=== PATIENT | male | born 1970 | race Caucasian/White ===

== ENCOUNTER → 2016-09-02 | Outpatient (REF) | payer MEDICARE, MEDICAID ==
[~2016-09-02] MED LIST: /CLON1TA; /DIALVITA; ACET65TA; AMLO10TA; AUGMENTIN PO; CATA0.1T; CEFT500T; EPOGEN; LISI20TA5; LOPR100T; LOPR50TA; LOPR50TA OR; METOPROLOL TARTRATE; NORV5TAB; No Historical Meds; PHOSLO; PROCRIT3000 MG/ML; RENA800T; RENVELA; RENVELA PO; SENSIPAR; SEVELAMER CARBONATE; Sensipar; VICO5TAB OR; XANA0.25 OR; lisinopril; metoprolol tartrate; norvasc; zemplar
[2016-09-02 19:48] LABS: BASO % 0.6 % (0.0-1.0); EOS # 0.2 K/mm3 (0.0-0.50); EOS % 2.6 % (0.0-3.0); LARGE UNSTAINED CELL # 0.2 K/mm3 (0.0-0.4); LARGE UNSTAINED CELL % 1.8 % (0.0-4.0); LYMPH # 0.8 K/mm3 (1.5-4.5); LYMPH % 9.1 % (24.0-44.0); MEAN CORPUSCULAR HEMOGLOBIN 30.1 pg (27.0-33.0); MEAN CORPUSCULAR HGB CONC 33.5 g/dl (32.0-36.5); MONO # 0.6 K/mm3 (0.0-0.8); MONO % 7.1 % (0.0-5.0); NEUTROPHILS # 6.8 K/mm3 (1.8-7.7); NEUTROPHILS % 78.8 % (36.0-66.0); PLATELET COUNT, AUTOMATED 178 k/mm3 (150-450); RED CELL DISTRIBUTION WIDTH 14.9 % (11.5-14.5); WHITE BLOOD COUNT 8.6 K/mm3 (4.0-10.0)
== END | disposition home or self-care (01) ==
LOC: M SFHCADAM 11:39
PROVIDERS: ATTEND Family Medicine
DX: R05 Cough (principal)

== ENCOUNTER → 2016-09-07 | Outpatient (CLI) | payer MEDICARE, MEDICAID ==
--- NOTE | 2016-09-07 09:49 | REP ---
CT study of the chest without IV contrast: History: Cough and wheezing. Comparison chest x-ray is from August 18, 2016. No comparison chest CT. The patient gives a history of renal failure on dialysis. CT findings: Digital preliminary video clerk radiograph is unremarkable. The lung portillo show no evidence of infiltrate, mass lesion or significant pulmonary nodule. The tracheobronchial tree is unremarkable. There is a calcified granuloma in the left lower lobe lateral pleural angle. There is vascular calcification in the aortic arch and great vessel origins as well as in the left and right coronary artery distribution. Marked atrophy of both [place] kidneys is seen in the upper abdomen. The gallbladder is surgically absent with clips in the gallbladder fossa. No adrenal lesion is seen. The visualized upper abdominal structures are unremarkable otherwise. No pleural or pericardial effusion is seen. There are scattered normal sized mediastinal lymph nodes, n o adenopathy seen. Bone window settings show no bony destructive lesion. Mild bilateral gynecomastia is noted incidentally. Impression: Coronary artery vascular calcification. Granulomatous calcification left lower lobe. No active cardiopulmonary disease seen. Signed by Blayne Guillermo MD 09/07/2016 10:24 A
== END | disposition home or self-care (01) ==
LOC: M RAD 09:04
PROVIDERS: ATTEND Family Medicine
DX: I25.10 Atherosclerotic heart disease of native coronary artery without angina pectoris (principal)

== ENCOUNTER → 2016-09-15 | Outpatient (REF) | payer MEDICARE, MEDICAID | END | disposition home or self-care (01) | LOC: M LAB REF 09:17 | PROVIDERS: ATTEND Family Medicine | DX: R05 Cough (principal) ==

== ENCOUNTER → 2016-10-17 | Outpatient (REF) | payer MEDICARE, MEDICAID | LOC: M LAB REF 11:34 | PROVIDERS: ATTEND Internal Medicine Medical Oncology | DX: D75.1 Secondary polycythemia (principal) ==

== ENCOUNTER 2016-12-10 16:47 | Emergency (ER) | payer MEDICARE, MEDICAID ==
[~2016-12-10] VITALS: Ht 180.3 cm; Wt 111.1 kg
[2016-12-10] MEDS ORDERED: SODIUM CHLORIDE 0.9% 1000 ML IV ONE (18:00)
[2016-12-10 18:07] LABS: BASO % 0.1 % (0.0-1.0); EOS % 0.2 % (0.0-3.0); LARGE UNSTAINED CELL # 0.2 K/mm3 (0.0-0.4); LARGE UNSTAINED CELL % 2.1 % (0.0-4.0); LYMPH # 0.6 K/mm3 (1.5-4.5); LYMPH % 6.9 % (24.0-44.0); MEAN CORPUSCULAR HEMOGLOBIN 30.2 pg (27.0-33.0); MEAN CORPUSCULAR HGB CONC 33.5 g/dl (32.0-36.5); MEAN CORPUSCULAR VOLUME 89.9 fl (80.0-96.0); MONO # 0.6 K/mm3 (0.0-0.8); MONO % 7.4 % (0.0-5.0); NEUTROPHILS # 7.2 K/mm3 (1.8-7.7); NEUTROPHILS % 83.4 % (36.0-66.0); PLATELET COUNT, AUTOMATED 171 k/mm3 (150-450); RED CELL DISTRIBUTION WIDTH 14.6 % (11.5-14.5); WHITE BLOOD COUNT 8.6 K/mm3 (4.0-10.0)
[2016-12-10 18:10] LABS: INR 1.09
[2016-12-10 18:25] LABS: ALBUMIN 3.1 GM/DL (3.2-5.2); ALBUMIN/GLOBULIN RATIO 0.91 (1.00-1.93); BILIRUBIN,DIRECT 0.4 MG/DL (0.0-0.2); BILIRUBIN,TOTAL 1.5 MG/DL (0.2-1.0); CALCIUM LEVEL 9.4 MG/DL (8.5-10.1); CREATININE FOR GFR 2.54 MG/DL (0.70-1.30); GLOMERULAR FILTRATION RATE 29.5 (>60); POTASSIUM SERUM 3.9 MEQ/L (3.5-5.1); TOTAL PROTEIN 6.5 GM/DL (6.4-8.2)
[2016-12-10 18:34] LABS: ERYTHROCYTE SEDIMENTATION RATE 3 mm/hr (0-15)
[2016-12-10 18:37] LABS: YEAST LIKE CELL URINE AUTO LARGE
[2016-12-10] MEDS ORDERED: amLODIPine 5 MG TAB PO ONE (20:45)
[2016-12-10] MEDS ORDERED: MYCOPHENOLATE MOFETIL 250 MG CAP (J7517) PO SCH (21:00)
[2016-12-10] MEDS ORDERED: TACROLIMUS 1 MG CAP (J7507) PO SCH (21:00)
--- NOTE | 2016-12-10 21:00 | REPUSA ---
Clinical history: Pain, swelling. Findings: The common femoral, superficial femoral, popliteal, and other deep venous structures compre ss normally and demonstrate normal color Doppler flow. Normal venous waveforms with augmentation are seen. Impression: No evidence of deep vein thrombosis in either femoral popliteal venous system.
[2016-12-10] MEDS ORDERED: TACRPOW XX (21:50)
[2016-12-10] MEDS ORDERED: MYCO1TAB PO (21:50)
[2016-12-10] MEDS ORDERED: cloNIDine 0.2 MG TAB PO ONE (23:45)
[2016-12-11 01:15] VITALS: BP 154/80
--- NOTE | 2016-12-11 08:13 | REP ---
Portable chest, single AP view, patient sitting: Comparison 02/22/2010. The lung portillo are clear. The cardiac size is normal. The shalini, mediastinum, and bony thorax are unremarkable. Impression: Negative portable chest. Signed by Garrett Murguia MD 12/11/2016 08:05 A
--- NOTE | 2016-12-11 20:32 | ECGEPIP ---
Stationary ECG Study [facility] - ED Test Date: 2016-12-10 Pat Name: OPAL LACEY Department: Room: - Gender: M Clinical Research Spec: rn : 1970 Requested By: oLre Suarez Order Number: [id number] Reading MD: Lore Suarez Measurements Intervals [place] Rate: 99 P: 19 [place]: 165 QRS: -6 QRSD: 83 T: 72 QT: 331 QTc: 426 Interpretive Statements SINUS RHYTHM POSSIBLE LEFT ATRIAL ENLARGEMENT LEFT VENTRICULAR HYPERTROPHY AND ST-T CHANGE VS ISCHEMIA ANTERIOR/SEPTAL ST CHANGES REQUIRE CLINICAL CORRELATION NO PRIOR FOR COMAPRISON Electronically Signed On 12-11-2016 20:31:53 EDT by Lore Suarez
--- NOTE | 2016-12-11 20:32 | ECGEPIP ---
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
--- NOTE | 2016-12-11 20:35 | ECGEPIP ---
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
== END 2016-12-11 01:20 | disposition short-term general hospital (02) ==
LOC: M ED 17:31
DX: R07.89 Other chest pain (principal); R31.9 Hematuria, unspecified; T86.19 Other complication of kidney transplant; R94.31 Abnormal electrocardiogram [ECG] [EKG]; I12.0 Hypertensive chronic kidney disease with stage 5 chronic kidney disease or end stage renal disease; I50.9 Heart failure, unspecified; N18.6 End stage renal disease; Z94.0 Kidney transplant status; Z88.1 Allergy status to other antibiotic agents; Z79.899 Other long term (current) drug therapy
CPT/HCPCS: 71010; 80048; 80076; 81001; 82550; 82553; 83880; 84443; 84484; 85025; 85379; 85610; 85652; 87040; 87086; 93005; 93041; 93970; 94760; 99285; J7507; J7517

== ENCOUNTER → 2017-02-08 | Outpatient (REF) | payer MEDICARE, MEDICAID ==
[~2017-02-08] MED LIST changes: +MYCO1TAB PO; +TACRPOW XX
== END ==
LOC: M LAB REF 09:48
PROVIDERS: ATTEND Physician Assistant
DX: J02.9 Acute pharyngitis, unspecified (principal)

== ENCOUNTER → 2017-03-14 | Outpatient (REF) ==
[~2017-03-14] MED LIST changes: +DOXY100C37 PO; +LISI-538 PO; +MOVA1TAB PO
--- NOTE | 2017-03-14 14:53 | REP ---
Lumbar spine three views: Comparison is 05/30/2011. Vertebral body heights, interspacing alignment are normal except for mild degenerative disc disease at L2-3 as an interval change. There is no spondylolysis or spondylolisthesis. The pedicles, facets and sacroiliac articulations are unremarkable. Impression: Mild degenerative disc disease at L2-3. Otherwise, negative lumbar spine. Signed by Garrett Murguia MD 03/14/2017 02:45 P
--- NOTE | 2017-03-14 14:59 | REP ---
Left shoulder three views: There are no comparisons. Mineralization joint spaces are normal. No calcifications or foreign bodies. There is no fracture or dislocation. Impression: Negative plain film study of the left shoulder. Signed by Garrett Murguia MD 03/14/2017 02:51 P
== END ==
LOC: M SMT 14:22
PROVIDERS: ATTEND Internal Medicine
DX: Z02.71 Encounter for disability determination (principal)

== ENCOUNTER 2017-05-04 09:18 | Emergency (ER) | payer MEDICARE, MEDICAID ==
[~2017-05-04] VITALS: Ht 180.3 cm; Wt 115.9 kg
[2017-05-04 09:18] VITALS: BP 145/87
[~2017-05-04 09:18] MED LIST changes: -DOXY100C37 PO; -LISI-538 PO; -MOVA1TAB PO
[2017-05-04] MEDS ORDERED: MOVA1TAB PO (09:29)
[2017-05-04] MEDS ORDERED: LISI-538 PO (09:30)
[2017-05-04] MEDS ORDERED: DOXY100C37 PO (09:46)
== END 2017-05-04 09:58 | disposition home or self-care (01) ==
LOC: M ED 09:18
DX: S51.801A Unspecified open wound of right forearm, initial encounter (principal); X58.XXXA Exposure to other specified factors, initial encounter; Y92.89 Other specified places as the place of occurrence of the external cause; Y93.89 Activity, other specified; Y99.8 Other external cause status; I50.9 Heart failure, unspecified; I11.0 Hypertensive heart disease with heart failure; Z79.899 Other long term (current) drug therapy; Z88.5 Allergy status to narcotic agent; Z88.1 Allergy status to other antibiotic agents; Z94.0 Kidney transplant status; Z98.890 Other specified postprocedural states; Z87.09 Personal history of other diseases of the respiratory system

== ENCOUNTER → 2017-08-03 | Outpatient (CLI) | payer MEDICARE, MEDICAID ==
[~2017-08-03] MED LIST changes: +DOXY100C37 PO; +LISI-538 PO; +MOVA1TAB PO
--- NOTE | 2017-08-03 13:05 | REP ---
Cervical spine seven views: Comparison is 05/30/2011. On the lateral views, C1-C6 are demonstrated. C7 and T1 are obscured by the shoulders. Vertebral body heights, interspacing alignment of the visible vertebral bodies is normal. The facets are normally aligned. Prevertebral soft tissues are normal. There is no listhesis on flexion or extension. There is no bony foraminal encroachment. The odontoid view is unremarkable. Impression: Negative plain film study of the cervical spine C1-C6. C7 and T1 are obscured by the shoulders. The patient should return for additional views demonstrating C7-T1. If his is cannot be accomplished , CT should be performed to evaluate this level or consider MRI. Signed by Garrett Murguia MD 08/03/2017 12:56 P
== END ==
LOC: M ADAMS 11:02
PROVIDERS: ATTEND Family Medicine
DX: M54.2 Cervicalgia (principal)

== ENCOUNTER 2017-08-11 06:38 | Emergency (ER) | payer MEDICARE, MEDICAID ==
[~2017-08-11] VITALS: Ht 180.3 cm; Wt 118.2 kg
[2017-08-11] MEDS ORDERED: ALBUTEROL SULFATE 2.5 MG/0.5 ML INH NEB SOLN NEB ONE (08:00)
--- NOTE | 2017-08-11 08:14 | REP ---
Clinical: Cough . Comparison: 12/10/2016 . Technique: PA and lateral. Findings: The mediastinum and cardiac silhouette are normal. Subtle increased perihilar markings cannot be excluded and may reflect a bronchitis or viral pneumonia. The lung portillo are otherwise clear and without acute consolidation, effusion, or pneumothorax. The skeletal structures are intact and normal. Impression: 1. Subtle increased perihilar and right infrahilar markings may reflect bronchitis or a viral pneumonia. Follow-up examination is recommended and if the patient remains symptomatic chest CT may be warranted. Signed by Refugio Small MD 08/11/2017 08:06 A
[2017-08-11] MEDS ORDERED: CETI10TA PO (08:55)
[2017-08-11] MEDS ORDERED: TESS100C PO (08:56)
[2017-08-11 09:21] VITALS: BP 194/101
--- NOTE | 2017-08-11 15:00 | ECGEPIP ---
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
--- NOTE | 2017-08-12 17:44 | ED PDOC ---
Post-Departure Follow-Up dr august faxed formal report of cxr for fu Collette Junior MD Aug 12, 2017 17:44
== END 2017-08-11 09:35 | disposition home or self-care (01) ==
LOC: M ED 06:38
DX: R05 Cough (principal); I10 Essential (primary) hypertension; N19 Unspecified kidney failure; R60.0 Localized edema; R91.8 Other nonspecific abnormal finding of lung field; Z79.899 Other long term (current) drug therapy; Z94.0 Kidney transplant status; Z98.890 Other specified postprocedural states; Z88.5 Allergy status to narcotic agent; Z88.1 Allergy status to other antibiotic agents

== ENCOUNTER → 2017-11-29 | Outpatient (REF) | payer MEDICARE, MEDICAID | LOC: M SFHCADAM 12:42 | DX: J18.1 Lobar pneumonia, unspecified organism (principal) | CPT/HCPCS: 87205 ==

== ENCOUNTER → 2018-01-04 | Outpatient (REF) | payer MEDICARE, MEDICAID ==
[2018-01-07 08:06] LABS: FK 506 (TACROLIMUS) LABCORP 6.9 ng/mL (2.0-20.0)
== END ==
LOC: M LAB REF 13:22
DX: Z48.22 Encounter for aftercare following kidney transplant (principal)
CPT/HCPCS: 80197

== ENCOUNTER → 2018-01-08 | Outpatient (CLI) | payer MEDICARE, MEDICAID ==
[~2018-01-08] MED LIST changes: -/CLON1TA; -/DIALVITA; -ACET65TA; -AMLO10TA; -AUGMENTIN PO; -CATA0.1T; -CEFT500T; -DOXY100C37 PO; -EPOGEN; -LISI-538 PO; -LISI20TA5; -LOPR100T; -LOPR50TA; -LOPR50TA OR; +METHACHOLINE KIT (J7674) INH; -METOPROLOL TARTRATE; -MOVA1TAB PO; -MYCO1TAB PO; -NORV5TAB; -No Historical Meds; -PHOSLO; -PROCRIT3000 MG/ML; -RENA800T; -RENVELA; -RENVELA PO; -SENSIPAR; -SEVELAMER CARBONATE; -Sensipar; -TACRPOW XX; -VICO5TAB OR; -XANA0.25 OR; -lisinopril; -metoprolol tartrate; -norvasc; -zemplar
== END ==
LOC: M CARPUL 10:30
DX: R06.00 Dyspnea, unspecified (principal)
CPT/HCPCS: J7674

== ENCOUNTER → 2018-01-17 | Outpatient (CLI) | payer MEDICARE, MEDICAID | LOC: M RAD 12:03 | DX: Z48.22 Encounter for aftercare following kidney transplant (principal); N18.4 Chronic kidney disease, stage 4 (severe); N28.1 Cyst of kidney, acquired | CPT/HCPCS: 76776 ==

== ENCOUNTER → 2018-03-14 | Outpatient (REF) | payer MEDICARE, MEDICAID ==
[2018-03-14 17:17] LABS: PSA SCREENING 0.72 NG/ML (< 4.0)
== END ==
LOC: M SFHCADAM 15:03
DX: N40.0 Benign prostatic hyperplasia without lower urinary tract symptoms (principal)
CPT/HCPCS: 84153

== ENCOUNTER → 2018-03-27 | Outpatient (REF) | payer MEDICARE, MEDICAID ==
[2018-03-30 08:24] LABS: FK 506 (TACROLIMUS) LABCORP 8.1 ng/mL (2.0-20.0)
== END ==
LOC: M LAB REF 13:00
DX: Z48.22 Encounter for aftercare following kidney transplant (principal)
CPT/HCPCS: 80197

== ENCOUNTER 2018-04-10 19:52 | Emergency (ER) | payer MEDICARE, MEDICAID ==
[2018-04-10] MEDS: AMOXICILLIN 500 MG CAP PO (20:42)
== END 2018-04-10 20:47 | disposition home or self-care (01) ==
LOC: M ED 19:52
DX: J06.9 Acute upper respiratory infection, unspecified (principal); B34.9 Viral infection, unspecified; I11.0 Hypertensive heart disease with heart failure; I50.9 Heart failure, unspecified; I25.10 Atherosclerotic heart disease of native coronary artery without angina pectoris; N18.6 End stage renal disease; Z94.0 Kidney transplant status; Z79.899 Other long term (current) drug therapy; Z88.5 Allergy status to narcotic agent; Z88.8 Allergy status to other drugs, medicaments and biological substances
CPT/HCPCS: 87880

== ENCOUNTER → 2018-05-06 | Outpatient (REF) | payer MEDICARE, MEDICAID ==
[2018-05-09 08:06] LABS: FK 506 (TACROLIMUS) LABCORP 4.2 ng/mL (2.0-20.0)
== END ==
LOC: M LAB REF 13:33
DX: Z48.22 Encounter for aftercare following kidney transplant (principal)
CPT/HCPCS: 80197

== ENCOUNTER → 2018-05-07 | Outpatient (CLI) | payer MEDICARE, MEDICAID | LOC: M PAIN 11:15 | DX: M25.50 Pain in unspecified joint (principal); M54.5 Low back pain; G89.29 Other chronic pain; I10 Essential (primary) hypertension; Z79.899 Other long term (current) drug therapy; Z88.8 Allergy status to other drugs, medicaments and biological substances; Z87.448 Personal history of other diseases of urinary system; Z94.0 Kidney transplant status | CPT/HCPCS: G0463 ==

== ENCOUNTER → 2018-05-09 | Outpatient (CLI) | payer MEDICARE, MEDICAID | LOC: M ADAMS 09:56 | DX: J06.9 Acute upper respiratory infection, unspecified (principal); R91.8 Other nonspecific abnormal finding of lung field | CPT/HCPCS: 71046 ==

== ENCOUNTER → 2018-06-05 | Outpatient (CLI) | payer MEDICARE, MEDICAID | LOC: M PAIN 10:45 | DX: M25.50 Pain in unspecified joint (principal); Z79.891 Long term (current) use of opiate analgesic; I10 Essential (primary) hypertension; Z94.0 Kidney transplant status; Z79.899 Other long term (current) drug therapy; Z88.8 Allergy status to other drugs, medicaments and biological substances; Z88.1 Allergy status to other antibiotic agents | CPT/HCPCS: G0463 ==

== ENCOUNTER → 2018-06-10 | Outpatient (CLI) | payer MEDICARE, MEDICAID | LOC: M ADAMS 11:31 | DX: R07.9 Chest pain, unspecified (principal) | CPT/HCPCS: 71046 ==

== ENCOUNTER → 2018-06-24 | Outpatient (REF) | payer MEDICARE, MEDICAID ==
[2018-06-24 15:00] LABS: HEPATITIS B CORE ANTIBODY IGM NEGATIVE (NEGATIVE); HEPATITIS B SURFACE ANTIBODY POSITIVE (POSITIVE); HEPATITIS B SURFACE ANTIGEN NEGATIVE (NEGATIVE)
[2018-06-28 00:07] LABS: FK 506 (TACROLIMUS) LABCORP 2.8 ng/mL (2.0-20.0)
== END ==
LOC: M LABDRAW1 13:41
DX: Z48.22 Encounter for aftercare following kidney transplant (principal)
CPT/HCPCS: 86706

== ENCOUNTER → 2018-07-02 | Outpatient (REF) | payer MEDICARE, MEDICAID ==
[2018-07-02 13:54] LABS: INR 0.96; PROTHROMBIN TIME 12.9 SECONDS (12.1-14.4)
[2018-07-03 10:51] LABS: HEPATITIS B CORE ANTIBODY IGM NEGATIVE (NEGATIVE); HEPATITIS B SURFACE ANTIBODY POSITIVE (POSITIVE); HEPATITIS B SURFACE ANTIGEN NEGATIVE (NEGATIVE); HEPATITIS C VIRUS ABY INDEX 0.1 INDEX (<0.8)
== END ==
LOC: M LAB REF 13:18
DX: N18.6 End stage renal disease (principal); Z48.22 Encounter for aftercare following kidney transplant; R31.9 Hematuria, unspecified
CPT/HCPCS: 86706

== ENCOUNTER → 2018-07-05 | Outpatient (CLI) | payer MEDICARE, MEDICAID ==
[~2018-07-05] MED LIST changes: +HEPARIN 1,000 UNITS/ML 10ML VIAL (FOR RADIOLOGY& DIALYSIS ONLY) As Ordered; +LIDOCAINE 2% MDV 20 ML VIAL As Ordered; -METHACHOLINE KIT (J7674) INH; +MIDAZOLAM INJ 2 MG/2 ML VIAL (J2250) As Ordered; +fentaNYL 100 MCG/2 ML INJECTION (J3010) As Ordered
== END | disposition home or self-care (01) ==
LOC: M IRPRO 07:00
DX: N18.6 End stage renal disease (principal); N17.9 Acute kidney failure, unspecified
CPT/HCPCS: 36558

== ENCOUNTER → 2018-07-08 | Outpatient (CLI) | payer MEDICARE, MEDICAID | LOC: M RAD 12:55 | DX: R06.00 Dyspnea, unspecified (principal); I70.0 Atherosclerosis of aorta; I25.10 Atherosclerotic heart disease of native coronary artery without angina pectoris | CPT/HCPCS: 71250 ==

== ENCOUNTER → 2018-07-10 | Outpatient (CLI) | payer MEDICARE, MEDICAID | LOC: M RAD 09:56 | DX: N18.6 End stage renal disease (principal) ==

== ENCOUNTER 2018-07-16 11:55 | Day surgery (SDC) | payer MEDICARE, MEDICAID ==
[2018-07-16] MEDS ORDERED: PROPOFOL 200 MG/20 ML VIAL As Ordered (13:01)
[2018-07-16] MEDS ORDERED: LIDOCAINE 2% INJ 100 MG/5 ML SDV (FOR ANES.) As Ordered (13:01)
[2018-07-16] MEDS ORDERED: fentaNYL 100 MCG/2 ML INJECTION (J3010) As Ordered ×2 (13:02→16:15)
[2018-07-16] MEDS ORDERED: MIDAZOLAM INJ 2 MG/2 ML VIAL (J2250) As Ordered ×2 (13:02→14:24)
[2018-07-16] MEDS ORDERED: ONDANSETRON 4MG/2ML VIAL (J2405) As Ordered (13:02)
[2018-07-16 13:09] LABS: POTASSIUM SERUM 3.9 MEQ/L (3.5-5.1)
[2018-07-16] MEDS ORDERED: ROCURONIUM BROMIDE 50 MG/5 ML VIAL As Ordered (14:56)
[2018-07-16] MEDS: LIDOCAINE 1% SDV INJ 30 ML VIAL As Ordered (15:13)
[2018-07-16] MEDS: BUPIVACAINE HCL 0.5% 30 ML VIAL As Ordered (15:13)
[2018-07-16] MEDS ORDERED: NEOSTIGMINE 10 MG/10 ML VIAL (J2710) As Ordered (15:21)
[2018-07-16] MEDS ORDERED: GLYCOPYRROLATE INJ 0.2 MG/ML 2 ML VIAL As Ordered ×3 (15:21)
[2018-07-16] MEDS ORDERED: dexameTHASONE 4 MG/ML 1ML VIAL (J1100) As Ordered ×2 (15:25)
[2018-07-16] MEDS ORDERED: PERCOCET 5MG/325MG TAB As Ordered (16:01)
[2018-07-16] MEDS: PERCOCET 5MG/325MG TAB PO ×2 (16:05→16:39)
[2018-07-16] MEDS: fentaNYL 100 MCG/2 ML INJECTION (J3010) IV (16:15)
[2018-07-16] MEDS ORDERED: LR 1,000 ML IV (16:45)
[2018-07-16] MEDS ORDERED: ONDANSETRON 4MG/2ML VIAL (J2405) IV (16:45)
== END 2018-07-16 19:20 | disposition home or self-care (01) ==
LOC: M SDC 11:55
DX: N18.6 End stage renal disease (principal); Z99.2 Dependence on renal dialysis
CPT/HCPCS: 49324

== ENCOUNTER 2018-08-07 23:07 | Inpatient (IN) | payer MEDICARE, MEDICAID ==
[~2018-08-07] VITALS: Ht 180.3 cm; Wt 108.1 kg
[~2018-08-07 23:07] MED LIST changes: +/CLON1TA; +/DIALVITA; +ACET65TA; +ALPR1TAB3 PO; +AMLO10TA; +AMLO10TA5 PO; +AMOX500C PO; +AUGMENTIN PO; +AVEL1TAB3 PO; +CALC1CAP31 PO; +CATA0.1T; +CEFT500T; +CELL250C PO; +CETI10TA PO; +DOXY100C37 PO; +EPOGEN; +FLON1SPR; -HEPARIN 1,000 UNITS/ML 10ML VIAL (FOR RADIOLOGY& DIALYSIS ONLY) As Ordered; +HYDR-3910 PO; -LIDOCAINE 2% MDV 20 ML VIAL As Ordered; +LISI-538 PO; +LISI10TA4 PO; +LISI20TA5; +LOPR100T; +LOPR50TA; +LOPR50TA OR; +MAGN400T2 PO; +METO1TAB32; +METO1TAB32 PO; +METOPROLOL TARTRATE; -MIDAZOLAM INJ 2 MG/2 ML VIAL (J2250) As Ordered; +MOVA1TAB PO; +MYCO1TAB PO; +NORC10TA21 PO; +NORV5TAB; +No Historical Meds; +PHOSLO; +PROCRIT3000 MG/ML; +RENA800T; +RENVELA; +RENVELA PO; +SENS60TA PO; +SENSIPAR; +SEVELAMER CARBONATE; +Sensipar; +TACR1CAP3 PO; +TACRPOW XX; +TESS100C PO; +VICO5TAB OR; +VITACHTA PO; +XANA0.25 OR; +ZOLP10TA2; +ZOLP10TA2 PO; -fentaNYL 100 MCG/2 ML INJECTION (J3010) As Ordered; +lisinopril; +metoprolol tartrate; +norvasc; +zemplar
[2018-08-08] LABS: BASO % 0.3 % (0.0-1.0); EOS # 0.2 10^3/uL (0.0-0.50); HEMATOCRIT 40.8 % (42.0-52.0); HEMOGLOBIN 12.8 g/dl (13.5-17.5); LYMPH # 0.8 10^3/uL (1.5-4.5); LYMPH % 10.2 % (24.0-44.0); MEAN CORPUSCULAR HEMOGLOBIN 28.6 pg (27.0-33.0); MEAN CORPUSCULAR HGB CONC 31.4 g/dl (32.0-36.5); MEAN CORPUSCULAR VOLUME 91.3 fl (80.0-96.0); MONO # 0.7 10^3/uL (0.0-0.8); MONO % 9.5 % (0.0-5.0); NEUTROPHILS % 77.6 % (36.0-66.0); PLATELET COUNT, AUTOMATED 180 10^3/uL (150-450); RED BLOOD COUNT 4.47 10^6/uL (4.30-6.10); WHITE BLOOD COUNT 7.7 10^3/uL (4.0-10.0)
[2018-08-08 00:42] LABS: ALBUMIN 2.6 GM/DL (3.2-5.2); BILIRUBIN,DIRECT 0.1 MG/DL (0.0-0.2); BILIRUBIN,TOTAL 0.3 MG/DL (0.2-1.0); CALCIUM LEVEL 8.4 MG/DL (8.5-10.1); CREATININE FOR GFR 10.1 MG/DL (0.70-1.30); GLOMERULAR FILTRATION RATE 5.9 (>60); POTASSIUM SERUM 4.5 MEQ/L (3.5-5.1); TOTAL PROTEIN 6.6 GM/DL (6.4-8.2)
[2018-08-08] MEDS ORDERED: MORPHINE 2 MG/ML 1ML SYRINGE (J2270) IV ONE (00:45)
[2018-08-08] MEDS ORDERED: GASTROGRAFIN SOLUTION 30ML PO SCH (00:55)
[2018-08-08] MEDS ORDERED: hydrALAZINE INJ 20 MG/ML VIAL IV ONE (01:15)
[2018-08-08] MEDS: GASTROGRAFIN SOLUTION 30ML (Q9963) PO SCH ×3 (01:24→02:52)
[2018-08-08] MEDS ORDERED: METOCLOPRAMIDE INJ 10MG/2ML VIAL (J2765) IV ONE (01:45)
[2018-08-08] MEDS ORDERED: hydrALAZINE INJ 20 MG/ML VIAL IV STA (03:20)
[2018-08-08] MEDS ORDERED: HALOPERIDOL 5 MG/ML VIAL (J1630) IV STA (03:39)
[2018-08-08] MEDS ORDERED: diphenhydrAMINE INJ 50MG/ML VIAL (J1200) IV STA (03:39)
--- NOTE | 2018-08-08 04:27 | REPVR ---
EXAM: CT Abdomen and Pelvis Without Contrast EXAM DATE/TIME: 08/08/2018 12:42 AM CLINICAL HISTORY: 48 years old, male; Pain; Abdominal pain; Generalized; Prior surgery; Surgery date: 6+ months; Surgery type: Renal transplant; Additional info: Pain/eval for obstruct TECHNIQUE: Axial computed tomography images of the abdomen and pelvis without contrast. All CT scans at this facility use at least one of these dose optimization techniques: automated exposure control; mA and/or kV adjustment per patient size (includes targeted exams where dose is matched to clinical indication); or iterative reconstruction. Coronal and sagittal reformatted images were created and reviewed. COMPARISON: CT ABD PELVIS W/O CONTRAST 04/24/2018 10:26 PM FINDINGS: Limitations: Ring artifact is present. Tubes, catheters and devices: There is a Tenckhoff catheter in the pelvis. Lower thorax: There is minimal, nonspecific dependent density in the lung bases. There is a trace of pericardial fluid. ABDOMEN: Liver: There are no focal liver lesions present. Gallbladder and bile ducts: There has been a cholecystectomy. There is no biliary ductal dilation. Pancreas: The pancreas is normal with no ductal dilation. Spleen: The spleen is normal. Adrenals: The adrenal glands are normal. Kidneys and ureters: There is severe diffuse thinning of the bilateral [place] renal parenchyma, indicating atrophy. The transplanted kidney is again seen in the right pelvis. There is a 3.2 cm cyst in the upper pole of the transplanted kidney, unchanged. There is a 1.4 cm cyst in the midpole. There is no hydronephrosis or significant perinephric stranding around the transplanted kidney. Stomach and bowel: The small bowel appears unremarkable. There is diverticulosis of the sigmoid colon. No significant bowel wall thickening is appreciated. The stranding in the midline of the pelvis is in the region of the sigmoid colon. See Intraperitoneal Space below. Appendix: A normal appendix is identified. PELVIS: Bladder: The bladder is unremarkable. Reproductive: The prostate gland and seminal vesicles are normal. ABDOMEN and PELVIS: Intraperitoneal space: There is stranding in the pelvis in the midline and right anterior pelvis, which seems to be associated with the Tenckhoff catheter. There is only a trace of free fluid in the pelvis. There is no free intraperitoneal air. Bones/joints: No suspicious osseous lesions. No acute fractures or dislocations. Soft tissues: Unremarkable. Vasculature: The vasculature demonstrates diffuse moderate atherosclerotic calcification. Lymph nodes: Normal. No enlarged lymph nodes. IMPRESSION: 1. No significant change in the appearance of the transplanted kidney. No hydronephrosis. 2. Stranding in the pelvis, but it does not appear to be centered at the transplanted kidney. Rather, it seems to be more closely associated with the Tenckhoff catheter and is also in the region of the sigmoid colon, where there are multiple diverticula. The stranding may be due to inflammation related to the catheter or to diverticulitis. Electronically signed by: Jackie Matta On 08/08/2018 04:27:01 AM
[2018-08-08] MEDS ORDERED: MORPHINE 4 MG/ML 1ML VIAL/SYRINGE (J2270) IV ONE (05:00)
[2018-08-08] MEDS ORDERED: NS 1,000 ML IV SCH (05:21)
[2018-08-08] MEDS ORDERED: METOCLOPRAMIDE INJ 10MG/2ML VIAL (J2765) IV PRN (05:30)
[2018-08-08] MEDS ORDERED: ACETAMINOPHEN TAB 650MG DOSE (2X325MG) PO PRN (05:30)
[2018-08-08] MEDS ORDERED: ALBU83IN INH (05:39)
[2018-08-08] MEDS ORDERED: VITA50005 PO (05:39)
[2018-08-08] MEDS ORDERED: VENTAER INH (05:39)
[2018-08-08] MEDS ORDERED: ALBUTEROL 90 MCG/ACT 8GM HFA INHALER INH PRN (05:45)
--- NOTE | 2018-08-08 05:53 | HPEPDOC ---
[facility] Medical History & Physical Date of Admission Aug 08, 2018 Attending Physician: Fabian Pedraza MD History and Physical CHIEF COMPLAINT: [N/V, rectal pain] HISTORY OF PRESENT ILLNESS: [48 yr old male with past medical history of end- stage renal disease related to hypertension, was dialysis dependent for 7 years utilizing right arm fistula, Status post living unrelated kidney transplant, dyslipidemia, anxiety, asthma, chronic back pain who had recently had Tenckhoff catheter insertion and currently utilizing hemodialysis port on his chest coming in complaining of nausea and vomiting that started overnight. Patient also complained of rectal discomfort. Patient was evaluated in the emergency room and had a CT of the abdomen which showed inflammation related to the Tenckhoff catheter or to diverticulitis. Patient received multiple medication due to severe nausea in the emergency room. Patient received multiple hydralazine, morphine, Zofran, Reglan, and ultimately require Benadryl and Haldol to help with nausea in the emergency room. Patient also had a rectal examination by ER physician, guaiac negative per endorsement. Patient is resting comfortably with the medication without any complaints of nausea but more drowsy due to the medications. He does wake with multiple stimuli and answers questions but easily falls asleep. Patient is being admitted for further evaluation and treatment for diverticulitis versus inflammation due to Tenckhoff catheter. Review system: Unable to fully obtain patient denied of any diarrhea, fever, cough but felt that he had some constipation and rectal pain PAST SURGICAL HISTORY: 1. Right upper extremity fistula creation and status post ligation. 2. Cholecystectomy. 3. Kidney biopsy. 4. Transplant kidney [address] [facility]. 5. Tenckhoff catheter insertion FAMILY HISTORY: Per chart review Diabetes, heart disease, chronic obstructive pulmonary artery disease (COPD). SOCIAL HISTORY: Per chart review patient does not smoke, drink alcohol, or use drugs. Patient , disabled and temporarily at time was living in [place] ALLERGIES: Please see below. HOME MEDICATIONS: Please see below. PHYSICAL EXAMINATION: VITAL SIGNS: Please see below GENERAL APPEARANCE: Resting comfortably after receiving multiple medication for his nausea in the emergency room HEENT: Normocephalic, PERRLA, Mucous moist, CARDIOVASCULAR: S1,S2, pulse present, regularly, regular LUNGS: Equal air entry b/l, no wheezes or crackle ABDOMEN: Soft, BS present, right sided tenderness with palpation but no pain on the left GENITOURINARY: No Tim EXTREMITIES: B/L no edema, capillary refill present SKIN: Warm, No fever NEUROLOGICAL: Cranial nerves grossly intact PSYCHIATRIC: Patient resting without any nausea in the emergency room, wakes with tactile stimuli but easily falls asleep LABORATORY DATA: See below. IMAGING: [CT abdomen and pelvis: 1. No significant change in the appearance of the transplanted kidney. No hydronephrosis. 2. Stranding in the pelvis, but it does not appear to be centered at the transplanted kidney. Rather, it seems to be more closely associated with the Tenckhoff catheter and is also in the region of the sigmoid colon, where there are multiple diverticula. The stranding may be due to inflammation related to the catheter or to diverticulitis. ] MICROBIOLOGY: Please see below. Assessment and plan: 48 yr old male with past medical history of end-stage renal disease related to hypertension, was dialysis dependent for 7 years utilizing right arm fistula, Status post living unrelated kidney transplant, dyslipidemia, anxiety, asthma, chronic back pain who had recently had Tenckhoff catheter insertion and currently utilizing hemodialysis port on his chest coming in complaining of nausea and vomiting found to have inflammation in the sigmoid colon region possibly due to catheter or to diverticulitis. Inflammation near Tenckhoff catheter versus diverticulitis -Antiemetics -Empiric antibiotic of Azactam(patient allergic to cephalosporin) and Flagyl -Judicious IV fluid -Blood culture -Consult with surgery in a.m., defer to a.m. team -NPO for now End-stage renal disease -Consult nephrology Kidney transplant, dyslipidemia, anxiety, asthma, chronic back pain -Resume home Xanax, amlodipine, Sensipar, multivitamin, CellCept & tacrolimus (still on meds, if renal transplanted kidney still viable, defer cessation to am team and specialist), Brooten when no longer NPO -Home metoprolol stopped while using IV metoprolol, restart PO when no longer NPO DVT prophylaxis with heparin subcutaneous Vital Signs Vital Signs Date Time Temp Pulse Resp B/P (MAP) Pulse Ox O2 Delivery O2 Flow Rate FiO2 08/08/18 05:06 18 98 Room Air 08/08/18 05:06 134/71 (92) 08/08/18 05:04 90 08/07/18 23:07 98.4 Laboratory Data Labs 24H Laboratory Tests 2 12/19/18 23:32: Immature Granulocyte % (Auto) 0.4, White Blood Count 7.7, Red Blood Count 4.47, Hemoglobin 12.8L, Hematocrit 40.8L, Mean Corpuscular Volume 91.3, Mean Corpuscular Hemoglobin 28.6, Mean Corpuscular Hemoglobin Concent 31.4L, Red Cell Distribution Width 14.2, Platelet Count 180, Neutrophils (%) (Auto) 77.6H, Lymphocytes (%) (Auto) 10.2L, Monocytes (%) (Auto) 9.5H, Eosinophils (%) (Auto) 2.0, Basophils (%) (Auto) 0.3, Neutrophils # (Auto) 6.0, Lymphocytes # (Auto) 0.8L, Monocytes # (Auto) 0.7, Eosinophils # (Auto) 0.2, Basophils # (Auto) 0.0, Nucleated Red Blood Cells % (auto) 0.0, Anion Gap 12, Glomerular Filtration Rate 5.9L, Lactic Acid Level 0.2L, Calcium Level 8.4L, Aspartate Amino Transf (A ST/SGOT) 9, Alanine Aminotransferase (ALT/SGPT) 18, Alkaline Phosphatase 85, Total Bilirubin 0.3, Direct Bilirubin 0.1, Total Protein 6.6, Albumin 2.6L, Albumin/Globulin Ratio 0.65L, Lipase 273 08/08/18 01:06: Urine Color YELLOW, Urine Appearance CLEAR, Urine pH 7.0, Urine Specific [place] 1.010, Urine Protein 3+H, Urine Glucose (UA) 1+H, Urine Ketones NEGATIVE, Urine Blood 2+H, Urine Nitrite NEGATIVE, Urine Bilirubin NEGATIVE, Urine Urobilinogen 0.2, Urine Leukocyte Esterase NEGATIVE, Urine WBC (Auto) 2, Urine RBC (Auto) 29H, Urine Hyaline Casts (Auto) 0, Urine Bacteria (Auto) NEGATIVE, Urine Squamous Epithelial Cells 0, Urine Sperm (Auto) CBC/BMP Laboratory Tests 08/07/18 23:32 Red Blood Count 4.47, Mean Corpuscular Volume 91.3, Mean Corpuscular Hemoglobin 28.6, Mean Corpuscular Hemoglobin Concent 31.4 L, Red Cell Distribution Width 14.2, Neutrophils (%) (Auto) 77.6 H, Lymphocytes (%) (Auto) 10.2 L, Monocytes (%) (Auto) 9.5 H, Eosinophils (%) (Auto) 2.0, Basophils (%) (Auto) 0.3, Neutrophils # (Auto) 6.0, Lymphocytes # (Auto) 0.8 L, Monocytes # (Auto) 0.7, Eosinophils # (Auto) 0.2, Basophils # (Auto) 0.0 Home Medications Scheduled Amlodipine Besylate (Amlodipine Besylate) 10 Mg Tab, 10 MG PO DAILY Calcitriol (Calcitriol) 0.25 Mcg Cap, 0.25 MCG PO 3XW TAKES SUNDAY, SUNDAY AND SUNDAY AT DIALYSIS Cinacalcet Hydrochloride (Sensipar) 60 Mg Tab, 60 MG PO 3XW TAKES SUNDAY, SUNDAY AND SUNDAY AT DIALYSIS Ergocalciferol (Vitamin D) 50,000 Unit Cap, 50,000 UNIT PO 1XWK Metoprolol Succinate (Metoprolol Succinate ER) 25 Mg Tab, 25 MG PO DAILY Multivitamins Chewable *[facility] STOCKED* (Animal Shapes with C & FA *[facility] STOCKED*) 1 Tab Chew, 1 TAB PO DAILY Mycophenolate Mofetil (Cellcept) 250 Mg Cap, 750 MG PO BID Tacrolimus (Tacrolimus) 1 Mg Cap, 2 MG PO BID Scheduled PRN Acetaminophen/Hydrocodone ([place] 10-325 mg) 1 Tab Tab, 1 TAB PO Q6HP PRN for PAIN Albuterol Sulfate (Albuterol Sulfate) 2.5 Mg/3 Ml Nebu, 2.5 MG INH Q4H PRN for SHORTNESS OF BREATH Albuterol Sulfate (Ventolin Hfa) 108 Mcg/Act Aer, 2 PUFFS INH Q4H PRN for SHORTNESS OF BREATH Alprazolam (Alprazolam) 1 Mg Tab, 1 MG PO BID PRN for ANXIETY Allergies Coded Allergies: Cephalosporins (Verified Allergy, Unknown, CEFTIN, 04/24/18) Hydroxyzine (Verified Allergy, Unknown, increased lethargy, loss of balance, 07/15/18) Ketorolac Tromethamine (Verified Adverse Reaction, Mild, dizzy, nausea, 04/24/18) Tramadol (Verified Adverse Reaction, Mild, dizzy, 04/24/18) MERLINE HIGGINS MD Aug 08, 2018 05:53
[2018-08-08] MEDS: HEPARIN SOD (PORCINE) 5000 UNITS/ML VIAL SC SCH ×5 (06:00→22:29)
[2018-08-08] MEDS: metroNIDAZOLE 500 MG in APPROPRIATE DILUENT 1 EA IV SCH ×3 (06:55→22:27)
[2018-08-08] MEDS ORDERED: AZTREONAM 1 GM in D5W MINI-BAG PLUS 50 ML IV ONE (08:00)
[2018-08-08] MEDS: METOPROLOL 5 MG/5 ML VIAL IV SCH ×3 (08:25→22:41)
[2018-08-08] MEDS: MORPHINE 4 MG/ML 1ML VIAL/SYRINGE (J2270) IV PRN ×3 (09:27→22:27)
[2018-08-08] MEDS: ONDANSETRON 4MG/2ML VIAL (J2405) IV PRN ×2 (09:28→19:31)
--- NOTE | 2018-08-08 11:03 | IPNPDOC ---
Subjective Date Seen The patient was seen on 08/08/18. Subjective Chief Complaint/HPI Patient sleeping comfortably in bed as I entered the room. Patient reports to be feeling less nauseated. He reports continued lower abdominal/pelvic pain and rectal pain. Constitutional: Denies: Chills, Fever Pulmonary: Denies: Dyspnea, Cough Cardiovascular: Denies: Chest Pain, Palpitations, Orthopnea, Edema Gastrointestinal: Reports: Abdominal Pain; Denies: Nausea, Vomiting, Diarrhea, Constipation Genitourinary: Reports: Other Symptoms (He reports some urine output ); Denies: Dysuria Psych: Reports: Mood Normal Objective Physical Examination General Exam: Positive: Alert, Cooperative; Negative: No Acute Distress ENT Exam: Positive: Mucous membr. moist/pink Neck Exam: Positive: Supple; Negative: JVD Chest Exam: Positive: Clear to auscultation; Negative: Rales, Rhonchi, Wheezing Heart Exam: Positive: Rate Normal Abdomen Exam: Positive: Normal bowel sounds, Soft, Tenderness (bilateral lower quadrants, no guarding, no rebound tenderness. No tenderness noted around cath insertion site), Other (Peritoneal dialysis LUQ, no drainage noted, some mild erythema noted around insertion site, no warmth) Extremity Exam: Negative: Edema Skin Exam: Positive: Nl turgor and temperature; Negative: Rash Psych Exam: Positive: Mental status NL, Mood NL Assessment /Plan Problems (1) Abdominal pain Status: Acute Problem Text: 08/08/18: Abdominal pain persists. Patient's nausea has improved. Dr. Urrutia was consulted to evaluate for possible peritoneal catheter infection. He will contact dialysis unit to flush catheter and send fluid collection out for eval/culture and sensitivity CT scan: 1. No significant change in the appearance of the transplanted kidney. No hydronephrosis. 2. Stranding in the pelvis, but it does not appear to be centered at the transplanted kidney. Rather, it seems to be more closely associated with the Tenckhoff catheter and is also in the region of the sigmoid colon, where there are multiple diverticula. The stranding may be due to inflammation related to the catheter or to diverticulitis. (2) Diverticulitis of sigmoid colon Status: Acute Problem Text: 08/08/18: Patient was empirically started on IV Azactam (patient allergic to cephalosporin) and Flagyl (3) CKD (chronic kidney disease) requiring chronic dialysis Status: Chronic Problem Text: 08/08/18: Nephrology has been consulted. Patient just recently returned to dialysis about 2-3 weeks ago. He has been using JV tunneled catheter for dialysis. His peritoneal catheter has not been used yet. BUN/Cre 44/10.10, GFR 5.9. Patient is being rehydrated with NS at 50 mls. (4) Transplanted kidney Status: Chronic Problem Text: 08/08/18: S/P transplant right kidney with recent dialysis start. Patient remains on CellCept and Tacrolimus. Given his current infection, peritoneal cath infection vs diverticulitis, we may want to hold these medications. I will consult with attending and Nephrology Plan/VTE VTE Prophylaxis Ordered?: Yes (heparin ) Plan Family Medicine Attending Note: I saw and examined Mr. Rosen, discussed with Clarisse Adair DNP. Agree with her note as documented. We appreciate nephrology's assistance with this case. 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) VS, I&O, 24H, Fishbone Vital Signs/I&O Vital Signs Date Time Temp Pulse Resp B/P (MAP) Pulse Ox O2 Delivery O2 Flow Rate FiO2 08/08/18 09:45 74 99 08/08/18 09:27 18 08/08/18 08:45 151/82 (105) 08/08/18 06:39 97.5 Room Air Laboratory Data 24H LABS Laboratory Tests 2 08/07/18 23:32: Immature Granulocyte % (Auto) 0.4, White Blood Count 7.7, Red Blood Count 4.47, Hemoglobin 12.8L, Hematocrit 40.8L, Mean Corpuscular Volume 91.3, Mean Corpuscular Hemoglobin 28.6, Mean Corpuscular Hemoglobin Concent 31.4L, Red Cell Distribution Width 14.2, Platelet Count 180, Neutrophils (%) (Auto) 77.6H, Lymphocytes (%) (Auto) 10.2L, Monocytes (%) (Auto) 9.5H, Eosinophils (%) (Auto) 2.0, Basophils (%) (Auto) 0.3, Neutrophils # (Auto) 6.0, Lymphocytes # (Auto) 0.8L, Monocytes # (Auto) 0.7, Eosinophils # (Auto) 0.2, Basophils # (Auto) 0.0, Nucleated Red Blood Cells % (auto) 0.0, Anion Gap 12, Glomerular Filtration Rate 5.9L, Lactic Acid Level 0.2L, Calcium Level 8.4L, Aspartate Amino Transf (AST/SGOT) 9, Alanine Aminotransferase (ALT/SGPT) 18, Alkaline Phosphatase 85, Total Bilirubin 0.3, Direct Bilirubin 0.1, Total Protein 6.6, Albumin 2.6L, Albumin/Globulin Ratio 0.65L, Lipase 273 08/08/18 01:06: Urine Color YELLOW, Urine Appearance CLEAR, Urine pH 7.0, Urine Specific [place] 1.010, Urine Protein 3+H, Urine Glucose (UA) 1+H, Urine Ketones NEGATIVE, Urine Blood 2+H, Urine Nitrite NEGATIVE, Urine Bilirubin NEGATIVE, Urine Urobilinogen 0.2, Urine Leukocyte Esterase NEGATIVE, Urine WBC (Auto) 2, Urine RBC (Auto) 29H, Urine Hyaline Casts (Auto) 0, Urine Bacteria (Auto) NEGATIVE, Urine Squamous Epithelial Cells 0, Urine Sperm (Auto) CBC/BMP Laboratory Tests 08/07/18 23:32 Red Blood Count 4.47, Mean Corpuscular Volume 91.3, Mean Corpuscular Hemoglobin 28.6, Mean Corpuscular Hemoglobin Concent 31.4 L, Red Cell Distribution Width 14.2, Neutrophils (%) (Auto) 77.6 H, Lymphocytes (%) (Auto) 10.2 L, Monocytes (%) (Auto) 9.5 H, Eosinophils (%) (Auto) 2.0, Basophils (%) (Auto) 0.3, Geo trophils # (Auto) 6.0, Lymphocytes # (Auto) 0.8 L, Monocytes # (Auto) 0.7, Eosinophils # (Auto) 0.2, Basophils # (Auto) 0.0 Microbiology Microbiology 08/08/18 Blood Culture, Received Pending 08/08/18 Blood Culture, Received Pending CLARISSE ADAIR Aug 08, 2018 11:03 Fabian Pedraza MD Aug 11, 2018 00:45
[2018-08-08] MEDS ORDERED: HEPARIN 1,000 UNITS/ML 10ML VIAL (FOR RADIOLOGY& DIALYSIS ONLY) XX ONE (12:00)
[2018-08-08] MEDS ORDERED: HEPARIN 1,000 UNITS/ML 10ML VIAL (FOR RADIOLOGY& DIALYSIS ONLY) IV ONE (12:00)
[2018-08-08 12:20] VITALS: BP 178/80
[2018-08-08] MEDS ORDERED: METOPROLOL SUCC *XL* 25MG TAB (TopROL *XL*) PO SCH (14:00)
[2018-08-08] MEDS ORDERED: MYCOPHENOLATE MOFETIL 250 MG CAP (J7517) PO SCH (14:00)
[2018-08-08 17:04] VITALS: BP 172/60
[2018-08-08] MEDS: D5W IV SCH (17:32)
[2018-08-08] MEDS: AZTREONAM IV SCH (17:32)
[2018-08-08] MEDS: MULTIVITAMINS CHILDREN'S CHEWABLE TABLET PO SCH (17:33)
[2018-08-08] MEDS: TACROLIMUS 1 MG CAP (J7507) PO SCH ×2 (17:34→22:28)
[2018-08-08] MEDS: amLODIPine 10 MG TAB PO SCH (17:38)
[2018-08-08 20:00] VITALS: BP 159/89
[2018-08-08] MEDS ORDERED: HEPARIN SOD (PORCINE) 5000 UNITS/ML VIAL IV ONE (22:00)
[2018-08-08 23:00] VITALS: BP 184/95
[2018-08-09] VITALS (12 sets, daily range): BP systolic 142–218; BP diastolic 72–112
[2018-08-09] MEDS: METOPROLOL 5 MG/5 ML VIAL IV SCH ×4 (02:29→20:44)
[2018-08-09] MEDS: MORPHINE 4 MG/ML 1ML VIAL/SYRINGE (J2270) IV PRN (02:54)
[2018-08-09] MEDS: metroNIDAZOLE 500 MG in APPROPRIATE DILUENT 1 EA IV SCH ×3 (05:00→21:37)
[2018-08-09] MEDS ORDERED: HEPARIN SOD (PORCINE) 5000 UNITS/ML VIAL IV ONE (05:00)
[2018-08-09] MEDS ORDERED: amLODIPine 5 MG TAB PO STA (05:14)
[2018-08-09 06:12] LABS: HEMATOCRIT 40.3 % (42.0-52.0); HEMOGLOBIN 12.5 g/dl (13.5-17.5); MEAN CORPUSCULAR HEMOGLOBIN 28.3 pg (27.0-33.0); MEAN CORPUSCULAR VOLUME 91.4 fl (80.0-96.0); PLATELET COUNT, AUTOMATED 173 10^3/uL (150-450); RED BLOOD COUNT 4.41 10^6/uL (4.30-6.10); WHITE BLOOD COUNT 6.7 10^3/uL (4.0-10.0)
[2018-08-09 06:30] LABS: CALCIUM LEVEL 8.4 MG/DL (8.5-10.1); CREATININE FOR GFR 7.96 MG/DL (0.70-1.30); GLOMERULAR FILTRATION RATE 7.8 (>60); POTASSIUM SERUM 4.2 MEQ/L (3.5-5.1)
[2018-08-09] MEDS: AZTREONAM IV SCH ×5 (07:23→23:24)
[2018-08-09] MEDS: D5W IV SCH ×5 (07:23→23:24)
[2018-08-09] MEDS: CINACALCET 30 MG TAB (SENSIPAR) PO SCH (07:24)
[2018-08-09] MEDS: ALPRAZolam 0.5 MG TAB PO PRN ×2 (07:36→21:37)
--- NOTE | 2018-08-09 08:23 | CR ---
DATE OF CONSULTATION: 08/08/2018 REQUESTING PHYSICIAN: Dr. Fabian Pedraza REASON FOR CONSULTATION: End stage renal disease on hemodialysis in this patient with abdominal pain. HISTORY OF PRESENT ILLNESS: The patient is a 48-year-old male known to me with a past medical history of end stage renal disease, previously hemodialysis dependent via a right upper extremity fistula for about seven years and then he had a living unrelated kidney transplant in May 2015 in [facility] and was maintained on a dual immunosuppressant regimen of Tacrolimus and Myfortic. 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 He resumed hemodialysis in the fall, presently dialyzing via a right internal jugular (IJ) tunneled dialysis catheter. He recently had a peritoneal dialysis catheter placed on 07/16/2018 and was planning to switch over to peritoneal dialysis. He also has a history of anxiety, hypertension, secondary hyperparathyroidism, and post transplant erythrocytosis. The patient complains of a two day history of abdominal pain which started Sunday night and was associated with nausea and vomiting times two. He denies diarrhea. He feels the pain radiates to the genitals and to the rectum. He missed his dialysis treatment yesterday because of the abdominal pain. He came into the emergency room and CT scan of the abdomen and pelvis shows stranding in the pelvis around the area of the dialysis catheter and also in the region of the sigmoid colon where he has multiple diverticula. The patient received multiple antiemetics and anxiolytics in the emergency room. He was initially hypertensive on arrival, but blood pressure subsequently improved. At the time of my visit of the patient in the ER this afternoon, he complains of ongoing abdominal discomfort, but states the nausea is improved and the abdominal pain is only present with palpation. PAST MEDICAL HISTORY: 1. End stage renal disease. Previously dialysis dependent and had a living unrelated kidney transplant with subsequent allograft failure and is now back on hemodialysis. 2. Hypertension. 3. Dyslipidemia. 4. Anxiety. 5. Asthma. 6. Chronic back pain. 7. Secondary hyperparathyroidism. 8. Post transplant erythrocytosis. 9. Personal history of immunosuppression. PAST SURGICAL HISTORY: 1. Right upper extremity fistula status post ligation. 2. History of tunneled dialysis catheter. 3. Cholecystectomy. 4. Kidney biopsy. 5. Renal transplant May 2015. 6. Peritoneal dialysis (PD) catheter placement 07/16/2018. FAMILY HISTORY: Diabetes. Heart disease. Chronic obstructive pulmonary disease (COPD). HOME MEDICATIONS: Reviewed and include - Tacrolimus - CellCept SOCIAL HISTORY: He is . He is disabled. He has a 7-year-old son. He is a nonsmoker. Rarely consumes alcohol. Denies drug use. ALLERGIES: - CEPHALOSPORINS - HYDROXYZINE - TORADOL - TRAMADOL REVIEW OF SYSTEMS: Constitutional: Denies fevers or weight loss or weight gain. He complains of some chills. Eyes: Denies visual change or blurring. ENT: Denies rhinorrhea or sore throat. Cardiac: Denies chest pain or palpitations. Has a history of hypertension. GI: Complaints of nausea and abdominal discomfort. As mentioned in history of present illness, denies diarrhea, reports vomiting times two. : Denies dysuria or gross hematuria. Endocrine: Reports secondary hyperparathyroidism. Skin: He denies rash or pruritus. Hematology: Reports post transplant erythrocytosis and occasional phlebotomy. He is on immunosuppressant medications. Psychiatric: He reports severe anxiety disorder. Neurologic: Denies syncope or seizure. Musculoskeletal: Denies new arthralgias or myalgias. Pulmonary: Denies dyspnea or cough. Remainder of review of systems is negative. PHYSICAL EXAMINATION: Vital Signs: Temperature 97.1, pulse 77, respiratory rate 18, blood pressure 151/82, saturating 100% on room air. Intake and Output: Not fully recorded. Weight on the bed scale is 100.1 kg. Saturating 100% on room air. General: Patient is seen lying flat in bed in the emergency room, awake, alert, oriented, in no acute distress. Extraocular muscles are intact. Tongue is moist. Neck is supple. Jugular veins are not elevated. Cardiac: S1, S2. Regular rate and rhythm. Lungs: Clear to auscultation bilaterally symmetric. Abdomen: Soft. Nontender to moderate palpation. There is a healed incision in the right lower quadrant. His allograft is nontender to palpation. The PD catheter exit site is clean, dry and intact. There are bowel sounds. Extremities: Negative for edema. There is a ligated old fistula site in the right arm. Skin: Normal turgor and temperature. Neurologic: Oriented times three, at baseline mentation. Psychiatric: Appropriate mood and affect. He is baseline anxious. LABS: White count 7.7, hemoglobin 12.8, sodium 138, potassium 4.5, bicarbonate 24. CT of abdomen and pelvis on 08/08/2018: Renal allograft has some cysts. There is no hydronephrosis or perinephric stranding around the allograft kidney. There is stranding in the pelvis that is closely associated with where the PD catheter is and also in the region of the sigmoid colon where there are multiple diverticula. INPATIENT MEDICATIONS: He is receiving - Azactam - IV Flagyl 500 mg every 8 - amlodipine 10 mg by mouth daily - Sensipar 60 mg by mouth Sunday, Sunday, Sunday - Haldol 2.5 mg IV times one - Benadryl 25 mg IV times one - hydralazine, total of 15 mg IV - Reglan 10 mg IV times one - metoprolol 5 mg IV every 6 hours - morphine 2 mg IV every 2 hours as needed - CellCept 750 mg by mouth twice a day - Tacrolimus 2 mg by mouth twice a day - Zofran as needed PROBLEMS: 1. Abdominal pain. This is either diverticulitis or related to PD catheter infection. When the patient is in the progressive care unit (PCU), I will direct the floor nurses to instill Dianeal fluid into the peritoneum via the PD catheter. We will let that fluid sit for 4 hours and then the fluid will be drained and sent to the lab for analysis for PD cell count, culture and gram stain to see if there is any peritonitis. The primary team is already treating him empirically for diverticulitis. There is no leukocytosis or fever spike. Depending on the results of the peritoneal fluid analysis, we will know if there is peritonitis associated with the PD catheter or not. 2. End stage renal disease on hemodialysis via a tunneled PermaCath. Patient missed his hemodialysis session yesterday. He will be dialyzed today. He is nothing by mouth at present, so we will do a minimal fluid removal. He received 500 mL of normal saline, hold off on further IV fluid. 3. Status post renal allograft with failure of the kidney. The patient is maintained on CellCept and Tacrolimus and his Tacrolimus should be continued. Okay to hold CellCept for the coming 24 hours and then reevaluate for resumption.
[2018-08-09 11:40] LABS: PERITONEAL FL COLOR PALE YELLOW (COLORLESS); SOURCE, BODY FLUID PERITONEAL
[2018-08-09 11:41] LABS: APPEARANCE, BODY FLUID CLOUDY (CLEAR)
[2018-08-09] MEDS: NORCO, ANEXSIA 5/325MG TABLET (HYDROcodone/ACETAMINOPHEN) PO PRN ×2 (11:45→21:38)
[2018-08-09] MEDS: CHLORTHALIDONE 25 MG TAB PO SCH (12:34)
[2018-08-09] MEDS ORDERED: HEPARIN 1,000 UNITS/ML 10ML VIAL (FOR RADIOLOGY& DIALYSIS ONLY) IV ONE (13:15)
[2018-08-09] MEDS ORDERED: LIDOCAINE 1% SDV 5 ML VIAL SQ ONE (13:15)
[2018-08-09] MEDS: HEPARIN SOD (PORCINE) 5000 UNITS/ML VIAL SC SCH ×3 (14:00→21:40)
[2018-08-09] MEDS ORDERED: VANCOMYCIN HCL 1,000 MG, VIAL MATE ADAPTER 1 EACH in D5W 250 ML IV ONE (14:00)
[2018-08-09] MEDS: MULTIVITAMINS CHILDREN'S CHEWABLE TABLET PO SCH (16:42)
[2018-08-09] MEDS: amLODIPine 10 MG TAB PO SCH (16:42)
[2018-08-09] MEDS: TACROLIMUS 1 MG CAP (J7507) PO SCH ×2 (16:42→20:43)
--- NOTE | 2018-08-09 19:28 | IPNPDOC ---
Subjective Date Seen The patient was seen on 08/09/18. Subjective Chief Complaint/HPI Mr. Rosen reports that "whatever we are doing it is making him feel better." He reports that he generally feels like he has much more energy. His abdominal pain is mostly gone, and the rectal and genital pain is resolved. He also reports that he is starting to pass some gas, which is good, since has hasn't moved his bowels for a couple of days. He is very interested in being discharged as soon as it is safe b/c he has a young son at home and wants to be there for his [place]. Constitutional: Denies: Chills, Fever Pulmonary: Denies: Dyspnea, Cough Gastrointestinal: Reports: Abdominal Pain (much improved); Denies: Nausea, Vomiting Genitourinary: Denies: Dysuria Musculoskeletal: Reports: Back Pain (chronic) Psych: Reports: Mood Normal Objective Physical Examination General Exam: Positive: Alert, Cooperative; Negative: No Acute Distress (sitting in bed with the head elevated when I entered the room) Eye Exam: Positive: Conjunctiva & lids normal; Negative: Sclera icteric ENT Exam: Positive: Mucous membr. moist/pink Neck Exam: Positive: Supple; Negative: Lymphadenopathy Chest Exam: Positive: Clear to auscultation; Negative: Rales, Rhonchi, Wheezing Heart Exam: Positive: Rate Normal, Regular Rhythm, Normal S1, Normal S2; Negative: Gallops Abdomen Exam: Positive: BS Hypoactive, Soft, Tenderness (he has one spot of palpable tenderness on his R lateral abdomen. No guarding, no rebound tenderness. No tenderness noted around cath insertion site), Other (Peritoneal dialysis LUQ, no drainage noted) Extremity Exam: Negative: Edema Skin Exam: Positive: Nl turgor and temperature; Negative: Rash Psych Exam: Positive: Mental status NL, Mood NL Assessment /Plan Problems (1) Peritonitis associated with peritoneal dialysis Problem Text: 08/09/18: While the procedure to obtain the peritoneal specimen was sub-optimal b/c of poor return, it seems pretty clear from the labs that he has a peritonitis. Fortunately, he is starting to feel better and we have had him on abx for this (as well as to empirically cover a possible diverticulitis). Nephro added some vancomycin earlier today. Will continue current regimen, monitor. 08/08/18: Abdominal pain persists. Patient's nausea has improved. Dr. Urrutia was consulted to evaluate for possible peritoneal catheter infection. He will contact dialysis unit to flush catheter and send fluid collection out for eval/culture and sensitivity CT scan: 1. No significant change in the appearance of the transplanted kidney. No hydronephrosis. 2. Stranding in the pelvis, but it does not appear to be centered at the transplanted kidney. Rather, it seems to be more closely associated with the Tenckhoff catheter and is also in the region of the sigmoid colon, where there are multiple diverticula. The stranding may be due to inflammation related to the catheter or to diverticulitis. (2) Diverticulitis of sigmoid colon Status: Acute Problem Text: 08/09/18: I'm not sure if he has this or if the CT findings relate to his PD catheter and peritonitis. It is also possible that a diverticular perforation is the source of the peritonitis. Regardless, we will leave him on this regimen. Vancomycin was added by nephro as noted above. He is feeling better. Continue to monitor. 08/08/18: Patient was empirically started on IV Azactam (patient allergic to cep halosporin) and Flagyl (3) CKD (chronic kidney disease) requiring chronic dialysis Status: Chronic Problem Text: 08/09/18: He is getting hemodialysis for now. Was hoping to transition to PD dialysis, but it isn't looking great for this at this time. Appreciate Nephro's input and continue HD for now. 08/08/18: Nephrology has been consulted. Patient just recently returned to dialysis about 2-3 weeks ago. He has been using JV tunneled catheter for dialysis. His peritoneal catheter has not been used yet. BUN/Cre 44/10.10, GFR 5.9. Patient is being rehydrated with NS at 50 mls. (4) Transplanted kidney Status: Chronic Problem Text: 08/09/18: Per Nephro will continue with the tacrolimus, but the CellCept is on hold right now. Perhaps there is some residual fx of this otherwise failed unrelated donor kidney transplant. Will defer to Nephro for ongoing management of this situation. 08/08/18: S/P transplant right kidney with recent dialysis start. Patient r emains on CellCept and Tacrolimus. Given his current infection, peritoneal cath infection vs diverticulitis, we may want to hold these medications. I will consult with attending and Nephrology Plan/VTE VTE Prophylaxis Ordered?: Yes (heparin ) Disposition He wants to leave [facility]. Intraperitoneal abx area a theoretic possibility, but with his catheter not functioning well, I'm not sure this is a good idea. I will wait for input from Nephro and vascular on this issue. My bent is towards safety right now, which would be keeping him here until we are sure we can provide adequate abx treatment - this is in spite of the fact that clearly he wants to be with his son for [place]. VS, I&O, 24H, Fishbone Vital Signs/I&O Vital Signs Date Time Temp Pulse Resp B/P (MAP) Pulse Ox O2 Delivery O2 Flow Rate FiO2 08/09/18 16:35 98.4 96 18 145/90 (108) 96 Room Air I&O- Last 24 Hours up to 6 AM 08/09/18 06:00 Intake Total 1500 ml Output Total 1650 ml Balance -150 ml Laboratory Data 24H LABS Laboratory Tests 2 08/09/18 05:44: Nucleated Red Blood Cells % (auto) 0.0, Anion Gap 10, Glomerular Filtration Rate 7.8L, Blood Urea Nitrogen 33H, Creatinine 7.96H, Sodium Level 137, Potassium Level 4.2, Chloride Level 99, Carbon Dioxide Level 28, Calcium Level 8.4L 08/09/18 11:18: Body Fluid WBC (Auto) 8236H, Body Fluid RBC (Auto) < 2, Body Fluid Mononuclear Cells % Auto 4.2H, Fluid Polymorphonuclear Cell % Auto 95.8H, Peritoneal Fluid Source PERITONEAL, Peritoneal Fluid Color PALE YELLOW, Peritoneal Fluid Appearance CLOUDY CBC/BMP Laboratory Tests 08/09/18 05:44 Red Blood Count 4.41, Mean Corpuscular Volume 91.4, Mean Corpuscular Hemoglobin 28.3, Mean Corpuscular Hemoglobin Concent 31.0 L, Red Cell Distribution Width 14.4, Calcium Level 8.4 L Microbiology Microbiology 08/08/18 Blood Culture - Preliminary, Resulted No growth after 24 hours . All specim... 08/08/18 Blood Culture - Preliminary, Resulted No growth after 24 hours . All specim... 08/09/18 Gram Stain - Final, Resulted 08/09/18 Body Fluid Culture, Resulted Pending Fabian Pedraza MD Aug 09, 2018 19:28
[2018-08-10] VITALS (9 sets, daily range): BP systolic 138–182; BP diastolic 72–110
[2018-08-10] MEDS: METOPROLOL 5 MG/5 ML VIAL IV SCH ×4 (02:17→20:48)
[2018-08-10 05:03] LABS: BASO % 0.5 % (0.0-1.0); EOS # 0.1 10^3/uL (0.0-0.50); EOS % 3.4 % (0.0-3.0); HEMATOCRIT 38.3 % (42.0-52.0); HEMOGLOBIN 11.9 g/dl (13.5-17.5); LYMPH # 0.7 10^3/uL (1.5-4.5); MEAN CORPUSCULAR HEMOGLOBIN 28.7 pg (27.0-33.0); MEAN CORPUSCULAR HGB CONC 31.1 g/dl (32.0-36.5); MEAN CORPUSCULAR VOLUME 92.3 fl (80.0-96.0); MONO # 0.7 10^3/uL (0.0-0.8); MONO % 17.7 % (0.0-5.0); NEUTROPHILS # 2.6 10^3/uL (1.8-7.7); NEUTROPHILS % 61.2 % (36.0-66.0); PLATELET COUNT, AUTOMATED 138 10^3/uL (150-450); RED BLOOD COUNT 4.15 10^6/uL (4.30-6.10); WHITE BLOOD COUNT 4.2 10^3/uL (4.0-10.0)
[2018-08-10 05:23] LABS: ALBUMIN 2.3 GM/DL (3.2-5.2); CALCIUM LEVEL 8.1 MG/DL (8.5-10.1); CREATININE FOR GFR 6.52 MG/DL (0.70-1.30); GLOMERULAR FILTRATION RATE 9.8 (>60); PHOSPHORUS LEVEL 4.1 MG/DL (2.5-4.9)
[2018-08-10] MEDS: metroNIDAZOLE 500 MG in APPROPRIATE DILUENT 1 EA IV SCH (05:37)
[2018-08-10] MEDS: HEPARIN SOD (PORCINE) 5000 UNITS/ML VIAL SC SCH ×3 (05:37→20:48)
[2018-08-10] MEDS: D5W IV SCH (08:20)
[2018-08-10] MEDS: CHLORTHALIDONE 25 MG TAB PO SCH (08:20)
[2018-08-10] MEDS: AZTREONAM IV SCH (08:20)
[2018-08-10] MEDS: NORCO, ANEXSIA 5/325MG TABLET (HYDROcodone/ACETAMINOPHEN) PO PRN ×2 (08:21→14:23)
[2018-08-10] MEDS: ALPRAZolam 0.5 MG TAB PO PRN ×2 (08:21→20:47)
--- NOTE | 2018-08-10 10:56 | IPN ---
DATE: 08/09/2018 SUBJECTIVE: I was in touch with the patient's nurse overnight. We attempted to do a PD exchange to get fluid for peritonitis analysis. The overnight nurse had significant issues with poor catheter flow. The patient received heparin lock to the PD catheter without improvement. Nursing staff also changed the transfer and extension/connector set without any improvement. Patient also ambulated, but despite all interventions, catheter flow was sluggish to minimal. They were able to instill about 700 mL of fluid around 1:00 a.m. but subsequently they were unable to drain him. The outpatient peritoneal dialysis nurse saw the patient this morning for further assistance with the PD catheter and when she attempted to flush the catheter she was unable to do so and patient had testicular pain with attempt at drawback with syringe. His blood pressures are elevated this morning, but he reports that he is symptomatically feeling better with decreased abdominal pain and no more nausea. He reports he is eating and drinking well and he reports the rectal pain is also minimal. VITAL SIGNS: Temperature 98.3, pulse 94, respiratory rate 20, blood pressure 198/112, saturating 94% on room air. Intake yesterday was 750. Urine output yesterday 750. Dialysis removed 1 liter. Weight on the bed scale today is 108.1 kg. GENERAL: Patient is seen lying in bed, awake, alert, comfortable. No acute distress. Extraocular muscles are intact. Tongue is moist. Jugular veins are not elevated. CARDIAC: S1, S2. Regular rate and rhythm. LUNGS: Clear to auscultation bilaterally. No crackles or rales. ABDOMEN: Soft and nontender to moderate palpation. PD catheter exit site is clean, dry and intact with a dressing. There is no edema noted at the groin or scrotum. EXTREMITIES: Negative for edema as well. No scrotal edema. SKIN: Normal turgor and temperature. NEUROLOGICAL: Oriented. Interactive and cooperative. LABS: White count 6.7, hemoglobin 12.5, platelet 173. Sodium 137. Potassium 4.2. PD cell count shows 8200 WBC and the PD fluid culture is pending. Blood cultures are negative times two sets for 24 hours. INPATIENT MEDICATIONS: Patient is ordered for vancomycin 1 gram IV times one post dialysis today. He is started on chlorthalidone 25 mg by mouth daily. His remainder of medications are unchanged from prior. PROBLEMS: 1. Peritonitis with PD catheter malfunction. PD cell count shows elevated WBC at greater than 8,000 consistent with peritonitis. The PD culture is pending. We are unable to give intraperitoneal antibiotics as his catheter is poorly functioning and he has significant drain pain which was reportedly in the scrotal area. There is no groin edema noted, however, to suggest leak. I discussed with Dr. Urrutia regarding repositioning of the PD catheter and this will be scheduled once the culture results are available. He is already on IV Flagyl and IV Azactam by the primary team for concern of diverticulitis. Given that he has peritonitis and the species is not yet known, I would like to cover him for gram positives and I am adding one dose of vancomycin to be given post dialysis today and we will repeat his peritoneal cell count once the catheter repositioning/replacement is done and peritoneal samples can be obtained. 2. End-stage renal disease, on hemodialysis. Patient missed his regulars treatment on Sunday. He was subsequently dialyzed yesterday on with 1 liter fluid removed. I will dialyze him again today to bring him back to his chronic schedule. His PermaCath is in good use. 3. Hypertension. Blood pressures are uncontrolled. He continues on amlodipine and metoprolol and I am adding chlorthalidone and we will see if blood pressure improves with dialysis and fluid removal as well. 4. Status post renal allograft with failure of the transplant kidney. The patient is on a chronic regimen of Cellcept and tacrolimus. His tacrolimus is continued. His Cellcept is presently on hold, but can be resumed tomorrow. 5. Possible diverticulitis. Patient is empirically on Azactam and Flagyl per the primary team. He reports symptomatic improvement in his abdominal discomfort and in his rectal pain. He is tolerating a diet well. In view of the peritonitis with positive peritoneal cell count I have added vancomycin for further coverage pending the results of the PD culture. [facility]
[2018-08-10] MEDS ORDERED: VANCOMYCIN HCL 500 MG in D5W MINI-BAG PLUS 100 ML IV ONE (13:00)
[2018-08-10] MEDS: amLODIPine 10 MG TAB PO SCH (14:21)
[2018-08-10] MEDS: MULTIVITAMINS CHILDREN'S CHEWABLE TABLET PO SCH (14:21)
[2018-08-10] MEDS: TACROLIMUS 1 MG CAP (J7507) PO SCH ×2 (14:21→20:47)
--- NOTE | 2018-08-10 14:43 | PHACANCOPD ---
PHARMACY VANCOMYCIN DOSING Pt Demographics Demographics Patient Age:48 , Weight:108.100 , Gender: male Adjusted Body Weight Date: 08/10/18, Adjusted Body Weight: Kg Events Past 24 Hours Events Past 24 Hours: YES: Dialysis, Pending Procedures; NO: Diuretic Therapy, Change in CrCl, Fever, Elevation in WBC, Pending Diagnostics, Other Vancomycin Vancomycin indication: PERITONITIS Vancomycin Target Ranges: 15-20 mcg/ml Vancomycin Load Y/N: Yes Load Dose Date Time Vancomycin Load Dose: 1000MG YESTERDAY PER [employer] (08/09/18) AFTER HD THEN ADD'L 500MG TODAY Date: Time: Vancomycin Dose Date: 08/10/18. Current Vancomycin Dose: [1gm after HD] Intermittent Dosing?: No Labs Labs Item Value Date Time White Blood Count 6.7 10^3/uL 08/09/18 0544 White Blood Count 4.2 10^3/uL 08/10/18 0439 Creatinine 7.96 MG/DL H 08/09/18 0544 Creatinine 6.52 MG/DL H 08/10/18 0439 Random Vancomycin Level 11.0 UG/ML 08/10/18 0439 Vital Signs Label Value Date Time Patient Temperature 98.2 degrees F 08/10/18 1200 Temperature Source Temporal 08/10/18 1200 Micro Microbiology 08/08/18 Blood Culture - Preliminary, Resulted No Growth after 48 hours. All Specime... 08/08/18 Blood Culture - Preliminary, Resulted No Growth after 48 hours. All Specime... 08/09/18 Gram Stain - Final, Resulted 08/09/18 Body Fluid Culture, Resulted Pending Creatinine Clearance Date:08/10/18. Creatinine Clearance: . Assessment and Plan Maintaining Current Dose?: Yes Reason for dose change: No Dose Change Pharmacist Note Pharmacist Note Date: 08/10/18. Pharmacist note: Patient has a WBC >8,000 indicative of an infection. He was already on Aztreonam and Metronidazole for suspected diverticulitis. The Metronidazole was stopped today and Vancomycin was added. The patient received 1gram of Vancomycin yesterday post dialysis and his random this morning came back at 11. He was given an additional 500mg today to load him a little more then he will be continued on Vancomycin 1gm after HD. His usual HD sessions are Sunday, Sunday, and Fridays. His WBC is within normal range and he is afebrile. We will continue to monitor the patient and make adjustments as necessary. [facility] Aug 10, 2018 14:43
--- NOTE | 2018-08-10 17:52 | IPNPDOC ---
Subjective Date Seen The patient was seen on 08/10/18. Subjective Chief Complaint/HPI The patient reports she feels quite well. He states that he anticipates removal of the peritoneal dialysis catheter this evening with Dr. Urrutia. After that he is anticipating he can go home. This sounds like a good idea to me, but I'm not sure which antibiotics to send him on because his peritoneal fluid culture is still not back. Perhaps nephrology or vascular surgery have a clear idea of how we should guide his therapy. General: Reports: Normal Appetite Constitutional: Denies: Chills, Fever Pulmonary: Denies: Dyspnea, Cough Cardiovascular: Denies: Chest Pain, Palpitations Genitourinary: Denies: Dysuria, Other Symptoms (genital and rectal pain is resolved) Psych: Reports: Mood Normal Objective Physical Examination General Exam: Positive: Alert, Cooperative; Negative: No Acute Distress (walking in his room talking to his significant other when I entered the room) Eye Exam: Positive: Conjunctiva & lids normal; Negative: Sclera icteric ENT Exam: Positive: Mucous membr. moist/pink Neck Exam: Positive: Supple; Negative: Lymphadenopathy Chest Exam: Positive: Clear to auscultation, Normal air movement Heart Exam: Positive: Rate Normal, Regular Rhythm, Normal S1, Normal S2; Negative: Gallops Abdomen Exam: Positive: BS Hypoactive, Soft, Other (Peritoneal dialysis LUQ, no drainage noted); Negative: Tenderness Extremity Exam: Negative: Edema Skin Exam: Positive: Nl turgor and temperature; Negative: Rash Psych Exam: Positive: Mental status NL, Mood NL Assessment /Plan Problems (1) Peritonitis associated with peritoneal dialysis Problem Text: 08/10/18: He is clinically making good improvement. He reports he has a procedure scheduled to remove his peritoneal dialysis catheter this evening. I believe we have on the right antibiotics at this time. We'll continue current regimen, monitor. 08/09/18: While the procedure to obtain the peritoneal specimen was sub-optimal b/c of poor return, it seems pretty clear from the labs that he has a peritonitis. Fortunately, he is starting to feel better and we have had him on abx for this (as well as to empirically cover a possible diverticulitis). Nephro added some vancomycin earlier today. Will continue current regimen, monitor. 08/08/18: Abdominal pain persists. Patient's nausea has improved. Dr. Urrutia was consulted to evaluate for possible peritoneal catheter infection. He will contact dialysis unit to flush catheter and send fluid collection out for eval/culture and sensitivity CT scan: 1. No significant change in the appearance of the transplanted kidney. No hydronephrosis. 2. Stranding in the pelvis, but it does not appear to be centered at the transplanted kidney. Rather, it seems to be more closely associated with the Tenckhoff catheter and is also in the region of the sigmoid colon, where there are multiple diverticula. The stranding may be due to inflammation related to the catheter or to diverticulitis. (2) Diverticulitis of sigmoid colon Status: Acute Problem Text: 08/10/18: More and more I'm thinking he does not have diverticulitis, but more irritation from the PD catheter as well as the peritonitis. Regardless we'll keep him on the same medications. 08/09/18: I'm not sure if he has this or if the CT findings relate to his PD catheter and peritonitis. It is also possible that a diverticular perforation is the source of the peritonitis. Regardless, we will leave him on this regimen. Vancomycin was added by nephro as noted above. He is feeling better. Continue to monitor. 08/08/18: Patient was empirically started on IV Azactam (patient allergic to cephalosporin) and Flagyl (3) CKD (chronic kidney disease) requiring chronic dialysis Status: Chronic Problem Text: 08/10/18: It looks like he will be on hemodialysis for the foreseeable future. 08/09/18: He is getting hemodialysis for now. Was hoping to transition to PD dialysis, but it isn't looking great for this at this time. Appreciate Nephro's input and continue HD for now. 08/08/18: Nephrology has been consulted. Patient just recently returned to dialysis about 2-3 weeks ago. He has been using JV tunneled catheter for dialysis. His peritoneal catheter has not been used yet. BUN/Cre 44/10.10, GFR 5.9. Patient is being rehydrated with NS at 50 mls. (4) Transplanted kidney Status: Chronic Problem Text: 08/10/18: He is back on both the tacrolimus and CellCept per nephrology. 08/09/18: Per Nephro will continue with the tacrolimus, but the CellCept is on hold right now. Perhaps there is some residual fx of this otherwise failed unrelated donor kidney transplant. Will defer to Nephro for ongoing management of this situation. 08/08/18: S/P transplant right kidney with recent dialysis start. Patient re nik on CellCept and Tacrolimus. Given his current infection, peritoneal cath infection vs diverticulitis, we may want to hold these medications. I will consult with attending and Nephrology Plan/VTE VTE Prophylaxis Ordered?: Yes (heparin ) Plan Anticipated Discharge: Home (when we have a clear plan for his antibiotic therapy) VS, I&O, 24H, Fishbone Vital Signs/I&O Vital Signs Date Time Temp Pulse Resp B/P (MAP) Pulse Ox O2 Delivery O2 Flow Rate FiO2 08/10/18 16:00 98.0 75 18 154/104 (121) 97 Room Air I&O- Last 24 Hours up to 6 AM0 08/10/18 05:59 Intake Total 570 ml Output Total 1625 ml Balance -1055 ml Laboratory Data 24H LABS Laboratory Tests 2 08/10/18 04:39: Immature Granulocyte % (Auto) 0.2, White Blood Count 4.2, Red Blood Count 4.15L, Hemoglobin 11.9L, Hematocrit 38.3L, Mean Corpuscular Volume 92.3, Mean Corpuscular Hemoglobin 28.7, Mean Corpuscular Hemoglobin Concent 31.1L, Red Cell Distribution Width 14.1, Platelet Count 138L, Neutrophils (%) (Auto) 61.2, Lymphocytes (%) (Auto) 17.0L, Monocytes (%) (Auto) 17.7H, Eosinophils (%) (Auto) 3.4H, Basophils (%) (Auto) 0.5, Neutrophils # (Auto) 2.6, Lymphocytes # (Auto) 0.7L, Monocytes # (Auto) 0.7, Eosinophils # (Auto) 0.1, Basophils # (Auto) 0.0, Nucleated Red Blood Cells % (auto) 0.0, Blood Urea Nitrogen 27H, Creatinine 6.52H, Sodium Level 137, Potassium Level 4.0, Chloride Level 103, Carbon Dioxide Level 29, Anion Gap 5L, Glomerular Filtration Rate 9.8L, Calcium Level 8.1L, Phosphorus Level 4.1, Albumin 2.3L, Random Vancomycin Level 11.0 CBC/BMP Laboratory Tests 08/10/18 04:39 Red Blood Count 4.15 L, Mean Corpuscular Volume 92.3, Mean Corpuscular Hemog lobin 28.7, Mean Corpuscular Hemoglobin Concent 31.1 L, Red Cell Distribution Width 14.1, Neutrophils (%) (Auto) 61.2, Lymphocytes (%) (Auto) 17.0 L, Monocytes (%) (Auto) 17.7 H, Eosinophils (%) (Auto) 3.4 H, Basophils (%) (Auto) 0.5, Neutrophils # (Auto) 2.6, Lymphocytes # (Auto) 0.7 L, Monocytes # (Auto) 0.7, Eosinophils # (Auto) 0.1, Basophils # (Auto) 0.0, Anion Gap 5 L Microbiology Microbiology 08/08/18 Blood Culture - Preliminary, Resulted No Growth after 48 hours. All Specime... 08/08/18 Blood Culture - Preliminary, Resulted No Growth after 48 hours. All Specime... 08/09/18 Gram Stain - Final, Resulted 08/09/18 Body Fluid Culture, Resulted Pending Fabian Pedraza MD Aug 10, 2018 17:52
[2018-08-10] MEDS: AZTREONAM 0.5 GM in D5W 50 ML IV SCH (20:53)
[2018-08-10] MEDS ORDERED: fentaNYL 100 MCG/2 ML INJECTION (J3010) As Ordered ONE (22:56)
[2018-08-10] MEDS ORDERED: LIDOCAINE 2% INJ 100 MG/5 ML SDV (FOR ANES.) As Ordered ONE (22:56)
[2018-08-10] MEDS ORDERED: ONDANSETRON 4MG/2ML VIAL (J2405) As Ordered ONE (22:56)
[2018-08-10] MEDS ORDERED: PROPOFOL 200 MG/20 ML VIAL As Ordered ONE (22:56)
[2018-08-10] MEDS ORDERED: MIDAZOLAM INJ 2 MG/2 ML VIAL (J2250) As Ordered ONE (22:56)
[2018-08-11] VITALS (12 sets, daily range): BP systolic 164–198; BP diastolic 76–102
[2018-08-11] MEDS: METOPROLOL 5 MG/5 ML VIAL IV SCH ×3 (01:10→17:06)
[2018-08-11] MEDS ORDERED: hydrALAZINE INJ 20 MG/ML VIAL IV ONE (03:00)
[2018-08-11] MEDS: HEPARIN SOD (PORCINE) 5000 UNITS/ML VIAL SC SCH ×3 (05:57→22:00)
[2018-08-11] MEDS: CHLORTHALIDONE 25 MG TAB PO SCH (08:52)
[2018-08-11] MEDS: AZTREONAM 0.5 GM in D5W 50 ML IV SCH (08:58)
--- NOTE | 2018-08-11 10:34 | IPN ---
DATE OF SERVICE: 08/10/2018 SUBJECTIVE: The patient was seen and examined at the bedside today morning. He is afebrile, hemodynamically stable. He reports that he is feeling much better. His abdominal pain is better. He was dialyzed yesterday. He tolerated the hemodialysis procedure well. Peritoneal fluid gram stain came back positive for gram positive cocci in pairs, chains and clusters. OBJECTIVE: VITAL SIGNS: Temperature is 98.2 degrees Fahrenheit, blood pressure 158/80, pulse is 87, respiratory rate of 18, saturating 98% on room air. INTAKE AND OUTPUT: Urine output recorded as 600 mL. Ultrafiltration with hemodialysis was 1.5 liters. Weight on the bed scale is 108.1 kg. PHYSICAL EXAMINATION: GENERAL: Patient is awake, alert, oriented times three, laying in bed in no apparent distress. HEAD AND NECK EXAM: Extraocular muscles intact. Pupils equally round and reactive to light. Mucous membranes are moist. Neck is supple. There is no jugular venous distension (JVD). CARDIOVASCULAR: S1, S2 regular rate. No murmur, rub or gallop. He has a right IJ tunneled hemodialysis catheter. RESPIRATORY: Chest is clear to auscultation bilaterally. Bilateral equal air entry. No rales or rhonchi. ABDOMEN: Soft, nontender. Left lower quadrant PD catheter was noted with a clean exit site. GENITOURINARY (): Bladder is not palpable. No hernia noted. MUSCULOSKELETAL: No clubbing or cyanosis. Pulses are 2+. CENTRAL NERVOUS SYSTEM: No focal deficit. Power is 5/5 in all extremities. LAB REVIEW: CBC showed a WBC of 4.2, hemoglobin 11.9, platelets are 138. Peritoneal fluid cell count done yesterday morning was 8236. BMP today showed sodium 137, potassium 4, chloride 103, bicarb 29, BUN 27, creatinine 6.5, calcium 8.1, phosphorous is 4.1, albumin is 2.3. Vancomycin level today is 11. Microbiology: Peritoneal fluid gram stain showed moderate amount of gram positive cocci in pairs, chains and clusters. CURRENT INPATIENT MEDICATIONS: The patient's medications were all reviewed by me. I changed his IV aztreonam to 0.5 gram IV every 12 hours. I have also started Flagyl. I have started the patient on vancomycin 1 gram IV with hemodialysis. An extra dose of 500 mg was given today because of low vancomycin levels. No other changes in the medications today as compared with yesterday. His CellCept remains on hold. ASSESSMENT/PLAN: 1. End stage renal disease (ESRD). Patient is hemodialysis dependent. His regular dialysis days are Sunday, Sunday, and Sunday. He will be dialyzed tomorrow according to his regular schedule. 2. Peritonitis associated with PD catheter. Patient only got a cell count done yesterday. He is currently not on PD. PD catheter is not working well. We could hardly get a sample for cell count and culture yesterday which showed gram positive cocci. I have added IV vancomycin with hemodialysis. IV Flagyl has been stopped. Surgical service is planning to have the catheter removed today. 3. Hypertension with end stage renal disease. Blood pressure levels are within acceptable range. Continue current antihypertensive regimen. The rest of the blood pressure will be controlled with volume management. 4. Kidney transplant status. The patient has a failed kidney transplant. He was on a regimen of tacrolimus and CellCept. He continues on tacrolimus, CellCept is on hold because of acute infection. 5. Secondary hyperparathyroidism of renal origin. Continue current dose of Sensipar 60 mg by mouth Sunday, Sunday, and Sunday.
[2018-08-11] MEDS ORDERED: VANCOMYCIN HCL 1,000 MG, VIAL MATE ADAPTER 1 EACH in D5W 250 ML IV SCH (11:30)
[2018-08-11] MEDS: CIPROFLOXACIN 0.3% OPHTH SOLN 2.5ML OU SCH ×3 (11:50→23:57)
[2018-08-11] MEDS ORDERED: HEPARIN 1,000 UNITS/ML 10ML VIAL (FOR RADIOLOGY& DIALYSIS ONLY) IV ONE (14:00)
[2018-08-11] MEDS ORDERED: **VANCO AFTER HD** MISC XX SCH (16:00)
[2018-08-11] MEDS: MULTIVITAMINS CHILDREN'S CHEWABLE TABLET PO SCH (17:04)
[2018-08-11] MEDS: TACROLIMUS 1 MG CAP (J7507) PO SCH ×2 (17:04→20:53)
[2018-08-11] MEDS: amLODIPine 10 MG TAB PO SCH (17:05)
[2018-08-11] MEDS ORDERED: LevoFLOXacin 250 MG TABLET PO SCH (18:00)
[2018-08-11] MEDS ORDERED: LABETALOL HCL 100 MG/20 ML VIAL IV STA (19:13)
[2018-08-11] MEDS: ALPRAZolam 0.5 MG TAB PO PRN (20:53)
[2018-08-11] MEDS: NORCO, ANEXSIA 5/325MG TABLET (HYDROcodone/ACETAMINOPHEN) PO PRN (20:53)
[2018-08-11] MEDS ORDERED: LABETALOL 100 MG TAB PO SCH (21:00)
[2018-08-12 04:00] VITALS: BP 182/86
[2018-08-12] MEDS: HEPARIN SOD (PORCINE) 5000 UNITS/ML VIAL SC SCH ×2 (05:30→13:29)
[2018-08-12 05:31] LABS: HEMOGLOBIN 11.6 g/dl (13.5-17.5); MEAN CORPUSCULAR HEMOGLOBIN 28.3 pg (27.0-33.0); MEAN CORPUSCULAR HGB CONC 30.5 g/dl (32.0-36.5); MEAN CORPUSCULAR VOLUME 92.7 fl (80.0-96.0); PLATELET COUNT, AUTOMATED 159 10^3/uL (150-450); WHITE BLOOD COUNT 4.6 10^3/uL (4.0-10.0)
[2018-08-12 06:11] LABS: ALBUMIN 2.2 GM/DL (3.2-5.2); CALCIUM LEVEL 8.6 MG/DL (8.5-10.1); CREATININE FOR GFR 6.89 MG/DL (0.70-1.30); GLOMERULAR FILTRATION RATE 9.2 (>60); PHOSPHORUS LEVEL 3.6 MG/DL (2.5-4.9); POTASSIUM SERUM 3.8 MEQ/L (3.5-5.1)
[2018-08-12] MEDS: CIPROFLOXACIN 0.3% OPHTH SOLN 2.5ML OU SCH ×2 (06:23→11:56)
--- NOTE | 2018-08-12 07:12 | IPNPDOC ---
Subjective Date Seen The patient was seen on 08/11/18. Subjective Chief Complaint/HPI Helio is feeling well today and he wants to be discharged last night. Apparently Dr. Urrutia suggested he could be discharged last night after he had his PD catheter removed (from his perspective). His peritoneal culture is still not back yet. He had a BM yesterday and today. No abdominal pain. He is due for HD today. General: Reports: Normal Appetite Constitutional: Denies: Chills, Fever Pulmonary: Denies: Dyspnea, Cough Gastrointestinal: Denies: Nausea, Vomiting, Abdominal Pain, Constipation Genitourinary: Denies: Dysuria Psych: Reports: Mood Normal Objective Physical Examination General Exam: Positive: Alert, Cooperative, No Acute Distress (laying on his be d watching football when I entered the room) Eye Exam: Positive: Conjunctiva & lids normal; Negative: Sclera icteric ENT Exam: Positive: Mucous membr. moist/pink Neck Exam: Positive: Supple; Negative: Lymphadenopathy Chest Exam: Positive: Clear to auscultation, Normal air movement Heart Exam: Positive: Rate Normal, Regular Rhythm, Normal S1, Normal S2; Negative: Gallops Abdomen Exam: Positive: Normal bowel sounds, Soft, Other (He now has a bandage over where the PD catheter was. The bandage is c/d/i.); Negative: Tenderness Extremity Exam: Negative: Edema Skin Exam: Positive: Nl turgor and temperature Neuro Exam: Positive: Normal Speech Psych Exam: Positive: Mental status NL, Mood NL, Oriented x 3 Assessment /Plan Problems (1) Peritonitis associated with peritoneal dialysis Problem Text: 08/11/18: I spoke with Dr. Gastelum. Even though his C & S is not back, based on the Gram stain it seems likely that the pathogen is a Staph. It has been responding to azobactam (cephalosporin allergy) and vancomycin. We will change him to oral levofloxacin 250mg daily (irrespective of dialysis) and vanc omycin after dialysis sessions. This should cover him until the C&S is back. 08/10/18: He is clinically making good improvement. He reports he has a procedure scheduled to remove his peritoneal dialysis catheter this evening. I believe we have on the right antibiotics at this time. We'll continue current regimen, monitor. 08/09/18: While the procedure to obtain the peritoneal specimen was sub-optimal b/c of poor return, it seems pretty clear from the labs that he has a peritonitis. Fortunately, he is starting to feel better and we have had him on abx for this (as well as to empirically cover a possible diverticulitis). Nephro added some vancomycin earlier today. Will continue current regimen, monitor. 08/08/18: Abdominal pain persists. Patient's nausea has improved. Dr. Urrutia was consulted to evaluate for possible peritoneal catheter infection. He will contact dialysis unit to flush catheter and send fluid collection out for eval/culture and sensitivity CT scan: 1. No significant change in the appearance of the transplanted kidney. No hydronephrosis. 2. Stranding in the pelvis, but it does not appear to be centered at the transplanted kidney. Rather, it seems to be more closely associated with the Tenckhoff catheter and is also in the region of the sigmoid colon, where there are multiple diverticula. The stranding may be due to inflammation related to the catheter or to diverticulitis. (2) CKD (chronic kidney disease) requiring chronic dialysis Status: Chronic Problem Text: 08/11/18: He needs to have HD this afternoon, therefore, he can't be discharged until tomorrow. I do anticipate he will be dischargeable tomorrow morning. 08/10/18: It looks like he will be on hemodialysis for the foreseeable future. 08/09/18: He is getting hemodialysis for now. Was hoping to transition to PD dialysis, but it isn't looking great for this at this time. Appreciate Nephro's input and continue HD for now. 08/08/18: Nephrology has been consulted. Patient just recently returned to dialysis about 2-3 weeks ago. He has been using JV tunneled catheter for dialysis. His peritoneal catheter has not been used yet. BUN/Cre 44/10.10, GFR 5.9. Patient is being rehydrated with NS at 50 mls. (3) Hypertension Status: Chronic Response to Treatment: Uncontrolled Discussed With: [employer], Patient Problem Text: His BP has been running high. His regimen while here has been amlodipine, chlorthalidone, and IV metoprolol q6h. I spoke with Dr. Gastelum about adjusting his regimen and he wanted to wait until after his dialysis session to see if he was still hypertensive. He was, so I explained to the patient that I will be stopping the IV metoprolol (started by the hospitalist) and starting oral metoprolol succinate. He told me that he already been prescribed this and showed me his bottle of metoprolol succinate 25mg. I am not sure why this was prescribed IV (which is not effective for long enough), but I will change it to PO starting tomorrow morning. (4) Diverticulitis of sigmoid colon Problem Text: 08/11/18: We are making the assumption now that he did not have a diverticulitis. 08/10/18: More and more I'm thinking he does not have diverticulitis, but more irritation from the PD catheter as well as the peritonitis. Regardless we'll keep him on the same medications. 08/09/18: I'm not sure if he has this or if the CT findings relate to his PD catheter and peritonitis. It is also possible that a diverticular perforation is the source of the peritonitis. Regardless, we will leave him on this regimen. Vancomycin was added by nephro as noted above. He is feeling better. Continue to monitor. 08/08/18: Patient was empirically started on IV Azactam (patient allergic to cephalosporin) and Flagyl (5) Transplanted kidney Status: Chronic Problem Text: 08/11/18: Per nephrology, we will continue him on both tacrolimus and CellCept to sustain any residual function that his transplanted kidney has. 08/10/18: He is back on both the tacrolimus and CellCept per nephrology. 08/09/18: Per Nephro will continue with the tacrolimus, but the CellCept is on hold right now. Perhaps there is some residual fx of this otherwise failed unrelated donor kidney transplant. Will defer to Nephro for ongoing management of this situation. 08/08/18: S/P transplant right kidney with recent dialysis start. Patient remains on CellCept and Tacrolimus. Given his current infection, peritoneal cath infection vs diverticulitis, we may want to hold these medications. I will consult with attending and Nephrology Plan/VTE VTE Prophylaxis Ordered?: Yes (heparin ) Plan Anticipated Discharge: Home Disposition anticipate discharge home early tomorrow morning VS, I&O, 24H, Fishbone Vital Signs/I&O Vital Signs Date Time Temp Pulse Resp B/P (MAP) Pulse Ox O2 Delivery O2 Flow Rate FiO2 08/11/18 23:59 98.5 85 16 168/90 (116 97 Room Air I&O- Last 24 Hours up to 6 AM 08/12/18 06:00 Intake Total 1625 ml Output Total 4000 ml Balance -2375 ml Laboratory Data 24H LABS Laboratory Tests 2 08/12/18 04:27: Nucleated Red Blood Cells % (auto) 0.0, Blood Urea Nitrogen 28H, Creatinine 6.89H, Sodium Level 137, Potassium Level 3.8, Chloride Level 103, Carbon Dioxide Level 27, Anion Gap 7L, Glomerular Filtration Rate 9.2L, Calcium Level 8.6, Phosphorus Level 3.6, Albumin 2.2L CBC/BMP Laboratory Tests 08/12/18 04:27 Red Blood Count 4.10 L, Mean Corpuscular Volume 92.7, Mean Corpuscular Hemoglobin 28.3, Mean Corpuscular Hemoglobin Concent 30.5 L, Red Cell Distribution Width 14.3, Anion Gap 7 L Microbiology Microbiology 08/08/18 Blood Culture - Preliminary, Resulted No Growth after 72 hours. All specime... 08/08/18 Blood Culture - Preliminary, Resulted No Growth after 72 hours. All specime... 08/09/18 Gram Stain - Final, Complete 08/09/18 Body Fluid Culture - Final, Complete Staphylococcus Epidermidis Fabian Pedraza MD Aug 12, 2018 07:12
[2018-08-12 07:38] LABS: VANCOMYCIN RANDOM 22.2 UG/ML
[2018-08-12 08:00] VITALS: BP 218/102
--- NOTE | 2018-08-12 08:08 | PHACANCOPD ---
PHARMACY VANCOMYCIN DOSING Pt Demographics Demographics Patient Age:48 , Weight:108.100 , Gender: male Adjusted Body Weight Date: 08/10/18, Adjusted Body Weight: Kg Vancomycin Vancomycin indication: PERITONITIS Vancomycin Target Ranges: 15-20 mcg/ml Vancomycin Load Y/N: Yes Load Dose Date Time Vancomycin Load Dose: 1000MG YESTERDAY PER FUR FINISHER (08/09/18) AFTER HD THEN ADD'L 500MG TODAY Date: Time: Vancomycin Dose Date: 08/10/18. Current Vancomycin Dose: [1gm after HD] Intermittent Dosing?: No Labs Micro Microbiology 08/08/18 Blood Culture - Preliminary, Resulted No Growth after 72 hours. All specime... 08/08/18 Blood Culture - Preliminary, Resulted No Growth after 72 hours. All specime... 08/09/18 Gram Stain - Final, Complete 08/09/18 Body Fluid Culture - Final, Complete Staphylococcus Epidermidis Creatinine Clearance Date:08/10/18. Creatinine Clearance: . Assessment and Plan Maintaining Current Dose?: No Reason for dose change: Trough too high Pharmacist Note Pharmacist Note 08/12/18: Vancomycin random level resulted at 22.2mcg/ml this morning. We will decrease the patient's post-HD dose to 500mg to be given today after HD. Peritoneal fluid culture is growing MRSE. A follow-up random vancomycin level has been scheduled to be drawn prior to Sunday's HD session with AM labs. We will continue to monitor and adjust dosing further if needed. Date: 08/10/18. Pharmacist note: Patient has a WBC >8,000 indicative of an infection. He was already on Aztreonam and Metronidazole for suspected diverticulitis. The Metronidazole was stopped today and Vancomycin was added. The patient received 1gram of Vancomycin yesterday post dialysis and his random this morning came back at 11. He was given an additional 500mg today to load him a little more then he will be continued on Vancomycin 1gm after HD. His usual HD sessions are Sunday, Sunday, and Fridays. His WBC is within normal range and he is afebrile. We will continue to monitor the patient and make adjustments as necessary. [facility] Aug 12, 2018 08:08
[2018-08-12] MEDS: CINACALCET 30 MG TAB (SENSIPAR) PO SCH (08:14)
[2018-08-12] MEDS: ALPRAZolam 0.5 MG TAB PO PRN (08:22)
[2018-08-12] MEDS ORDERED: LOSARTAN 50 MG TAB PO SCH (09:00)
[2018-08-12] MEDS ORDERED: METOPROLOL SUCC *XL* 25MG TAB (TopROL *XL*) PO SCH (09:00)
[2018-08-12 09:30] VITALS: BP 172/80
--- NOTE | 2018-08-12 09:35 | IPNPDOC ---
Subjective Date Seen The patient was seen on 08/12/18. Subjective Chief Complaint/HPI Pt would like to go home. He is planning to leave later today regardless of his d/c status. He states that he is feeling a lot better than he has been. States he doesn't really care that his BP is so high, it always runs that high and no one does anything about it. General: Denies: Fatigue Constitutional: Denies: Chills, Fever Pulmonary: Reports: Cough; Denies: Dyspnea Cardiovascular: Denies: Chest Pain, Palpitations Gastrointestinal: Denies: Nausea, Vomiting Neurological: Denies: Weakness Objective Physical Examination General Exam: Positive: Alert, No Acute Distress (in bed); Negative: Cooperative Eye Exam: Negative: Sclera icteric ENT Exam: Positive: Mucous membr. moist/pink Neck Exam: Positive: Supple; Negative: Lymphadenopathy Chest Exam: Positive: Clear to auscultation, Normal air movement Heart Exam: Positive: Rate Normal, Regular Rhythm, Normal S1, Normal S2; Negative: Gallops Abdomen Exam: Positive: Normal bowel sounds, Soft, Other (He now has a bandage over where the PD catheter was. The bandage is c/d/i.); Negative: Tenderness Extremity Exam: Negative: Edema Skin Exam: Positive: Nl turgor and temperature Neuro Exam: Positive: Normal Speech Psych Exam: Positive: Mental status NL, Mood NL, Oriented x 3 Assessment /Plan Problems (1) Peritonitis associated with peritoneal dialysis Problem Text: 08/12 culture grew staph epi, he is on PO Levo, IV Vanco (admin with dialysis) 08/11/18: I spoke with Dr. Gastelum. Even though his C & S is not back, based on the Gram stain it seems likely that the pathogen is a Staph. It has been respond ing to azobactam (cephalosporin allergy) and vancomycin. We will change him to oral levofloxacin 250mg daily (irrespective of dialysis) and vancomycin after dialysis sessions. This should cover him until the C&S is back. 08/10/18: He is clinically making good improvement. He reports he has a proce dure scheduled to remove his peritoneal dialysis catheter this evening. I believe we have on the right antibiotics at this time. We'll continue current regimen, monitor. 08/09/18: While the procedure to obtain the peritoneal specimen was sub-optimal b/c of poor return, it seems pretty clear from the labs that he has a peritonitis. Fortunately, he is starting to feel better and we have had him on abx for this (as well as to empirically cover a possible diverticulitis). Nephro added some vancomycin earlier today. Will continue current regimen, monitor. 08/08/18: Abdominal pain persists. Patient's nausea has improved. Dr. Urrutia was consulted to evaluate for possible peritoneal catheter infection. He will contact dialysis unit to flush catheter and send fluid collection out for eval/culture and sensitivity CT scan: 1. No significant change in the appearance of the transplanted kidney. No hydronephrosis. 2. Stranding in the pelvis, but it does not appear to be centered at the transplanted kidney. Rather, it seems to be more closely associated with the Tenckhoff catheter and is also in the region of the sigmoid colon, where there are multiple diverticula. The stranding may be due to inflammation related to the catheter or to diverticulitis. (2) CKD (chronic kidney disease) requiring chronic dialysis Status: Chronic Problem Text: 08/12 HD 08/11, schedule per vonda. 08/11/18: He needs to have HD this afternoon, therefore, he can't be discharged until tomorrow. I do anticipate he will be dischargeable tomorrow morning. 08/10/18: It looks like he will be on hemodialysis for the foreseeable future. 08/09/18: He is getting hemodialysis for now. Was hoping to transition to PD dialysis, but it isn't looking great for this at this time. Appreciate Nephro's input and continue HD for now. 08/08/18: Nephrology has been consulted. Patient just recently returned to dialysis about 2-3 weeks ago. He has been using JV tunneled catheter for dialysis. His peritoneal catheter has not been used yet. BUN/Cre 44/10.10, GFR 5.9. Patient is being rehydrated with NS at 50 mls. (3) Hypertension Status: Chronic Response to Treatment: Uncontrolled Discussed With: Fire Prevention Forester, Patient Problem Text: 08/12 pressures in the 200s this morning, he has been on amlodipine 10 mg daily. His chlorthalidone and IV metoprolol were stopped yesterday, he was started on Labetolol 100 mg BID yest afternoon by Bang, Dr Pedraza changed this to Metoprolol succinate 25 mg, I am not sure why this is, will address with Dr Mclaughlin. She is pt's PCP will be assuming mgmt of his BP, at this point I am not comfortable sending him home with pressures as elevated as they are. 08/11 His BP has been running high. His regimen while here has been amlodipine, chlorthalidone, and IV metoprolol q6h. I spoke with Dr. Gastelum about adjusting his regimen and he wanted to wait until after his dialysis session to see if he was still hypertensive. He was, so I explained to the patient that I will be stopping the IV metoprolol (started by the hospitalist) and starting oral metoprolol succinate. He told me that he already been prescribed this and showed me his bottle of metoprolol succinate 25mg. I am not sure why this was prescribed IV (which is not effective for long enough), but I will change it to PO starting tomorrow morning. (4) Diverticulitis of sigmoid colon Status: Acute Problem Text: 08/11/18: We are making the assumption now that he did not have a diverticulitis. 08/10/18: More and more I'm thinking he does not have diverticulitis, but more irritation from the PD catheter as well as the peritonitis. Regardless we'll keep him on the same medications. 08/09/18: I'm not sure if he has this or if the CT findings relate to his PD catheter and peritonitis. It is also possible that a diverticular perforation is the source of the peritonitis. Regardless, we will leave him on this regimen. Vancomycin was added by nephro as noted above. He is feeling better. Continue to monitor. 08/08/18: Patient was empirically started on IV Azactam (patient allergic to cephalosporin) and Flagyl (5) Transplanted kidney Status: Chronic Problem Text: 08/11/18: Per nephrology, we will continue him on both tacrolimus and CellCept to sustain any residual function that his transplanted kidney has. 08/10/18: He is back on both the tacrolimus and CellCept per nephrology. 08/09/18: Per Nephro will continue with the tacrolimus, but the CellCept is on hold right now. Perhaps there is some residual fx of this otherwise failed unrelated donor kidney transplant. Will defer to Nephro for ongoing management of this situation. 08/08/18: S/P transplant right kidney with recent dialysis start. Patient remains on CellCept and Tacrolimus. Given his current infection, peritoneal cath infection vs diverticulitis, we may want to hold these medications. I will consult with attending and Nephrology Plan/VTE VTE Prophylaxis Ordered?: Yes (heparin ) Plan Anticipated Discharge: Home VS, I&O, 24H, Fishbone Vital Signs/I&O Vital Signs Date Time Temp Pulse Resp B/P (MAP) Pulse Ox O2 Delivery O2 Flow Rate FiO2 08/12/18 08:15 74 212/103 08/12/18 08:00 98.0 18 98 Room Air I&O- Last 24 Hours up to 6 AM 08/12/18 06:00 Intake Total 1625 ml Output Total 4000 ml Balance -2375 ml Laboratory Data 24H LABS Laboratory Tests 2 08/12/18 04:27: Nucleated Red Blood Cells % (auto) 0.0, Blood Urea Nitrogen 28H, Creatinine 6.89H, Sodium Level 137, Potassium Level 3.8, Chloride Level 103, Carbon Dioxide Level 27, Anion Gap 7L, Glomerular Filtration Rate 9.2L, Calcium Level 8.6, Phosphorus Level 3.6, Albumin 2.2L, Random Vancomycin Level 22.2 CBC/BMP Laboratory Tests 08/12/18 04:27 Red Blood Count 4.10 L, Mean Corpuscular Volume 92.7, Mean Corpuscular Hemoglobin 28.3, Mean Corpuscular Hemoglobin Concent 30.5 L, Red Cell Distribution Width 14.3, Anion Gap 7 L Microbiology Microbiology 08/08/18 Blood Culture - Preliminary, Resulted No Growth after 72 hours. All specime... 08/08/18 Blood Culture - Preliminary, Resulted No Growth after 72 hours. All specime... 08/09/18 Gram Stain - Final, Complete 08/09/18 Body Fluid Culture - Final, Complete Staphylococcus Epidermidis PANDA ROMANO PA-C Aug 12, 2018 09:35
--- NOTE | 2018-08-12 11:16 | IPN ---
DATE: 08/11/2018 SUBJECTIVE: The patient was seen and examined at the bedside today morning. Today is patient's regular day of dialysis. Patient reports that he is having irritation and watering from both eyes. Otherwise he denies any active complaints. His peritoneal dialysis catheter was removed yesterday and he denies any abdominal pain at this point. OBJECTIVE: VITAL SIGNS: Temperature is 97.6 degrees Fahrenheit, blood pressure 185/80, pulse 91, respiratory rate 18, saturating 97% on room air. INTAKE AND OUTPUT: Urine output recorded as 400 mL. Weight on the bed scale is not available. PHYSICAL EXAMINATION: GENERAL: Patient is awake, alert, oriented times three, sitting up in the bed in no apparent distress. HEAD AND NECK EXAM: Extraocular muscles intact. Pupils equally round and reactive to light. Patient has red watery eyes bilaterally. Mucous membranes are moist. Neck is supple. There is no jugular venous distension (JVD). He has a right IJ tunnel hemodialysis catheter. No edema of the bilateral lower extremities. RESPIRATORY: Chest is clear to auscultation bilaterally. Bilateral equal air entry. No rales or rhonchi. ABDOMEN: Soft, positive bowel sounds. Left lower quadrant PD catheter at bedside was covered with a dressing. Catheter has been removed now. GENITOURINARY (): Bladder is not palpable. MUSCULOSKELETAL: No clubbing or cyanosis. Pulses are 2+. CENTRAL NERVOUS SYSTEM: No focal deficit. Power is 5/5 in all extremities. LAB REVIEW: CBC and BMP are not available from today. CURRENT INPATIENT MEDICATIONS: The patient's medications were all reviewed by me. He continues to be on IV vancomycin with hemodialysis. Patient has been started on Levaquin 250 mg by mouth daily. ASSESSMENT/PLAN: 1. End stage renal disease (ESRD) on hemodialysis. His regular dialysis days are Sunday, Sunday, and Sunday. He will be dialyzed today because of the holiday schedule. I will try to remove at least 3.5-4 liters of fluid as tolerated by the patient. 2. Peritonitis associated with PD catheter. Culture and sensitivity is pending. Gram stain showed the gram positive cocci. He is currently on IV vancomycin with hemodialysis. He was also getting Patient only got a cell count done yesterday. He is currently not on PD. PD catheter is not working well. We could hardly get a sample for cell count and culture yesterday which showed gram positive cocci. I have added IV vancomycin with hemodialysis. He was also getting aztreonam which has been switched to oral Levaquin now. Final change in antibiotic will be done once the culture and sensitivity results come back. 3. Hypertension with end stage renal disease. Patient's blood pressure is not controlled at this point. He continues to be on amlodipine 10 mg daily. I have given him a dose of labetalol 20 mg IV times one dose and I have started him on Labetalol 100 mg by mouth twice a day. Hemodialysis and fluid removal will also help him improve his blood pressure. 4. Kidney transplant status. The patient has a failed kidney transplant. He was on a regimen of tacrolimus and CellCept. He continues on tacrolimus, CellCept is on hold because of acute infection. 5. Anemia and end stage renal disease. Hemoglobin is 11.9 which is optimal. No need of Aranesp administration at this point. 6. Acute conjunctivitis. I have started the patient empirically on Ciprofloxacin eye drops.
[2018-08-12 12:00] VITALS: BP 182/102
[2018-08-12] MEDS: amLODIPine 10 MG TAB PO SCH (13:28)
[2018-08-12] MEDS: TACROLIMUS 1 MG CAP (J7507) PO SCH (13:29)
[2018-08-12] MEDS: MULTIVITAMINS CHILDREN'S CHEWABLE TABLET PO SCH (13:29)
[2018-08-12 14:27] VITALS: BP 182/102
[2018-08-12] MEDS ORDERED: Acetaminophen Tab PO (14:40)
[2018-08-12] MEDS ORDERED: COZA50TA PO (14:40)
[2018-08-12] MEDS ORDERED: CILO0.3S OU (14:40)
[2018-08-12] MEDS ORDERED: LEVA250T13 PO (14:40)
[2018-08-12] MEDS ORDERED: LABE10TAB PO (14:41)
[2018-08-12] MEDS ORDERED: METOPROLOL SUCC *XL* 25MG TAB (TopROL *XL*) PO ONE (15:00)
[2018-08-12] MEDS ORDERED: VANCOMYCIN HCL 500 MG in D5W MINI-BAG PLUS 100 ML IV SCH (16:00)
[2018-08-13] MEDS ORDERED: METOPROLOL SUCC *XL* 25MG TAB (TopROL *XL*) PO SCH (09:00)
--- NOTE | 2018-08-13 15:05 | IPN ---
DATE OF SERVICE: 08/12/2018 SUBJECTIVE: The patient was seen and examined at the bedside today morning. He is afebrile. Hemodynamically stable. He was dialyzed yesterday. He tolerated the hemodialysis procedure well. His blood pressures are high. He denies any abdominal pain or fever. Patient is requesting to go home today because he wants to spent [place] with his family. OBJECTIVE: VITAL SIGNS: Temperature is 98.1 degrees Fahrenheit, blood pressure 182/102, pulse 96, respiratory rate 16, saturating 96% on room air. INTAKE AND OUTPUT: Urine output recorded as 600 mL since overnight. Ultrafiltration with hemodialysis is 4 liters. Weight on the bed scale is not available. PHYSICAL EXAMINATION: GENERAL: Patient is awake, alert, oriented times three, laying in the bed, morbidly obese, in no apparent distress. HEAD AND NECK EXAM: Extraocular muscles intact. Pupils equally round and reactive to light. Mucous membranes are moist. Neck is supple. He has a right IJ tunnel hemodialysis catheter. CARDIOVASCULAR: S1, S2 regular rate. No edema of the bilateral lower extremities. RESPIRATORY: Chest is clear to auscultation bilaterally. Bilateral equal air entry. No rales or rhonchi. ABDOMEN: Soft, positive bowel sounds. Left sided peritoneal dialysis site is covered with dressing, catheter has been removed. MUSCULOSKELETAL: No clubbing or cyanosis. Pulses are 2+. CENTRAL NERVOUS SYSTEM: No focal deficit. Power is 5/5 in all extremities. LAB REVIEW: CBC showed a WBC of 4.6, hemoglobin is 11.6, platelets of 159. BMP showed sodium 137, potassium 3.8, chloride 103, bicarbonate 27, BUN 28, creatinine is 6.8, albumin is 2.2. MICROBIOLOGY: Peritoneal fluid final culture and sensitive shows Staphylococcus epidermidis which is sensitive to vancomycin. CURRENT INPATIENT MEDICATIONS: The patient's medications were all reviewed by me. He continues to be on IV vancomycin with hemodialysis and he has been started oral Levaquin. Cellcept is still on hold. No other changes in the medications today as compared with yesterday. ASSESSMENT AND PLAN: 1. End-stage renal disease on hemodialysis. Patient's regular dialysis days are Sunday, Sunday, and Sunday. He was dialyzed yesterday. Because of the holiday schedule next hemodialysis will be on Sunday although patient volume status is optimized. 2. Peritonitis associated with peritoneal dialysis catheter. Peritoneal dialysis (PD) catheter has been removed. Final culture and sensitivity shows a Staphylococcus epidermitis. He is on IV vancomycin. He will be receiving vancomycin with each hemodialysis session for the next four hemodialysis sessions. I have already called the dialysis center. 3. Hypertension with end-stage renal disease. Patient's blood pressure is not accetable. Continue current dose of amlodipine. I started him on labetalol, however, primary team has switched him again to metoprolol. I am going to increase the metoprolol dose to 50 mg daily instead of 25 mg and I am also starting him on losartan 25 mg daily. Primary team recommended him to stay in the hospital because of elevated blood pressures, however, patient is asymptomatic he does not want to stay in the hospital and he wants to spent [place] with his family. Patient was recommended to followup with nephrology as outpatient. 4. Kidney transplant status. The patient still makes about 500-600 mL of urine. His tacrolimus is continued. Cellcept is on hold at this point. 5. Anemia and end-stage renal disease. Hemoglobin is 11.6 which is optimal. 6. Acute conjunctivitis. Patient's symptoms are significantly better with Ciprofloxacin eye drops. He can continue the eye drops for five more days. DISPOSITION: Patient is optimized on nephrology standpoint. He was recommended to stay for his elevated blood pressures, however, he is not ready to stay. His blood pressure will be followed up as outpatient in dialysis center. He can be discharged on the current antihypertensive regimen.
[2018-08-22] MEDS ORDERED: LEVA250T13 PO (11:57)
--- NOTE | 2018-09-11 08:37 | RO ---
DATE OF PROCEDURE: 08/10/2018 ATTENDING SURGEON: Dr. Diana Urrutia ELECTRIC GOLF CART REPAIRER: None. PREOPERATIVE DIAGNOSES: End-stage renal disease, right internal jugular vein tunneled central venous catheter placement, infected peritoneal dialysis catheter. POSTOPERATIVE DIAGNOSES: End-stage renal disease, right internal jugular vein tunneled central venous catheter placement, infected peritoneal dialysis catheter. PROCEDURE: Peritoneal dialysis catheter removal. INDICATION: The patient is a 48-year-old male with end-stage renal disease, who dialyzes through a peritoneal dialysis catheter, which is now infected and requires removal. The patient underwent placement of a right internal jugular vein tunneled central venous catheter for hemodialysis access. The patient will undergo removal of the peritoneal dialysis catheter. The procedure was described explained to the patient in detail including drawing of pictures demonstrating the procedure and the anatomy. Risks, benefits and alternative treatment options were discussed with the patient. Alternative options included but were not limited to no intervention, benefits included but were not limited to removal of the peroneal dialysis catheter for resolution of the infection and prevention of that. Risks included but were not limited to infection, bleeding, possibly for open surgical intervention, valve injury requiring selective exploratory laparotomy with repair, cerebrovascular accident, myocardial infarction, pulmonary embolus, deep venous thrombosis (DVT), loss of limb, loss to life, poor outcome and poor results. The patient voices understanding and acceptance of these risks, benefits and alternative treatment options and consents to proceed with peritoneal dialysis catheter removal. ANESTHESIA: Monitored anesthesia care (MAC). ESTIMATED BLOOD LOSS: 5 mL. IV FLUIDS: 50 mL. HEPARIN: None. COMPLICATIONS: None. DRAINS: None. SPECIMENS: None. IMPLANTS: None. DESCRIPTION OF PROCEDURE: The patient was taken to the operating room, placed on the operating room table and then prepped and draped in a standard surgical fashion. The subcutaneous cuff was dissected through the entry site in the abdominal wall. The peritoneal cuff was also dissected through the entry site in the abdominal wall and the catheter was then removed without difficulty. Dressings were then applied to the exit site in the abdominal wall. All instrument, sponge and needle counts were correct at the end the case. There were no complications. Dr. Urrutia was present for and directed the entire case. The patient was transferred to the recovery room awake, alert, extubated and in stable condition. The procedure and results were discussed with the patient in the recovery room with all his questions being answered. The patient was subsequently transferred to the floor in stable condition.
== END 2018-08-12 14:30 | disposition left against medical advice (07) | DRG 867 ==
LOC: M ED 23:07 → M ED INP 08-08 05:21 → M PCU 08-08 12:16
PROVIDERS: ADMIT Internal Medicine; ATTEND Family Medicine
PROC: 3E1M39Z Irrigation of Peritoneal Cavity using Dialysate, Percutaneous Approach (ICD-10-PCS; 2018-08-08)
PROC: 0JPT00Z Removal of Drainage Device from Trunk Subcutaneous Tissue and Fascia, Open Approach (ICD-10-PCS; principal; 2018-08-10 14:30)
PROC: 5A1D70Z Performance of Urinary Filtration, Intermittent, Less than 6 Hours Per Day (ICD-10-PCS; 2018-08-11)
DX: T80.29XA Infection following other infusion, transfusion and therapeutic injection, initial encounter (principal); N18.6 End stage renal disease; I12.0 Hypertensive chronic kidney disease with stage 5 chronic kidney disease or end stage renal disease; K57.20 Diverticulitis of large intestine with perforation and abscess without bleeding; N25.81 Secondary hyperparathyroidism of renal origin; T86.12 Kidney transplant failure; Y84.1 Kidney dialysis as the cause of abnormal reaction of the patient, or of later complication, without mention of misadventure at the time of the procedure; E78.5 Hyperlipidemia, unspecified; D63.1 Anemia in chronic kidney disease; D75.1 Secondary polycythemia; B95.8 Unspecified staphylococcus as the cause of diseases classified elsewhere; H10.33 Unspecified acute conjunctivitis, bilateral; F41.9 Anxiety disorder, unspecified; Z90.49 Acquired absence of other specified parts of digestive tract; Z79.899 Other long term (current) drug therapy; Z88.1 Allergy status to other antibiotic agents; Z88.5 Allergy status to narcotic agent; Z88.8 Allergy status to other drugs, medicaments and biological substances; Z99.2 Dependence on renal dialysis

== ENCOUNTER → 2018-09-05 | Outpatient (CLI) | payer MEDICARE, MEDICAID ==
[~2018-09-05] MED LIST changes: +ALBU83IN INH; +Acetaminophen Tab PO; +CILO0.3S OU; +COZA50TA PO; +LABE10TAB PO; +LEVA250T13 PO; +VENTAER INH; +VITA50005 PO
--- NOTE | 2018-09-07 23:59 | ECWPNPC ---
PATIENT NAME: OPAL LACEY : 1970 GENDER: MALE VISIT DATE: 09/05/2018 DISCHARGE DATE: 09/05/18 1029 VISIT LOCKED DATE TIME: PHYSICIAN: SHELIA TAN RESOURCE: SHELIA TAN REASON FOR APPOINTMENT 1. LOW BACK HISTORY OF PRESENT ILLNESS HISTORY OF PRESENT ILLNESS: HERE FOR F/U OF CHRONIC LOW BACK PAIN.HISTORY OF RENAL TRANSPLANT AND UNDERGOING HEMODIALYSIS 3X WK.RATING LOW BACK PAIN 4/10 VAS.FINDING CURRENT PAIN MEDICATION EFFECTIVE AT REDUCING PAIN AND KEEPING HIM COMFORTABLE AND FUNCTIONAL.CURRENTLY USING HYDROCODONE 10/325 Q6H PRN.REPORTING NORMAL BOWEL FUNCTION. PAIN THE PATIENT DESCRIBES THE PAIN... FALL RISK SCREENING: SCREENING :NO FALLS IN THE PAST YEAR CURRENT MEDICATIONS TAKING CELLCEPT 250 MG CAPSULE ORALLY 3 IN AM 3 IN PM TAKING TACROLIMUS 1 MG TABLET EXTENDED RELEASE 24 HOUR 2 CAPS ORALLY TWICE A DAY TAKING BLOOD PRESSURE KIT - KIT 1 BP MONITOR DX:I10 DAILY TAKING SENSIPAR 60 MG TABLET 1 TAB ORAL EVERY OTHER DAY TAKING AMLODIPINE BESYLATE 10 MG TABLET 1 TABLET ORALLY ONCE A DAY TAKING METOPROLOL SUCCINATE ER 25 MG TABLET EXTENDED RELEASE 24 HOUR 1 TABLET ORALLY ONCE A DAY TAKING VENTOLIN HFA 108 (90 BASE) MCG/ACT AEROSOL SOLUTION 2 PUFFS NEEDED INHALATION EVERY 6 HRS TAKING MULTIVITAMIN ADULTS - TABLET ORALLY TAKING HYDROCODONE-ACETAMINOPHEN 10-325 MG TABLET 1 TABLET NEEDED ORALLY Q6H PRN MDD4, NOTES: [facility] NOT-TAKING MAGNESIUM OXIDE 400 MG TABLET 1 TABLET NEEDED ORALLY TWICE WEEKLY NOT-TAKING XANAX 1 MG TABLET 1 TABLET ORALLY TWICE A DAY NEEDED NOT-TAKING CALCITRIOL 0.25 MCG CAPSULE 1 CAP ORAL EVERY OTHER DAY MEDICATION LIST REVIEWED AND RECONCILED WITH THE PATIENT PAST MEDICAL HISTORY RENAL FAILURE, LIKELY SECONDARY TO HYPERTENSION, S/P TRANSPLANT, TRANSPLANT FAILED, NOW DIALYSIS DEPENDENT AGAIN POST-TRANSPLANT ERYTHROCYTOSIS, ON AN ACEI AND RECEIVING PHLEBOTOMY HYPERTENSION (S/P RENAL TRANSPLANT, PER NEPHRO, TARGET BP < 140/90) BRONCHIECTASIS ALLERGIES ULTRAM: DIZZINESS: ALLERGY CEFTIN: HIVES: ALLERGY TORADOL: LIGHT HEADED: ALLERGY HYDROXYZINE HCL: DIZZINESS/FAINTING: SIDE EFFECTS SURGICAL HISTORY KIDNEY TRANSPLANT [facility] 05/21/15 CHOLECYSTECTOMY 2011 R FOREARM FISTULA, THEN REMOVED FOR ANEURYSMS KIDNEY BX 07-06 PERITONEAL CATH PLACED AND D/C'D FOR INFECTION 07/2018 FAMILY HISTORY FATHER: UNKNOWN MOTHER: ALIVE 64 YRS, DIAGNOSED WITH DIABETES SIBLINGS: ALIVE, ANXIETY, DEPRESSION SON(S): ALIVE 1 BROTHER(S) , 1 SISTER(S) - HEALTHY. 2 SON(S) - HEALTHY. SOCIAL HISTORY GENERAL: TOBACCO USE ARE YOU A:NONSMOKER BMI CARE GOAL FOLLOW-UP ABOVE NORMAL BMI FOLLOW-UPGIVING ENCOURAGEMENT TO EXERCISE ALCOHOL SCREENING DID YOU HAVE A DRINK CONTAINING ALCOHOL IN THE PAST YEAR?NO POINTS0 INTERPRETATIONNEGATIVE RECREATIONAL DRUG USE DRUG USE?NO CAFFEINE CAFFEINE USE?YES HOW OFTEN AND HOW MUCH? 2-3 CAFFEINATED DRINKS/DAY -- OFTEN SODA SEXUAL HX HAD SEX IN THE LAST 12 MONTHS (VAGINAL, ORAL, OR ANAL)?YES WITHWOMEN ONLY HAVE YOU EVER HAD AN STD?NO HIV / HEP-C SCREENING HIV TEST OFFERED TO PATIENT:YES DATE OFFERED:09/15/2016 TEST ACCEPTED:NO HEP-C TEST OFFERED TO PATIENT:NO REASON:PATIENT DECLINED MANDAEISM MANDAEISM NO MUSLIM BELIEFS THAT WOULD IMPACT HEALTH CARE. LANGUAGE GRENADIAN. EDUCATION LEVEL OF EDUCATION:HIGH SCHOOL LEARNING BARRIERS / SPECIAL NEEDS CHANGE FROM LAST VISIT?NO BARRIERS TO LEARNING?NO HEARING IMPAIRED?NO VISION IMPAIRED?YES COGNITIVELY IMPAIRED?NO :CORRECTIVE LENSES READINESS TO LEARN?YES LEARNING PREFERENCES?NO LEARNING CAPABILITIES PRESENT?YES EMOTIONAL BARRIERS?NO SPECIAL DEVICES?NO NO DOMESTIC VIOLENCE . OCCUPATION: UNEMPLOYED, ON DISABILITY. DIET: REGULAR. EXERCISE: NO REGULAR EXERCISE. MARITAL STATUS: SINGLE. OTHERS AT HOME: SON. PAIN CLINIC PFS, CLERGY, PUBLIC HEALTH REFERRALS HAS THE PATIENT BEEN EDUCATED REGARDING HIS/HER PLAN OF CARE?YES HAS THE PATIENT BEEN EDUCATED REGARDING PAIN, THE RISK FOR PAIN, THE IMPORTANCE OF EFFECTIVE PAIN MANAGEMENT, AND THE PAIN ASSESSMENT PROCESS?YES ADVANCE DIRECTIVE ADVANCE DIRECTIVE DISCUSSED WITH PATIENT:YES PT DOES NOT WANT INFO AT THIS TIME 2 CHILDREN -- ONE BORN (2010) AND THE OTHER BORN 1991REVIEWED WITH PT 06/05/18 1051 BV. HOSPITALIZATION/MAJOR DIAGNOSTIC PROCEDURE [facility] HYPERTENSION/CHEST PAIN 05/26/16 ESRD 05/2008 ESRD, VOLUME OVERLOAD 03/2009 ESRD, PNEUMONIA 09/2009 PNEUMONIA 02/2010 GALLSTONES 01/2011 RENAL TRANSPLANT 05/2015 "FOOD POISONING" AFTER RENAL TRANSPLANT 05/2015 STOMACH PAINS 04/06 REVIEW OF SYSTEMS REVIEWED BY: PROVIDER: SHELIA LEA . CONSTITUTIONAL: ANY CHANGE IN YOUR MEDICAL CONDITION? YES, NEW DIALISIS PT, PERITONEAL CATH PLACED AND REMOVED FOR INFECTION . CHILLS NO . FEVER NO . INFECTION: DO YOU HAVE NEW INFECTIONS? YES, PERITONEAL CATH INFECTED . DO YOU HAVE HISTORY OF MRSA? NO . MUSCULOSKELETAL: ANY NEW PATTERNS OF PAIN OR NUMBNESS? NO . GASTROENTEROLOGY: ANY NEW CHANGE IN BOWEL CONTROL? YES, INFECTED PERITONEAL CATH CAUSED CONSTIPATION, RESOLVED . GENITOURINARY: ANY NEW CHANGE IN BLADDER CONTROL? YES, INFECTED PERITONEAL CATH LIMITED URINATION, RESOLVED . IS THERE A CHANCE YOU COULD BE ? NO . HEMATOLOGY/LYMPH: DO YOU TAKE ANY BLOOD THINNERS? (FOR EXAMPLE- COUMADIN, PLAVIX, AGGRENOX, PLATEL, PRADAXA, OR XARELTO) NO, HEPRIN WITH DIALYSIS . WHEN WAS YOUR LAST DOSE? DATE: TIME: . NEUROLOGY: HAVE YOU FALLEN IN THE PAST 6 MONTHS? NO . ANY NEW EXTREMITY NUMBNESS OR WEAKNESS? NO . CARDIOLOGY: DO YOU HAVE A PACEMAKER OR DEFIBRILLATOR? NO . RESPIRATORY: HAVE YOU BEEN SICK IN THE PAST WEEK? NO . FEVER NO . FLU LIKE SYMPTOMS? NO . COUGH NO . INTEGUMENTARY: DO YOU HAVE ANY RASHES OR OPEN SORES? NO . ALLERGIC/IMMUNO: ARE YOU ALLERGIC TO SHELLFISH OR IV DYE? NO . ANY NEW ALLERGIES? NO . PSYCHIATRIC: DO YOU HAVE THOUGHTS OF HURTING YOURSELF OR SOMEONE ELSE? NO . ARE YOU ABUSED, NEGLECTED, OR IN AN UNSAFE ENVIRONMENT? NO . ENDOCRINOLOGY: ARE YOU DIABETIC? NO . OTHER: DO YOU NEED ANY PRESCRIPTIONS? YES, NORCO . IF YES, PLEASE LIST: ____ . ANY NEW PROBLEMS WITH YOUR MEDICATIONS? NO . WHEN DID YOU LAST EAT? ____ . WHEN DID YOU LAST DRINK? ____ . WHAT DID YOU LAST DRINK? ____ . NAME OF PERSON DRIVING YOU HOME? ____ . DO YOU HAVE ANY OTHER QUESTIONS OR CONCERNS NO . VITAL SIGNS WT 242.4 LBS, HT 5'11", BMI 33.80 INDEX, BP 138/75 MM HG, HR 69 /MIN, RR 18 /MIN, TEMP 97.0 F, OXYGEN SAT % 97%, NA INITIALS SC 09:35, REVIEWED BY: EM. EXAMINATION GENERAL EXAMINATION: GENERAL APPEARANCE:AWAKE,ALERT ,PLEAASANT . PSYCHAFFECT NORMAL . LUNGS:LUNG BOYER ARE CLEAR TO AUSCULTATION BILATERALLY. GOOD MOVEMENT OF AIR . HEART:S1, S2 IN A REGULAR RATE AND RHYTHM. NO SIGNIFICANT MURMURS, RUBS OR GALLOPS NOTED . ASSESSMENTS LUMBAGO DUE TO DISPLACEMENT OF INTERVERTEBRAL DISC - M51.26 (PRIMARY) TREATMENT LUMBAGO DUE TO DISPLACEMENT OF INTERVERTEBRAL DISC NOTES: ISTOP REGISTRY REVIEWED AND DEMONSTRATES COMPLLIANCE. (REF # [id number] ) BRINGS IN MEDICATIONS WHICH IS APPROPRIATE FOR WHAT WAS DISPENSED. RECENT URINE TOXICOLOGY REVIEWED. NO UNAUTHORIZED MEDICATIONS. NO ILLICIT SUBSTANCES AND PRESCRIBED MEDICATIONS WERE PRESENT. , RISKS AND BENEFITS OF NARCOTIC/OPIOD MEDICATIONS WERE REVIEWED WITH PATIENT - THIS INCLUDES BUT IS NOT LIMITED TO RISK OF DEPENDANCE/DEVELOPMENT OF ADDICTION, MOOD DISTURBANCE AND DEPRESSION, OSTEOPOROSIS, HORMONAL AND LABIDAL CHANGES, RESPIRATORY DEPRESSION AND . PATIENT IS ADVISED NOT TO DRIVE OR DRINK ALCOHOL WHILE ON THESE MEDICATIONS, [facility] NARCOTIC AGREEMENT WAS REVIEWED . SEE ATTACHED DOCUMENT FOR FULL DETAILS; SPECIFIC ISSUES WERE REVIEWED: 1) KEEP PAIN MEDS IN THEIR ORIGINAL BOTTLES AND ANY WEEKLY PLANNERS ARE TO BE BROUGHT TO THE PAIN CENTER AT EVERY VISIT. 2) THE PATIENT IS NOT TO INCREASE DOSING OR TIMING OF THEIR PAIN MEDICATION WITHOUT SPECIFIC DIRECTION OF THEIR PAIN CENTERPROVIDER (NOT ER OR OTHER PROVIDERS). 3) ALL PAIN MEDS ARE TO BE KEPT SECURED, IN A LOCKED BOX. 4) NO PAIN MEDS ARE TO BE SHARED WITH ANY OTHER PERSON FOR ANY REASON. 5) NO PAIN MEDS MAY BE TAKEN FROM ANY FRIENDS OR RELATIVES FOR ANY REASON 6) NO MEDS OR SUBSTANCES WHICH ARE NOT LEGAL ARE TO BE USED- NO MARIJUANA, NO COCAINE, AMPHETAMINES, HEROIN, OR OTHERS ARE EVER TO BE USED. 7)URINE TESTING IS DONE TO ACCOUNT FOR MEDS AND SUBSTANCES BEING TAKEN AND WILL BE DONE RANDOMLY. PROCEDURE CODES FA211 ESTABILISHED PATIENT [facility] FACILITY CHARGE DISPOSITION & COMMUNICATION FOLLOW UP 6 WEEKS ELECTRONICALLY SIGNED BY VENU LAURENT ON 09/05/2018 AT 10:55 AM EST DISCLAIMER : THIS IS A VISIT SUMMARY EXTRACTED FROM THE [employer] CHART. IT IS NOT A COPY OF THE [employer] PROGRESS NOTE. DAVION
== END ==
LOC: M PAIN 09:30
PROVIDERS: ATTEND Nurse Practitioner Family
DX: M51.26 Other intervertebral disc displacement, lumbar region (principal); G89.29 Other chronic pain; I10 Essential (primary) hypertension; Z79.899 Other long term (current) drug therapy; Z88.8 Allergy status to other drugs, medicaments and biological substances; Z94.0 Kidney transplant status; Z99.2 Dependence on renal dialysis

== ENCOUNTER 2018-09-23 10:17 | Inpatient (IN) | payer MEDICARE, MEDICAID ==
[~2018-09-23] VITALS: Ht 180.3 cm; Wt 109.5 kg
[2018-09-23 10:48] LABS: EOS % 0.4 % (0.0-3.0); HEMOGLOBIN 12.2 g/dl (13.5-17.5); LYMPH # 0.5 10^3/uL (1.5-4.5); MEAN CORPUSCULAR HEMOGLOBIN 29.6 pg (27.0-33.0); MEAN CORPUSCULAR HGB CONC 34.9 g/dl (32.0-36.5); MONO # 0.3 10^3/uL (0.0-0.8); MONO % 11.3 % (0.0-5.0); NEUTROPHILS % 71.9 % (36.0-66.0); PLATELET COUNT, AUTOMATED 114 10^3/uL (150-450); RED BLOOD COUNT 4.12 10^6/uL (4.30-6.10); WHITE BLOOD COUNT 2.8 10^3/uL (4.0-10.0)
[2018-09-23] MEDS: NITROGLYCERIN 0.4 MG SUBL TABLET SL PRN ×2 (11:03→12:20)
--- NOTE | 2018-09-23 11:21 | REP ---
Chest one-view HISTORY: Chest pain Comparison: 06/10/2018 The lungs are clear. The heart is normal in size. The pulmonary vasculature is normal in appearance. A catheter is present in the superior vena cava. Impression: No acute disease. Electronically Signed by Korey Lopez MD 09/23/2018 11:13 A
[2018-09-23 11:41] LABS: ALBUMIN 3.1 GM/DL (3.2-5.2); BILIRUBIN,DIRECT 0.1 MG/DL (0.0-0.2); BILIRUBIN,TOTAL 0.4 MG/DL (0.2-1.0); CALCIUM LEVEL 8.1 MG/DL (8.5-10.1); CREATININE FOR GFR 9.7 MG/DL (0.70-1.30); FREE T4 1.19 NG/DL (0.76-1.46); GLOMERULAR FILTRATION RATE 6.2 (>60); MB/CK RELATIVE INDEX 3.77 (< OR =4); POTASSIUM SERUM 3.6 MEQ/L (3.5-5.1); THYROID STIMULATING HORMONE 1.15 uIU/ML (0.358-3.740); TOTAL PROTEIN 6.4 GM/DL (6.4-8.2); TROPONIN I 0.12 NG/ML (< 0.10)
[2018-09-23 11:46] LABS: INR 0.93; PROTHROMBIN TIME 12.6 SECONDS (12.1-14.4)
[2018-09-23 11:47] LABS: PARTIAL THROMBOPLASTIN TIME 42.5 SECONDS (25.4-37.6)
[2018-09-23 12:59] LABS: MB/CK RELATIVE INDEX 3.22 (< OR =4); TROPONIN I 0.12 NG/ML (< 0.10)
[2018-09-23] MEDS ORDERED: ISOVUE-370 76% 100ML VIAL (Q9967) As Ordered ONE (13:58)
[2018-09-23] MEDS ORDERED: METOPROLOL SUCC *XL* 25MG TAB (TopROL *XL*) PO ONE (14:15)
[2018-09-23] MEDS ORDERED: ALPRAZolam 0.5 MG TAB PO ONE (14:15)
[2018-09-23] MEDS ORDERED: amLODIPine 10 MG TAB PO ONE (14:15)
--- NOTE | 2018-09-23 14:43 | REP ---
CT abdomen and pelvis with IV but without oral contrast: History: Abdomen pain and vomiting. Patient on dialysis for renal failure. CT contrast dose: 100 ml of intravenous Isovue 370 is administered. Comparison study: August 08, 2018. CT findings: Digital preliminary dental mold maker radiograph is unremarkable. There are patchy areas of pulmonary parenchymal opacity present bilaterally in the lower lung portillo on today's CT images new from the 08/08/2018 exam. These are of uncertain significance but appear to be inflammatory. No pleural or pericardial effusion is seen. There is evidence of a left ventricular hypertrophy. No adrenal abnormalities observed. There are clips in the gallbladder fossa. No focal hepatic lesion is seen. Spleen is unremarkable. The kidneys are markedly atrophic. There is a transplant kidney in the right iliac fossa containing two identifiable cysts. The largest of these cysts is in the upper pole 3.5 cm in diameter. No hydronephrosis is seen in the transplant kidney. There is sigmoid colon diverticulosis. There is some pericolonic streaking adjacent to the sigmoid colon and this may reflect mild diverticulitis. No abscess or free air is seen. Small bowel loops are unremarkable. No retroperitoneal mass or adenopathy is seen. No abdominal wall defect is observed. Bone window settings show no bony destructive lesion. Impression: Sigmoid colon diverticulosis with pericolonic streaking consistent with diverticulitis. No abscess or free air. Status post cholecystectomy. Two small cysts in the transplant kidney right iliac fossa. [place] kidneys are markedly atrophic. Electronically Signed by Blayne Guillermo MD 09/23/2018 05:50 P
[2018-09-23 16:02] LABS: MB/CK RELATIVE INDEX 4.12 (< OR =4); TROPONIN I 0.16 NG/ML (< 0.10)
[2018-09-23] MEDS ORDERED: metroNIDAZOLE 500 MG in APPROPRIATE DILUENT 1 EA IV ONE (16:45)
[2018-09-23] MEDS ORDERED: CIPROFLOXACIN 400 MG in APPROPRIATE DILUENT 1 EA IV ONE (16:45)
[2018-09-23] MEDS ORDERED: ATOR1TAB21 PO (18:03)
[2018-09-23] MEDS ORDERED: METO1TAB32 PO (18:03)
[2018-09-23] MEDS ORDERED: AURY1TAB PO (18:03)
[2018-09-23] MEDS ORDERED: LOSA50TA88 PO (18:10)
[2018-09-23] MEDS ORDERED: ALBUTEROL SULFATE 2.5 MG/0.5 ML INH NEB SOLN INH PRN (18:30)
[2018-09-23] MEDS ORDERED: MORPHINE 4 MG/ML 1ML VIAL/SYRINGE (J2270) IV PRN (18:30)
[2018-09-23] MEDS ORDERED: ALPRAZolam 0.5 MG TAB PO PRN (18:30)
--- NOTE | 2018-09-23 19:25 | HPE ---
DATE OF ADMISSION: 09/23/2018 48-year-old male with a past medical history of end-stage renal disease on hemodialysis Sunday, Sunday, Sunday, last dialysis was Sunday, history of living donor renal transplant 3 years ago, history of hypertension, hyperlipidemia, who presents to the emergency room for chest pain, retrosternal, pressure like, nonradiating, 3 hours into his 4 hours of dialysis, had to stop dialysis and brought the patient to the emergency room (ER) for evaluation. In the ER he was given nitroglycerin times three which brought his chest pain down to a 3/10, however he still had chest pain. Two troponins have come back negative. His 12-lead EKG did not show any acute ST-T abnormalities. Dr. Sheffield has been consulted and he will see the patient on consult. Patient denies any shortness of breath or palpitations or diaphoresis. Patient did complain of some nausea so the patient did get a CT scan of the abdomen and pelvis which showed sigmoid diverticulitis and was started on IV Cipro and Flagyl in the ER. He will be admitted for further management. Again, past medical history of hypertension, hyperlipidemia, anxiety, end-stage renal disease on hemodialysis Sunday, Sunday, Sunday, history of living donor renal transplant 3 years ago. Past surgical history of cholecystectomy, right upper extremity fistula creation, living donor renal transplant in May of 2015. ALLERGIES: He has drug allergies to CEPHALOSPORINS, HYDROXYZINE, KETOROLAC, TRAMADOL, and TROMETHAMINE. FAMILY HISTORY: Negative for early coronary artery disease. SOCIAL HISTORY: Patient denies tobacco, alcohol, or illicit drugs. MEDICATIONS: He takes at home are as follows: - [place] 10/325 one tablet orally every 6 hours as needed - albuterol as needed - alprazolam 1 mg orally twice a day as needed - amlodipine 10 mg orally daily - atorvastatin 20 mg orally daily - Auryxia 420 mg orally three times a day - calcitriol 0.25 mcg orally three times a week - calciferol 50,000 units orally weekly - losartan 50 mg orally daily - metoprolol 25 mg orally daily - multivitamin one tablet orally daily - mycophenolate mofetil 750 mg orally twice a day - tacrolimus 2 mg orally twice a day Review of systems is negative for all ten major systems except what is mentioned in history of present illness (HPI). Vital signs: Blood pressure is 190/92, heart rate is 75, regular, respiratory rate 18, temperature is 97.4, oxygen saturation is 98% on room air. Head is atraumatic, normocephalic. Neck is supple, no jugular venous distention (JVD). Lungs are clear to auscultation. S1, S2 audible, no murmurs appreciated. Abdomen is soft, positive bowel sounds. No pedal edema. Skin intact. Neurologic examination: Patient is awake, alert, oriented times three. LABORATORY DATA: WBC 2.8, hemoglobin 12.2, hematocrit 35, platelets are 114,000, sodium 141, potassium 3.6, chloride 103, CO2 27, BUN 47, creatinine 9.7, glucose 191, AST 21, ALT 15, alkaline phosphatase 66, lipase 316, TSH is 1.150. Troponin three sets has been 0.12, 0.12, and 0.16. CT abdomen and pelvis shows sigmoid diverticulitis. IMPRESSION: 1. Acute diverticulitis. 2. Angina. PLAN: Patient is to be admitted to the progressive care unit (PCU). Will get another troponin to see troponin trends. I am going to continue all his preadmission medications and will continue the IV Cipro and Flagyl for his diverticulitis. Will have Dr. Sheffield see the patient in consult for cardiology and will continue his care in the progressive care unit (PCU).
[2018-09-23] MEDS: NORCO, ANEXSIA 5/325MG TABLET (HYDROcodone/ACETAMINOPHEN) PO PRN (19:26)
--- NOTE | 2018-09-23 20:06 | ECGEPIP ---
Stationary ECG Study [facility] - ED Test Date: 2018-09-23 Pat Name: OPAL LACEY Department: Room: - Gender: M Project Leader: fede : 1970 Requested By: Collette Vazquez Order Number: [id number] Reading MD: Collette Vazquez Measurements Intervals [place] Rate: 82 P: 31 ND: 161 QRS: -4 QRSD: 87 T: 56 QT: 410 QTc: 479 Interpretive Statements SINUS RHYTHM VOLTAGE CRITERIA FOR LVH NONSPECIFIC T-WAVE ABNORMALITY EARLY REPOLARIZATION LIKELY CW RATE DECREASED SIMILAR MORPHOLOGY Electronically Signed On 09-23-2018 20:05:51 EST by Collette Vazquez
[2018-09-23 20:18] VITALS: BP 182/94
[2018-09-23] MEDS: MYCOPHENOLATE MOFETIL 250 MG CAP (J7517) PO SCH (20:52)
[2018-09-23] MEDS: TACROLIMUS 1 MG CAP (J7507) PO SCH (20:52)
--- NOTE | 2018-09-23 22:42 | ECGEPIP ---
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
[2018-09-23] MEDS ORDERED: **hydrALAZINE** 10 MG TAB PO ONE (23:45)
[2018-09-24] VITALS (8 sets, daily range): BP systolic 150–186; BP diastolic 66–100
[2018-09-24] MEDS: ONDANSETRON 4MG/2ML VIAL (J2405) IV PRN (02:50)
[2018-09-24] MEDS: CIPROFLOXACIN 400 MG in APPROPRIATE DILUENT 1 EA IV SCH ×2 (05:01→18:45)
[2018-09-24 05:51] LABS: BASO % 0.4 % (0.0-1.0); EOS % 0.7 % (0.0-3.0); HEMATOCRIT 36.5 % (42.0-52.0); LYMPH # 0.4 10^3/uL (1.5-4.5); LYMPH % 12.3 % (24.0-44.0); MEAN CORPUSCULAR HGB CONC 32.9 g/dl (32.0-36.5); MEAN CORPUSCULAR VOLUME 88.2 fl (80.0-96.0); MONO # 0.4 10^3/uL (0.0-0.8); MONO % 12.7 % (0.0-5.0); NEUTROPHILS # 2.1 10^3/uL (1.8-7.7); NEUTROPHILS % 73.5 % (36.0-66.0); RED BLOOD COUNT 4.14 10^6/uL (4.30-6.10); WHITE BLOOD COUNT 2.8 10^3/uL (4.0-10.0)
[2018-09-24 06:19] LABS: CALCIUM LEVEL 8.1 MG/DL (8.5-10.1); GLOMERULAR FILTRATION RATE 4.1 (>60); POTASSIUM SERUM 4.1 MEQ/L (3.5-5.1)
[2018-09-24 06:25] LABS: PLATELET COUNT, AUTOMATED 92 10^3/uL (150-450)
[2018-09-24] MEDS ORDERED: ONDANSETRON 4MG/2ML VIAL (J2405) IV ONE (08:45)
[2018-09-24] MEDS: TACROLIMUS 1 MG CAP (J7507) PO SCH ×3 (09:50→21:43)
[2018-09-24] MEDS: ATORVASTATIN 20 MG TAB PO SCH ×2 (09:50→12:00)
[2018-09-24] MEDS: MULTIVITAMINS CHILDREN'S CHEWABLE TABLET PO SCH ×2 (09:50→12:00)
[2018-09-24] MEDS: metroNIDAZOLE 500 MG in APPROPRIATE DILUENT 1 EA IV SCH ×4 (09:50→17:35)
[2018-09-24] MEDS: LOSARTAN 50 MG TAB PO SCH (09:50)
[2018-09-24] MEDS: MYCOPHENOLATE MOFETIL 250 MG CAP (J7517) PO SCH ×3 (09:50→21:44)
[2018-09-24] MEDS: METOPROLOL SUCC *XL* 25MG TAB (TopROL *XL*) PO SCH (09:51)
[2018-09-24] MEDS: amLODIPine 10 MG TAB PO SCH (09:52)
--- NOTE | 2018-09-24 12:13 | IPNPDOC ---
Subjective Date Seen The patient was seen on 09/24/18. Subjective Chief Complaint/HPI per HPI Constitutional: Reports: Chills (may have had some chills 2-3 days ago. ) Eyes: Denies: Pain ENT: Denies: Head Aches Skin: Denies: Rash Pulmonary: Denies: Dyspnea, Cough Cardiovascular: Denies: Chest Pain, Palpitations Gastrointestinal: Reports: Other Symptoms (diminished appetite last few days); Denies: Abdominal Pain Genitourinary: Denies: Dysuria Hematologic: Denies: Bruising Endocrine: Denies: Polydipsia Neurological: Denies: Weakness, Numbness Psych: Reports: Mood Normal Objective Physical Examination General Exam: Positive: Alert Eye Exam: Positive: PERRLA, EOMI ENT Exam: Positive: Atraumatic Neck Exam: Positive: Supple; Negative: thyromegaly Chest Exam: Positive: Clear to auscultation, Normal air movement; Negative: Rales, Rhonchi Heart Exam: Positive: Rate Normal; Negative: Murmurs Abdomen Exam: Positive: BS Hypoactive, Soft; Negative: Tenderness Extremity Exam: Negative: Clubbing, Cyanosis, Edema Skin Exam: Positive: Nl turgor and temperature; Negative: Rash Psych Exam: Positive: Mental status NL Assessment /Plan Problems (1) Diverticulitis of sigmoid colon Status: Acute Response to Treatment: Improving Problem Specific Plan: Monitor Clinically Problem Text: On flagyl and cipro IV. Says he was tender in abdomen yesterday but not today (2) Chest pain Status: Resolved Problem Specific Plan: Consult Specialist Problem Text: No symptoms at present. Slightly elevated troponin but did not "evolve" in a pattern to suggest acute injury. ECG does not show ST-T wave ch anges suggestive of ischemia. No previous hx of CAD or pericarditis. Dr. Sheffield has been consulted. (3) CKD (chronic kidney disease) requiring chronic dialysis Status: Chronic Response to Treatment: Stable Discussed With: Factory Superintendent Problem Specific Plan: Consult Specialist Problem Text: Patient back on hemodialysis after having failure of transplanted kidney. Remains on immunosuppression to prevent acute rejection. Was dialyzed yesterday. Plan per Dr. Cuenca is to dialyze again tomorrow. (4) Hypertension Status: Chronic Response to Treatment: Stable Problem Text: Chronically on losartan, low dose metoprolol succinate, and amlodipine but pressure remains elevated this am. Will add hydralazine 10 tid, hold for SBP<130 Plan/VTE VTE Prophylaxis Ordered?: Yes Plan Anticipated Discharge: Home VS, I&O, 24H, [facility] Vital Signs/I&O Vital Signs Date Time Temp Pulse Resp B/P (MAP) Pulse Ox O2 Delivery O2 Flow Rate FiO2 09/24/18 09:52 86 164/96 09/24/18 08:00 96.7 18 96 09/23/18 19:16 Room Air I&O- Last 24 Hours up to 6 AM 09/24/18 06:00 Intake Total 580 ml Balance 580 ml Laboratory Data 24H LABS Laboratory Tests 2 09/23/18 15:21: Total Creatine Kinase 131, Creatine Kinase MB 5.0H, Creatine Kinase MB Relative Index 4.12H, Troponin I 0.16#H 09/23/18 22:03: Troponin I 0.20#H 09/24/18 05:26: Immature Granulocyte % (Auto) 0.4, White Blood Count 2.8L, Red Blood Count 4.14L, Hemoglobin 12.0L, Hematocrit 36.5L, Mean Corpuscular Volume 88.2, Mean Corpuscular Hemoglobin 29.0, Mean Corpuscular Hemoglobin Concent 32.9, Red Cell Distribution Width 14.5, Platelet Count 92L, Neutrophils (%) (Auto) 73.5H, Lymphocytes (%) (Auto) 12.3L, Monocytes (%) (Auto) 12.7H, Eosinophils (%) (Auto) 0.7, Basophils (%) (Auto) 0.4, Neutrophils # (Auto) 2.1, Lymphocytes # (Auto) 0.4L, Monocytes # (Auto) 0.4, Eosinophils # (Auto) 0.0, Basophils # (Auto) 0.0, Nucleated Red Blood Cells % (auto) 0.0, Immature Platelet Fraction 3.7, Anion Gap 10, Glomerular Filtration Rate 4.1L, Blood Urea Nitrogen 66H, Creatinine 14.00*H, Sodium Level 136, Potassium Level 4.1, Chloride Level 98, Carbon Dioxide Level 28, Calcium Level 8.1L CBC/BMP Laboratory Tests 09/24/18 05:26 Red Blood Count 4.14 L, Mean Corpuscular Volume 88.2, Mean Corpuscular Hemoglobin 29.0, Mean Corpuscular Hemoglobin Concent 32.9, Red Cell Distribution Width 14.5, Neutrophils (%) (Auto) 73.5 H, Lymphocytes (%) (Auto) 12.3 L, Monocytes (%) (Auto) 12.7 H, Eosinophils (%) (Auto) 0.7, Basophils (%) (Auto) 0.4, Neutrophils # (Auto) 2.1, Lymphocytes # (Auto) 0.4 L, Monocytes # (Auto) 0.4, Eosinophils # (Auto) 0.0, Basophils # (Auto) 0.0, Calcium Level 8.1 L Erick Wilkerson MD Sep 24, 2018 12:13
[2018-09-24] MEDS: ENOXAPARIN 30 MG/0.3 ML SYR (J1650) SC SCH (14:00)
[2018-09-24] MEDS: **hydrALAZINE** 10 MG TAB PO SCH ×2 (14:34→21:44)
--- NOTE | 2018-09-24 23:32 | CR ---
DATE OF CONSULTATION: 09/24/2018 REQUESTING PHYSICIAN: Dr. Erick Wilkerson CONSULTING PHYSICIAN: Dr. Cuenca REASON FOR CONSULTATION: Management of end-stage renal disease, on hemodialysis. CHIEF COMPLAINT: The patient was sent to the emergency room yesterday because of chest pain and pressure during hemodialysis. HISTORY OF THE PRESENT ILLNESS: Helio Rosen is a 48-year-old male with a past medical history of end-stage renal disease after a failed kidney transplant, currently hemodialysis dependent every Sunday, Sunday, Sunday. He missed a whole one week of hemodialysis last week. He presented for hemodialysis yesterday. He was being dialyzed and almost 3 hours after his hemodialysis, he started having severe chest pain and pressure, and elevated blood pressures. He still had one hour of hemodialysis left; however, hemodialysis had to be stopped. The patient was sent to the emergency room for further evaluation. The patient was admitted under the hospitalist service yesterday with chest pain, rule out acute coronary syndrome (ACS) and elevated blood pressures. Nephrology service was called for further help in the management of this patient for hemodialysis. I saw and evaluated the patient today morning. The patient reported that he is feeling much better today as compared with yesterday. He was also started on intravenous (IV) antibiotics last night, and he reports that his appetite is getting better and before that, his appetite was poor, and he was not eating well. CAT scan done in the emergency room showed sigmoid diverticulitis. PAST MEDICAL HISTORY: End-stage renal disease, on hemodialysis. History of failed renal transplant. Hypertension. Hyperlipidemia. Anxiety. Secondary hyperparathyroidism. PAST SURGICAL HISTORY: Status post cholecystectomy. Status post live donor kidney transplant about 3 years ago. Status post right upper arm arteriovenous (AV) fistula. ALLERGIES: The patient is allergic to CEPHALOSPORIN, HYDROXYZINE, KETOROLAC and TRAMADOL. FAMILY HISTORY: No significant family history of end-stage renal disease requiring hemodialysis. No history of significant coronary artery disease in the family. SOCIAL HISTORY: The patient denies any illicit drug abuse, smoking or alcohol abuse. REVIEW OF SYSTEMS: CONSTITUTIONAL: He denies any fevers or chills. EYES: He denies any blurry vision, double vision. ENT: He denies any dysphagia, odynophagia. CARDIOVASCULAR: He presented with chest pressure. RESPIRATORY: He denies any shortness of breath or cough. GASTROINTESTINAL (GI): He reports nausea and decreased appetite. GENITOURINARY: He denies any dysuria or hematuria. MUSCULOSKELETAL: He denies any muscle aches and pains. ENDOCRINE: He reports a history of secondary hyperparathyroidism. HEMATOLOGICAL/ONCOLOGICAL: He denies any easy bleeding or bruising. All other review of systems is negative. PHYSICAL EXAMINATION: GENERAL: The patient is awake, alert, oriented times three, morbidly obese, laying in bed, in no apparent distress. VITAL SIGNS: Temperature is 96.7 degrees Fahrenheit, blood pressure 166/92, pulse is 80, respiratory rate of 18, saturating 97% on room air. HEAD AND NECK EXAM: Extraocular muscles intact. Pupils equally round and reactive to light. Mucous membranes are moist. Neck is supple. There is no jugular venous distention (JVD). He has a right internal jugular (IJ) tunneled hemodialysis catheter. CARDIOVASCULAR: S1, S2, regular rate. No murmur, rub or gallop. RESPIRATORY: Chest is clear to auscultation bilaterally. Bilateral equal air entry. No rales or rhonchi. ABDOMEN: Soft. Positive bowel sounds. Mildly tender in the left lower quadrant. No organomegaly was noted. Renal allograft is palpable. There is no tenderness at the renal allograft site. GENITOURINARY: Bladder is not palpable. MUSCULOSKELETAL: No clubbing or cyanosis. Pulses are 2+. CENTRAL NERVOUS SYSTEM (SUPERVISOR PAINTING): No focal deficit. Power is 5/5 in all extremities. SKIN: No rashes or ulcers. LAB REVIEW: CBC showed a WBC of 2.8, hemoglobin is 12, platelets are 92, INR is 0.93. BMP showed sodium 136, potassium 4.1, chloride 98, bicarbonate 28, BUN 66, creatinine is 14, calcium is 8.1. IMAGING: CAT scan of the abdomen and pelvis was done yesterday, which showed sigmoid colon diverticulosis with pericolonic streaking consistent with diverticulitis. CURRENT INPATIENT MEDICATIONS: Patient's inpatient medications were all reviewed by me. He is currently on IV Cipro and IV Flagyl, albuterol as needed, alprazolam as needed for anxiety, amlodipine 10 mg daily, Lipitor 20 mg daily, calcitriol 0.25 mcg Sunday, Sunday, Sunday, Lovenox 30 mg subcu daily, hydralazine 10 mg by mouth every 6 hours, losartan 50 mg by mouth daily, Toprol XL 25 mg daily, mycophenolate 750 mg by mouth twice a day, nitroglycerin sublingual as needed, Zofran as needed, tacrolimus 2 mg by mouth twice a day. ASSESSMENT: A 48-year-old male with end-stage renal disease, on hemodialysis, with hypertension and anxiety, admitted at this time with chest pain and acute diverticulitis. PLAN: 1. End-stage renal disease, on hemodialysis. The patient's regular dialysis days are Sunday, Sunday, Sunday. He was dialyzed yesterday. Next hemodialysis session will be tomorrow. 2. Acute diverticulitis. The patient is on IV Flagyl and Cipro. He is symptomatically getting better. Continue current antibiotics at this time. He is able to tolerate oral diet. 3. Chest Pain/Rule out ACS. Patient came in with elevated blood pressures. He was seen by cardiology service. Blood pressures are better optimized. His troponins are still slightly elevated. The rest of the management is as per cardiology recommendations. 4. Secondary hyperparathyroidism secondary to chronic kidney disease. Continue current dose of calcitriol 0.25 mcg by mouth Sunday, Sunday, Sunday. 5. Hypertension with chronic kidney disease. Continue current dose of amlodipine 10 mg daily, hydralazine 10 mg every 8 hours, losartan 50 mg daily and metoprolol XL 25 mg by mouth daily. 6. Kidney transplant status. Patient is dialysis dependent now. He has minimal residual kidney function left. I am going to slowly taper down his immunosuppression now. Thank you for involving me in the care of this patient. I shall be happy to follow the patient along with you tomorrow morning. DAVION
[2018-09-25] MEDS: metroNIDAZOLE 500 MG in APPROPRIATE DILUENT 1 EA IV SCH ×3 (00:52→16:48)
[2018-09-25 02:00] VITALS: BP 164/90
[2018-09-25 04:00] VITALS: BP 168/98
[2018-09-25] MEDS: CIPROFLOXACIN 400 MG in APPROPRIATE DILUENT 1 EA IV SCH ×2 (05:12→18:06)
[2018-09-25] MEDS: **hydrALAZINE** 10 MG TAB PO SCH ×3 (05:12→20:47)
[2018-09-25] MEDS: ONDANSETRON 4MG/2ML VIAL (J2405) IV PRN (05:45)
[2018-09-25 06:00] VITALS: BP 162/88
[2018-09-25 06:08] LABS: HEMATOCRIT 33.8 % (42.0-52.0); HEMOGLOBIN 11.1 g/dl (13.5-17.5); MEAN CORPUSCULAR HEMOGLOBIN 28.8 pg (27.0-33.0); MEAN CORPUSCULAR HGB CONC 32.8 g/dl (32.0-36.5); MEAN CORPUSCULAR VOLUME 87.8 fl (80.0-96.0); PLATELET COUNT, AUTOMATED 113 10^3/uL (150-450); RED BLOOD COUNT 3.85 10^6/uL (4.30-6.10); WHITE BLOOD COUNT 3.1 10^3/uL (4.0-10.0)
[2018-09-25 06:31] LABS: CALCIUM LEVEL 7.7 MG/DL (8.5-10.1); CREATININE FOR GFR 15.6 MG/DL (0.70-1.30); GLOMERULAR FILTRATION RATE 3.6 (>60); POTASSIUM SERUM 3.7 MEQ/L (3.5-5.1)
[2018-09-25 08:00] VITALS: BP 180/100
--- NOTE | 2018-09-25 08:39 | ECGEPIP ---
Stationary ECG Study [facility] - ED Test Date: 2018-09-23 Pat Name: OPAL LACEY Department: Room: - Gender: M Can Pusher: fede : 1970 Requested By: Collette Vazquez Order Number: [id number] Reading MD: Lore Suarez Measurements Intervals [place] Rate: 98 P: 52 [place]: 163 QRS: 1 QRSD: 94 T: 59 QT: 396 QTc: 507 Interpretive Statements SINUS RHYTHM VOLTAGE CRITERIA FOR LVH NSTTW ABNORMALITY Electronically Signed On 09-25-2018 8:39:23 EST by Lore Suarez
[2018-09-25] MEDS ORDERED: CALCITRIOL 0.25 MCG CAP (S0169) PO SCH (09:00)
[2018-09-25] MEDS: ATORVASTATIN 20 MG TAB PO SCH (09:00)
[2018-09-25] MEDS: ENOXAPARIN 30 MG/0.3 ML SYR (J1650) SC SCH (09:00)
[2018-09-25] MEDS ORDERED: ONDANSETRON 4MG/2ML VIAL (J2405) IV PRN (09:15)
[2018-09-25] MEDS: ALBUTEROL SULFATE 2.5 MG/0.5 ML INH NEB SOLN INH SCH ×3 (09:24→20:00)
--- NOTE | 2018-09-25 09:31 | IPNPDOC ---
Subjective Date Seen The patient was seen on 09/25/18. Subjective Chief Complaint/HPI Still having diarrhea and n/v daily. Refusing his meds often due to n/v Constitutional: Denies: Chills, Fever Pulmonary: Denies: Dyspnea, Cough Cardiovascular: Denies: Chest Pain Gastrointestinal: Reports: Nausea, Vomiting, Diarrhea; Denies: Abdominal Pain, Constipation Genitourinary: Denies: Dysuria Objective Physical Examination General Exam: Positive: Alert, No Acute Distress Chest Exam: Positive: Normal air movement, Wheezing; Negative: Rales, Rhonchi Heart Exam: Positive: Rate Normal, Regular Rhythm; Negative: Murmurs Abdomen Exam: Positive: BS Hypoactive, Soft; Negative: Tenderness Extremity Exam: Negative: Clubbing, Cyanosis, Edema Psych Exam: Positive: Mental status NL Assessment /Plan Problems (1) Diverticulitis of sigmoid colon Status: Acute Response to Treatment: Improving Problem Specific Plan: Monitor Clinically Problem Text: 09/25 - states he is still having diarrhea (not documented), but abd pain has resolved C/O n/v not controlled by Zofran 4mg - I will increase to 8 mg QHP Add Pepcid On flagyl and cipro IV. (2) Hypertension Status: Chronic Response to Treatment: Stable Problem Text: 09/25 - BP still high but has been refusing meds at times. Has not had his BP meds yet this am. Nurse will attempt to give again laer if n/v improves. Chronically on losartan, low dose metoprolol succinate, and amlodipine but pressure remains elevated this am. Will add hydralazine 10 tid, hold for SBP<130 (3) Chest pain Status: Resolved Problem Specific Plan: Consult Specialist Problem Text: No symptoms at present. Slightly elevated troponin but did not "evolve" in a pattern to suggest acute injury. ECG does not show ST-T wave robi nges suggestive of ischemia. No previous hx of CAD or pericarditis. Dr. Sheffield has been consulted. (4) CKD (chronic kidney disease) requiring chronic dialysis Status: Chronic Response to Treatment: Stable Discussed With: [employer] Fre[employer] Specialist Problem Specific Plan: Consult Specialist Problem Text: Patient back on hemodialysis after having failure of transplanted kidney. Remains on immunosuppression to prevent acute rejection. Was dialyzed yesterday. Plan per Dr. Cuenca is to dialyze again tomorrow. Plan/VTE VTE Prophylaxis Ordered?: Yes Plan Anticipated Discharge: Home VS, I&O, 24H, Fishbone Vital Signs/I&O Vital Signs Date Time Temp Pulse Resp B/P (MAP) Pulse Ox O2 Delivery O2 Flow Rate FiO2 09/25/18 08:00 97.8 98 18 180/100 (126) 72 09/23/18 19:16 Room Air I&O- Last 24 Hours up to 6 AM 09/25/18 06:00 Intake Total 3150 ml Output Total 0 ml Balance 3150 ml Laboratory Data 24H LABS Laboratory Tests 2 09/25/18 05:26: Nucleated Red Blood Cells % (auto) 0.0, Anion Gap 15, Glomerular Filtration Rate 3.6L, Blood Urea Nitrogen 75H, Creatinine 15.60*H, Sodium Level 136, Potassium Level 3.7, Chloride Level 99, Carbon Dioxide Level 22, Calcium Level 7.7L CBC/BMP Laboratory Tests 09/25/18 05:26 Red Blood Count 3.85 L, Mean Corpuscular Volume 87.8, Mean Corpuscular Hemoglobin 28.8, Mean Corpuscular Hemoglobin Concent 32.8, Red Cell Distribution Width 14.2, Calcium Level 7.7 L ROMA IRIZARRY PA-C Sep 25, 2018 09:31 Erick Wilkerson MD Sep 25, 2018 13:43
[2018-09-25] MEDS ORDERED: PILL CRUSHER/CUTTER 1 EACH XX PRN (09:45)
[2018-09-25] MEDS: TACROLIMUS 1 MG CAP (J7507) PO SCH ×2 (10:08→20:47)
[2018-09-25] MEDS: METOPROLOL SUCC *XL* 25MG TAB (TopROL *XL*) PO SCH (10:08)
[2018-09-25] MEDS: LOSARTAN 50 MG TAB PO SCH (10:08)
[2018-09-25] MEDS: amLODIPine 10 MG TAB PO SCH (10:08)
[2018-09-25] MEDS ORDERED: HEPARIN 1,000 UNITS/ML 10ML VIAL (FOR RADIOLOGY& DIALYSIS ONLY) XX ONE (12:15)
[2018-09-25] MEDS ORDERED: HEPARIN 1,000 UNITS/ML 10ML VIAL (FOR RADIOLOGY& DIALYSIS ONLY) IV ONE (12:15)
[2018-09-25] MEDS: NORCO, ANEXSIA 5/325MG TABLET (HYDROcodone/ACETAMINOPHEN) PO PRN (12:57)
[2018-09-25] MEDS: FAMOTIDINE 20 MG TAB PO SCH (14:46)
[2018-09-25 16:00] VITALS: BP 160/82
[2018-09-25] MEDS: MULTIVITAMINS CHILDREN'S CHEWABLE TABLET PO SCH (16:47)
[2018-09-25 20:00] VITALS: BP 160/90
[2018-09-26] MEDS: metroNIDAZOLE 500 MG in APPROPRIATE DILUENT 1 EA IV SCH (00:44)
[2018-09-26] MEDS: METOPROLOL SUCC *XL* 25MG TAB (TopROL *XL*) PO SCH ×2 (00:59→09:53)
[2018-09-26 01:01] VITALS: BP 210/110
[2018-09-26] MEDS: ALBUTEROL SULFATE 2.5 MG/0.5 ML INH NEB SOLN INH SCH (02:00)
[2018-09-26 02:10] VITALS: BP 182/80
[2018-09-26 04:00] VITALS: BP 178/55
[2018-09-26 05:35] LABS: HEMATOCRIT 35.3 % (42.0-52.0); HEMOGLOBIN 11.2 g/dl (13.5-17.5); MEAN CORPUSCULAR HEMOGLOBIN 29.2 pg (27.0-33.0); MEAN CORPUSCULAR HGB CONC 31.7 g/dl (32.0-36.5); MEAN CORPUSCULAR VOLUME 91.9 fl (80.0-96.0); PLATELET COUNT, AUTOMATED 112 10^3/uL (150-450); RED BLOOD COUNT 3.84 10^6/uL (4.30-6.10); WHITE BLOOD COUNT 2.5 10^3/uL (4.0-10.0)
[2018-09-26 06:00] LABS: CALCIUM LEVEL 8.1 MG/DL (8.5-10.1); CREATININE FOR GFR 10.5 MG/DL (0.70-1.30); GLOMERULAR FILTRATION RATE 5.7 (>60); POTASSIUM SERUM 3.9 MEQ/L (3.5-5.1)
[2018-09-26] MEDS ORDERED: metroNIDAZOLE (FLAGYL) 500 MG TAB PO SCH (06:00)
[2018-09-26] MEDS: CIPROFLOXACIN 400 MG in APPROPRIATE DILUENT 1 EA IV SCH (06:09)
[2018-09-26] MEDS: **hydrALAZINE** 10 MG TAB PO SCH (06:13)
[2018-09-26 08:00] VITALS: BP 184/94
[2018-09-26] MEDS: ENOXAPARIN 30 MG/0.3 ML SYR (J1650) SC SCH (09:00)
[2018-09-26] MEDS: amLODIPine 10 MG TAB PO SCH ×2 (09:46→09:53)
[2018-09-26] MEDS: TACROLIMUS 1 MG CAP (J7507) PO SCH (09:46)
[2018-09-26] MEDS: FAMOTIDINE 20 MG TAB PO SCH (09:47)
[2018-09-26] MEDS: MULTIVITAMINS CHILDREN'S CHEWABLE TABLET PO SCH (09:52)
[2018-09-26] MEDS: ATORVASTATIN 20 MG TAB PO SCH ×2 (09:52→10:00)
[2018-09-26 09:53] VITALS: BP 184/94
[2018-09-26] MEDS: LOSARTAN 50 MG TAB PO SCH (09:53)
--- NOTE | 2018-09-26 10:24 | IPN ---
DATE: 09/25/2018 SUBJECTIVE: Patient was seen and examined at the bedside today, afternoon during hemodialysis. He is afebrile, hemodynamically stable. Blood pressures are still high. He reports that he was nauseated today, morning on two of his medications. However, he is feeling better today as compared with yesterday. OBJECTIVE: VITAL SIGNS: Temperature is 98.3 degrees Fahrenheit. Blood pressure 160/82. Pulse is 73. Respiratory rate of 18. Saturating 96% on room air. INTAKE AND OUTPUT: Urine output is not recorded. Weight on the bed scale is 109.5 kg. PHYSICAL EXAMINATION: GENERAL: Patient is awake, alert, oriented times three, obese, laying in bed, getting hemodialysis done. HEAD AND NECK EXAM: Extraocular muscles intact. Pupils equally round and reactive to light. Mucous membranes are moist. Neck is supple. There is no jugular venous distention (JVD). He has a right internal jugular (IJ) tunnel hemodialysis catheter. CARDIOVASCULAR: S1, S2 regular rate. No murmur, rub or gallop. RESPIRATORY: Chest is clear to auscultation bilaterally. Bilateral equal air entry. No rales or rhonchi. ABDOMEN: Soft. Positive bowel sounds. Mild left lower quadrant tenderness. MUSCULOSKELETAL: No clubbing or cyanosis. Pulses are 2+. CENTRAL NERVOUS SYSTEM (NNPS): No focal deficit. Power is 5/5 in all extremities. LABORATORY REVIEW: CBC showed a WBC of 3.1, hemoglobin 11.1, platelets of 113. BMP showed sodium 137, potassium 3.7, chloride 99, bicarbonate 22, BUN 75, creatinine is 15.6. CURRENT INPATIENT MEDICATIONS: Patient's medications were all reviewed by me. There is no change in the medications today apart from yesterday. I have stopped his mycophenolate at this point. ASSESSMENT AND PLAN: 1. End-stage renal disease on hemodialysis. Patient's regular dialysis days are Sunday, Sunday, Sunday. He is being dialyzed today according to his regular schedule. I will try to remove at least 2 liters of fluid as tolerated by his blood pressure. 2. Acute diverticulitis. Patient is currently on ciprofloxacin and Flagyl. Symptomatically, he is getting better. 3. Hypertension with end-stage renal disease. Continue current dose of amlodipine, hydralazine, losartan, and metoprolol. Further volume management would also help improve his blood pressure. 4. Kidney transplant status. Patient's renal allograft has failed. He continues to be on mycophenolate and tacrolimus. I am stopping mycophenolate today. Tacrolimus will be slowly tapered down to low dose.
[2018-09-26] MEDS ORDERED: FLAG500T PO (11:14)
[2018-09-26] MEDS ORDERED: METO1TAB32 PO (11:14)
[2018-09-26] MEDS ORDERED: CIPR-249 PO (11:14)
[2018-09-26] MEDS ORDERED: **hydrALAZINE** 10 MG TAB PO SCH (14:00)
[2018-09-26] MEDS ORDERED: CIPROFLOXACIN 500 MG TAB PO SCH (18:00)
--- NOTE | 2018-09-26 18:30 | DS.PDOC ---
Discharge Summary General Date of Admission Sep 23, 2018 at 18:23 Date of Discharge 09/26/2018 Primary Care Physician: JAE VELASQUEZ DO Attending Physician: Erick Wilkerson MD Discharge Summary PROCEDURES PERFORMED DURING STAY: None ADMITTING DIAGNOSES: 1. Acute diverticulitis 2. Angina DISCHARGE DIAGNOSES: 1. Diverticulitis 2. Chest pain 3. CKD dialysis COMPLICATIONS/CHIEF COMPLAINT: Angina At Rest; Diverticulitis. HISTORY OF PRESENT ILLNESS: Patient is a 48 year old male who presented to the ER with chest pain that was retrosternal 3 hours into dialysis. In the ER he was given nitoglycerin without improvement. Never had pain like this before. Tropon in was elevated in the ER and therefore it was trended. CT of abdomen was performed due to complaints of nausea. It showed diverticulitis and patient was started on IV cipro and flagyl. HOSPITAL COURSE: While in the hospital, troponins were treneded and remained 0.16 to .20. Other cardiac makers remained low and no EKG changes noted. Dr. Sheffield was consulted. Patient was treated for diverticulitis with IV antibiotics and abdominal pain improved. He received dialysis on regular days, , , . DISCHARGE MEDICATIONS: Please see below. ALLERGIES: Please see below. PHYSICAL EXAMINATION ON DISCHARGE: VITAL SIGNS: Please see below. GENERAL: Alert, cooperative. HEENT: Atraumatic. NECK: Supple. CARDIOVASCULAR EXAMINATION: Normal s1, s2. RESPIRATORY EXAMINATION: Clear to auscultation. ABDOMINAL EXAMINATION: Soft, nondistended. EXTREMITIES: No lower extremity edema. SKIN: No rashes, lesions. NEUROLOGICAL EXAMINATION: Answers questions appropriately. PSYCHIATRIC EXAMINATION: Normal affect. LABORATORY DATA: Please see below. IMAGING: CXR 09/23/18 No acute disease. Abdomen/ Pelvis CT 09/23 Sigmoid colon diverticulosis with pericolonic streaking consistent with diverticulitis. No abscess or free air. Status post cholecystectomy. Two small cysts in the transplant kidney right iliac fossa. [place] kidneys are markedly atrophic. PROGNOSIS: Stable. ACTIVITY: As tolerated DIET: low fat diet DISCHARGE PLAN: Home DISPOSITION: 01 Home, Self-Care. DISCHARGE INSTRUCTIONS: 1. Continue oral antibiotics for another 8 days for 10 days total. Cipro 500 mg daily due to kidney function and flagyl 500 mg q8h. 2. Follow up with PCP in the next 4-8 days. 3. Continue dialysis as scheduled. DISCHARGE CONDITION: Stable TIME SPENT ON DISCHARGE: Greater than 30 minutes. Vital Signs/I&Os Vital Signs Date Time Temp Pulse Resp B/P (MAP) Pulse Ox O2 Delivery O2 Flow Rate FiO2 09/26/18 09:53 74 184/94 09/26/18 08:00 97.6 18 97 09/23/18 19:16 Room Air I&O- Last 24 Hours up to 6 AM 09/26/18 06:00 Intake Total 790 ml Output Total 2000 ml Balance -1210 ml Laboratory Data Labs 24H Laboratory Tests 2 09/26/18 05:11: Nucleated Red Blood Cells % (auto) 0.0, Anion Gap 11, Glomerular Filtration Rate 5.7L, Blood Urea Nitrogen 36#H, Creatinine 10.50*H, Sodium Level 140, Potassium Level 3.9, Chloride Level 104, Carbon Dioxide Level 25, Calcium Level 8.1L CBC/BMP Laboratory Tests 09/26/18 05:11 Red Blood Count 3.84 L, Mean Corpuscular Volume 91.9, Mean Corpuscular Hemoglobin 29.2, Mean Corpuscular Hemoglobin Concent 31.7 L, Red Cell Distribution Width 14.4, Calcium Level 8.1 L Discharge Medications Scheduled (Auryxia) 210 Mg Tab, 420 MG PO TID, (Reported) Amlodipine Besylate (Amlodipine Besylate) 10 Mg Tab, 10 MG PO DAILY, (Reported) Atorvastatin Calcium (Atorvastatin Calcium) 20 Mg Tab, 20 MG PO DAILY, (Reported) Calcitriol (Calcitriol) 0.25 Mcg Cap, 0.25 MCG PO 3XW, (Reported) TAKES SUNDAY, SUNDAY AND SUNDAY AT DIALYSIS Ciprofloxacin HCl (Cipro) 500 Mg Tab, 500 MG PO DAILY@1800 Ergocalciferol (Vitamin D) 50,000 Unit Cap, 50,000 UNIT PO QWEEK, (Reported) RECEIVES AT DIALYSIS Losartan Potassium (Losartan Potassium) 50 Mg Tab, 50 MG PO DAILY, (Reported) Metoprolol Succinate (Metoprolol Succinate ER) 25 Mg Tab, 25 MG PO BID Metronidazole (Flagyl) 500 Mg Tab, 500 MG PO Q8H Multivitamins Chewable *[facility] STOCKED* (Animal Shapes with C & FA *[facility] STOCKED*) 1 Tab Chew, 1 TAB PO DAILY, (Reported) Mycophenolate Mofetil (Cellcept) 250 Mg Cap, 750 MG PO BID, (Reported) Tacrolimus (Tacrolimus) 1 Mg Cap, 2 MG PO BID, (Reported) Scheduled PRN Acetaminophen/Hydrocodone ([place] 10-325 mg) 1 Tab Tab, 1 TAB PO Q6HP PRN for PAIN, (Reported) Albuterol Sulfate (Albuterol Sulfate) 2.5 Mg/3 Ml Nebu, 2.5 MG INH Q4H PRN for SHORTNESS OF BREATH, (Reported) Alprazolam (Alprazolam) 1 Mg Tab, 1 MG PO BID PRN for ANXIETY, (Reported) Allergies Coded Allergies: Cephalosporins (Verified Allergy, Unknown, CEFTIN, 09/23/18) HIVES Hydroxyzine (Verified Adverse Reaction, Mild, increased lethargy, loss of balance, 09/23/18) Ketorolac Tromethamine (Verified Adverse Reaction, Mild, dizzy, nausea, 04/24/18) Tramadol (Verified Adverse Reaction, Mild, dizzy, 04/24/18) GME ATTESTATION GME ATTESTATION My faculty preceptor for this patient encounter was physically present during the encounter and was fully available. All aspects of the patient interview, examination, medical decision making process, and medical care plan development were reviewed and approved by the faculty preceptor. The faculty preceptor is aware and concurs with the plan as stated in the body of this note and will attest to such by his/her cosignature. FRACISCO BOSWELL DO Sep 26, 2018 15:12
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
== END 2018-09-26 13:03 | disposition home or self-care (01) | DRG 391 ==
LOC: M ED 10:17 → EDBD 10:17 → M ED INP 18:23 → M PCU 19:50
PROVIDERS: ADMIT Internal Medicine; ATTEND Family Medicine
PROC: 5A1D70Z Performance of Urinary Filtration, Intermittent, Less than 6 Hours Per Day (ICD-10-PCS; principal; 2018-09-25)
DX: K57.32 Diverticulitis of large intestine without perforation or abscess without bleeding (principal); N18.6 End stage renal disease; N25.81 Secondary hyperparathyroidism of renal origin; T86.12 Kidney transplant failure; R07.2 Precordial pain; E78.5 Hyperlipidemia, unspecified; F41.9 Anxiety disorder, unspecified; Z90.49 Acquired absence of other specified parts of digestive tract; Z99.2 Dependence on renal dialysis; Z79.899 Other long term (current) drug therapy; Z88.1 Allergy status to other antibiotic agents; Z88.5 Allergy status to narcotic agent; Z88.8 Allergy status to other drugs, medicaments and biological substances; Y83.0 Surgical operation with transplant of whole organ as the cause of abnormal reaction of the patient, or of later complication, without mention of misadventure at the time of the procedure

== ENCOUNTER → 2018-10-28 | Outpatient (CLI) | payer MEDICARE, MEDICAID ==
[~2018-10-28] MED LIST changes: +ATOR1TAB21 PO; +AURY1TAB PO; +CIPR-249 PO; +FLAG500T PO; +LOSA50TA88 PO
--- NOTE | 2018-11-12 01:40 | ECWPNPC ---
PATIENT NAME: OPAL LACEY : 1970 GENDER: MALE VISIT DATE: 10/28/2018 DISCHARGE DATE: 10/28/18 1134 VISIT LOCKED DATE TIME: PHYSICIAN: SHELIA TAN RESOURCE: SHELIA TAN REASON FOR APPOINTMENT 1. LOW BACK HISTORY OF PRESENT ILLNESS HISTORY OF PRESENT ILLNESS: HERE FOR F/U OF CHRONIC LOW BACK PAIN.HISTORY OF RENAL TRANSPLANT AND UNDERGOING HEMODIALYSIS 3X WK.RATING LOW BACK PAIN 4/10 VAS.FINDING CURRENT PAIN MEDICATION EFFECTIVE AT REDUCING PAIN AND KEEPING HIM COMFORTABLE AND FUNCTIONAL.CURRENTLY USING HYDROCODONE 10/325 Q6H PRN.REPORTING NORMAL BOWEL FUNCTION. PAIN THE PATIENT DESCRIBES THE PAIN... THE PATIENT DESCRIBES THE PAIN... PAIN THE PATIENT DESCRIBES THE PAIN... THE PATIENT DESCRIBES THE PAIN... FALL RISK SCREENING: SCREENING : NO FALLS IN THE PAST YEAR. CURRENT MEDICATIONS TAKING CALCITRIOL 0.25 MCG CAPSULE 1 CAP ORAL MWF @ DIALYSIS TAKING CELLCEPT 250 MG CAPSULE ORALLY 3 IN AM 3 IN PM TAKING TACROLIMUS 1 MG TABLET EXTENDED RELEASE 24 HOUR 2 CAPS ORALLY TWICE A DAY TAKING BLOOD PRESSURE KIT - KIT 1 BP MONITOR DX:I10 DAILY TAKING AMLODIPINE BESYLATE 10 MG TABLET 1 TABLET ORALLY ONCE A DAY TAKING MULTIVITAMIN ADULTS - TABLET ORALLY TAKING ALBUTEROL SULFATE (2.5 MG/3ML) 0.083% NEBULIZATION SOLUTION 3 ML NEEDED INHALATION EVERY 4 HOURS NEEDED FOR SOB TAKING AURYXIA 1 GM 210 MG(FE) TABLET 2 TABLETS WITH MEALS ORALLY THREE TIMES A DAY TAKING ERGOCALCIFEROL 96147 UNIT CAPSULE 1 CAPSULE ORALLY RECEIVED WEEKLY AT DIALYSIS TAKING HYDROCODONE-ACETAMINOPHEN 10-325 MG TABLET 1 TABLET NEEDED ORALLY Q6H PRN MDD4, NOTES: [facility] TAKING HYDRALAZINE HCL 1 CAP ORALLY BID TAKING TRAZODONE HCL 50 MG TABLET 1 TABLET AT BEDTIME ORALLY NIGHTLY PRN NOT-TAKING XANAX 1 MG TABLET 1 TABLET ORALLY TWICE A DAY NEEDED NOT-TAKING CIPROFLOXACIN HCL 500 MG TABLET 1 TABLET ORALLY DAILY @ 6PM FOR 8 DAYS NOT-TAKING METRONIDAZOLE 500 MG TABLET 1 TABLET ORALLY EVERY 8 HRS FOR 8 DAYS NOT-TAKING ATORVASTATIN CALCIUM 20 MG TABLET 1 TABLET ORALLY ONCE A DAY NOT-TAKING LOSARTAN POTASSIUM 50 MG TABLET 1 TABLET ORALLY ONCE A DAY MEDICATION LIST REVIEWED AND RECONCILED WITH THE PATIENT PAST MEDICAL HISTORY RENAL FAILURE, LIKELY SECONDARY TO HYPERTENSION, S/P TRANSPLANT, TRANSPLANT FAILED, NOW DIALYSIS DEPENDENT AGAIN POST-TRANSPLANT ERYTHROCYTOSIS, ON AN ACEI AND RECEIVING PHLEBOTOMY HYPERTENSION (S/P RENAL TRANSPLANT, PER NEPHRO, TARGET BP < 140/90) BRONCHIECTASIS ALLERGIES ULTRAM: DIZZINESS - ALLERGY CEFTIN: HIVES - ALLERGY TORADOL: LIGHT HEADED - ALLERGY HYDROXYZINE HCL: DIZZINESS/FAINTING - SIDE EFFECTS SURGICAL HISTORY KIDNEY TRANSPLANT [facility] 05/21/15 CHOLECYSTECTOMY 2011 R FOREARM FISTULA, THEN REMOVED FOR ANEURYSMS KIDNEY BX 07-06 PERITONEAL CATH PLACED AND D/C'D FOR INFECTION 07/2018 RIGHT SUBCLAVIAN HD PORT [place]ALL 2017 FAMILY HISTORY FATHER: UNKNOWN MOTHER: ALIVE 64 YRS, DIAGNOSED WITH DIABETES SIBLINGS: ALIVE, ANXIETY, DEPRESSION SON(S): ALIVE 1 BROTHER(S) , 1 SISTER(S) - HEALTHY. 2 SON(S) - HEALTHY. SOCIAL HISTORY GENERAL: TOBACCO USE ARE YOU A:NONSMOKER BMI CARE GOAL FOLLOW-UP ABOVE NORMAL BMI FOLLOW-UPGIVING ENCOURAGEMENT TO EXERCISE ALCOHOL SCREENING DID YOU HAVE A DRINK CONTAINING ALCOHOL IN THE PAST YEAR?NO POINTS0 INTERPRETATIONNEGATIVE RECREATIONAL DRUG USE DRUG USE?NO CAFFEINE CAFFEINE USE?YES HOW OFTEN AND HOW MUCH? 2-3 CAFFEINATED DRINKS/DAY -- OFTEN SODA SEXUAL HX HAD SEX IN THE LAST 12 MONTHS (VAGINAL, ORAL, OR ANAL)?YES WITHWOMEN ONLY HAVE YOU EVER HAD AN STD?NO HIV / HEP-C SCREENING HIV TEST OFFERED TO PATIENT:YES DATE OFFERED:09/15/2016 TEST ACCEPTED:NO HEP-C TEST OFFERED TO PATIENT:NO REASON:PATIENT DECLINED YAZIDI YAZIDI NO CONFUCIANISM BELIEFS THAT WOULD IMPACT HEALTH CARE. LANGUAGE SURINAMESE. EDUCATION LEVEL OF EDUCATION:HIGH SCHOOL LEARNING BARRIERS / SPECIAL NEEDS CHANGE FROM LAST VISIT?NO BARRIERS TO LEARNING?NO HEARING IMPAIRED?NO VISION IMPAIRED?YES COGNITIVELY IMPAIRED?NO :CORRECTIVE LENSES READINESS TO LEARN?YES LEARNING PREFERENCES?NO LEARNING CAPABILITIES PRESENT?YES EMOTIONAL BARRIERS?NO SPECIAL DEVICES?NO NO DOMESTIC VIOLENCE . OCCUPATION: UNEMPLOYED, ON DISABILITY. DIET: REGULAR. EXERCISE: NO REGULAR EXERCISE. MARITAL STATUS: SINGLE. OTHERS AT HOME: SON. PAIN CLINIC PFS, CLERGY, PUBLIC HEALTH REFERRALS HAS THE PATIENT BEEN EDUCATED REGARDING HIS/HER PLAN OF CARE?YES HAS THE PATIENT BEEN EDUCATED REGARDING PAIN, THE RISK FOR PAIN, THE IMPORTANCE OF EFFECTIVE PAIN MANAGEMENT, AND THE PAIN ASSESSMENT PROCESS?YES ADVANCE DIRECTIVE ADVANCE DIRECTIVE DISCUSSED WITH PATIENT:YES PT DOES NOT WANT INFO AT THIS TIME 2 CHILDREN -- ONE BORN (2010) AND THE OTHER BORN 1991REVIEWED WITH PT 06/05/18 1051 BV. HOSPITALIZATION/MAJOR DIAGNOSTIC PROCEDURE [facility] HYPERTENSION/CHEST PAIN 05/26/16 ESRD 05/2008 ESRD, VOLUME OVERLOAD 03/2009 ESRD, PNEUMONIA 09/2009 PNEUMONIA 02/2010 GALLSTONES 01/2011 RENAL TRANSPLANT 05/2015 "FOOD POISONING" AFTER RENAL TRANSPLANT 05/2015 STOMACH PAINS 04/06 REVIEW OF SYSTEMS REVIEWED BY: PROVIDER: SHELIA LEA . CONSTITUTIONAL: ANY CHANGE IN YOUR MEDICAL CONDITION? NO . CHILLS NO . FEVER NO . INFECTION: DO YOU HAVE NEW INFECTIONS? NO . DO YOU HAVE HISTORY OF MRSA? NO . MUSCULOSKELETAL: ANY NEW PATTERNS OF PAIN OR NUMBNESS? NO . GASTROENTEROLOGY: ANY NEW CHANGE IN BOWEL CONTROL? NO . GENITOURINARY: ANY NEW CHANGE IN BLADDER CONTROL? NO . IS THERE A CHANCE YOU COULD BE ? NO . HEMATOLOGY/LYMPH: DO YOU TAKE ANY BLOOD THINNERS? (FOR EXAMPLE- COUMADIN, PLAVIX, AGGRENOX, PLATEL, PRADAXA, OR XARELTO) YES, HEPARIN @ DIALYSIS . WHEN WAS YOUR LAST DOSE? DATE: TIME: . NEUROLOGY: HAVE YOU FALLEN IN THE PAST 12 MONTHS? YES, PRIOR TO LAST VISIT . ANY NEW EXTREMITY NUMBNESS OR WEAKNESS? NO . CARDIOLOGY: DO YOU HAVE A PACEMAKER OR DEFIBRILLATOR? NO . RESPIRATORY: HAVE YOU BEEN SICK IN THE PAST WEEK? YES, A FEW WEEKS AGO PT STATES HE WAS HOSPITALIZED @ [facility] DURING DIALYSIS, HTN AND INFECTION IN BOWEL . FEVER NO . FLU LIKE SYMPTOMS? NO . COUGH NO . INTEGUMENTARY: DO YOU HAVE ANY RASHES OR OPEN SORES? NO . ALLERGIC/IMMUNO: ARE YOU ALLERGIC TO IV DYE? NO . ANY NEW ALLERGIES? NO . PSYCHIATRIC: DO YOU HAVE THOUGHTS OF HURTING YOURSELF OR SOMEONE ELSE? NO . ARE YOU ABUSED, NEGLECTED, OR IN AN UNSAFE ENVIRONMENT? NO . ENDOCRINOLOGY: ARE YOU DIABETIC? NO . OTHER: DO YOU NEED ANY PRESCRIPTIONS? YES, HYDROCODONE . IF YES, PLEASE LIST: ____ . ANY NEW PROBLEMS WITH YOUR MEDICATIONS? NO . WHEN DID YOU LAST EAT? ____ . WHEN DID YOU LAST DRINK? ____ . WHAT DID YOU LAST DRINK? ____ . NAME OF PERSON DRIVING YOU HOME? ____ . DO YOU HAVE ANY OTHER QUESTIONS OR CONCERNS NO . VITAL SIGNS WT 237.2 LBS, HT 5'11", BMI 33.08 INDEX, BP 159/98 MM HG, HR 70 /MIN, RR 18 /MIN, TEMP 97.4 F, OXYGEN SAT % 99%, NA INITIALS AW 1041, REVIEWED BY: EM. EXAMINATION GENERAL EXAMINATION: GENERAL APPEARANCE:AWAKE,ALERT ,PLEAASANT . PSYCHAFFECT NORMAL . LUNGS:LUNG BOYER ARE CLEAR TO AUSCULTATION BILATERALLY. GOOD MOVEMENT OF AIR . HEART:S1, S2 IN A REGULAR RATE AND RHYTHM. NO SIGNIFICANT MURMURS, RUBS OR GALLOPS NOTED . ASSESSMENTS GENERALIZED JOINT PAIN - M25.50 (PRIMARY) TREATMENT GENERALIZED JOINT PAIN REFILL HYDROCODONE-ACETAMINOPHEN TABLET, 10-325 MG, 1 TABLET NEEDED, ORALLY, Q6H PRN MDD4, 30 DAY(S), 120, REFILLS 0, NOTES: [facility] NOTES: ISTOP REGISTRY REVIEWED AND DEMONSTRATES COMPLLIANCE. BRINGS IN MEDICATIONS WHICH IS APPROPRIATE FOR WHAT WAS DISPENSED. RECENT URINE TOXICOLOGY REVIEWED. NO UNAUTHORIZED MEDICATIONS. NO ILLICIT SUBSTANCES AND PRESCRIBED MEDICATIONS WERE PRESENT. , [facility] NARCOTIC AGREEMENT WAS REVIEWED AND SIGNED TODAY BY THE PATIENT. SEE ATTACHED DOCUMENT FOR FULL DETAILS; SPECIFIC ISSUES WERE REVIEWED: 1) KEEP PAIN MEDS IN THEIR ORIGINAL BOTTLES AND ANY WEEKLY PLANNERS ARE TO BE BROUGHT TO THE PAIN CENTER AT EVERY VISIT. 2) THE PATIENT IS NOT TO INCREASE DOSING OR TIMING OF THEIR PAIN MEDICATION WITHOUT SPECIFIC DIRECTION OF THEIR PAIN CENTERPROVIDER (NOT ER OR OTHER PROVIDERS). 3) ALL PAIN MEDS ARE TO BE KEPT SECURED, IN A LOCKED BOX. 4) NO PAIN MEDS ARE TO BE SHARED WITH ANY OTHER PERSON FOR ANY REASON. 5) NO PAIN MEDS MAY BE TAKEN FROM ANY FRIENDS OR RELATIVES FOR ANY REASON 6) NO MEDS OR SUBSTANCES WHICH ARE NOT LEGAL ARE TO BE USED- NO MARIJUANA, NO COCAINE, AMPHETAMINES, HEROIN, OR OTHERS ARE EVER TO BE USED. 7)URINE TESTING IS DONE TO ACCOUNT FOR MEDS AND SUBSTANCES BEING TAKEN AND WILL BE DONE RANDOMLY., RISKS AND BENEFITS OF NARCOTIC/OPIOD MEDICATIONS WERE REVIEWED WITH PATIENT - THIS INCLUDES BUT IS NOT LIMITED TO RISK OF DEPENDANCE/DEVELOPMENT OF ADDICTION, MOOD DISTURBANCE AND DEPRESSION, OSTEOPOROSIS, HORMONAL AND LABIDAL CHANGES, RESPIRATORY DEPRESSION AND . PATIENT IS ADVISED NOT TO DRIVE OR DRINK ALCOHOL WHILE ON THESE MEDICATIONS. PROCEDURE CODES FA211 ESTABILISHED PATIENT [facility] CHARGE DISPOSITION & COMMUNICATION FOLLOW UP 3 MONTHS ELECTRONICALLY SIGNED BY VENU LAURENT ON 11/11/2018 AT 04:20 PM EDT DISCLAIMER : THIS IS A VISIT SUMMARY EXTRACTED FROM THE [employer] CHART. IT IS NOT A COPY OF THE [employer] PROGRESS NOTE. DAVION
== END ==
LOC: M PAIN 10:15
PROVIDERS: ATTEND Nurse Practitioner Family
DX: M25.50 Pain in unspecified joint (principal); I12.9 Hypertensive chronic kidney disease with stage 1 through stage 4 chronic kidney disease, or unspecified chronic kidney disease; Z94.0 Kidney transplant status; Z99.2 Dependence on renal dialysis; Z88.8 Allergy status to other drugs, medicaments and biological substances; Z79.899 Other long term (current) drug therapy

== ENCOUNTER 2018-12-10 10:20 | Inpatient (IN) | payer MEDICARE, MEDICAID ==
[~2018-12-10] VITALS: Ht 175.3 cm; Wt 107.1 kg
[~2018-12-10 10:20] MED LIST changes: -/CLON1TA; -/DIALVITA; +CLON-412; +DIAL1TAB2; -NORC10TA21 PO; +NORC1TAB5 PO
[2018-12-10 12:06] LABS: BASO % 0.4 % (0.0-1.0); EOS % 0.4 % (0.0-3.0); HEMATOCRIT 25.7 % (42.0-52.0); HEMOGLOBIN 8.1 g/dl (13.5-17.5); LYMPH # 0.6 10^3/uL (1.5-4.5); LYMPH % 8.1 % (24.0-44.0); MEAN CORPUSCULAR HEMOGLOBIN 29.3 pg (27.0-33.0); MEAN CORPUSCULAR HGB CONC 31.5 g/dl (32.0-36.5); MEAN CORPUSCULAR VOLUME 93.1 fl (80.0-96.0); MONO # 0.6 10^3/uL (0.0-0.8); MONO % 8.3 % (0.0-5.0); NEUTROPHILS # 5.9 10^3/uL (1.8-7.7); NEUTROPHILS % 82.4 % (36.0-66.0); PLATELET COUNT, AUTOMATED 123 10^3/uL (150-450); RED BLOOD COUNT 2.76 10^6/uL (4.30-6.10); WHITE BLOOD COUNT 7.1 10^3/uL (4.0-10.0)
--- NOTE | 2018-12-10 12:06 | REP ---
CHEST X-RAY: TWO VIEWS. HISTORY: Chest pain. COMPARISON CHEST X-RAY: September 23, 2018 FINDINGS: A right-sided central venous catheter is seen in place with its tip in the expected location of the superior vena cava. There is a fairly large infiltrate in the right infrahilar region consistent with pneumonia. Pulmonary vasculature is somewhat congested. Heart is borderline. Pleural angles are sharp. IMPRESSION: New infiltrate in the right base consistent with pneumonia, pulmonary vascular congestion and mildly prominent heart are also noted. Electronically Signed by Blayne Guillermo MD 12/10/2018 08:36 P
[2018-12-10 12:15] LABS: INR 1.01; PROTHROMBIN TIME 13.4 SECONDS (12.1-14.4)
[2018-12-10] MEDS ORDERED: IPRATROPIUM 0.5MG/ALBUTEROL 2.5MG INH SOL UD 3ML (DUONEB)(J7620) NEB ONE (12:45)
[2018-12-10] MEDS ORDERED: METOPROLOL TART 25 MG TABLET As Ordered ONE (12:49)
[2018-12-10] MEDS ORDERED: METOPROLOL TART 25 MG TABLET PO ONE (13:00)
[2018-12-10 13:30] LABS: ALT/SGPT 17 U/L (12-78); BILIRUBIN,DIRECT 0.2 MG/DL (0.0-0.2); BILIRUBIN,TOTAL 0.8 MG/DL (0.2-1.0); BLOOD UREA NITROGEN 38 MG/DL (7-18); CALCIUM LEVEL 8.4 MG/DL (8.5-10.1); CARBON DIOXIDE LEVEL 31 MEQ/L (21-32); CHLORIDE LEVEL 100 MEQ/L (98-107); CK-MB VALUE MASS < 1.0 NG/ML (<3.6); CPK CREATINE PHOSPHOKINASE 80 U/L (39-308); GLOMERULAR FILTRATION RATE 5.8 (>60); GLUCOSE, FASTING 95 MG/DL (70-100); MB/CK RELATIVE INDEX 1.25 (< OR =4); NT-PRO BNP 91886 PG/ML (<125); PHOSPHORUS LEVEL 2.7 MG/DL (2.5-4.9); POTASSIUM SERUM 4.8 MEQ/L (3.5-5.1); SODIUM LEVEL 137 MEQ/L (136-145); TOTAL PROTEIN 6.8 GM/DL (6.4-8.2); TROPONIN I 0.06 NG/ML (< 0.10)
[2018-12-10 13:31] LABS: INFLUENZA A AMPLIFICATION NEGATIVE (NEGATIVE); INFLUENZA B AMPLIFICATION NEGATIVE (NEGATIVE)
[2018-12-10] MEDS ORDERED: LOSARTAN 50 MG TAB PO ONE (13:45)
[2018-12-10] MEDS ORDERED: LevoFLOXacin IV 750 MG in APPROPRIATE DILUENT 1 EA IV ONE (14:00)
[2018-12-10] MEDS ORDERED: VELP5CHW PO (14:22)
[2018-12-10] MEDS ORDERED: LISI10TA4 PO (14:22)
[2018-12-10] MEDS ORDERED: HYDR25TA PO (14:22)
[2018-12-10] MEDS ORDERED: METO1TAB32 PO (14:23)
[2018-12-10 16:00] VITALS: BP 198/110
[2018-12-10] MEDS ORDERED: CALCIUM CARBONATE 500 MG CHEW U/D PO PRN (16:45)
[2018-12-10] MEDS ORDERED: **hydrALAZINE HCL** 25 MG TAB PO ONE (17:00)
[2018-12-10] MEDS: cloNIDine 0.1 MG TAB PO SCH (18:05)
[2018-12-10] MEDS: ONDANSETRON 4MG/2ML VIAL (J2405) IV PRN (18:05)
--- NOTE | 2018-12-10 18:42 | HPE ---
DATE OF ADMISSION: 12/10/2018 My attending on this case is Dr. Alma Gomez PRIMARY CARE PROVIDER: Dr. Mclaughlin CHIEF COMPLAINT: Nausea, vomiting, and blood-tinged sputum. HISTORY OF THE PRESENT ILLNESS: This is a 48-year-old male with a pertinent past medical history of end-stage renal disease - on hemodialysis on Sunday, Sunday, Sunday, last dialysis was on Sunday, history of live donor renal transplant but failed transplant, now dialysis dependent, history of hypertension, hyperlipidemia, who presented to the emergency room (ER) for nausea, vomiting, and blood-tinged sputum. The patient states in the last 1 month he has been having nausea, vomiting episodes. He has noticed that in a day he has 3-4 episodes of vomiting. They are nonbilious at first, but after last Sunday, they had become blood-tinged. He states they occur at random times. He cannot say it is after particular meals or after particular actions. He states that he had nausea episodes after he had some of his medications, but is unable to pinpoint which medication is causing it. He also complains of having blood-tinged sputum since last Sunday, and he is admitting to having subjective fevers and chills. He denies having any night sweats or weight loss. He does admit to having some shortness of breath, but it has gotten better. He also admits to having some sharp midsternal chest pain that is sharp i nature. He admits to having upper respiratory like symptoms such as itchy eyes, postnasal drip, sinus fullness for the last 1 month. He has not taken any medication for this. He denies having any constipation or diarrhea, but is admitting to having some mild abdominal discomfort. He is unsure if this is secondary to the vomiting episode. In the emergency room (ER), his initial blood pressure on presentation was 198/96. He states that he was unable to take his morning medications because he had vomiting episodes. He was given one dose of metoprolol 25 mg as well as Cozaar 50 mg. His blood pressure at the time of exam improved to 130/90. He was resting comfortably in the bed. A chest x-ray was done, which showed that he has new infiltrates in the right base consistent with pneumonia, pulmonary vascular congestion and mild prominent heart was also noted. He did not have a leukocytosis, but he had a BUN and creatinine bump of 10.30. Lactic acid was not elevated at 0.9, but his pro-BNP was elevated at 91,886. He was also started on Levaquin 750 mg in the ER. Hospitalist team was then called for admission. PAST MEDICAL HISTORY: 1. Renal failure secondary to hypertension, status post transplant. Transplant failed, now is dialysis dependent on Sunday, Sunday, Sunday. 2. Hypertension. 3. Bronchiectasis. 4. History of diverticulitis. SURGICAL HISTORY: 1. Kidney transplant in [place], [place] in 2014. 2. Cholecystectomy in 2011. 3. Right forearm fistula, then removed for aneurysm. 4. Kidney biopsy in 2016. 5. Peritoneal catheter placed and discontinued due to infection in 2018. FAMILY HISTORY: Father - unknown. Mother alive - history of diabetes. Siblings - history of anxiety and depression. Two sons - healthy. SOCIAL HISTORY: Denies having any tobacco use, any recreational intravenous (IV) drug use or any alcohol use. HOME MEDICATIONS: - alprazolam 1 mg twice a day as needed for anxiety - vitamin B12 5000 units by mouth once a week - Cellcept 500 mg by mouth twice a day - tacrolimus 2 mg by mouth twice a day - amlodipine 10 mg by mouth daily - hydralazine 25 mg by mouth twice a day - [place] 10 one tablet every 6 hours as needed for pain - lisinopril 10 mg by mouth daily - metoprolol succinate 25 mg by mouth daily - multivitamins one tablet daily ALLERGIES: ULTRAM - dizziness, CEFTIN - hives, TORADOL - lightheadedness, HYDROXYZINE - dizziness and fainting, PAST HOSPITALIZATIONS: [facility] - hypertension, chest pain in 2016. End-stage renal disease 2007, 2009 and 2009. Pneumonia 2009. Gallstones 2010. He had a renal transplant in 2014, and he food poisoning after renal transplant in 2014. Stomach pains 2017. REVIEW OF SYSTEMS: Unless stated in the history of the present illness, the remaining 11-point review of systems is negative. PHYSICAL EXAMINATION: Temperature 98.8, pulse 88, blood pressure 130/80, pulse oximetry is 97% on room air. This is a very pleasant 48-year-old male who does not appear in acute distress, was laying comfortably in the bed, appropriately answering questions. HEENT: Atraumatic, normocephalic. Pupils are equal, round and reactive. Neck is supple. Possible small jugular venous distention (JVD) noted. Foul-smelling breath. Heart: Normal S1, S2 sounds. No audible murmurs, rubs or gallops. Regular rate and rhythm. Lungs: Clear to auscultation in the upper lung portillo, bibasilar crackles are appreciated. Diminished breath sounds in the right lower lobe with a little bit of rhonchi. Abdomen: Soft, nondistended, slightly overweight abdomen. Positive bowel sounds in all four quadrants. No tenderness with deep palpation with stethoscope. No hepatomegaly or splenomegaly noted. Old surgical scars appreciated in the lateral right quadrant secondary to renal transplant, old laparoscopic scar in the left mid quadrant. Neurologic: The patient is awake, alert, and oriented times three. No focal deficits noted. Extremities: No lower extremity edema/calf tenderness noted. Hematology: WBC 7.1, hemoglobin 8.1, hematocrit 25.7, platelets 123. Sodium 137, potassium 4.8, chloride 100, carbon dioxide 31, anion gap 6, BUN 38, creatinine 10.30, GFR 5.8, fasting glucose 95, lactic acid 0.9, calcium 8.4, phosphorus 2.7, magnesium 2.0, total bilirubin 0.8, direct bilirubin 0.2. AST 15, ALT 17, alkaline phosphatase 61, total creatine-kinase 80, CK-MB less than 1.0, troponin 0.06, pro-BNP 91,886, total protein 6.8, albumin 3.0, TSH 1.130. Coagulation: PT 13.4, INR 1.01. Urinalysis: Urine protein 3+, glucose 2+ blood 2+, WBCs 17, RBCs too many to count. Influenza A and B is negative. Microbiology: Blood cultures times two and urine cultures times one are pending. IMAGING: Chest x-ray: New infiltrates in the right base consistent with pneumonia, pulmonary congestion, and mildly prominent heart are also noted. ASSESSMENT AND PLAN: This is a 48-year-old male with a pertinent past medical history of renal failure secondary to hypertension, status post transplant, transplant failed, now dialysis dependent on Sunday, Sunday, Sunday, who presented to the ER for nausea, vomiting, and blood-tinged for the last 3 days. The patient will be admitted for the following problems: 1. Nausea, vomiting for the last 1 month. The patient states that he noticed this with his medication, might be secondary to his current medications. Will continue with Zofran to help with nausea and to see if it helps with his vomiting episode. He does not have any diarrhea or constipation-like symptoms, so I do not think a GI panel is warranted at this time. We cannot give him IV fluids because he has dialysis, and his blood pressure has been significantly elevated, so will continue to monitor. 2. Right base pneumonia. The patient did have a recent history of vomiting in the last 1 month. Could be possible aspiration pneumonia versus community-acquired pneumonia. He got one dose of Levaquin 750 in the ER. Because he is a hemodialysis patient, will get a 500 every 48 hours on the days of dialysis. Will also obtain a sputum culture and deescalate antibiotics appropriately. He is currently not hypoxic. He is saturating appropriately on room air. Will continue to monitor. He has no white count as well. 3. End-stage renal disease. Currently on hemodialysis on Sunday, Sunday, Sunday. Nephrology has been consulted. Will follow their recommendations. 4. Uncontrolled hypertension. Unsure if this is due to the fact that he has not been taking his blood pressure medications due to the nausea, vomiting. We have increased his home lisinopril to 20 mg by mouth daily and his home hydralazine 25 mg by mouth twice a day to hydralazine 50 mg by mouth twice a day. We will also increase his metoprolol succinate to 50 mg by mouth daily. As well, Catapres 0.1 mg by mouth every 6 hours is added for his blood pressure to help with blood pressure control as well. Will monitor his blood pressures on the floor. I believe that with these increases and dialysis that it should be better controlled. Will continue to monitor. 5. History of renal transplant but failed. Because the patient still has this kidney, he will continue with the Cellcept and the tacrolimus to prevent auto rejection. 6. History of low back pain. Will continue with his [place] 10 mg every 6 hours as needed for pain. 7. Deep vein thrombosis (DVT) prophylaxis. Lovenox 30 mg daily. 8. Diet: 2-gram sodium diet. The patient will be admitted to [facility] under Dr. Pedraza, but the admitting physician is Dr. Alma Gomez. My faculty preceptor for this patient encounter was physically present during the encounter and was fully available. All aspects of the patient interview, examination, medical decision making process, and medical care plan development were reviewed and approved by the faculty preceptor. The faculty preceptor is aware and concurs with the plan as stated in the body of this note and will attest to such by his/her cosignature.
[2018-12-10 20:00] VITALS: BP 210/100
[2018-12-10] MEDS: MYCOPHENOLATE MOFETIL 250 MG CAP (J7517) PO SCH (20:08)
[2018-12-10] MEDS: TACROLIMUS 1 MG CAP (J7507) PO SCH (20:08)
[2018-12-10] MEDS: **hydrALAZINE** 50 MG TAB PO SCH (20:09)
[2018-12-10] MEDS: raNITIdine SYRUP 150 MG/10 ML UDC PO SCH (20:10)
[2018-12-10] MEDS: NORCO, ANEXSIA 5/325MG TABLET (HYDROcodone/ACETAMINOPHEN) PO PRN (20:10)
[2018-12-10] MEDS ORDERED: **hydrALAZINE HCL** 25 MG TAB PO SCH (21:00)
--- NOTE | 2018-12-10 23:20 | ECGEPIP ---
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
[2018-12-11] VITALS: BP 205/98
[2018-12-11] MEDS: cloNIDine 0.1 MG TAB PO SCH ×3 (00:09→12:00)
[2018-12-11 04:00] VITALS: BP 178/98
[2018-12-11] MEDS: TACROLIMUS 1 MG CAP (J7507) PO SCH ×2 (06:09→20:54)
[2018-12-11] MEDS: **hydrALAZINE** 50 MG TAB PO SCH ×2 (06:09→10:44)
[2018-12-11] MEDS: raNITIdine SYRUP 150 MG/10 ML UDC PO SCH ×4 (06:09→21:00)
[2018-12-11] MEDS: MYCOPHENOLATE MOFETIL 250 MG CAP (J7517) PO SCH ×2 (06:11→20:54)
[2018-12-11] MEDS: ONDANSETRON 4MG/2ML VIAL (J2405) IV PRN (06:15)
[2018-12-11 06:20] LABS: BASO % 0.4 % (0.0-1.0); EOS # 0.1 10^3/uL (0.0-0.50); EOS % 1.1 % (0.0-3.0); HEMATOCRIT 24.2 % (42.0-52.0); HEMOGLOBIN 7.5 g/dl (13.5-17.5); LYMPH # 0.7 10^3/uL (1.5-4.5); LYMPH % 13.7 % (24.0-44.0); MEAN CORPUSCULAR HEMOGLOBIN 28.6 pg (27.0-33.0); MEAN CORPUSCULAR VOLUME 92.4 fl (80.0-96.0); MONO # 0.5 10^3/uL (0.0-0.8); MONO % 9.6 % (0.0-5.0); NEUTROPHILS % 74.8 % (36.0-66.0); RED BLOOD COUNT 2.62 10^6/uL (4.30-6.10); WHITE BLOOD COUNT 5.4 10^3/uL (4.0-10.0)
[2018-12-11] MEDS ORDERED: ALPRAZolam 0.5 MG TAB PO ONE (06:30)
[2018-12-11] MEDS: NORCO, ANEXSIA 5/325MG TABLET (HYDROcodone/ACETAMINOPHEN) PO PRN (06:38)
[2018-12-11 06:48] LABS: PLATELET COUNT, AUTOMATED 97 10^3/uL (150-450)
[2018-12-11 06:57] LABS: CALCIUM LEVEL 8.7 MG/DL (8.5-10.1); CREATININE FOR GFR 12.3 MG/DL (0.70-1.30); GLOMERULAR FILTRATION RATE 4.7 (>60); POTASSIUM SERUM 5.1 MEQ/L (3.5-5.1)
[2018-12-11 08:00] VITALS: BP 143/81
--- NOTE | 2018-12-11 08:58 | IPNPDOC ---
Subjective Date Seen The patient was seen on 12/11/18. Subjective Chief Complaint/HPI n/v, ESRD, cough Events since last encounter Admitted overnight for ESRD, n/v, pneumonia. Has been significantly hypertensive overnight: 180s/110s. Received clonidine this am with improvement of BP to 140s/90s. Constitutional: Denies: Chills, Fever, Night Sweats Pulmonary: Reports: Dyspnea, Cough (thick sputum. blood tinged) Cardiovascular: Denies: Chest Pain, Palpitations, Orthopnea, Paroxysmal Noc. Dyspnea, Lt Headedness Gastrointestinal: Reports: Nausea; Denies: Vomiting, Diarrhea Genitourinary: Denies: Dysuria, Frequency, Incontinence, Retention Psych: Reports: Mood Normal; Denies: Depression, Memory Issues Objective Physical Examination General Exam: Positive: Alert, No Acute Distress Neck Exam: Positive: Supple; Negative: JVD, thyromegaly Chest Exam: Positive: Clear to auscultation, Normal air movement Heart Exam: Positive: Rate Normal, Regular Rhythm, Normal S1, Normal S2; Negative: Murmurs, Rubs Abdomen Exam: Positive: Normal bowel sounds, Soft; Negative: Tenderness, Hepatospenomegaly Psych Exam: Positive: Mental status NL, Mood NL, Oriented x 3 Assessment /Plan Problems (1) Chronic kidney disease (CKD) Status: Acute Problem Text: failed transplant, dialysis dependent. Nephrology consulted. (2) Hypertension Status: Chronic Problem Text: continue current medications. (3) Right lower lobe pneumonia Status: Acute Problem Text: Levaquin renally dosed. Received 750 mg IV in ED 12/10/18. Sputum cx ordered. Plan/VTE VTE Prophylaxis Ordered?: Yes (Lovenox) Plan Family Medicine Attending Note: I saw and examined Mr. Sheffield, discussed with VENU Mast. Agree with her note as documented. I'm not pleased with the level of control or getting for his blood pressure. Some of this might be because of the rebound hypertensive effects of the oral clonidine. I changed his oral clonidine 0.1 mg by mouth every 6 hours to [id number] patch. We'll see if this helps control his blood pressure better. (trouble tracer) VS, I&O, 24H, Fishbone Vital Signs/I&O Vital Signs Date Time Temp Pulse Resp B/P (MAP) Pulse Ox O2 Delivery O2 Flow Rate FiO2 12/11/18 08:00 98.5 83 20 143/81 (101) 93 2.0 12/10/18 13:51 Room Air I&O- Last 24 Hours up to 6 AM 12/11/18 06:00 Intake Total 1470 ml Output Total 75 ml Balance 1395 ml Laboratory Data 24H LABS Laboratory Tests 2 12/10/18 11:39: Immature Granulocyte % (Auto) 0.4, White Blood Count 7.1, Red Blood Count 2.76L, Hemoglobin 8.1L, Hematocrit 25.7L, Mean Corpuscular Volume 93.1, Mean Corpuscular Hemoglobin 29.3, Mean Corpuscular Hemoglobin Concent 31.5L, Red Cell Distribution Width 14.9H, Platelet Count 123L, Neutrophils (%) (Auto) 82.4H, Lymphocytes (%) (Auto) 8.1L, Monocytes (%) (Auto) 8.3H, Eosinophils (%) (Auto) 0.4, Basophils (%) (Auto) 0.4, Neutrophils # (Auto) 5.9, Lymphocytes # (Auto) 0.6L, Monocytes # (Auto) 0.6, Eosinophils # (Auto) 0.0, Basophils # (Auto) 0.0, Nucleated Red Blood Cells % (auto) 0.0, Prothrombin Time 13.4, Prothromb Time International Ratio 1.01, Anion Gap 6L, Glomerular Filtration Rate 5.8L, Lactic Acid Level 0.9, Calcium Level 8.4L, Phosphorus Level 2.7, Magnesium Level 2.0, Aspartate Amino Transf (AST/SGOT) 15, Alanine Aminotransferase (ALT/SGPT) 17, Alkaline Phosphatase 61, Total Bilirubin 0.8, Direct Bilirubin 0.2, Total Creatine Kinase 80, Creatine Kinase MB < 1.0, Creatine Kinase MB Relative Index 1.25, Troponin I 0.06, AR-Dfv-X-Type Natriuretic Peptide 16399M, Total Protein 6.8, Albumin 3.0L, Albumin/Globulin Ratio 0.79L, Thyroid Stimulating Hormone (TS H) 1.130 12/10/18 12:38: Urine Color YELLOW, Urine Appearance HAZY, Urine pH 8.0, Urine Specific [place] 1.011, Urine Protein 3+H, Urine Glucose (UA) 2+H, Urine Ketones NEGATIVE, Urine Blood 2+H, Urine Nitrite NEGATIVE, Urine Bilirubin NEGATIVE, Urine Urobilinogen 0.2, Urine Leukocyte Esterase NEGATIVE, Urine WBC (Auto) 17H, Urine RBC (Auto) TNTCH, Urine Hyaline Casts (Auto) 0, Urine Bacteria (Auto) NEGATIVE, Urine Squamous Epithelial Cells 0, Urine Sperm (Auto) , Influenza Type A (RT-PCR) NEGATIVE, Influenza Type B (RT-PCR) NEGATIVE 12/11/18 05:52: Immature Granulocyte % (Auto) 0.4, White Blood Count 5.4, Red Blood Count 2.62L, Hemoglobin 7.5L, Hematocrit 24.2L, Mean Corpuscular Volume 92.4, Mean Corpuscular Hemoglobin 28.6, Mean Corpuscular Hemoglobin Concent 31.0L, Red Cell Distribution Width 14.6H, Platelet Count 97L, Neutrophils (%) (Auto) 74.8H, Lymphocytes (%) (Auto) 13.7L, Monocytes (%) (Auto) 9.6H, Eosinophils (%) (Auto) 1.1, Basophils (%) (Auto) 0.4, Neutrophils # (Auto) 4.0, Lymphocytes # (Auto) 0.7L, Monocytes # (Auto) 0.5, Eosinophils # (Auto) 0.1, Basophils # (Auto) 0.0, Nucleated Red Blood Cells % (auto) 0.0, Anion Gap 6L, Glomerular Filtration Rate 4.7L, Calcium Level 8.7, Magnesium Level 2.0, Immature Platelet Fraction 2.7, Blood Urea Nitrogen 52H, Creatinine 12.30*H, Sodium Level 135L, Potassium Level 5.1, Chloride Level 100, Carbon Dioxide Level 29 CBC/BMP Laboratory Tests 12/10/18 11:39 Red Blood Count 2.76 L, Mean Corpuscular Volume 93.1, Mean Corpuscular Hemoglobin 29.3, Mean Corpuscular Hemoglobin Concent 31.5 L, Red Cell Distribution Width 14.9 H, Neutrophils (%) (Auto) 82.4 H, Lymphocytes (%) (Auto) 8.1 L, Monocytes (%) (Auto) 8.3 H, Eosinophils (%) (Auto) 0.4, Basophils (%) (Auto) 0.4, Neutrophils # (Auto) 5.9, Lymphocytes # (Auto) 0.6 L, Monocytes # (Auto) 0.6, Eosinophils # (Auto) 0.0, Basophils # (Auto) 0.0 12/11/18 05:52 Red Blood Count 2.62 L, Mean Corpuscular Volume 92.4, Mean Corpuscular Hemoglobin 28.6, Mean Corpuscular Hemoglobin Concent 31.0 L, Red Cell Distribution Width 14.6 H, Neutrophils (%) (Auto) 74.8 H, Lymphocytes (%) (Auto) 13.7 L, Monocytes (%) (Auto) 9.6 H, Eosinophils (%) (Auto) 1.1, Basophils (%) (Auto) 0.4, Neutrophils # (Auto) 4.0, Lymphocytes # (Auto) 0.7 L, Monocytes # (Auto) 0.5, Eosinophils # (Auto) 0.1, Basophils # (Auto) 0.0, Calcium Level 8.7 Microbiology Microbiology 12/10/18 Blood Culture, Received Pending 12/10/18 Blood Culture, Received Pending 12/10/18 Urine Culture - Final, Complete Tatiana Melgoza Dec 11, 2018 08:58 Fabian Pedraza MD Dec 11, 2018 19:23
[2018-12-11] MEDS ORDERED: METOPROLOL SUCC (TopROL XL) 50MG **XL** TAB PO SCH (09:00)
[2018-12-11] MEDS ORDERED: LISINOPRIL 10 MG TAB PO SCH (09:00)
[2018-12-11] MEDS ORDERED: LISINOPRIL 20 MG TAB PO SCH (09:00)
[2018-12-11] MEDS ORDERED: ENOXAPARIN 30 MG/0.3 ML SYR (J1650) SC SCH (09:00)
[2018-12-11] MEDS ORDERED: METOPROLOL SUCC *XL* 25MG TAB (TopROL *XL*) PO SCH (09:00)
[2018-12-11] MEDS ORDERED: DARBEPOETIN 100 MCG/0.5 ML *DIALYSIS* SYRINGE (J0882) IV SCH (10:15)
[2018-12-11] MEDS: amLODIPine 10 MG TAB PO SCH (10:44)
[2018-12-11] MEDS: MULTIVITAMINS CHILDREN'S CHEWABLE TABLET PO SCH (10:45)
[2018-12-11] MEDS ORDERED: HEPARIN 1,000 UNITS/ML 10ML VIAL (FOR RADIOLOGY& DIALYSIS ONLY) XX ONE (12:30)
[2018-12-11] MEDS ORDERED: ALPRAZolam 0.5 MG TAB PO PRN (13:15)
[2018-12-11 16:00] VITALS: BP 162/98
[2018-12-11 20:00] VITALS: BP 169/80
[2018-12-11] MEDS ORDERED: cloNIDine HCL 0.1 MG/24 HR PATCH TOP SCH (21:00)
[2018-12-11 23:59] VITALS: BP 212/102
[2018-12-12] VITALS (8 sets, daily range): BP systolic 175–232; BP diastolic 92–120
[2018-12-12] MEDS: **hydrALAZINE** 50 MG TAB PO SCH ×2 (00:10→08:45)
[2018-12-12] MEDS ORDERED: ALPRAZolam 0.5 MG TAB PO ONE (01:30)
[2018-12-12] MEDS ORDERED: cloNIDine 0.1 MG TAB PO ONE (02:45)
[2018-12-12] MEDS ORDERED: CARVedilol 12.5 MG TAB PO SCH (04:15)
--- NOTE | 2018-12-12 06:16 | CR ---
DATE OF CONSULTATION: 12/11/2018 REQUESTING PHYSICIAN: Jackie Melgoza. REASON FOR CONSULTATION: Management of endstage renal disease on hemodialysis. CHIEF COMPLAINT: Chills and productive cough and vomiting. 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 Patient states he was in his usual state of health until the weekend when he first developed subjective fevers and chills and then noted nausea, decreased appetite and vomiting with cough with blood tinged sputum. He reports dyspnea with exertion. He presented to the emergency room for further evaluation and was found to have significantly uncontrolled blood pressure and chest x-ray showed a right sided pneumonia and pulmonary vascular congestion. The patient was subsequently admitted. He reports a recent missed dialysis treatment on Sunday of last week. Patient reports since admission and treatment with antibiotics, he is symptomatically improved. PAST MEDICAL HISTORY: Endstage renal disease on hemodialysis. History of failed renal transplant. Hypertension. Hyperlipidemia. Anxiety. Secondary hyperparathyroidism of renal origin. Anemia of chronic renal failure. History of erythrocytosis. PAST SURGICAL HISTORY: Status post cholecystectomy. Status post live donor kidney transplant around 2015. Status post right upper arm AV fistula which was subsequently ligated status post PD catheter insertion and removal status post PermaCath. ALLERGIES: CEPHALOSPORIN, HYDROXYZINE, KETOROLAC and TRAMADOL. FAMILY HISTORY: No significant family history of endstage renal disease requiring hemodialysis. SOCIAL HISTORY: He denies elicit drug abuse, smoking or alcohol abuse. HOME MEDICATIONS: Reviewed and include: - alprazolam - amlodipine - calcitriol - losartan - Toprol XL - mycophenolate - tacrolimus REVIEW OF SYSTEMS: Constitutional: He reports subjective fever and chills. Eyes: He denies blurry vision or tearing. ENT: He denies odynophagia or sinus pain. Cardiac: He denies chest pain or palpitations. Respiratory: He reports dyspnea on exertion and productive cough with rust colored sputum. GI: He reports nausea and decreased appetite. : He denies dysuria or hematuria. He reports decreased urine output. Musculoskeletal: He denies any new myalgias or arthralgias. Endocrine: He reports a history of secondary hyperparathyroidism. He denies diabetes. Hematologic: He has a history of erythrocytosis and now anemia of chronic renal failure. PHYSICAL EXAMINATION: Vital signs: Temperature 97.7, pulse 75, respiratory rate 18, blood pressure 162/98, saturating 97% on 2 liters nasal cannula. Intake yesterday was 1020. Dialysis today removed 2500. Weight on the bed scale today was 108 kg. General: Patient was seen sitting upright in bed, middle aged male, well developed, no acute distress. Awake, alert, oriented, conversational and appropriate. Extraocular muscles are intact. His tongue and oral mucous membranes are moist. His neck is supple. Jugular veins are not elevated. There is a tunneled hemodialysis catheter present in the right chest wall. Lungs are clear to auscultation superiorly with diminished breath sounds at the bases. Heart sounds are regular, S1, S2. Abdomen is soft and nondistended and obese. The right lower quadrant allograft is not tender. Neurologic: The patient is awake, alert, oriented. No focal deficits. Extremities: No edema in the periphery. He has a ligated fistula present in the right forearm. LABS: White count 5.4, hemoglobin 7.5, platelet 97. Sodium 135, potassium 5.1, bicarbonate 29, glucose 101, magnesium 2.0. Chest x-ray 12/10/2018 new infiltrate right base consistent with pneumonia. Pulmonary vascular congestion also noted. INPATIENT MEDICATIONS: - Levaquin 500 mg IV every 48 hours - Xanax 1 mg daily as needed - amlodipine 10 mg by mouth daily - Clonidine patch 0.1 mg - Aranesp 100 mcg IV with dialysis - Lovenox 30 mg subcutaneous daily - hydralazine 50 mg by mouth twice daily - lisinopril 20 mg by mouth daily - metoprolol succinate 50 mg by mouth daily - Cellcept 500 mg by mouth twice daily - ranitidine 150 mg by mouth twice daily - tacrolimus 2 mg by mouth twice daily PROBLEMS: 1. Endstage renal disease on hemodialysis on Sunday, Sunday, Sunday maintenance schedule. Patient is dialyzed today with 2.5 liters of fluid removed. In view of his anemia and thrombocytopenia, he received heparin free dialysis. He is hypervolemic on exam. He did miss one dialysis treatment within the past week. 2. Anemia. This is new. The patient actually has a prior history of erythrocytosis. His present hemoglobin is significantly below his usual baseline. I am starting Aranesp and also ordering iron studies. There may be an element of hemodilution given that he is mildly hypervolemic and did have a recent missed dialysis treatment. We have removed 2.5 liters of fluid with dialysis today. We will repeat CBC in the morning. I am also getting stool for occult blood and I would plan to transfuse with his next dialysis treatment if his hemoglobin remains less than 8. 3. Hypertension. Blood pressures have been moderately uncontrolled but are improving now with medication administration and also with dialysis and fluid removal. I made no changes to his antihypertensives today. His lisinopril can be further increased as needed. 4. Right lower lobe pneumonia symptomatically improving. He is on renally dosed Levaquin. He is requiring some supplemental oxygen. There is also pulmonary vascular congestion on his chest x-ray. We will see if his oxygen requirements improve with dialysis and fluid removal. 5. 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 The patient continues on his chronic immunosuppression of Cellcept and tacrolimus and these are being slowly weaned in the outpatient setting. Unfortunately at present, the transplant team has deemed him an unacceptable transplant candidate due to issues with compliance and followup. Thank you for involving me in the care of Mr. Rosen. I will be happy to follow him along with you. My faculty preceptor for this patient encounter was physically present during the encounter and was fully available. All aspects of the patient interview, examination, medical decision making process, and medical care plan development were reviewed and approved by the faculty preceptor. The faculty preceptor is aware and concurs with the plan as stated in the body of this note and will attest to such by his/her cosignature.
[2018-12-12 06:23] LABS: BASO % 0.6 % (0.0-1.0); EOS # 0.2 10^3/uL (0.0-0.50); EOS % 6.1 % (0.0-3.0); HEMATOCRIT 21.2 % (42.0-52.0); LYMPH # 0.7 10^3/uL (1.5-4.5); LYMPH % 20.4 % (24.0-44.0); MEAN CORPUSCULAR HEMOGLOBIN 28.9 pg (27.0-33.0); MEAN CORPUSCULAR HGB CONC 31.1 g/dl (32.0-36.5); MONO # 0.4 10^3/uL (0.0-0.8); PLATELET COUNT, AUTOMATED 101 10^3/uL (150-450); RED BLOOD COUNT 2.28 10^6/uL (4.30-6.10); WHITE BLOOD COUNT 3.3 10^3/uL (4.0-10.0)
[2018-12-12 06:36] LABS: HEMOGLOBIN 6.6 g/dl (13.5-17.5)
[2018-12-12 07:12] LABS: CALCIUM LEVEL 7.8 MG/DL (8.5-10.1); CREATININE FOR GFR 8.11 MG/DL (0.70-1.30); GLOMERULAR FILTRATION RATE 7.7 (>60); MAGNESIUM LEVEL 1.9 MG/DL (1.8-2.4); PERCENT SATURATION 21.3 % (19.7-50.0); POTASSIUM SERUM 4.7 MEQ/L (3.5-5.1)
--- NOTE | 2018-12-12 08:14 | IPNPDOC ---
Subjective Date Seen The patient was seen on 12/12/18. Subjective Chief Complaint/HPI Patient with HTN 200s/100s overnight. Patient anxious for DC. states he will go home today due to work commitments. Planned HD on Sunday, states he will attend that. Hgb continues to drop. N/v have subsided. eating carrot cake for breakfast. Has remained afebrile. Constitutional: Denies: Chills, Fever, Night Sweats ENT: Denies: Head Aches, Ear Pain, Dysphagia Skin: Denies: Rash, Lesions, Breakdown Pulmonary: Denies: Dyspnea, Cough Cardiovascular: Denies: Chest Pain, Palpitations, Orthopnea, Paroxysmal Noc. Dyspnea, Lt Headedness Gastrointestinal: Denies: Nausea, Vomiting, Abdominal Pain, Diarrhea, Constipation Psych: Reports: Mood Normal; Denies: Depression, Memory Issues Objective Physical Examination General Exam: Positive: Alert, No Acute Distress Neck Exam: Positive: Supple; Negative: JVD, thyromegaly Chest Exam: Positive: Clear to auscultation, Normal air movement Heart Exam: Positive: Rate Normal, Regular Rhythm, Normal S1, Normal S2; Negative: Murmurs, Rubs Abdomen Exam: Positive: Normal bowel sounds, Soft; Negative: Tenderness, Hepatospenomegaly Psych Exam: Positive: Mental status NL, Mood NL, Oriented x 3 A-FIB/CHADSVASC A-FIB History Current/History of A-Fib/PAF?: No Current Oral Anticoagulant The: No Assessment /Plan Problems (1) Chronic kidney disease (CKD) Status: Acute Problem Text: 12/12/18: Reviewed case with Dr. Shadia Tucker. Will transfuse 1 unit PRBC for anemia. + leukopenia. Macrocytic anemia. Consider hematology consult. Patient states will leave AMA this afternoon after transfusion, will consult hematology as outpatient. failed transplant, dialysis dependent. Nephrology consulted. (2) Hypertension Status: Chronic Problem Text: Poorly controlled. Started on Carvedilol 25 mg po bid, Lisinopril increased to 20 mg po bid. Catapres patch applied. Patient is asymptomatic. (3) Right lower lobe pneumonia Status: Acute Problem Text: sputum cx pending. WBC 3,000 Levaquin renally dosed. Received 750 mg IV in ED 12/10/18. Sputum cx ordered. Plan/VTE VTE Prophylaxis Ordered?: No VTE Exclusion Pharmacological: Thrombocytopenia Disposition Reviewed clinical case with patient and risk of leaving hospital w/o full treatment and monitoring. Patient verbalized understanding and agreement. Reviewed with Dr. Shadia Tucker and Dr. Pedraza VS, I&O, 24H, [place] Vital Signs/I&O Vital Signs Date Time Temp Pulse Resp B/P (MAP) Pulse Ox O2 Delivery O2 Flow Rate FiO2 12/12/18 08:00 97.7 74 18 175/92 (119) 97 2.0 12/10/18 13:51 Room Air I&O- Last 24 Hours up to 6 AM 12/12/18 06:00 Intake Total 680 ml Output Total 2500 ml Balance -1820 ml Laboratory Data 24H LABS Laboratory Tests 2 12/12/18 05:51: Immature Granulocyte % (Auto) 0.9, White Blood Count 3.3L, Red Blood Count 2.28L, Hemoglobin 6.6*L, Hematocrit 21.2L, Mean Corpuscular Volume 93.0, Mean Corpuscular Hemoglobin 28.9, Mean Corpuscular Hemoglobin Concent 31.1L, Red Cell Distribution Width 14.5, Platelet Count 101L, Neutrophils (%) (Auto) 61.0, Lymphocytes (%) (Auto) 20.4L, Monocytes (%) (Auto) 11.0H, Eosinophils (%) (Auto) 6.1H, Basophils (%) (Auto) 0.6, Neutrophils # (Auto) 2.0, Lymphocytes # (Auto) 0.7L, Monocytes # (Auto) 0.4, Eosinophils # (Auto) 0.2, Basophils # (Auto) 0.0, Nucleated Red Blood Cells % (auto) 0.0, Anion Gap 7L, Glomerular Filtration Rate 7.7L, Blood Urea Nitrogen 36H, Creatinine 8.11*H, Sodium Level 138, Potassium Level 4.7, Chloride Level 101, Carbon Dioxide Level 30, Calcium Level 7.8L, Magnesium Level 1.9, Iron Level 27L, Total Iron Binding Capacity 127L, Transferrin % Saturation 21.3, Ferritin 1130H CBC/BMP Laboratory Tests 12/12/18 05:51 Red Blood Count 2.28 L, Mean Corpuscular Volume 93.0, Mean Corpuscular Hemog lobin 28.9, Mean Corpuscular Hemoglobin Concent 31.1 L, Red Cell Distribution Width 14.5, Neutrophils (%) (Auto) 61.0, Lymphocytes (%) (Auto) 20.4 L, Monocytes (%) (Auto) 11.0 H, Eosinophils (%) (Auto) 6.1 H, Basophils (%) (Auto) 0.6, Neutrophils # (Auto) 2.0, Lymphocytes # (Auto) 0.7 L, Monocytes # (Auto) 0.4, Eosinophils # (Auto) 0.2, Basophils # (Auto) 0.0, Calcium Level 7.8 L Microbiology Microbiology 12/10/18 Blood Culture - Preliminary, Resulted No growth after 24 hours . All specim... 12/10/18 Blood Culture - Preliminary, Resulted No growth after 24 hours . All specim... 12/11/18 Gram Stain - Final, Resulted 12/11/18 Sputum Culture, Resulted Pending 12/10/18 Urine Culture - Final, Complete GME ATTESTATION ATTENDING NOTE Family Medicine Attending Note: I did not have a chance to see the patient in person the day he left AMA. I did discuss his care with Dr. Josefina Tucker and VENU aMst. I also did speak to the patient on the phone includes expressed my opinion that he was not safe for discharge at this time. Despite our best efforts he chose to leave AGAINST MEDICAL ADVICE this afternoon. It was clear that this was his plan for some time as he planned to get his young son off the bus at 3 PM and there was no backup plan for his being the hospital. 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
[2018-12-12] MEDS: raNITIdine SYRUP 150 MG/10 ML UDC PO SCH (08:43)
[2018-12-12] MEDS: MULTIVITAMINS CHILDREN'S CHEWABLE TABLET PO SCH (08:44)
[2018-12-12] MEDS: MYCOPHENOLATE MOFETIL 250 MG CAP (J7517) PO SCH (08:44)
[2018-12-12] MEDS: TACROLIMUS 1 MG CAP (J7507) PO SCH (08:44)
[2018-12-12] MEDS: amLODIPine 10 MG TAB PO SCH (08:45)
[2018-12-12] MEDS ORDERED: cloNIDine HCL 0.2 MG/24 HR PATCH TOP SCH (09:00)
[2018-12-12] MEDS ORDERED: LISINOPRIL 20 MG TAB PO SCH (09:00)
[2018-12-12 13:54] LABS: BASO % 0.6 % (0.0-1.0); EOS # 0.2 10^3/uL (0.0-0.50); EOS % 4.5 % (0.0-3.0); HEMOGLOBIN 8.7 g/dl (13.5-17.5); LYMPH # 0.6 10^3/uL (1.5-4.5); LYMPH % 11.7 % (24.0-44.0); MEAN CORPUSCULAR HEMOGLOBIN 29.7 pg (27.0-33.0); MEAN CORPUSCULAR HGB CONC 32.2 g/dl (32.0-36.5); MEAN CORPUSCULAR VOLUME 92.2 fl (80.0-96.0); MONO # 0.5 10^3/uL (0.0-0.8); MONO % 11.1 % (0.0-5.0); NEUTROPHILS # 3.5 10^3/uL (1.8-7.7); NEUTROPHILS % 71.5 % (36.0-66.0); PLATELET COUNT, AUTOMATED 121 10^3/uL (150-450); RED BLOOD COUNT 2.93 10^6/uL (4.30-6.10); WHITE BLOOD COUNT 4.9 10^3/uL (4.0-10.0)
[2018-12-12] MEDS ORDERED: LevoFLOXacin IV 500 MG in APPROPRIATE DILUENT 1 EA IV SCH (18:00)
== END 2018-12-12 14:12 | disposition left against medical advice (07) | DRG 193 ==
LOC: M ED 10:20 → M ED INP 14:33 → M PCU 16:10
PROVIDERS: ADMIT Internal Medicine Nephrology; ATTEND Family Medicine
PROC: 5A1D70Z Performance of Urinary Filtration, Intermittent, Less than 6 Hours Per Day (ICD-10-PCS; 2018-12-11)
PROC: 30233N1 Transfusion of Nonautologous Red Blood Cells into Peripheral Vein, Percutaneous Approach (ICD-10-PCS; principal; 2018-12-12)
DX: J18.9 Pneumonia, unspecified organism (principal); N18.6 End stage renal disease; I12.0 Hypertensive chronic kidney disease with stage 5 chronic kidney disease or end stage renal disease; T86.12 Kidney transplant failure; N25.81 Secondary hyperparathyroidism of renal origin; D63.1 Anemia in chronic kidney disease; R11.2 Nausea with vomiting, unspecified; E78.5 Hyperlipidemia, unspecified; M54.5 Low back pain; Z99.2 Dependence on renal dialysis; Z90.49 Acquired absence of other specified parts of digestive tract; Z79.899 Other long term (current) drug therapy; Z88.8 Allergy status to other drugs, medicaments and biological substances; Z88.1 Allergy status to other antibiotic agents

== ENCOUNTER → 2018-12-16 | Outpatient (CLI) | payer MEDICARE, MEDICAID ==
[~2018-12-16] MED LIST changes: +HYDR25TA PO; +VELP5CHW PO
== END ==
LOC: M LAB 11:40
PROVIDERS: ATTEND Internal Medicine Nephrology
DX: D64.9 Anemia, unspecified (principal)

== ENCOUNTER 2018-12-17 07:56 | Outpatient (CLI) | payer MEDICARE, MEDICAID ==
[2018-12-17] VITALS (9 sets, daily range): BP systolic 182–224; BP diastolic 94–112
[~2018-12-17] VITALS: Ht 171.4 cm; Wt 107.0 kg
[2018-12-17] MEDS: ACETAMINOPHEN 325 MG TAB PO ONE (08:23)
== END 2018-12-17 13:15 | disposition home or self-care (01) ==
LOC: M INFU 07:56
PROVIDERS: ATTEND Internal Medicine Nephrology
DX: N18.6 End stage renal disease (principal); D63.1 Anemia in chronic kidney disease
CPT/HCPCS: 36430; P9016

== ENCOUNTER 2018-12-21 20:31 | Inpatient (IN) | payer MEDICARE, MEDICAID ==
[~2018-12-21] VITALS: Ht 180.3 cm; Wt 101.2 kg
[2018-12-21] MEDS ORDERED: hydrALAZINE INJ 20 MG/ML VIAL IV STA (21:00)
[2018-12-21] MEDS ORDERED: LABETALOL HCL 100 MG/20 ML VIAL IV STA (21:08)
[2018-12-21 21:38] LABS: BASO % 0.5 % (0.0-1.0); EOS # 0.3 10^3/uL (0.0-0.50); EOS % 3.6 % (0.0-3.0); HEMATOCRIT 35.3 % (42.0-52.0); HEMOGLOBIN 11.4 g/dl (13.5-17.5); LYMPH # 0.6 10^3/uL (1.5-4.5); LYMPH % 7.3 % (24.0-44.0); MEAN CORPUSCULAR HEMOGLOBIN 27.4 pg (27.0-33.0); MEAN CORPUSCULAR HGB CONC 32.3 g/dl (32.0-36.5); MEAN CORPUSCULAR VOLUME 84.9 fl (80.0-96.0); MONO # 0.7 10^3/uL (0.0-0.8); MONO % 8.3 % (0.0-5.0); NEUTROPHILS # 6.6 10^3/uL (1.8-7.7); NEUTROPHILS % 79.7 % (36.0-66.0); PLATELET COUNT, AUTOMATED 122 10^3/uL (150-450); RED BLOOD COUNT 4.16 10^6/uL (4.30-6.10); WHITE BLOOD COUNT 8.3 10^3/uL (4.0-10.0)
[2018-12-21] MEDS ORDERED: NS 1,000 ML IV SCH (22:15)
[2018-12-21] MEDS ORDERED: ONDANSETRON 4MG/2ML VIAL (J2405) IV ONE (22:15)
[2018-12-21] MEDS ORDERED: hydrALAZINE INJ 20 MG/ML VIAL IV ONE (22:15)
[2018-12-21 22:22] LABS: ALBUMIN 2.7 GM/DL (3.2-5.2); BILIRUBIN,DIRECT 0.2 MG/DL (0.0-0.2); BILIRUBIN,TOTAL 0.6 MG/DL (0.2-1.0); CREATININE FOR GFR 9.39 MG/DL (0.70-1.30); GLOMERULAR FILTRATION RATE 6.5 (>60); MB/CK RELATIVE INDEX 3.73 (< OR =4); TOTAL PROTEIN 5.8 GM/DL (6.4-8.2); TROPONIN I 0.07 NG/ML (< 0.10)
[2018-12-21] MEDS ORDERED: ACETAMINOPHEN TAB 650MG DOSE (2X325MG) PO PRN (23:00)
[2018-12-21] MEDS ORDERED: ATOR1TAB21 PO (23:00)
[2018-12-21] MEDS ORDERED: MAALOX 30 ML SUSP *UDC PO PRN (23:00)
[2018-12-21] MEDS ORDERED: LISI10TA4 PO (23:00)
[2018-12-21] MEDS ORDERED: MOM 30ML SUSPENSION UDC PO PRN (23:00)
--- NOTE | 2018-12-21 23:22 | HPEPDOC ---
General Date of Admission Chief Complaint The patient is a 48-year-old male admitted with a reason for visit of Weakness/ Dizziness. Source: Patient, Old records History of Present Illness Mr. Rosen is a 48 years old man with ESRD on HD. He was recently admitted for pneumonia a week ago, but he jonathan out AMA a day after admission. Pt states he has not been feeling well for about a week. Today he felt really worse; symptoms are vague and multiple, but mainly weakness, nausea, vomiting, epigastric pain, back pain and dizziness. Denies chest pain, SOB, headache or LOC. Pt's last HD was yesterday. IN the ER, pt was noted to have very high BP 219/118, which improved with IV doses of Labetalol and Hydralazine. Now 171/89/. Labs are fine except for serum Cr of 9.0. Home Medications Scheduled Amlodipine Besylate (Amlodipine Besylate) 10 Mg Tab, 10 MG PO DAILY, (Reported) Atorvastatin Calcium (Atorvastatin Calcium) 20 Mg Tablet, 20 MG PO DAILY, (Reported) Calcitriol (Calcitriol) 0.25 Mcg Cap, 0.25 MCG PO 3XW, (Reported) TAKES SUNDAY, SUNDAY AND SUNDAY AT DIALYSIS Ergocalciferol (Vitamin D2) (Vitamin D2) 50,000 Unit Cap, 50,000 UNIT PO QWEEK, (Reported) RECEIVES AT DIALYSIS Hydralazine HCl (Hydralazine HCl) 25 Mg Tablet, 25 MG PO BID, (Reported) Lisinopril (Lisinopril) 10 Mg Tablet, 10 MG PO DAILY, (Reported) Metoprolol Succinate (Metoprolol Succinate) 25 Mg Tab.er.24h, 25 MG PO DAILY, (Reported) Multivitamins (Child Chew Vitamin) 1 Tab Chew, 1 TAB PO DAILY, (Reported) Mycophenolate Mofetil (Cellcept) 250 Mg Cap, 750 MG PO BID, (Reported) Tacrolimus (Tacrolimus) 1 Mg Cap, 2 MG PO BID, (Reported) Scheduled PRN Alprazolam (Alprazolam) 1 Mg Tab, 1 MG PO BID PRN for ANXIETY, (Reported) Hydrocodone/Acetaminophen (Adrian 10-325 Tablet) 1 Tab Tab, 1 TAB PO Q6HP PRN for PAIN, (Reported) Allergies Coded Allergies: Cephalosporins (Verified Allergy, Intermediate, HIVES, CEFTIN, 11/27/18) tramadol (Verified Allergy, Mild, DIZZY, 11/27/18) hydroxyzine (Verified Adverse Reaction, Intermediate, INCREASED LETHARGY, LOSS OF BALANCE, 11/27/18) ketorolac (Verified Adverse Reaction, Mild, DIZZY, NAUSEA, 11/27/18) Past Medical History Medical History PAST MEDICAL HISTORY: 1. Renal failure secondary to hypertension, status post transplant. Transplant failed, now is dialysis dependent on Sunday, Sunday, Sunday. 2. Hypertension. 3. Bronchiectasis. 4. History of diverticulitis. SURGICAL HISTORY: 1. Kidney transplant in [place], [place] in 2014. 2. Cholecystectomy in 2011. 3. Right forearm fistula, then removed for aneurysm. 4. Kidney biopsy in 2016. 5. Peritoneal catheter placed and discontinued due to infection in 2018. FAMILY HISTORY: Father - unknown. Mother alive - history of diabetes. Siblings - history of anxiety and depression. Two sons - healthy. SOCIAL HISTORY: Denies having any tobacco use, any recreational intravenous (IV) drug use or any alcohol use. Social History * Smoker: Denies Alcohol: Denies Drugs: denies A-FIB/CHADSVASC A-FIB History Current/History of A-Fib/PAF?: No Review of Systems Constitutional: Reports: Malaise, Weakness, Fatigue; Denies: Chills, Fever ENT: Denies: Head Aches Skin: Denies: Rash Pulmonary: Denies: Dyspnea, Cough Cardiovascular: Denies: Chest Pain, Edema Gastrointestinal: Reports: Nausea, Vomiting, Abdominal Pain Genitourinary: Denies: Dysuria Musculoskeletal: Reports: Back Pain Neurological: Reports: Weakness Psych: Reports: Mood Normal Physical Examination General Exam: Positive: Alert, Cooperative, No Acute Distress Eye Exam: Positive: PERRLA ENT Exam: Positive: Atraumatic Neck Exam: Positive: Supple; Negative: JVD Chest Exam: Positive: Clear to auscultation, Normal air movement Heart Exam: Positive: Rate Normal, Regular Rhythm Abdomen Exam: Positive: Normal bowel sounds, BS Hyperactive, Soft, Tenderness Extremity Exam: Negative: Edema Skin Exam: Negative: Rash Neuro Exam: Positive: Normal Speech, Strength at 5/5 X4 ext, Sensation Intact Psych Exam: Positive: Mental status NL Vital Signs Vital Signs Date Time Temp Pulse Resp B/P (MAP) Pulse Ox O2 Delivery O2 Flow Rate FiO2 12/21/18 22:30 87 18 171/89 (116) 96 Room Air 12/21/18 20:31 98.4 Laboratory Data Labs 24H Laboratory Tests 2 12/21/18 21:29: Immature Granulocyte % (Auto) 0.6, White Blood Count 8.3, Red Blood Count 4.16L, Hemoglobin 11.4L, Hematocrit 35.3L, Mean Corpuscular Volume 84.9, Mean Kiarra uscular Hemoglobin 27.4, Mean Corpuscular Hemoglobin Concent 32.3, Red Cell Distribution Width 15.3H, Platelet Count 122L, Neutrophils (%) (Auto) 79.7H, Lymphocytes (%) (Auto) 7.3L, Monocytes (%) (Auto) 8.3H, Eosinophils (%) (Auto) 3.6H, Basophils (%) (Auto) 0.5, Neutrophils # (Auto) 6.6, Lymphocytes # (Auto) 0.6L, Monocytes # (Auto) 0.7, Eosinophils # (Auto) 0.3, Basophils # (Auto) 0.0, Nucleated Red Blood Cells % (auto) 0.0, Anion Gap 9, Glomerular Filtration Rate 6.5L, Lactic Acid Level 0.7, Calcium Level 8.0L, Aspartate Amino Transf (AST/SGOT) 16, Alanine Aminotransferase (ALT/SGPT) 18, Alkaline Phosphatase 60, Total Bilirubin 0.6, Direct Bilirubin 0.2, Total Creatine Kinase 59, Creatine Kinase MB 2.0, Creatine Kinase MB Relative Index 3.73, Troponin I 0.07, Total Protein 5.8L, Albumin 2.7L, Albumin/Globulin Ratio 0.87L, Lipase 264 CBC/BMP Laboratory Tests 12/21/18 21:29 Red Blood Count 4.16 L, Mean Corpuscular Volume 84.9, Mean Corpuscular Hemoglobin 27.4, Mean Corpuscular Hemoglobin Concent 32.3, Red Cell Distribution Width 15.3 H, Neutrophils (%) (Auto) 79.7 H, Lymphocytes (%) (Auto) 7.3 L, Monocytes (%) (Auto) 8.3 H, Eosinophils (%) (Auto) 3.6 H, Basophils (%) (Auto) 0.5, Neutrophils # (Auto) 6.6, Lymphocytes # (Auto) 0.6 L, Monocytes # (Auto) 0.7, Eosinophils # (Auto) 0.3, Basophils # (Auto) 0.0 Microbiology Microbiology 12/21/18 Blood Culture, Received Pending Assessment/Plan 46 years od dialysis patient presenting with generalized symptoms, nausea, vomiting and asymptomatic HTN Urgency. Asymptomatic HTN Urgency - Due to non-compliance - Keep overnight in Observation - re-instate home meds - Monitor vitals Nausea, Vomiting - Zofran prn Plan / VTE VTE Prophylaxis Ordered?: No VTE Exclusion Mechanical Proph: Low Risk for VTE VTE Exclusion Pharmacological: At Low Risk for VTE Plan Anticipated Discharge: Home MARIELOS FERGUSON MD December 21, 2018 23:22
[2018-12-22] VITALS (10 sets, daily range): BP systolic 172–220; BP diastolic 78–110
[2018-12-22] MEDS: MORPHINE 4 MG/ML 1ML VIAL/SYRINGE (J2270) IV PRN ×5 (00:21→22:40)
[2018-12-22] MEDS ORDERED: amLODIPine 10 MG TAB PO ONE (02:30)
[2018-12-22] MEDS: PANTOPRAZOLE 40MG INJ (PROTONIX) (C9113) IV SCH ×2 (02:32→22:27)
[2018-12-22] MEDS: MULTIVITAMINS CHILDREN'S CHEWABLE TABLET PO SCH (08:24)
[2018-12-22] MEDS: TACROLIMUS 1 MG CAP (J7507) PO SCH ×2 (08:27→22:28)
[2018-12-22] MEDS: amLODIPine 10 MG TAB PO SCH (08:28)
[2018-12-22] MEDS: ATORVASTATIN 20 MG TAB PO SCH (08:28)
[2018-12-22] MEDS: ONDANSETRON 4MG/2ML VIAL (J2405) IV PRN ×3 (08:40→20:29)
[2018-12-22] MEDS ORDERED: MYCOPHENOLATE MOFETIL 250 MG CAP (J7517) PO SCH (09:00)
[2018-12-22] MEDS ORDERED: LISINOPRIL 10 MG TAB PO SCH (09:00)
[2018-12-22] MEDS ORDERED: **hydrALAZINE HCL** 25 MG TAB PO SCH (09:00)
[2018-12-22] MEDS ORDERED: METOPROLOL SUCC *XL* 25MG TAB (TopROL *XL*) PO SCH (09:00)
[2018-12-22 10:03] LABS: CALCIUM LEVEL 8.5 MG/DL (8.5-10.1); CREATININE FOR GFR 10.4 MG/DL (0.70-1.30); GLOMERULAR FILTRATION RATE 5.7 (>60); POTASSIUM SERUM 3.9 MEQ/L (3.5-5.1)
[2018-12-22] MEDS: ALPRAZolam 0.5 MG TAB PO PRN (10:09)
[2018-12-22] MEDS ORDERED: hydrALAZINE INJ 20 MG/ML VIAL IV STA (10:39)
[2018-12-22] MEDS: LOSARTAN 50 MG TAB PO SCH ×2 (11:43→21:46)
[2018-12-22 11:55] LABS: MB/CK RELATIVE INDEX 2.29 (< OR =4); TROPONIN I 0.08 NG/ML (< 0.10)
[2018-12-22] MEDS ORDERED: SLF 3 ML SYR IV PRN (12:00)
--- NOTE | 2018-12-22 12:00 | REP ---
ABDOMINAL SERIES: Supine and erect views of the abdomen demonstrate no free air and no evidence for small bowel obstruction. Scattered air is seen throughout the GI tract, but there are no significantly dilated small bowel loops. Metallic clips and vascular calcifications are seen in the pelvis and there are a few metallic clips in the right upper quadrant. An accompanying view of the chest demonstrates improvement of the previously noted right middle lobe infiltrate compared to prior chest radiograph 12/10/2018. Cardiac silhouette is prominent. Mediastinal silhouette is unchanged. Right central venous catheter is again noted. Vasculature is mildly prominent as are the interstitial markings in the lung bases as seen on prior study. IMPRESSION: Improved right middle lobe infiltrate. Cardiomegaly with mild vascular congestion and prominent interstitium in the lung bases appearing similar to the prior study of 12/10/2018. No free air or small bowel obstruction. Electronically Signed by Garrett Kaba MD 12/22/2018 12:29 P
[2018-12-22 12:31] LABS: C REACTIVE PROTEIN QUANTITATIV 5.96 MG/DL (0.00-0.30)
--- NOTE | 2018-12-22 13:58 | REP ---
CT ABDOMEN AND PELVIS WITHOUT CONTRAST: CT abdomen and pelvis performed without oral or IV contrast. Sagittal and coronal reconstruction images are performed. Comparison is made with prior CT abdomen and pelvis with IV contrast 09/23/2018. Visualized lung bases demonstrate mild diffuse interstitial infiltrates. There is mild cardiomegaly. There is a moderate pericardial effusion which has increased since the prior study. Liver is grossly unremarkable. The patient is has had a prior cholecystectomy. Spleen is unremarkable. Adrenals and pancreas are grossly unremarkable. There is severe renal atrophy bilaterally with tiny cystic changes and scattered calcifications. There is atherosclerotic calcification of the abdominal aorta without aneurysm. I see no adenopathy. There is no free air. In the left upper quadrant there is possible thickening of the segment of small bowel. There is adjacent streaky inflammatory change in the mesentery with multiple subcentimeter lymph nodes. Findings suggest enteritis. No other area of bowel thickening is seen. There is sigmoid diverticulosis without evidence of acute diverticulitis. Renal transplant is seen in the right pelvis. There is diffuse ill-defined edematous change involving the transplant and perirenal fat. There is mild free fluid in the adjacent pelvis. Tiny amount of perihepatic fluid is seen. Urinary bladder is mildly distended, but otherwise grossly unremarkable. There are mild degenerative changes of the spine. IMPRESSION: There appears to be mild interstitial infiltrate and interstitial edema in the visualized lower lung zones. There is a moderate amount or pericardial fluid which has increased since the prior study. Diffuse edematous change involving the renal transplant in the right pelvis with surrounding edema in the fat. There is mild free fluid in the pelvis. There appears to be a thickened segment of small bowel in the left upper quadrant of the abdomen with adjacent streaky inflammatory change in the mesentery as well as multiple subcentimeter lymph nodes. Findings suggest enteritis in this region. Electronically Signed by Garrett Kaba MD 12/22/2018 03:00 P
[2018-12-22] MEDS: SLF 3 ML SYR IV SCH ×2 (14:00→22:00)
--- NOTE | 2018-12-22 14:05 | REP ---
CHEST, TWO VIEWS: Two views of the chest are performed and compared to a prior study of 12/21/2018. There is mild cardiomegaly again noted. There is mild vascular congestion and diffuse interstitial edema. Previously noted right middle lobe infiltrate has improved. Mediastinal silhouette is unchanged. Right central venous catheter is again noted. IMPRESSION: Improved right middle lobe infiltrate. There is mild cardiomegaly with vascular congestion and mild diffuse interstitial edema. Electronically Signed by Garrett Kaba MD 12/22/2018 03:00 P
[2018-12-22] MEDS: **hydrALAZINE** 10 MG TAB PO SCH ×2 (16:22→21:49)
[2018-12-22] MEDS ORDERED: GI COCKTAIL 50ML BTL(HYOSCYAMINE/MAALOX/LIDOCAINE VISCOUS)(1:3:1) PO ONE (17:00)
--- NOTE | 2018-12-22 17:33 | ECGEPIP ---
Stationary ECG Study [facility] Test Date: 2018-12-22 Pat Name: OPAL LACEY Department: Room: [place] [address] Gender: M Rn Child: DELLA : 1970 Requested By: JAE VELASQUEZ Order Number: [id number] Reading MD: Alex Duong Measurements Intervals [place] Rate: 95 P: 54 FL: 160 QRS: -1 QRSD: 89 T: 72 QT: 388 QTc: 488 Interpretive Statements Normal sinus rhythm Left atrial enlargement Nonspecific T wave abnormality No significant change when compared to prior tracing of 12/21/2018 Electronically Signed On 12-22-2018 17:33:31 EDT by Alex Duong
--- NOTE | 2018-12-22 21:12 | ECGEPIP ---
Stationary ECG Study [facility] - ED Test Date: 2018-12-21 Pat Name: OPAL LACEY Department: Room: [place] [address] Gender: M Statistical Typist: CINDA : 1970 Requested By: SHAHRZAD COVINGTON Order Number: [id number] Reading MD: Lore Suarez Measurements Intervals [place] Rate: 104 P: 15 RI: 124 QRS: -20 QRSD: 85 T: 84 QT: 365 QTc: 482 Interpretive Statements SINUS TACHYCARDIA POSSIBLE LEFT ATRIAL ENLARGEMENT POSSIBLE LEFT VENTRICULAR HYPERTROPHY NONSPECIFIC T-WAVE ABNORMALITY POSSIBLE PRIOR INFERIOR INFARCT Electronically Signed On 12-22-2018 21:12:45 EDT by Lore Suarez
[2018-12-22] MEDS: MYCOPHENOLATE MOFETIL 250 MG CAP (J7517) PO SCH (22:28)
[2018-12-23] VITALS (7 sets, daily range): BP systolic 165–200; BP diastolic 82–112
--- NOTE | 2018-12-23 01:12 | IPNPDOC ---
Subjective Date Seen The patient was seen on 12/22/18. Subjective Chief Complaint/HPI He remained hypertensive overnight, and was transferred to the PCU this morning. He threw up his morning medications shortly after taking them; reports weeks of nausea and vomiting. Constitutional: Reports: Malaise; Denies: Chills, Fever Pulmonary: Denies: Dyspnea, Cough Cardiovascular: Denies: Chest Pain, Palpitations Gastrointestinal: Reports: Nausea, Vomiting; Denies: Abdominal Pain Objective Physical Examination General Exam: Positive: Alert, Cooperative, No Acute Distress Eye Exam: Positive: PERRLA ENT Exam: Positive: Atraumatic Neck Exam: Positive: Supple; Negative: JVD Chest Exam: Positive: Clear to auscultation, Normal air movement Heart Exam: Positive: Rate Normal, Regular Rhythm Abdomen Exam: Positive: Normal bowel sounds, BS Hyperactive, Soft, Tenderness Extremity Exam: Negative: Edema Skin Exam: Negative: Rash Neuro Exam: Positive: Normal Speech, Strength at 5/5 X4 ext, Sensation Intact Psych Exam: Positive: Mental status NL A-FIB/CHADSVASC A-FIB History Current/History of A-Fib/PAF?: No Assessment /Plan Problems (1) Asymptomatic hypertensive urgency Status: Acute Problem Text: Dosing of BP medications changed, and some were switched. Discussed with Dr. Tucker. She notes that his BP has been creeping up for a while now, during dialysis. Nephrology fears that it is related to the failed renal transplant; Dr. Tucker states that they have tried to encourage him to have it removed, but he has declined to do so. (2) CKD (chronic kidney disease) requiring chronic dialysis Status: Chronic Problem Text: Appreciate nephrology's input in managinng his hypertension. Plan MWF dialysis. Plan/VTE VTE Prophylaxis Ordered?: No VTE Exclusion Mechanical Proph: Low Risk for VTE VTE Exclusion Pharmacological: At Low Risk for VTE Plan Anticipated Discharge: Home VS, I&O, 24H, Fishbone Vital Signs/I&O Vital Signs Date Time Temp Pulse Resp B/P (MAP) Pulse Ox O2 Delivery O2 Flow Rate FiO2 12/22/18 22:50 99.9 101 16 165/82 96 12/22/18 00:36 Room Air I&O- Last 24 Hours up to 6 AM 12/23/18 06:00 Intake Total 238 ml Output Total 0 ml Balance 238 ml Laboratory Data 24H LABS Laboratory Tests 2 12/22/18 08:57: Erythrocyte Sedimentation Rate 45H 12/22/18 09:03: Anion Gap 11, Glomerular Filtration Rate 5.7L, Blood Urea Nitrogen 54H, Creatinine 10.40*H, Sodium Level 137, Potassium Level 3.9, Chloride Level 99, Carbon Dioxide Level 27, Calcium Level 8.5 12/22/18 11:18: Total Creatine Kinase 70, Creatine Kinase MB 2.0, Creatine Kinase MB Relative Index 2.29, Troponin I 0.08, C-Reactive Protein, Quantitative 5.96H CBC/BMP Laboratory Tests 12/22/18 09:03 Calcium Level 8.5 Microbiology Microbiology 12/21/18 Blood Culture - Preliminary, Resulted No growth after 24 hours . All specim... 12/21/18 Blood Culture - Preliminary, Resulted No growth after 24 hours . All specim... JAE VELASQUEZ DO December 23, 2018 01:12
[2018-12-23] MEDS: ONDANSETRON 4MG/2ML VIAL (J2405) IV PRN ×5 (02:03→21:58)
[2018-12-23] MEDS: MORPHINE 4 MG/ML 1ML VIAL/SYRINGE (J2270) IV PRN ×4 (03:07→23:46)
[2018-12-23] MEDS ORDERED: NORCO, ANEXSIA 5/325MG TABLET (HYDROcodone/ACETAMINOPHEN) PO PRN (06:15)
[2018-12-23] MEDS: SUCRALFATE 1 GM TAB PO SCH ×4 (06:47→23:45)
--- NOTE | 2018-12-23 06:47 | CR ---
DATE OF CONSULTATION: 12/22/2018 REQUESTING PHYSICIAN: Dr. Elke Hutson REASON FOR CONSULTATION: Management of end-stage renal disease on hemodialysis in this patient admitted with uncontrolled blood pressures and nausea and vomiting. HISTORY OF PRESENT ILLNESS (HPI): Helio Rosen is well known to me, 48-year-old male with a past medical history of end-stage renal disease with a failed retained, right lower quadrant renal allograft on hemodialysis on Sunday , Sunday, Sunday schedule and also on chronic immunosuppression (tacrolimus and Myfortic), history of uncontrolled hypertension, dyslipidemia, anxiety, prior history of erythrocytosis though now with notable worsening anemia, secondary hyperparathyroidism of renal origin, and other comorbid conditions mentioned below. The patient reports a several week history of nausea and vomiting, reports that the vomiting 1-4 times per day, also brings up his medications. He reports shortness of breath. He was recently admitted in late November for the same but he left against medical advice. During that admission he was also found to be severely anemic with a hemoglobin as low as 6.6. He has received a total of 3 units of packed red blood cells in the past 10 days. He denies any recent missed hemodialysis sessions. He was admitted yesterday due to multiple complaints including nausea and vomiting, weakness and blood pressure in the emergency room (ER) was noted to be 219/118. He complains of vague abdominal pain but does not endorse that it is over the failed allograft. I saw the patient after he received morphine at 10 a.m. this morning and his pain was subsided. PAST MEDICAL HISTORY: 1. Endstage renal disease on hemodialysis. 2. History of failed renal transplant ( living donor). 3. Hypertension. 4. Dyslipidemia. 5. Anxiety secondary hyperparathyroidism of renal origin. 6. History of erythrocytosis presently with anemia. PAST SURGICAL HISTORY: 1. Status post cholecystectomy. 2. Status post live donor kidney transplant around 2016 in [place]. 3. Status post right upper arm arteriovenous (AV) fistula which was subsequently ligated. 4. Status post peritoneal dialysis (PD) catheter insertion and removal. 5. Status post PermaCath. ALLERGIES: CEPHALOSPORIN, HYDROXYZINE, KETOROLAC and TRAMADOL. FAMILY HISTORY: No significant family history of endstage renal disease requiring hemodialysis. SOCIAL HISTORY: He denies elicit drug abuse, smoking or alcohol abuse. There is a strong history of noncompliance. 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 HOME MEDICATIONS: Reviewed and include: - alprazolam - amlodipine - calcitriol - either losartan or lisinopril, the patient is unable to tell which - Toprol XL - mycophenolate - tacrolimus - multivitamin REVIEW OF SYSTEMS: CONSTITUTIONAL: He denies fever or chills. He reports weakness. EYES: Denies blurry vision or tearing. ENT: Denies rhinorrhea or odynophagia or sinus pain. CARDIAC: Denies chest pain or palpitations. RESPIRATORY: He reports shortness of breath yesterday but no further shortness of breath today. GASTROINTESTINAL (GI): He reports nausea and vomiting, 1-4 episodes a day for the past several weeks. He denies diarrhea. He reports low abdominal pain. GENITOURINARY (): He reports decreased urine output. He denies dysuria or hematuria. MUSCULOSKELETAL: He denies new myalgias or arthralgias. ENDOCRINE: He reports a history of secondary hyperparathyroidism. He denies diabetes. HEMATOLOGIC: He has a history of erythrocytosis and presently now with worsening anemia. He reports recent blood transfusions. NEUROLOGIC: He denies seizures or syncope. SKIN: He denies new rashes or pruritus. The remainder of review of systems is as per the history of present illness (HPI). PHYSICAL EXAMINATION: VITAL SIGNS: Temperature 98.8, pulse 97, respiratory rate 22, blood pressure 178/100, saturating 96% on room air. GENERAL: The patient is seen lying in bed, middle-aged male, well developed, no distress. HEENT: Extraocular muscles intact. Tongue is moist. NECK: Supple, jugular veins are not elevated. There is a tunneled hemodialysis catheter present in the right chest wall. HEART: Heart sounds S1, S2, regular rate and rhythm. LUNGS: Symmetric entry bilaterally. No wheeze or crackles. Somewhat diminished at the bases. ABDOMEN: Soft, there are bowel sounds. There is no local tenderness over the right lower quadrant or allograft. There is an old healed incision. EXTREMITIES: Negative for edema, clubbing or cyanosis. There is old scars in the right arm where he had a ligated fistula. SKIN: There is no rashes, there is normal turgor and temperature. NEUROLOGIC: He is a little drowsy as he recently received morphine, but otherwise he is oriented times three and answers questions appropriately. LABORATORY DATA; White count 8.3, hemoglobin 11.4, platelets 12, ESR 45, CRP 5.9. Sodium 137, potassium 3.9, creatinine 10.4, calcium 8.5. MICROBIOLOGY: Blood cultures are pending times two sets. IMAGING: Abdominal x-ray was negative for free air or small bowel obstruction. There is mild vascular congestion. There is improved right middle lobe infiltrate. CT of the abdomen and pelvis noncontrast is pending. INPATIENT MEDICATIONS: - Xanax 1 mg by mouth twice a day taken as needed. - Mylanta as needed - Norvasc 10 mg by mouth daily - Lipitor 20 mg by mouth daily - hydralazine 20 mg by mouth three times a day - losartan 50 mg by mouth every 12 hours with holding parameters - Toprol XL 50 mg by mouth daily - morphine 2 mg intravenous (IV) every 4 hours as needed - multivitamin one tablet by mouth daily - mycophenolate 250 mg by mouth twice a day - Zofran as needed - Protonix 40 mg IV daily - Tacrolimus 2 mg by mouth twice a day - vitamin B 50,000 units by mouth on Wednesdays PROBLEMS: 1. End-stage renal disease on hemodialysis on a Sunday, Sunday, Sunday schedule. The patient will be dialyzed tomorrow. His electrolytes and volume status are acceptable. His Perm-A-Cath is in good use. He has not complied with a fistula creation in the outpatient setting despite multiple conversations regarding the same. He denies any recent missed hemodialysis treatments. 2. Failed retained renal allograft. The patient endorses minimal urine output. He does not have much significant residual renal function. There is worsening anemia noted over the past few months along with recurrent admissions for uncontrolled blood pressure (some of which may likely be due to medication nonadherence but the possibility of failed allograft worsening the blood pressure is also in the differential). I am reducing the CellCept dose down to 250 mg by mouth twice a day due to the current nausea and vomiting. We will continue him on Prograf. I have ordered a timed Prograf level for tomorrow morning and I have discussed with him regarding transplant nephrectomy given that he is not having any benefit from the failed retained allograft and also transplant has advised him that he is not a candidate for retransplant at this time due to noncompliance. I will discuss nephrectomy with him again tomorrow. He is very hesitant to get any procedures done. 3. Recurrent nausea and vomiting. The patient is receiving Zofran. He had an abdominal x-ray that was negative for free air or small bowel obstruction. I have ordered a noncontrast CAT scan of the abdomen and pelvis. He is requiring morphine for pain control. His erythrocyte sedimentation rate (ESR) and C-reactive protein (CRP) were also ordered and returned back as elevated. I want to evaluate the failed kidney further with imaging to see if there is any inflammation in the right lower quadrant. 4. Hypertensive urgency. The patient complains of nausea and vomiting. He has not been able to keep his medications down, now receiving Zofran, receiving amlodipine 10 mg by mouth daily, hydralazine 20 mg by mouth three times a day. The primary team has increased the dose of beta-barbi and I have increased his angiotensin receptor barbi to losartan 50 mg by mouth twice a day. There are holding parameters written. I do not think he is very compliant with anti-hypertensives in the outpatient setting. Therex is no need for intravenous fluids at present and normal saline has already been stopped. 5. Anemia. This has been a newer issue. The patient previously had transplant associated erythrocytosis. Now, over the last couple of months his hemoglobins have become more difficult to manage. On his last admission hemoglobin was as low as 6.6 on December 12, since then he headache received 3 units of packed red blood cells. We will continue him on Aranesp, his platelets are also on the low side. He is on Protonix. Suggest getting stool occult blood, on his last admission he left before a specimen could be collected. The failed allograft may also be worsening his anemia. 6. Generalized noncompliance. I advised the patient that there are multiple medical issues at hand and that he should not leave the hospital this admission again AGAINST MEDICAL ADVICE. He also recently missed an outpatient office appointment with Dr. Mauricio Tucker and we generally discussed the need for compliance with followup. 7. Thank you for involving me the care of Mr. Rosen. I will be happy to follow him along with you.
[2018-12-23] MEDS: SLF 3 ML SYR IV SCH ×3 (06:53→20:56)
--- NOTE | 2018-12-23 07:22 | REP ---
CT CHEST WITHOUT IV CONTRAST: CT chest was performed without IV contrast. Sagittal and coronal reconstruction images are performed. Calcified granuloma seen in the left lower lobe. Diffuse interstitial infiltrates are seen bilaterally, right greater than left. There is bilateral gynecomatastia. Right central venous catheter is seen. There is mild cardiomegaly. There is a moderate pericardial effusion. Multiple subcentimeter mediastinal lymph nodes are present. No pleural effusion is seen. There is mild atherosclerotic calcification of the thoracic aorta without aneurysm. IMPRESSION: Scattered interstitial infiltrates diffusely throughout the right lung, more so inferiorly. Mild scattered interstitial infiltrates in the left lung, not as prominent as on the right. This could be on the basis of interstitial edema or pneumonitis. Mild cardiomegaly. Moderate pericardial effusion. Electronically Signed by Garrett Kaba MD 12/23/2018 05:17 P
[2018-12-23] MEDS: METOPROLOL SUCC (TopROL XL) 50MG **XL** TAB PO SCH (07:24)
[2018-12-23 07:57] LABS: HEMATOCRIT 32.3 % (42.0-52.0); HEMOGLOBIN 10.4 g/dl (13.5-17.5); MEAN CORPUSCULAR HGB CONC 32.2 g/dl (32.0-36.5); MEAN CORPUSCULAR VOLUME 87.1 fl (80.0-96.0); PLATELET COUNT, AUTOMATED 119 10^3/uL (150-450); RED BLOOD COUNT 3.71 10^6/uL (4.30-6.10); WHITE BLOOD COUNT 11.4 10^3/uL (4.0-10.0)
[2018-12-23 08:45] LABS: ALBUMIN 2.5 GM/DL (3.2-5.2); BILIRUBIN,TOTAL 0.5 MG/DL (0.2-1.0); CALCIUM LEVEL 8.3 MG/DL (8.5-10.1); CREATININE FOR GFR 12.5 MG/DL (0.70-1.30); GLOMERULAR FILTRATION RATE 4.6 (>60); POTASSIUM SERUM 4.3 MEQ/L (3.5-5.1); TOTAL PROTEIN 5.3 GM/DL (6.4-8.2)
[2018-12-23] MEDS: MYCOPHENOLATE MOFETIL 250 MG CAP (J7517) PO SCH ×3 (09:00→21:00)
[2018-12-23] MEDS: TACROLIMUS 1 MG CAP (J7507) PO SCH ×3 (09:00→21:00)
[2018-12-23] MEDS: MULTIVITAMINS CHILDREN'S CHEWABLE TABLET PO SCH (09:00)
[2018-12-23] MEDS: LOSARTAN 50 MG TAB PO SCH ×2 (09:32→20:55)
[2018-12-23] MEDS: **hydrALAZINE** 10 MG TAB PO SCH (10:19)
[2018-12-23] MEDS ORDERED: HEPARIN 1,000 UNITS/ML 10ML VIAL (FOR RADIOLOGY& DIALYSIS ONLY) XX ONE (10:30)
--- NOTE | 2018-12-23 11:48 | IPNPDOC ---
Subjective Date Seen The patient was seen on 12/23/18. Subjective Chief Complaint/HPI Pt this morning has been taking meds every 30 minutes or more as he states this is how he does it at home. He has some nausea this morning, not much different than usual. Dialysis later today. General: Reports: Fatigue Constitutional: Denies: Chills, Fever Pulmonary: Reports: Dyspnea, Cough Cardiovascular: Reports: Chest Pain Gastrointestinal: Reports: Nausea, Vomiting, Diarrhea Neurological: Reports: Weakness Psych: Reports: Mood Normal Objective Physical Examination General Exam: Positive: Alert, Cooperative, No Acute Distress ENT Exam: Positive: Atraumatic Neck Exam: Positive: Supple; Negative: JVD Chest Exam: Positive: Clear to auscultation, Normal air movement Heart Exam: Positive: Rate Normal, Regular Rhythm Abdomen Exam: Positive: Normal bowel sounds, Soft, Tenderness Extremity Exam: Negative: Edema Skin Exam: Negative: Rash Neuro Exam: Positive: Normal Speech, Strength at 5/5 X4 ext, Sensation Intact Psych Exam: Positive: Mental status NL A-FIB/CHADSVASC A-FIB History Current/History of A-Fib/PAF?: No Assessment /Plan Problems (1) Enteritis Status: Acute Problem Text: favor partial cause of N/V 5/6 AF, but WBC to 11.4 (8.3) 5/ CT CAP mild SB thickening c surrounding increased LN, mild B interstitial fluid / BCX2 NG 5/ UCX P (2) Asymptomatic hypertensive urgency Status: Acute Response to Treatment: Uncontrolled Discussed With: Nurse, Patient Problem Text: Continue los 50 BID, met suc 50 , hydral 50 BID, amlo 10 poor medication compliance; therefore, defer TID dosing (HD [employer] hydral 25 BID, lisin 10, met succ 25, amlo 10) 5/6 Pressure remains elevated, this is likely in part to not getting his meds on time given his demands to take only 1 at a time and at least 30 m after the last, increased hydral to 50 BID 12/22 Dosing of BP medications changed, and some were switched. Discussed with Dr. Tucker. She notes that his BP has been creeping up for a while now, during dialysis. Nephrology fears that it is related to the failed renal transplant; Dr. Tucker states that they have tried to encourage him to have it removed, but he has declined to do so. (3) CKD (chronic kidney disease) requiring chronic dialysis Status: Chronic Problem Text: Appreciate nephrology's input in managinng his hypertension. Plan MWF dialysis. (4) Renal transplant recipient Status: Chronic Problem Text: MMF decreased to 250 BID (? partial N cause), tacro level P (5) Intractable vomiting Status: Acute Plan/VTE VTE Prophylaxis Ordered?: No VTE Exclusion Mechanical Proph: Low Risk for VTE VTE Exclusion Pharmacological: At Low Risk for VTE Plan Anticipated Discharge: Home VS, I&O, 24H, Fishbone Vital Signs/I&O Vital Signs Date Time Temp Pulse Resp B/P (MAP) Pulse Ox O2 Delivery O2 Flow Rate FiO2 12/23/18 10:19 200/110 12/23/18 07:24 94 12/23/18 07:00 98.7 20 94 12/22/18 00:36 Room Air I&O- Last 24 Hours up to 6 AM 12/23/18 06:00 Intake Total 538 ml Output Total 200 ml Balance 338 ml Laboratory Data 24H LABS Laboratory Tests 2 12/23/18 07:43: Nucleated Red Blood Cells % (auto) 0.0, Anion Gap 11, Glomerular Filtration Rate 4.6L, Blood Urea Nitrogen 65H, Creatinine 12.50*H, Sodium Level 135L, Potassium Level 4.3, Chloride Level 97L, Carbon Dioxide Level 27, Calcium Level 8.3L, As partate Amino Transf (AST/SGOT) 14, Alanine Aminotransferase (ALT/SGPT) 14, Alkaline Phosphatase 58, Total Bilirubin 0.5, Total Protein 5.3L, Albumin 2.5L, Albumin/Globulin Ratio 0.89L CBC/BMP Laboratory Tests 12/23/18 07:43 Red Blood Count 3.71 L, Mean Corpuscular Volume 87.1, Mean Corpuscular Hemoglobin 28.0, Mean Corpuscular Hemoglobin Concent 32.2, Red Cell Distribution Width 15.5 H, Calcium Level 8.3 L, Aspartate Amino Transf (AST/SGOT) 14, Alanine Aminotransferase (ALT/SGPT) 14, Alkaline Phosphatase 58, Total Bilirubin 0.5, Total Protein 5.3 L, Albumin 2.5 L Microbiology Microbiology 12/21/18 Blood Culture - Preliminary, Resulted No growth after 24 hours . All specim... 12/21/18 Blood Culture - Preliminary, Resulted No growth after 24 hours . All specim... 12/23/18 Urine Culture, Received Pending PANDA ROMANO PA-C December 23, 2018 11:48 Carlos Metzger M.D. December 23, 2018 15:48
[2018-12-23] MEDS: amLODIPine 10 MG TAB PO SCH (16:55)
[2018-12-23] MEDS: ATORVASTATIN 20 MG TAB PO SCH (16:55)
[2018-12-23] MEDS ORDERED: **hydrALAZINE** 10 MG TAB PO SCH (21:00)
[2018-12-23] MEDS: PANTOPRAZOLE 40MG INJ (PROTONIX) (C9113) IV SCH (21:59)
[2018-12-24] VITALS: BP 183/86
--- NOTE | 2018-12-24 00:14 | IPN ---
DATE: 12/23/2018 SUBJECTIVE: Patient is seen and examined this morning at the bedside and again later on the hemodialysis unit. He reports his abdominal pain is improved today. He is hungry. Reports he vomited twice overnight but has not had any recurrent vomiting episodes thus far today. Blood pressure still remains uncontrolled. He is scheduled for dialysis without heparin. VITAL SIGNS: Temperature 98.6, pulse 60, respiratory rate 20, blood pressure 188/112, saturating 95-98% on room air. Intake yesterday was 1.3 liters, goal dialysis fluid removal today is 3.5 liters. Weight on the bed scale today is 106.1 kg. General: The patient is seen lying in bed, awake, alert, comfortable, in no acute distress. Extraocular muscles are intact. Tongue is moist. Neck is supple. Jugular veins are not elevated. There is a tunneled hemodialysis catheter in the right chest wall. Heart sounds: S1, S2, regular rate and rhythm. Lungs: Symmetric air entry bilaterally. No wheeze or crackles, somewhat diminished at the bases. Abdomen: Soft. There are bowel sounds. There is no local tenderness over the right lower quadrant allograft. There is some tenderness to palpation in the epigastrium. The lower extremities are negative for edema, clubbing or cyanosis. There is an old scar in the right arm where he had a ligated fistula. Skin: Normal turgor and temperature. Neurologic: Oriented times three, interactive and conversational. LABORATORY: White count 11. 4, hemoglobin 10.4, platelets 119. Sodium 135, potassium 4.3. Microbiology: Blood cultures with no growth for 24 hours times [address] sets. [address] chest 12/22/2018, noncontrast, shows a moderate pericardial effusion and scattered interstitial infiltrates. CT abdomen and pelvis 12/22/2018 shows interstitial edema in the lower lung zones, diffuse edematous changes involving the renal transplant, and a thickened segment of small bowel in the left upper quadrant suggestive of enteritis. INPATIENT MEDICATIONS: Patient was started on [place] as needed per the primary team. Heparin was increased to 50 mg by mouth twice a day, and he was started on Carafate 1 gram by mouth every 6 hours. Remainder of medications are unchanged from prior. PROBLEMS: 1. End-stage renal disease, on hemodialysis on Sunday, Sunday, Sunday schedule. He is volume overloaded. CT chest, abdomen and pelvis did show signs of hypervolemia. He is dialyzed today, heparin-free dialysis, with fluid removal of 3.5 liters, which he tolerated well. I will dialyze him again tomorrow for further fluid removal. We will see if his blood pressure improves with ultrafiltration and fluid removal as well. His electrolytes are otherwise acceptable. He has failed to get a fistula creation in the outpatient setting despite multiple conversations. 2. Pericardial effusion noted on CAT scan. Will get echocardiogram as well. Will plan for extra dialysis session, and I plan to dialyze him back to back on Sunday, Sunday, and Sunday for further fluid removal. Followup echocardiogram. 3. Recurrent nausea and vomiting. CAT scan showed some small bowel thickening in the left upper quadrant with adjacent streaky inflammatory changes suggestive of enteritis. Patient is receiving supportive care as per the primary team. Repeat ESR and CRP tomorrow. 4. Failed to obtain renal allograft. Discussed with patient regarding need for transplant nephrectomy. At this point continue Prograf and Cellcept. Will refer him to transplant surgery as an outpatient for a nephrectomy if he is willing. I see no benefit for him to keep the failed organ in situ. 5. Hypertension with uncontrolled blood pressures. We will see if his blood pressure improves with dialysis and fluid removal. Continue with amlodipine. Losartan at present doses. Beta barbi can be increased further if needed and primary team has increased the dose of hydralazine. 6. Anemia and thrombocytopenia. Patient has received three units of packed red blood cells in the past 10 days or so since his last admission. Hemoglobin for now is stable and acceptable. He received heparin-free dialysis. Continue CBC monitoring.
[2018-12-24 04:00] VITALS: BP 182/90
[2018-12-24] MEDS: MORPHINE 4 MG/ML 1ML VIAL/SYRINGE (J2270) IV PRN ×4 (04:20→19:53)
[2018-12-24] MEDS: ONDANSETRON 4MG/2ML VIAL (J2405) IV PRN ×4 (04:20→19:18)
[2018-12-24] MEDS: SUCRALFATE 1 GM TAB PO SCH ×2 (06:00→14:56)
[2018-12-24] MEDS: SLF 3 ML SYR IV SCH ×3 (06:00→20:43)
[2018-12-24 08:00] VITALS: BP 174/80
[2018-12-24] MEDS: TACROLIMUS 1 MG CAP (J7507) PO SCH ×2 (09:00→21:04)
[2018-12-24] MEDS: ATORVASTATIN 20 MG TAB PO SCH (09:00)
[2018-12-24] MEDS: MYCOPHENOLATE MOFETIL 250 MG CAP (J7517) PO SCH ×2 (09:00→21:04)
[2018-12-24] MEDS: MULTIVITAMINS CHILDREN'S CHEWABLE TABLET PO SCH (09:00)
[2018-12-24] MEDS: LOSARTAN 50 MG TAB PO SCH ×2 (09:00→20:17)
[2018-12-24 12:20] VITALS: BP 164/98
[2018-12-24] MEDS: METOPROLOL SUCC (TopROL XL) 50MG **XL** TAB PO SCH (14:56)
[2018-12-24] MEDS: amLODIPine 10 MG TAB PO SCH (14:56)
[2018-12-24 16:00] VITALS: BP 184/98
--- NOTE | 2018-12-24 16:28 | IPNPDOC ---
Subjective Date Seen The patient was seen on 12/24/18. Subjective Chief Complaint/HPI c/o nausea. Nurses report he refuses his meds often due to nausea. Constitutional: Denies: Chills, Fever Pulmonary: Denies: Dyspnea, Cough Cardiovascular: Denies: Chest Pain, Palpitations, Orthopnea Gastrointestinal: Reports: Nausea, Vomiting, Abdominal Pain; Denies: Diarrhea, Constipation Objective Physical Examination General Exam: Positive: Alert, Cooperative, No Acute Distress ENT Exam: Positive: Atraumatic Neck Exam: Positive: Supple; Negative: JVD Chest Exam: Positive: Clear to auscultation, Normal air movement Heart Exam: Positive: Rate Normal, Regular Rhythm Abdomen Exam: Positive: Normal bowel sounds, Soft, Tenderness Extremity Exam: Negative: Edema Skin Exam: Negative: Rash Neuro Exam: Positive: Normal Speech, Strength at 5/5 X4 ext, Sensation Intact Psych Exam: Positive: Mental status NL A-FIB/CHADSVASC A-FIB History Current/History of A-Fib/PAF?: No Current Oral Anticoagulant The: No Assessment /Plan Problems (1) Enteritis Status: Acute Problem Text: recurrent N/anorexia/NBNB vomiting z ~1M He relates this to his meds. CT showed enteritis. (CT CAP mild SB thickening c surrounding increased LN, mild B interstitial fluid). CRP/ESR 52/13, (12/22 ), increased panto 40 QD to BID and + sulcraf ACHS, check H pylori, tc UGI SBFT Getting Morphine for abd pain Cont supportive care. 12/21 BCX2 NG / UCX P5/7 (2) Asymptomatic hypertensive urgency Status: Acute Response to Treatment: Uncontrolled Discussed With: Nurse, Patient Problem Text: Continue los 50 BID, met suc 50 , hydral 50 BID, amlo 10 poor medication compliance; therefore, defer TID dosing (HD [employer] hydral 25 BID, lisin 10, met succ 25, amlo 10) 5/ Pressure remains elevated, this is likely in part to not getting his meds on time given his demands to take only 1 at a time and at least 30 m after the last, increased hydral to 50 BID 12/22 Dosing of BP medications changed, and some were switched. Discussed with Dr. Tucker. She notes that his BP has been creeping up for a while now, during dialysis. Nephrology fears that it is related to the failed renal transplant; Dr. Tucker states that they have tried to encourage him to have it removed, but he has declined to do so. (3) CKD (chronic kidney disease) requiring chronic dialysis Status: Chronic Problem Text: Appreciate nephrology's input in managinng his hypertension. Plan MWF dialysis. (4) Renal transplant recipient Status: Chronic Problem Text: MMF decreased to 250 BID (? partial N cause), tacro level P (5) Intractable vomiting Status: Acute Plan/VTE VTE Prophylaxis Ordered?: No VTE Exclusion Mechanical Proph: Low Risk for VTE VTE Exclusion Pharmacological: At Low Risk for VTE Plan Anticipated Discharge: Home VS, I&O, 24H, Fishbone Vital Signs/I&O Vital Signs Date Time Temp Pulse Resp B/P (MAP) Pulse Ox O2 Delivery O2 Flow Rate FiO2 12/24/18 15:07 18 97 12/24/18 14:56 89 178/95 12/24/18 12:20 99.7 12/24/18 08:44 98.0 12/22/18 00:36 Room Air I&O- Last 24 Hours up to 6 AM 12/24/18 06:00 Intake Total 1260 ml Output Total 3900 ml Balance -2640 ml Laboratory Data 24H LABS Laboratory Tests 2 12/24/18 04:06: Erythrocyte Sedimentation Rate 52H, C-Reactive Protein, Quantitative 12.60H Microbiology Microbiology 12/21/18 Blood Culture - Preliminary, Resulted No Growth after 48 hours. All Specime... 12/21/18 Blood Culture - Preliminary, Resulted No Growth after 48 hours. All Specime... 12/23/18 Urine Culture - Final, Complete ROMA IRIZARRY PA-C December 24, 2018 16:27 Carlos Metzger M.D. December 24, 2018 16:44
[2018-12-24] MEDS: SUCRALFATE SUSP 1GM/10ML UD PO SCH ×2 (17:47→20:43)
--- NOTE | 2018-12-24 19:45 | ECHO ---
DATE OF PROCEDURE: 12/24/2018 AGE: 48 GENDER: Male. HEIGHT: 71 inches. WEIGHT: 231 pounds. BODY SURFACE AREA: 2.24 meters squared. LOCATION: Inpatient PCU Room 3225 REFERRING PHYSICIAN: Dr. Shadia Tucker INDICATION: Pericardial effusion. MEASUREMENTS: 2-D measurements: RV - 3.4 cm LV - 5.4 cm Septum 1.5 cm Posterior wall 1.5 cm Aortic root 3.9 cm LA - 4.2 cm LVEF 75% DOPPLER MEASUREMENTS: AV - 1.6 m/s LVOT - 1.0 m/s LVOT diameter 2.2 cm MV - E 88, A 110, E/A ratio 0.8 Early mitral deceleration time 180 ms E prime 4.7, A prime 6.2, E/E prime ratio 18.7 PULMONARY CAPILLARY WEDGE PRESSURE- 23 mmHg PV 1.1 m/s Pulmonary artery acceleration time: 95 m/s RVSP: 35 mmHg. IVC: 1.7 cm COMMENTS: Normal sinus rhythm without intraventricular conduction disturbance. M-mode and two-dimensional echocardiography was performed with pulsed, continuous wave, color flow and tissue Doppler studies. Moderately severe concentric left ventricle hypertrophy with hyperkinetic wall motion. Mildly dilated left atrium with impairment of LV diastolic function and currently elevated mean left atrial pressure. Normal right heart chamber sizes and motion with Doppler evidence of mild pulmonary hypertension. Normal IVC size and collapse against an elevated central venous pressure. Mild aortic valvular sclerosis with trace insufficiency. Normal-appearing mitral valvular apparatus and function. Moderate sized pericardial effusion measuring 0.5 cm posteriorly 0.9 cm anteriorly and 1.0 cm laterally. There was some systolic inversion of the right atrial free wall but no respiratory variation to Doppler flow signals and as mentioned central venous pressure that was not elevated - these features would be against cardiac tamponade. No intracardiac mass. MTDD
[2018-12-24 20:00] VITALS: BP 170/98
[2018-12-24] MEDS: **hydrALAZINE** 50 MG TAB PO SCH (20:17)
[2018-12-24] MEDS: PANTOPRAZOLE 40MG INJ (PROTONIX) (C9113) IV SCH (20:41)
[2018-12-25] VITALS (7 sets, daily range): BP systolic 145–184; BP diastolic 72–92
[2018-12-25] MEDS: MORPHINE 4 MG/ML 1ML VIAL/SYRINGE (J2270) IV PRN ×2 (02:25→22:10)
[2018-12-25] MEDS: ALPRAZolam 0.5 MG TAB PO PRN ×2 (02:26→12:46)
[2018-12-25] MEDS: amLODIPine 10 MG TAB PO SCH (05:59)
[2018-12-25] MEDS: PANTOPRAZOLE 40MG INJ (PROTONIX) (C9113) IV SCH ×2 (06:03→22:02)
[2018-12-25] MEDS: **hydrALAZINE** 50 MG TAB PO SCH ×2 (06:03→22:01)
[2018-12-25] MEDS: TACROLIMUS 1 MG CAP (J7507) PO SCH ×2 (06:04→22:00)
[2018-12-25] MEDS: MYCOPHENOLATE MOFETIL 250 MG CAP (J7517) PO SCH ×2 (06:04→22:00)
[2018-12-25] MEDS: SLF 3 ML SYR IV SCH ×3 (06:04→22:00)
[2018-12-25] MEDS: ATORVASTATIN 20 MG TAB PO SCH (06:05)
[2018-12-25 06:11] LABS: BASO # 0.1 10^3/uL (0.0-0.2); BASO % 0.6 % (0.0-1.0); EOS # 0.4 10^3/uL (0.0-0.50); EOS % 5.4 % (0.0-3.0); HEMATOCRIT 29.1 % (42.0-52.0); HEMOGLOBIN 9.1 g/dl (13.5-17.5); LYMPH # 0.9 10^3/uL (1.5-4.5); LYMPH % 11.4 % (24.0-44.0); MEAN CORPUSCULAR HEMOGLOBIN 27.9 pg (27.0-33.0); MEAN CORPUSCULAR HGB CONC 31.3 g/dl (32.0-36.5); MEAN CORPUSCULAR VOLUME 89.3 fl (80.0-96.0); MONO # 0.6 10^3/uL (0.0-0.8); MONO % 7.6 % (0.0-5.0); NEUTROPHILS # 6.1 10^3/uL (1.8-7.7); NEUTROPHILS % 74.6 % (36.0-66.0); PLATELET COUNT, AUTOMATED 117 10^3/uL (150-450); RED BLOOD COUNT 3.26 10^6/uL (4.30-6.10); WHITE BLOOD COUNT 8.2 10^3/uL (4.0-10.0)
[2018-12-25] MEDS: LOSARTAN 50 MG TAB PO SCH ×2 (06:34→22:01)
[2018-12-25 06:37] LABS: ERYTHROCYTE SEDIMENTATION RATE 59 mm/hr (0-15)
[2018-12-25 06:43] LABS: ALBUMIN 2.3 GM/DL (3.2-5.2); BILIRUBIN,TOTAL 0.4 MG/DL (0.2-1.0); C REACTIVE PROTEIN QUANTITATIV 12.2 MG/DL (0.00-0.30); CALCIUM LEVEL 8.5 MG/DL (8.5-10.1); CREATININE FOR GFR 11.5 MG/DL (0.70-1.30); GLOMERULAR FILTRATION RATE 5.1 (>60); POTASSIUM SERUM 4.4 MEQ/L (3.5-5.1); TOTAL PROTEIN 5.5 GM/DL (6.4-8.2)
[2018-12-25] MEDS: SUCRALFATE SUSP 1GM/10ML UD PO SCH ×4 (06:55→22:00)
--- NOTE | 2018-12-25 07:19 | IPN ---
DATE OF SERVICE: 12/24/2018 SUBJECTIVE: Patient is seen and examined this morning in the hemodialysis unit receiving that extra dialysis treatment. He reports that his nausea and abdominal pain are both improving. Reports he has not vomited since yesterday evening. His blood pressures remain uncontrolled, but he was not given any of his antihypertensives prior to his hemodialysis treatment this morning. Of note, I see that he has refused his immunosuppressants for the past two days. VITAL SIGNS: Temperature 97.0, pulse 84, respiratory rate 18, blood pressure 170/98, saturating 96% on room air. Intake yesterday was 960 mL, dialysis yesterday removed 3.5 liters. Weight on the bed scale today is 104.1 kg. Goal fluid removal with dialysis today is another 2 liters. PHYSICAL EXAMINATION: General: Patient is seen on hemodialysis receiving his treatment, lying completely flat in bed, head of bed not elevated. Extraocular muscles are intact. Tongue is moist. Neck is supple. Jugular veins are not elevated. Tunneled hemodialysis catheter in the right chest wall is in use. Cardiac: S1, S2, regular rate and rhythm. Lungs: Showing symmetric air entry bilaterally, somewhat diminished at the bases, otherwise clear. No rales or rhonchi. Abdomen: Soft and tender to palpation only in the epigastrium, specifically the allograft in the right lower quadrant is nontender to palpation. The lower extremities are negative for edema, clubbing or cyanosis. There is some scars on the right arm where he had a previous fistula with ligation. Neurologic: He is oriented times three, interactive and conversational. Skin: Normal turgor and temperature. LABS: ESR 52, CRP 12.6. There are no CBC or chemistry for today, and it is ordered for tomorrow. Blood cultures with no growth for 48 hours times two sets. INPATIENT MEDICATIONS: Reviewed by myself. I increased his Toprol XL to 75 mg by mouth daily. I note that he has been refusing both the Myfortic and tacrolimus dosages. The primary team increased the Protonix to 40 mg IV twice a day. The remainder of medications are unchanged from prior. PROBLEMS: 1. End-stage renal disease on hemodialysis on a Sunday, Sunday, Sunday schedule. He is volume overloaded. He received an extra ultrafiltration session today with another 2 liters of fluid removed today. We removed 3.5 liters yesterday and he is going to be dialyzed again tomorrow for further fluid removal. He is receiving heparin free dialysis and I would continue to aggressively dialyze him, especially in view of the CT chest, abdomen and pelvis findings and the pericardial effusion. We will see if his blood pressure improves with correction of the volume status. His electrolytes are otherwise acceptable. 2. Pericardial effusion. Echocardiogram is noted. No tamponade. The effusion is moderate sized. His CVP was elevated on the echo, again indicative of his hypervolemic state. In view of all of the above, continue with aggressive dialysis and fluid removal. 3. Recurrent nausea and vomiting, enteritis. Supportive care as per the primary team. I note the increase his CRP and ESR, although clinically the patient is feeling better and is having less nausea and much less vomiting. 4. Hypertension, uncontrolled. Blood pressures are improving but still quite uncontrolled. I am increasing the Toprol XL to 75 mg daily. We will also dialyze him again tomorrow and take off another couple liters of fluid. He otherwise continues on maximum doses of amlodipine and losartan, and I note that the primary team did increase the hydralazine dose. 5. Failed to obtain renal allograft. Plan to refer the patient to transplant surgery for a transplant nephrectomy as an outpatient if he is willing to go for the procedure (we have previously had difficulty having him go for other procedures such as fistula creation). He has been refusing his tacrolimus and his CellCept dosages for the past two days, which is inadvisable and I have discussed the same with him. He needs to con this immunosuppression at present until the nephrectomy.
[2018-12-25 08:12] LABS: H PYLORI QUALITATIVE IgG NEGATIVE (NEGATIVE)
[2018-12-25] MEDS ORDERED: VITAMIN D 50,000 UNITS CAPSULE (ERGOCALCIFEROL 1.25MG) PO SCH (09:00)
[2018-12-25] MEDS ORDERED: METOPROLOL SUCC *XL* 25MG TAB (TopROL *XL*) PO SCH (09:00)
--- NOTE | 2018-12-25 09:05 | IPNPDOC ---
Subjective Date Seen The patient was seen on 12/25/18. Subjective Chief Complaint/HPI Ate some food yesterday, but vomiting after one bite of a hamburger last evening. Meat seems to make him nauseated. Ate eggs with cheese this am without n/v. Less abd pain today Constitutional: Denies: Chills, Fever Pulmonary: Denies: Dyspnea, Cough Cardiovascular: Denies: Chest Pain, Palpitations Gastrointestinal: Reports: Nausea, Vomiting, Abdominal Pain; Denies: Diarrhea, Constipation Objective Physical Examination General Exam: Positive: Alert, Cooperative, No Acute Distress ENT Exam: Positive: Atraumatic Neck Exam: Positive: Supple; Negative: JVD Chest Exam: Positive: Clear to auscultation, Normal air movement Heart Exam: Positive: Rate Normal, Regular Rhythm Abdomen Exam: Positive: Normal bowel sounds, Soft, Tenderness Extremity Exam: Negative: Edema Skin Exam: Negative: Rash Neuro Exam: Positive: Normal Speech, Strength at 5/5 X4 ext, Sensation Intact Psych Exam: Positive: Mental status NL A-FIB/CHADSVASC A-FIB History Current/History of A-Fib/PAF?: No Current Oral Anticoagulant The: No Assessment /Plan Problems (1) Enteritis Status: Acute Problem Text: (recurrent N/anorexia/NBNB vomiting z ~1M) e relates the nausea to his meds. CT showed enteritis. (CT CAP mild SB thickening c surrounding increased LN, mild B interstitial fluid). increased panto 40 QD to BID and + sulcraf ACHS, check H pylori, tc UGI SBFT 12/25 - Somewhat improved tosay - may need to adjust diet some to find foods that he can tolerate. Has a dietition with dialysis he is able to work with. ESR and CRP have plateaued Cont supportive care. Getting Morphine for abd pain 12/21 BCX2 NG 12/21 UCX P5/7 (2) Asymptomatic hypertensive urgency Status: Acute Response to Treatment: Uncontrolled Discussed With: Nurse, Patient Problem Text: 12/25 - Higher dose of Toprol 75 mg to start this am. 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 Discussed with Dr. Tucker. She notes that his BP has been creeping up for a while now, during dialysis. Nephrology fears that it is related to the failed renal transplant; Dr. Tucker states that they have tried to encourage him to have it removed, but he has declined to do so. (3) CKD (chronic kidney disease) requiring chronic dialysis Status: Chronic Problem Text: Appreciate nephrology's input in managinng his hypertension. Had extra dialysis yesterday with additional fluid removal in hopes of improving BP. Plan MWF dialysis. (4) Renal transplant recipient Status: Chronic Problem Text: Per nephro - needs to continue anti-rejection drugs until nephrectomy of failed transplant, but patient is weighing decision since he continues to put out urine, he does not want to remove kidney MMF decreased to 250 BID (? partial N cause), tacro level P (5) Intractable vomiting Status: Acute Plan/VTE VTE Prophylaxis Ordered?: No VTE Exclusion Mechanical Proph: Low Risk for VTE VTE Exclusion Pharmacological: At Low Risk for VTE Plan Anticipated Discharge: Home Disposition Patient very anxious to go home to his 7 y/o son - he is the only caregiver -son is staying with the school nurse currently VS, I&O, 24H, [place] Vital Signs/I&O Vital Signs Date Time Temp Pulse Resp B/P (MAP) Pulse Ox O2 Delivery O2 Flow Rate FiO2 12/25/18 08:00 98.7 78 18 170/92 (118) 95 12/24/18 08:44 98.0 12/22/18 00:36 Room Air I&O- Last 24 Hours up to 6 AM 12/25/18 06:00 Intake Total 1080 ml Output Total 2000 ml Balance -920 ml Laboratory Data 24H LABS Laboratory Tests 2 12/24/18 17:06: Helicobacter pylori IgG Antibody NEGATIVE 12/25/18 05:44: Immature Granulocyte % (Auto) 0.4, White Blood Count 8.2, Red Blood Count 3.26L, Hemoglobin 9.1L, Hematocrit 29.1L, Mean Corpuscular Volume 89.3, Mean Corpuscular Hemoglobin 27.9, Mean Corpuscular Hemoglobin Concent 31.3L, Red Cell Distribution Width 15.5H, Platelet Count 117L, Neutrophils (%) (Auto) 74.6H, Lymphocytes (%) (Auto) 11.4L, Monocytes (%) (Auto) 7.6H, Eosinophils (%) (Auto) 5.4H, Basophils (%) (Auto) 0.6, Neutrophils # (Auto) 6.1, Lymphocytes # (Auto) 0.9L, Monocytes # (Auto) 0.6, Eosinophils # (Auto) 0.4, Basophils # (Auto) 0.1, Nucleated Red Blood Cells % (auto) 0.0, Erythrocyte Sedimentation Rate 59H, Anion Gap 9, Glomerular Filtration Rate 5.1L, Blood Urea Nitrogen 53H, C reatinine 11.50*H, Sodium Level 134L, Potassium Level 4.4, Chloride Level 98, Carbon Dioxide Level 27, Calcium Level 8.5, Aspartate Amino Transf (AST/SGOT) 16, Alanine Aminotransferase (ALT/SGPT) 11L, Alkaline Phosphatase 51, Total Bilirubin 0.4, Total Protein 5.5L, Albumin 2.3L, C-Reactive Protein, Quantitative 12.20H, Albumin/Globulin Ratio 0.72L CBC/BMP Laboratory Tests 12/25/18 05:44 Red Blood Count 3.26 L, Mean Corpuscular Volume 89.3, Mean Corpuscular Hemoglobin 27.9, Mean Corpuscular Hemoglobin Concent 31.3 L, Red Cell Distribution Width 15.5 H, Neutrophils (%) (Auto) 74.6 H, Lymphocytes (%) (Auto) 11.4 L, Monocytes (%) (Auto) 7.6 H, Eosinophils (%) (Auto) 5.4 H, Basophils (%) (Auto) 0.6, Neutrophils # (Auto) 6.1, Lymphocytes # (Auto) 0.9 L, Monocytes # (Auto) 0.6, Eosinophils # (Auto) 0.4, Basophils # (Auto) 0.1, Calcium Level 8.5, Aspartate Amino Transf (AST/SGOT) 16, Alanine Aminotransferase (ALT/SGPT) 11 L, Alkaline Phosphatase 51, Total Bilirubin 0.4, Total Protein 5.5 L, Albumin 2.3 L Microbiology Microbiology 12/21/18 Blood Culture - Preliminary, Resulted No Growth after 72 hours. All specime... 12/21/18 Blood Culture - Preliminary, Resulted No Growth after 72 hours. All specime... 12/23/18 Urine Culture - Final, Complete ROMA IRIZARRY PA-C December 25, 2018 09:05
[2018-12-25] MEDS ORDERED: HEPARIN 1,000 UNITS/ML 10ML VIAL (FOR RADIOLOGY& DIALYSIS ONLY) XX ONE (11:30)
[2018-12-25] MEDS: MULTIVITAMINS CHILDREN'S CHEWABLE TABLET PO SCH (17:21)
[2018-12-26] MEDS: ALPRAZolam 0.5 MG TAB PO PRN (00:02)
[2018-12-26 04:00] VITALS: BP 178/91
[2018-12-26 05:05] LABS: HEMATOCRIT 28.1 % (42.0-52.0); HEMOGLOBIN 8.7 g/dl (13.5-17.5); MEAN CORPUSCULAR HEMOGLOBIN 27.8 pg (27.0-33.0); MEAN CORPUSCULAR VOLUME 89.8 fl (80.0-96.0); PLATELET COUNT, AUTOMATED 118 10^3/uL (150-450); RED BLOOD COUNT 3.13 10^6/uL (4.30-6.10); WHITE BLOOD COUNT 6.7 10^3/uL (4.0-10.0)
[2018-12-26 05:30] LABS: ALBUMIN 2.1 GM/DL (3.2-5.2); CALCIUM LEVEL 8.2 MG/DL (8.5-10.1); CREATININE FOR GFR 8.77 MG/DL (0.70-1.30); PHOSPHORUS LEVEL 4.1 MG/DL (2.5-4.9); POTASSIUM SERUM 4.1 MEQ/L (3.5-5.1)
[2018-12-26] MEDS: SLF 3 ML SYR IV SCH ×3 (06:00→22:00)
[2018-12-26 08:00] VITALS: BP 165/88
[2018-12-26] MEDS: PANTOPRAZOLE 40MG INJ (PROTONIX) (C9113) IV SCH ×2 (08:36→22:04)
[2018-12-26] MEDS: MULTIVITAMINS CHILDREN'S CHEWABLE TABLET PO SCH (08:36)
[2018-12-26] MEDS: amLODIPine 10 MG TAB PO SCH (08:37)
[2018-12-26] MEDS: LOSARTAN 50 MG TAB PO SCH ×2 (08:37→22:06)
[2018-12-26] MEDS: MYCOPHENOLATE MOFETIL 250 MG CAP (J7517) PO SCH ×2 (08:37→22:07)
[2018-12-26] MEDS: TACROLIMUS 1 MG CAP (J7507) PO SCH ×2 (08:37→22:15)
[2018-12-26] MEDS: SUCRALFATE SUSP 1GM/10ML UD PO SCH ×4 (08:38→22:06)
[2018-12-26] MEDS: **hydrALAZINE** 50 MG TAB PO SCH ×2 (08:38→22:07)
[2018-12-26] MEDS: ATORVASTATIN 20 MG TAB PO SCH (08:38)
[2018-12-26] MEDS: METOPROLOL SUCC *XL* 25MG TAB (TopROL *XL*) PO SCH (08:38)
--- NOTE | 2018-12-26 08:42 | IPN ---
DATE OF SERVICE: 12/25/2018 SUBJECTIVE: The patient is seen and examined this morning at the bedside and again later on at hemodialysis receiving his treatment. He reports his abdominal pain, nausea and vomiting is improving every day. He did report he had one episode of vomiting after trying to eat a cheeseburger for dinner last night. He had a similar sensation after eating meatloaf two days ago. His blood pressures are improving. He actually had some readings of systolic 140s today. He is tolerating his back to back dialysis treatments without any issues. Temperature 97.1, pulse 88, respiratory rate 18, blood pressure 145/79, saturating 97% on room air. Intake yesterday was 1320. Dialysis yesterday removed 2 liters. Dialysis today removed 2.3 liters. Weight on the bed scale today is 100.7 kg, which has nicely down trended over the course of this admission. General: The patient is seen sitting in bed working on his bills, awake, alert, oriented, comfortable, in no apparent distress. Extraocular muscles are intact. Tongue is moist. Neck is supple. Jugular veins are not elevated. Cardiac: S1 and S2. Regular rate and rhythm. No edema in the peripheries. Palpable radial pulses. Lungs are clear to auscultation bilaterally. No crackle or rale. The abdomen is soft. There is some minimal tenderness to palpation in the epigastrium. The right lower quadrant renal allograft is nontender. The lower extremities are negative for edema. There is scar on the right arm at the site of the prior fistula ligation. Neurologic: There is no focal deficit. Interactive and conversational. LABS: Sodium 134, potassium 4.4, CRP 12, hemoglobin 9.1. INPATIENT MEDICATIONS: I increased his Toprol XL to 75 mg by mouth daily. Remainder of medications are unchanged from prior. PROBLEMS: 1. End stage renal disease on hemodialysis on Sunday, Sunday, Sunday schedule. The patient received three back to back dialysis treatments this week. He was dialyzed on Sunday, Sunday, Sunday with a total of almost 8 liters of fluid removed in those three back to back treatments. His volume status is significantly improved. His electrolytes are acceptable. He needs to followup outpatient for fistula creation. Presently continue to use the PermaCath. 2. Hypertension with uncontrolled readings. Blood pressure curve is improving nicely. He had three back to back dialysis treatments, a total of almost 8 liters of fluid removed. His systolic was as low as 140s today, which is a first for him. His Toprol XL can be further increased to 100 mg daily if need be. For today, I am not making any changes on his blood pressure medications. 3. Pericardial effusion on echocardiogram. No tamponade. He was dialyzed back to back three days in a row, heparin free dialysis. His next dialysis will now be on Sunday. We will adjust his estimated dry weight in the outpatient hemodialysis unit. Continue with oral fluid restriction. 4. Failed retained renal allograft. Discussed with patient that he should not receive his Cellcept and tacrolimus . He agrees to take the pills. He needs to continue immunosuppression until he has had a transplant nephrectomy. 5. Recurrent nausea, vomiting, enteritis. Supportive care as per primary team. The patient is symptomatically improving. His CRP has plateaued today as has his ESR.
[2018-12-26] MEDS ORDERED: cloNIDine HCL 0.1 MG/24 HR PATCH TOP SCH (09:00)
[2018-12-26] MEDS: MORPHINE 4 MG/ML 1ML VIAL/SYRINGE (J2270) IV PRN (09:13)
[2018-12-26 12:00] VITALS: BP 180/84
--- NOTE | 2018-12-26 13:50 | IPNPDOC ---
Subjective Date Seen The patient was seen on 12/26/18. Subjective Chief Complaint/HPI NO further abd pain. Eating well without nausea today Constitutional: Denies: Chills, Fever Pulmonary: Denies: Dyspnea Cardiovascular: Denies: Chest Pain, Palpitations Gastrointestinal: Denies: Nausea, Vomiting, Abdominal Pain, Diarrhea, Constipation Objective Physical Examination General Exam: Positive: Alert, Cooperative, No Acute Distress ENT Exam: Positive: Atraumatic Neck Exam: Positive: Supple; Negative: JVD Chest Exam: Positive: Clear to auscultation, Normal air movement Heart Exam: Positive: Rate Normal, Regular Rhythm Abdomen Exam: Positive: Normal bowel sounds, Soft; Negative: Tenderness Extremity Exam: Negative: Edema Skin Exam: Negative: Rash Neuro Exam: Positive: Normal Speech, Strength at 5/5 X4 ext, Sensation Intact Psych Exam: Positive: Mental status NL A-FIB/CHADSVASC A-FIB History Current/History of A-Fib/PAF?: No Current Oral Anticoagulant The: No Assessment /Plan Problems (1) Enteritis Status: Acute Problem Text: (recurrent N/anorexia/NBNB vomiting z ~1M) He relates the nausea to his meds. CT showed enteritis. (CT CAP mild SB thickening c surrounding increased LN, mild B interstitial fluid). increased panto 40 QD to BID and + sulcraf ACHS, check H pylori, tc UGI SBFT I will add Catapress patch to BP regimen with goal of stopping Hydralazine in effort to decrease number of po meds as this seems to contribute to his nausea. 12/25 - Somewhat improved tosay - may need to adjust diet some to find foods that he can tolerate. Has a dietition with dialysis he is able to work with. ESR and CRP have plateaued Cont supportive care. Getting Morphine for abd pain 12/21 BCX2 NG 5 UCX P5/7 (2) Asymptomatic hypertensive urgency Status: Acute Response to Treatment: Uncontrolled Discussed With: Nurse, Patient Problem Text: 12/26 - add Catapress TTS-1 today. Goal to eventually stop Hydralazine. I suspect he will have better compliance witht he patch since his main complaint is that sll the pills make him nauseated. Cont Toprol , Losartan, Amlodipine nd Hydralazine for now 12/25 - Higher dose of Toprol 75 mg to start this am. 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 Discussed with Dr. Tucker. She notes that his BP has been creeping up for a while now, during dialysis. Nephrology fears that it is related to the failed renal transplant; Dr. Tucker states that they have tried to encourage him to have it removed, but he has declined to do so. (3) CKD (chronic kidney disease) requiring chronic dialysis Status: Chronic Problem Text: Appreciate nephrology's input in managinng his hypertension. Had extra dialysis yesterday with additional fluid removal in hopes of improving BP. Plan MWF dialysis. (4) Renal transplant recipient Status: Chronic Problem Text: Per nephro - needs to continue anti-rejection drugs until nephrectomy of failed transplant, but patient is weighing decision since he continues to put out urine, he does not want to remove kidney MMF decreased to 250 BID (? partial N cause), tacro level P (5) Intractable vomiting Status: Acute Plan/VTE VTE Prophylaxis Ordered?: No VTE Exclusion Mechanical Proph: Low Risk for VTE VTE Exclusion Pharmacological: At Low Risk for VTE Plan Anticipated Discharge: Home VS, I&O, 24H, Fishbone Vital Signs/I&O Vital Signs Date Time Temp Pulse Resp B/P (MAP) Pulse Ox O2 Delivery O2 Flow Rate FiO2 12/26/18 12:11 180/84 12/26/18 12:00 97.6 94 18 95 12/24/18 08:44 98.0 12/22/18 00:36 Room Air I&O- Last 24 Hours up to 6 AM 12/26/18 06:00 Intake Total 420 ml Output Total 2325 ml Balance -1905 ml Laboratory Data 24H LABS Laboratory Tests 2 12/26/18 04:48: Nucleated Red Blood Cells % (auto) 0.0, Blood Urea Nitrogen 34H, Creatinine 8.77*H, Sodium Level 137, Potassium Level 4.1, Chloride Level 102, Carbon Dioxide Level 28, Anion Gap 7L, Glomerular Filtration Rate 7.0L, Calcium Level 8.2L, Phosphorus Level 4.1, Albumin 2.1L CBC/BMP Laboratory Tests 12/26/18 04:48 Red Blood Count 3.13 L, Mean Corpuscular Volume 89.8, Mean Corpuscular Hemoglobin 27.8, Mean Corpuscular Hemoglobin Concent 31.0 L, Red Cell Distribution Width 15.8 H, Anion Gap 7 L Microbiology Microbiology 12/21/18 Blood Culture - Preliminary, Resulted No Growth after 72 hours. All specime... 12/21/18 Blood Culture - Preliminary, Resulted No Growth after 72 hours. All specime... 12/23/18 Urine Culture - Final, Complete ROMA IRIZARRY PA-C December 26, 2018 13:49
[2018-12-26 16:00] VITALS: BP 156/82
[2018-12-26 20:00] VITALS: BP 174/97
[2018-12-26 23:59] VITALS: BP 180/90
[2018-12-27] MEDS: ALPRAZolam 0.5 MG TAB PO PRN (02:32)
[2018-12-27 04:00] VITALS: BP 184/82
[2018-12-27 04:24] LABS: HEMATOCRIT 27.3 % (42.0-52.0); HEMOGLOBIN 8.7 g/dl (13.5-17.5); MEAN CORPUSCULAR HEMOGLOBIN 28.3 pg (27.0-33.0); MEAN CORPUSCULAR HGB CONC 31.9 g/dl (32.0-36.5); MEAN CORPUSCULAR VOLUME 88.9 fl (80.0-96.0); PLATELET COUNT, AUTOMATED 124 10^3/uL (150-450); RED BLOOD COUNT 3.07 10^6/uL (4.30-6.10); WHITE BLOOD COUNT 6.8 10^3/uL (4.0-10.0)
[2018-12-27 04:47] LABS: ALBUMIN 2.2 GM/DL (3.2-5.2); CALCIUM LEVEL 8.6 MG/DL (8.5-10.1); CREATININE FOR GFR 11.2 MG/DL (0.70-1.30); GLOMERULAR FILTRATION RATE 5.3 (>60); PHOSPHORUS LEVEL 4.7 MG/DL (2.5-4.9); POTASSIUM SERUM 4.1 MEQ/L (3.5-5.1)
[2018-12-27] MEDS: SLF 3 ML SYR IV SCH (05:08)
[2018-12-27 08:00] VITALS: BP 168/70
[2018-12-27] MEDS: PANTOPRAZOLE 40MG INJ (PROTONIX) (C9113) IV SCH (08:14)
[2018-12-27 08:15] VITALS: BP 168/72
[2018-12-27] MEDS: METOPROLOL SUCC *XL* 25MG TAB (TopROL *XL*) PO SCH (08:15)
[2018-12-27] MEDS: ATORVASTATIN 20 MG TAB PO SCH (08:15)
[2018-12-27] MEDS: MORPHINE 4 MG/ML 1ML VIAL/SYRINGE (J2270) IV PRN (08:15)
[2018-12-27] MEDS: LOSARTAN 50 MG TAB PO SCH (08:15)
[2018-12-27] MEDS: MULTIVITAMINS CHILDREN'S CHEWABLE TABLET PO SCH (08:16)
[2018-12-27] MEDS: TACROLIMUS 1 MG CAP (J7507) PO SCH (08:16)
[2018-12-27] MEDS: amLODIPine 10 MG TAB PO SCH (08:16)
[2018-12-27] MEDS: **hydrALAZINE** 50 MG TAB PO SCH (08:17)
[2018-12-27] MEDS: MYCOPHENOLATE MOFETIL 250 MG CAP (J7517) PO SCH (08:17)
[2018-12-27] MEDS: SUCRALFATE SUSP 1GM/10ML UD PO SCH (08:17)
[2018-12-27] MEDS ORDERED: DARBEPOETIN 100 MCG/0.5 ML *DIALYSIS* SYRINGE (J0882) IV SCH (09:15)
[2018-12-27 09:18] LABS: C REACTIVE PROTEIN QUANTITATIV 7.18 MG/DL (0.00-0.30)
[2018-12-27] MEDS ORDERED: HYDR50TA PO (11:59)
[2018-12-27] MEDS ORDERED: CLON0.1D3 TOP (11:59)
[2018-12-27] MEDS ORDERED: METO1TAB32 PO (12:00)
[2018-12-27] MEDS ORDERED: COZA50TA PO (12:00)
[2018-12-27] MEDS ORDERED: HEPARIN 1,000 UNITS/ML 10ML VIAL (FOR RADIOLOGY& DIALYSIS ONLY) XX ONE (13:30)
--- NOTE | 2018-12-28 02:23 | DSES ---
DATE OF ADMISSION: 12/24/2018 DATE OF DISCHARGE: 12/27/2018 PRIMARY CARE PHYSICIAN: Fabian Pedraza MD ATTENDING TODAY: Carlos Metzger MD HISTORY: This is a 48-year-old male patient who presented to [facility] Emergency Room with weakness, dizziness. He was found to have elevated blood pressure and was admitted to the hospital for hypertensive urgency. Has a history of medical noncompliance, end-stage renal disease with renal transplant failure. During his hospitalization, he was seen by nephrology, as well as the primary team. His medications were adjusted to help control his blood pressure with the help of nephrology. He was also dialyzed during his hospitalization and underwent dialysis today prior to discharge. He was also diagnosed with gastroenteritis with recurrent nausea, anorexia, nonbilious vomiting . His blood pressures have improved. Catapres has been added. The goal is to ultimately discontinue hydralazine, although this will need to be monitored closely in the outpatient setting. His discharge diagnoses include: 1. Hypertensive urgency. 2. End-stage renal disease on hemodialysis Sunday, Sunday, Sunday. 3. Pericardial effusion on echocardiogram. 4. Failed retained renal allograft. 5. Recurrent nauseas, vomiting, enteritis. DISCHARGE MEDICATIONS INCLUDE: - clonidine 0.1 mg topically replace every 7 days - hydralazine 50 mg by mouth twice a day - losartan 50 mg by mouth twice a day - metoprolol succinate ER 100 mg by mouth daily - alprazolam 1 mg by mouth twice a day as needed for anxiety - amlodipine 10 mg daily - atorvastatin 20 mg daily - calcitriol 0.25 mcg by mouth three times weekly - vitamin D 12409 units once weekly - hydrocodone 10/325 mg one tablet every 6 hours as needed for pain - multivitamin one tablet daily - Cellcept 750 mg by mouth twice a day - tacrolimus 2 mg by mouth twice a day DISCHARGE PLAN: Will to followup with primary care physician and will need to follow with nephrology in one week. Activity should be as tolerated. Diet should be renal.
--- NOTE | 2018-12-28 07:55 | IPN ---
DATE OF SERVICE: 12/27/2018 SUBJECTIVE: Helio is seen and examined this morning in the hemodialysis unit receiving his maintenance treatment. He denies any overnight event. No nausea or vomiting. Reports some constipation. No abdominal pain. No troubles with chest pain or dyspnea. Blood pressure remains uncontrolled. Tolerating dialysis without any issues. VITAL SIGNS: Temperature 98.6, pulse 82, respiratory rate 18, blood pressure 168/70, saturating 98% on room air. Intake yesterday was 1130. Dialysis yesterday is removing 2.7 liters. Weight on the bed scale today is 101.2 kg. General: Patient is seen in the hemodialysis unit receiving his treatment. Awake, alert, oriented, comfortable, in no distress. Extraocular muscles are intact. Tongue is moist. Neck is supple. Tunneled PermaCath in the right chest wall is presently in use. Cardiac: S1, S2. Regular rate and rhythm. Lungs are clear to auscultation bilaterally. No crackle, rale, or wheeze. Abdomen is soft and nontender. There are bowel sounds. The lower extremities are negative for clubbing, cyanosis, and edema. Skin: Normal turgor and temperature. Psychiatric: He is very stressed. LABS: Sodium 136, potassium 4.1, bicarbonate 27, CRP 7.1, hemoglobin 8.7. INPATIENT MEDICATIONS: He received Aranesp today. PROBLEMS: 1. End stage renal disease on hemodialysis on Sunday, Sunday, Sunday schedule. He was dialyzed today, 2.7 liters of fluid are removed. His weights have downtrended. His volume status is improving. His dry weight will be adjusted in the outpatient dialysis unit. He needs to followup outpatient for fistula creation and also for removal of his failed donor kidney, and this was again discussed with him. 2. Hypertension with uncontrolled readings. His medications have been significantly adjusted on this admission and uptitrated. His blood pressures remain difficult to control. It may improve following nephrectomy of the failed donor kidney. I have discussed this with him. 3. Anemia related to chronic renal failure and chronic inflammation and iron deficiency. He is going to receive Aranesp today with dialysis. He may have some resistance, however, to erythropoietin given the failed donor kidney. He has recently been requiring packed red blood cell transfusions. Again, I have discussed referral to transplant surgery for donor nephrectomy with him. 4. Recurrent nausea, vomiting, enteritis. Symptomatically improved. C-reactive protein (CRP) is significantly downtrending. He reports resolution of abdominal pain and is tolerating a diet well. 5. Disposition. Patient insists he must leave today due to custody issues regarding his son. He understands he needs to followup next week in the office for close followup of his anemia and hypertension and arrangement of donor kidney nephrectomy.
--- NOTE | 2018-12-28 07:56 | IPN ---
DATE OF SERVICE: 12/26/2018 SUBJECTIVE: The patient is seen and examined this morning at the bedside. He denies any recurrent nausea or vomiting, has been having better oral intake. Blood pressure still remains uncontrolled. Reports abdominal pain is completely resolved. Hemoglobin is noted to be downtrending. Temperature 97.6, pulse 94, respiratory rate 18, blood pressure systolic 156-180, diastolic 80s, saturating 94-95% on room air. Intake yesterday was not fully recorded. Dialysis yesterday removed 2.3 liters. Weight on the bed scale today is 100.8 kg, which is decreased from prior. General: Patient is seen awake, alert, oriented, comfortable, in no apparent distress. Extraocular muscles are intact. Tongue is moist. Neck is supple. Cardiac: S1 and S2. Regular rate and rhythm. Lungs are clear to auscultation bilaterally. No crackles, rales or wheeze. Abdomen is soft and nontender to palpation. There are bowel sounds. The right lower quadrant allograft is nontender. The lower extremities are negative for clubbing, cyanosis, or edema. There are old scars in the right forearm at the site of prior fistula ligation. Skin normal turgor and temperature. LABS: White count 6.7, hemoglobin 8.7, platelets 118, sodium 137, potassium 4.1, phosphorous 4.1. INPATIENT MEDICATIONS: I increased his Toprol XL to 100 mg by mouth daily. He is also resumed on Aranesp 200 mcg with dialysis. Remainder of medications are unchanged from prior. PROBLEMS: 1. End stage renal disease on hemodialysis on Sunday, Sunday, Sunday schedule. He received three back to back dialysis treatments, a total of about 8 liters of fluid removed. He tolerated well. Volume status is improved. Electrolytes are acceptable. He needs to followup outpatient for fistula creation and also for nephrectomy of his failed retained donor kidney. 2. Hypertension with uncontrolled readings. Blood pressure's are still suboptimal despite three back to back dialysis treatments and removal of almost 8 liters of fluid. In increased the Toprol XL to 100 mg per day. The primary team put him on a Catapres patch. Probably the retained failed kidney is also making the blood pressures more difficult to control and he understands he needs to follow-up outpatient for referral to transplant surgery for a nephrectomy. 3. Pericardial effusion on echocardiogram. Received serial hemodialysis, heparin free for three days. Next dialysis is going to be tomorrow. Will continue to aggressively remove fluid as tolerated by hemodynamics. His estimated dry weight will be adjusted in the outpatient hemodialysis unit. 4. Failed retained renal allograft. I think this is contributing to his recurrent anemia and also the difficult to control blood pressures. He continues on immunosuppressants for now. He needs to follow-up outpatient for arrangement of a nephrectomy. 5. Recurrent nausea, vomiting, enteritis. This is symptomatically much imroved. The patient denies any ongoing nausea or vomiting and denies abdominal pain. CRP is improving.
== END 2018-12-27 16:00 | disposition home or self-care (01) | DRG 304 ==
LOC: M ED 20:31 → M ED INP 22:53 → M MSPAV 12-22 01:10 → M PCU 12-22 11:03 → OBSVTOIN 12-24 14:53
PROVIDERS: ADMIT Internal Medicine; ATTEND Family Medicine
PROC: 5A1D70Z Performance of Urinary Filtration, Intermittent, Less than 6 Hours Per Day (ICD-10-PCS; principal; 2018-12-24)
DX: I16.0 Hypertensive urgency (principal); N18.6 End stage renal disease; T86.12 Kidney transplant failure; N25.81 Secondary hyperparathyroidism of renal origin; I31.3 Pericardial effusion (noninflammatory); I12.0 Hypertensive chronic kidney disease with stage 5 chronic kidney disease or end stage renal disease; D75.1 Secondary polycythemia; E78.5 Hyperlipidemia, unspecified; D50.9 Iron deficiency anemia, unspecified; J47.9 Bronchiectasis, uncomplicated; F41.9 Anxiety disorder, unspecified; D63.1 Anemia in chronic kidney disease; K52.9 Noninfective gastroenteritis and colitis, unspecified; Z79.899 Other long term (current) drug therapy; Z88.5 Allergy status to narcotic agent; Z88.1 Allergy status to other antibiotic agents; Z88.8 Allergy status to other drugs, medicaments and biological substances; Z90.49 Acquired absence of other specified parts of digestive tract; Z91.19 Patient's noncompliance with other medical treatment and regimen; Z99.2 Dependence on renal dialysis; Y83.0 Surgical operation with transplant of whole organ as the cause of abnormal reaction of the patient, or of later complication, without mention of misadventure at the time of the procedure

== ENCOUNTER → 2019-01-27 | Outpatient (CLI) | payer MEDICARE, MEDICAID ==
[~2019-01-27] MED LIST changes: +CLON0.1D3 TOP; +HYDR50TA PO
--- NOTE | 2019-02-12 01:58 | ECWPNPC ---
PATIENT NAME: OPAL LACEY : 1970 GENDER: MALE VISIT DATE: 01/27/2019 DISCHARGE DATE: 01/27/19 1156 VISIT LOCKED DATE TIME: PHYSICIAN: SHELIA TAN RESOURCE: SHELIA TAN REASON FOR APPOINTMENT 1. LOW BACK HISTORY OF PRESENT ILLNESS HISTORY OF PRESENT ILLNESS: HERE FOR F/U OF CHRONIC LOW BACK PAIN.HISTORY OF RENAL TRANSPLANT AND UNDERGOING HEMODIALYSIS 3X WK.RATING LOW BACK PAIN 4/10 VAS.FINDING CURRENT PAIN MEDICATION EFFECTIVE AT REDUCING PAIN AND KEEPING HIM COMFORTABLE AND FUNCTIONAL.CURRENTLY USING HYDROCODONE 10/325 Q6H PRN.REPORTING NORMAL BOWEL FUNCTION. PAIN THE PATIENT DESCRIBES THE PAIN... THE PATIENT DESCRIBES THE PAIN... THE PATIENT DESCRIBES THE PAIN... PAIN THE PATIENT DESCRIBES THE PAIN... THE PATIENT DESCRIBES THE PAIN... THE PATIENT DESCRIBES THE PAIN... FALL RISK SCREENING: SCREENING :NO FALLS REPORTED IN THE LAST YEAR CURRENT MEDICATIONS TAKING TACROLIMUS 1 MG TABLET EXTENDED RELEASE 24 HOUR 2 CAPS ORALLY TWICE A DAY TAKING BLOOD PRESSURE KIT - KIT 1 BP MONITOR DX:I10 DAILY TAKING AMLODIPINE BESYLATE 10 MG TABLET 1 TABLET ORALLY BID TAKING MULTIVITAMIN ADULTS - TABLET ORALLY TAKING ERGOCALCIFEROL 70450 UNIT CAPSULE 1 CAPSULE ORALLY RECEIVED WEEKLY AT DIALYSIS TAKING HYDRALAZINE HCL 50 MG TABLET 1 TAB ORALLY TWICE DAILY TAKING METOPROLOL SUCCINATE ER 100 MG TABLET EXTENDED RELEASE 24 HOUR 1 TABLET ORALLY ONCE A DAY TAKING XANAX 1 MG TABLET 1 TABLET ORALLY TWICE A DAY NEEDED FOR ANXIETY, NOTES: TAKES NEEDED TAKING ALBUTEROL SULFATE (2.5 MG/3ML) 0.083% NEBULIZATION SOLUTION 3 ML NEEDED INHALATION EVERY 4 HOURS NEEDED FOR SOB TAKING HYDROCODONE-ACETAMINOPHEN 10-325 MG TABLET 1 TABLET NEEDED ORALLY Q6H PRN MDD4, NOTES: [facility] NOT-TAKING CALCITRIOL 0.25 MCG CAPSULE 1 CAP ORAL MWF @ DIALYSIS NOT-TAKING CELLCEPT 250 MG CAPSULE ORALLY 3 IN AM 3 IN PM NOT-TAKING CLONIDINE 0.1 MG/24HR PATCH WEEKLY 1 PATCH TO SKIN TOPICALLY WEEKLY, NOTES: DID NOT RECEIVE REFILL NOT-TAKING ATORVASTATIN CALCIUM 20 MG TABLET 1 TABLET ORALLY ONCE A DAY NOT-TAKING LOSARTAN POTASSIUM 50 MG TABLET 1 TABLET ORALLY TWICE DAILY MEDICATION LIST REVIEWED AND RECONCILED WITH THE PATIENT PAST MEDICAL HISTORY RENAL FAILURE, LIKELY SECONDARY TO HYPERTENSION, S/P TRANSPLANT, TRANSPLANT FAILED, NOW DIALYSIS DEPENDENT AGAIN POST-TRANSPLANT ERYTHROCYTOSIS, ON AN ACEI AND RECEIVING PHLEBOTOMY HYPERTENSION (S/P RENAL TRANSPLANT, PER NEPHRO, TARGET BP < 140/90) BRONCHIECTASIS ALLERGIES ULTRAM: DIZZINESS - ALLERGY CEFTIN: HIVES - ALLERGY TORADOL: LIGHT HEADED - ALLERGY HYDROXYZINE HCL: DIZZINESS/FAINTING - SIDE EFFECTS SURGICAL HISTORY KIDNEY TRANSPLANT [facility] 05/21/15 CHOLECYSTECTOMY 2011 R FOREARM FISTULA, THEN REMOVED FOR ANEURYSMS KIDNEY BX 07-06 PERITONEAL CATH PLACED AND D/C'D FOR INFECTION 07/2018 RIGHT SUBCLAVIAN HD PORT FALL 2017 FAMILY HISTORY FATHER: UNKNOWN MOTHER: ALIVE 64 YRS, DIAGNOSED WITH DIABETES SIBLINGS: ALIVE, ANXIETY, DEPRESSION SON(S): ALIVE 1 BROTHER(S) , 1 SISTER(S) - HEALTHY. 2 SON(S) - HEALTHY. SOCIAL HISTORY GENERAL: TOBACCO USE ARE YOU A:NONSMOKER HIV / HEP-C SCREENING HIV TEST OFFERED TO PATIENT:YES DATE OFFERED:09/15/2016 TEST ACCEPTED:NO HEP-C TEST OFFERED TO PATIENT:NO REASON:PATIENT DECLINED OTHERS AT HOME: SON. EDUCATION LEVEL OF EDUCATION:HIGH SCHOOL DIET: REGULAR. LANGUAGE [place]ER. NO DOMESTIC VIOLENCE . BMI CARE GOAL FOLLOW-UP ABOVE NORMAL BMI FOLLOW-UPGIVING ENCOURAGEMENT TO EXERCISE RECREATIONAL DRUG USE DRUG USE?NO EXERCISE: NO REGULAR EXERCISE. LEARNING BARRIERS / SPECIAL NEEDS CHANGE FROM LAST VISIT?NO BARRIERS TO LEARNING?NO HEARING IMPAIRED?NO VISION IMPAIRED?YES COGNITIVELY IMPAIRED?NO :CORRECTIVE LENSES READINESS TO LEARN?YES LEARNING PREFERENCES?NO LEARNING CAPABILITIES PRESENT?YES EMOTIONAL BARRIERS?NO SPECIAL DEVICES?NO PAIN CLINIC PFS, CLERGY, PUBLIC HEALTH REFERRALS HAS THE PATIENT BEEN EDUCATED REGARDING HIS/HER PLAN OF CARE?YES HAS THE PATIENT BEEN EDUCATED REGARDING PAIN, THE RISK FOR PAIN, THE IMPORTANCE OF EFFECTIVE PAIN MANAGEMENT, AND THE PAIN ASSESSMENT PROCESS?YES LATEX QUESTIONNAIRE LATEX ALLERGY : HAVE YOU EVER DEVELOPED ANY TYPE OF REACTION AFTER HANDLING LATEX PRODUCTS SUCH RUBBER GLOVES, CONDOMS, DIAPHRAGMS, BALLOONS, SOCKS, OR UNDERWEAR?NO LATEX ALLERGY : HAVE YOU EVER DEVELOPED ANY TYPE OF REACTION DURING OR AFTER DENTAL APPOINTMENT, VAGINAL/RECTAL EXAMINATION, SURGICAL PROCEDURE, OR ANY OTHER EXPOSURE?NO LATEX RISK : HAVE YOU EVER HAD ANY DIFFICULTY BREATHING OR HIVES AFTER EATING OR HANDLING ANY FRUITS, OR VEGETABLES; SUCH KIWI, BANANAS, STONE FRUITS, OR CHESTNUTSNO LATEX RISK : DO YOU HAVE A PREVIOUS PERSONAL HISTORY OF MORE THAN NINE SURGERIES, SPINA BIFIDA, OR REPEATED CATHERTIZATIONS? NO LATEX RISK : ARE YOU FREQUENTLY EXPOSED TO LATEX PRODUCTS IN YOUR OCCUPATION?NO DATE ASKED : 01/27/2019 CAFFEINE CAFFEINE USE?YES HOW OFTEN AND HOW MUCH? 2-3 CAFFEINATED DRINKS/DAY -- OFTEN SODA ADVANCE DIRECTIVE ADVANCE DIRECTIVE DISCUSSED WITH PATIENT:YES PT DOES NOT WANT INFO AT THIS TIME 01/27/19 ANGLICAN ANGLICAN NO ORTHODOX BELIEFS THAT WOULD IMPACT HEALTH CARE. MARITAL STATUS: SINGLE. ALCOHOL SCREENING DID YOU HAVE A DRINK CONTAINING ALCOHOL IN THE PAST YEAR?NO POINTS0 INTERPRETATIONNEGATIVE OCCUPATION: UNEMPLOYED, ON DISABILITY. SEXUAL HX HAD SEX IN THE LAST 12 MONTHS (VAGINAL, ORAL, OR ANAL)?YES WITHWOMEN ONLY HAVE YOU EVER HAD AN STD?NO 2 CHILDREN -- ONE BORN (2010) AND THE OTHER BORN 1991REVIEWED WITH PT 06/05/18 1051 BVREVIEWED WITH PT 01/27/19 1141 BV. HOSPITALIZATION/MAJOR DIAGNOSTIC PROCEDURE [facility] HYPERTENSION/CHEST PAIN 05/26/16 ESRD 05/2008 ESRD, VOLUME OVERLOAD 03/2009 ESRD, PNEUMONIA 09/2009 PNEUMONIA 02/2010 GALLSTONES 01/2011 RENAL TRANSPLANT 05/2015 "FOOD POISONING" AFTER RENAL TRANSPLANT 05/2015 STOMACH PAINS 04/06 ESRD, VOLUME OVERLOAD 01/05 REVIEW OF SYSTEMS REVIEWED BY: PROVIDER: SHELIA LEA . CONSTITUTIONAL: ANY CHANGE IN YOUR MEDICAL CONDITION? NO . CHILLS NO . FEVER NO . INFECTION: DO YOU HAVE NEW INFECTIONS? NO . DO YOU HAVE HISTORY OF MRSA? NO . MUSCULOSKELETAL: ANY NEW PATTERNS OF PAIN OR NUMBNESS? NO . GASTROENTEROLOGY: ANY NEW CHANGE IN BOWEL CONTROL? NO . GENITOURINARY: ANY NEW CHANGE IN BLADDER CONTROL? YES, PT IS ESRD AND ON DIALYSIS . IS THERE A CHANCE YOU COULD BE ? NO . HEMATOLOGY/LYMPH: DO YOU TAKE ANY BLOOD THINNERS? (FOR EXAMPLE- COUMADIN, PLAVIX, AGGRENOX, PLATEL, PRADAXA, OR XARELTO) NO . WHEN WAS YOUR LAST DOSE? DATE: TIME: . NEUROLOGY: HAVE YOU FALLEN IN THE PAST 12 MONTHS? NO . ANY NEW EXTREMITY NUMBNESS OR WEAKNESS? NO . CARDIOLOGY: DO YOU HAVE A PACEMAKER OR DEFIBRILLATOR? NO . RESPIRATORY: HAVE YOU BEEN SICK IN THE PAST WEEK? NO . FEVER NO . FLU LIKE SYMPTOMS? NO . COUGH NO . INTEGUMENTARY: DO YOU HAVE ANY RASHES OR OPEN SORES? NO . ALLERGIC/IMMUNO: ARE YOU ALLERGIC TO IV DYE? NO . ANY NEW ALLERGIES? NO . PSYCHIATRIC: DO YOU HAVE THOUGHTS OF HURTING YOURSELF OR SOMEONE ELSE? NO . ARE YOU ABUSED, NEGLECTED, OR IN AN UNSAFE ENVIRONMENT? NO . ENDOCRINOLOGY: ARE YOU DIABETIC? NO . OTHER: DO YOU NEED ANY PRESCRIPTIONS? YES, HYDROCODONE . IF YES, PLEASE LIST: ____ . ANY NEW PROBLEMS WITH YOUR MEDICATIONS? NO . WHEN DID YOU LAST EAT? ____ . WHEN DID YOU LAST DRINK? ____ . WHAT DID YOU LAST DRINK? ____ . NAME OF PERSON DRIVING YOU HOME? ____ . DO YOU HAVE ANY OTHER QUESTIONS OR CONCERNS NO . VITAL SIGNS WT 227 LBS, HT 5'11", BMI 31.66 INDEX, BP 190/94 MM HG, HR 89 /MIN, RR 18 /MIN, TEMP 98.8 F, OXYGEN SAT % 98%, NA INITIALS AW 1129, REVIEWED BY: [facility] NURSE KNOW ABOUT BP. EXAMINATION GENERAL EXAMINATION: GENERAL APPEARANCE:AWAKE,ALERT ,PLEAASANT . PSYCHAFFECT NORMAL . LUNGS:LUNG BOYER ARE CLEAR TO AUSCULTATION BILATERALLY. GOOD MOVEMENT OF AIR . HEART:S1, S2 IN A REGULAR RATE AND RHYTHM. NO SIGNIFICANT MURMURS, RUBS OR GALLOPS NOTED . ASSESSMENTS GENERALIZED JOINT PAIN - M25.50 (PRIMARY) TREATMENT GENERALIZED JOINT PAIN REFILL HYDROCODONE-ACETAMINOPHEN TABLET, 10-325 MG, 1 TABLET NEEDED, ORALLY, Q6H PRN MDD4, 30 DAY(S), 120, REFILLS 0, NOTES: [facility] NOTES: ISTOP REGISTRY REVIEWED AND DEMONSTRATES COMPLLIANCE. BRINGS IN MEDICATIONS WHICH IS APPROPRIATE FOR WHAT WAS DISPENSED. RECENT URINE TOXICOLOGY REVIEWED. NO UNAUTHORIZED MEDICATIONS. NO ILLICIT SUBSTANCES AND PRESCRIBED MEDICATIONS WERE PRESENT. , RISKS AND BENEFITS OF NARCOTIC/OPIOD MEDICATIONS WERE REVIEWED WITH PATIENT - THIS INCLUDES BUT IS NOT LIMITED TO RISK OF DEPENDANCE/DEVELOPMENT OF ADDICTION, MOOD DISTURBANCE AND DEPRESSION, OSTEOPOROSIS, HORMONAL AND LABIDAL CHANGES, RESPIRATORY DEPRESSION AND . PATIENT IS ADVISED NOT TO DRIVE OR DRINK ALCOHOL WHILE ON THESE MEDICATIONS. PROCEDURE CODES FA211 ESTABILISHED PATIENT [facility] CHARGE DISPOSITION & COMMUNICATION FOLLOW UP 3 MONTHS ELECTRONICALLY SIGNED BY SHELIA LEA, VENU ON 02/11/2019 AT 09:30 AM EDT DISCLAIMER : THIS IS A VISIT SUMMARY EXTRACTED FROM THE [employer] CHART. IT IS NOT A COPY OF THE [employer] PROGRESS NOTE. DAVION
== END ==
LOC: M PAIN 11:30
PROVIDERS: ATTEND Nurse Practitioner Family
DX: M25.50 Pain in unspecified joint (principal); M54.5 Low back pain; G89.29 Other chronic pain; I10 Essential (primary) hypertension; Z88.1 Allergy status to other antibiotic agents; Z88.6 Allergy status to analgesic agent; Z88.8 Allergy status to other drugs, medicaments and biological substances; Z79.899 Other long term (current) drug therapy

== ENCOUNTER → 2019-02-05 | Outpatient (CLI) | payer MEDICARE, MEDICAID | LOC: M LAB 11:55 | PROVIDERS: ATTEND Internal Medicine Nephrology | DX: N18.9 Chronic kidney disease, unspecified (principal); D63.1 Anemia in chronic kidney disease ==

== ENCOUNTER 2019-02-06 07:56 | Outpatient (CLI) | payer MEDICARE, MEDICAID ==
[~2019-02-06] VITALS: Ht 180.3 cm; Wt 101.2 kg
[~2019-02-06 07:56] MED LIST changes: +ACETAMINOPHEN TAB 650MG DOSE (2X325MG) PO SCH
[2019-02-06 08:00] VITALS: BP 144/95
[2019-02-06 13:35] VITALS: BP 184/100
== END 2019-02-06 13:35 | disposition home or self-care (01) ==
LOC: M INFU 07:56
PROVIDERS: ATTEND Internal Medicine Nephrology
DX: N18.9 Chronic kidney disease, unspecified (principal); D63.1 Anemia in chronic kidney disease
CPT/HCPCS: 36430; P9016

== ENCOUNTER → 2019-02-13 | Outpatient (CLI) | payer MEDICARE, MEDICAID ==
[~2019-02-13] MED LIST changes: -ACETAMINOPHEN TAB 650MG DOSE (2X325MG) PO SCH
--- NOTE | 2019-02-13 11:24 | REP ---
Clinical: Shortness of breath. Technique: PA and lateral. Comparison: 12/22/2018. Findings: Cardiomegaly and pulmonary edema suggested along with right middle lobe/right lower lobe infiltrate. No effusion. The lumen dialysis catheter with tip in the SVC. No pneumothorax. Skeletal structures intact. Impression: Cardiomegaly and pulmonary vascular congestion. Suspected right lower lobe/right middle lobe infiltrate. Electronically Signed by Refugio Small MD 02/13/2019 11:15 A
== END ==
LOC: M ADAMS 09:41
PROVIDERS: ATTEND Internal Medicine Nephrology
DX: R91.8 Other nonspecific abnormal finding of lung field (principal); N18.6 End stage renal disease; R06.02 Shortness of breath; I13.11 Hypertensive heart and chronic kidney disease without heart failure, with stage 5 chronic kidney disease, or end stage renal disease

== ENCOUNTER → 2019-02-13 | Outpatient (CLI) | payer MEDICARE, MEDICAID ==
[~2019-02-13] MED LIST changes: +CLON0.1D3 TD
--- NOTE | 2019-02-14 17:34 | ECHO ---
DATE OF PROCEDURE: 02/13/2019 AGE: 49 GENDER: Male HEIGHT: 71 inches WEIGHT: 220 pounds BODY SURFACE AREA: 2.02 sq m. OUTPATIENT: REFERRING PHYSICIAN: Dr. Hutson INDICATION: Pericardial effusion. MEASUREMENTS: 2-D measurements: RV: 4.1 cm LV: 5.7 cm Septum: 1.3 cm Posterior wall: 1.2 cm Aortic root: 3.5 cm LA: 4.8 cm LVEF: 50-55% Doppler measurements: AV: 1.49 m/sec LVOT: 0.94 m/sec LVOT Diameter: 2.0 cm MV-E: 108 A: 51 E:A ratio: 2.1 Early mitral deceleration time: 134 milliseconds E-Prime: 4.5 A-Prime: 5.4 E/E prime ratio: 24 PCWP: 28 mmHg PV: 0.9 m/s Pulmonary artery acceleration time: 95 ms RVSP: 52 mmHg IVC 2.4 cm COMMENTS: Normal sinus rhythm without intraventricular conduction disturbance. M-mode and two-dimensional echocardiography was performed with pulsed, continuous wave, color flow and tissue Doppler studies. At least mildly dilated and eccentrically hypertrophied left ventricle with mild global hypokinesis. Moderately dilated left atrium with restrictive impairment of LV diastolic function and significantly elevated mean left atrial pressure. Right heart chamber sizes upper limits of normal with at least mild hypertrophy of the right ventricular free wall degree of right ventricular hypokinesis and Doppler evidence of at least moderate pulmonary hypertension. Mildly dilated inferior vena cava with slightly reduced respiratory collapse in keeping with his central venous pressure of 10 - 15 mmHg. Mild mitral aortic valvular sclerosis without stenosis or insufficiency. Slightly thickened mitral annulus but normal leaflet thickness with reduced leaflet excursion but no posterior systolic buckling. Mild mitral insufficiency. Normal appearing tricuspid valve with mild - moderate insufficiency. No apparent intracardiac mass. Normal aortic root size. Mild to moderate pericardial effusion measuring 1.2 cm laterally and medially and 0.4 cm posteriorly. No sign of cardiac chamber compression or significant variation respiratory variation in pulsed Doppler signals. Based on the increasing size of the pericardial effusion. It may be prudent to consider referral for at least diagnostic / therapeutic pericardial drainage.
== END ==
LOC: M CARPUL 08:04
PROVIDERS: ATTEND Family Medicine
DX: I31.3 Pericardial effusion (noninflammatory) (principal); R91.8 Other nonspecific abnormal finding of lung field; N18.6 End stage renal disease; R06.02 Shortness of breath; I13.11 Hypertensive heart and chronic kidney disease without heart failure, with stage 5 chronic kidney disease, or end stage renal disease
CPT/HCPCS: 71046; 93306; G0463

== ENCOUNTER → 2019-02-18 | Outpatient (CLI) | payer MEDICARE, MEDICAID ==
--- NOTE | 2019-02-18 11:29 | REP ---
Clinical: Cough. Technique: PA and lateral. Comparison: 02/13/2019 Findings: Cardiomegaly is appreciated with findings to suggest pulmonary vascular congestion. Double-lumen dialysis catheter with tip in the SVC. No focal consolidation. No effusion. No pneumothorax. Skeletal structures intact. Impression: Cardiomegaly and findings to suggest chronic pulmonary vascular congestion. Electronically Signed by Refugio Small MD 02/18/2019 11:20 A
== END ==
LOC: M ADAMS 09:26
PROVIDERS: ATTEND Family Medicine
DX: I51.7 Cardiomegaly (principal); R91.8 Other nonspecific abnormal finding of lung field; R05 Cough

== ENCOUNTER 2019-02-19 00:41 | Inpatient (IN) | payer MEDICARE, MEDICAID ==
[~2019-02-19] VITALS: Ht 180.3 cm; Wt 97.7 kg
[2019-02-19] VITALS (33 sets, daily range): BP systolic 151–195; BP diastolic 77–107
[~2019-02-19 00:41] MED LIST changes: -CLON0.1D3 TD
[2019-02-19 01:12] LABS: BASO # 0.1 10^3/uL (0.0-0.2); BASO % 0.7 % (0.0-1.0); EOS # 0.6 10^3/uL (0.0-0.50); EOS % 7.5 % (0.0-3.0); HEMATOCRIT 24.4 % (42.0-52.0); HEMOGLOBIN 7.8 g/dl (13.5-17.5); LYMPH # 1.1 10^3/uL (1.5-4.5); MEAN CORPUSCULAR HEMOGLOBIN 29.1 pg (27.0-33.0); MONO # 0.3 10^3/uL (0.0-0.8); MONO % 4.3 % (0.0-5.0); NEUTROPHILS # 5.5 10^3/uL (1.8-7.7); NEUTROPHILS % 72.2 % (36.0-66.0); PLATELET COUNT, AUTOMATED 161 10^3/uL (150-450); RED BLOOD COUNT 2.68 10^6/uL (4.30-6.10); WHITE BLOOD COUNT 7.6 10^3/uL (4.0-10.0)
[2019-02-19 01:53] LABS: CALCIUM LEVEL 8.6 MG/DL (8.5-10.1); CK-MB VALUE MASS 2.1 NG/ML (<3.6); CREATININE FOR GFR 10.3 MG/DL (0.70-1.30); FREE T4 1.38 NG/DL (0.76-1.46); GLOMERULAR FILTRATION RATE 5.8 (>60); MB/CK RELATIVE INDEX 1.67 (< OR =4); POTASSIUM SERUM 3.9 MEQ/L (3.5-5.1); THYROID STIMULATING HORMONE 1.5 uIU/ML (0.358-3.740); TROPONIN I 0.09 NG/ML (< 0.10)
[2019-02-19] MEDS ORDERED: ISOVUE-370 76% 100ML VIAL (Q9967) As Ordered ONE (02:55)
[2019-02-19] MEDS ORDERED: ASPIRIN 81 MG CHEW TABLET PO ONE (03:00)
[2019-02-19] MEDS ORDERED: NITROGLYCERIN 0.4 MG SUBL TABLET SL PRN (03:00)
[2019-02-19] MEDS ORDERED: METAL LOCK LOOP XX ONE (03:41)
--- NOTE | 2019-02-19 04:13 | REPVR ---
EXAM: CT Angiography Chest With Contrast EXAM DATE/TIME: 02/19/2019 2:48 AM CLINICAL HISTORY: 49 years old, male; Chest pain; Type not specified; Additional Info: chest pain, SOB TECHNIQUE: Imaging protocol: Axial computed tomographic angiography images of the chest with intravenous contrast using CT angiography protocol. Coronal and sagittal reformatted images were created and reviewed. 3D rendering: MIP reconstructed images were created and reviewed. Radiation optimization: All CT scans at this facility use at least one of these dose optimization techniques: automated exposure control; mA and/or kV adjustment per patient size (includes targeted exams where dose is matched to clinical indication); or iterative reconstruction. Contrast material: ISO; Contrast volume: 75 ml; Contrast route: AC; COMPARISON: CT Chest without contrast 12/22/2018 2:54 PM FINDINGS: Limitations: Examination is limited by motion artifact. Tubes, catheters and devices: There is a right IJ central venous catheter with the tip at the distal SVC in satisfactory position. Pulmonary arteries: No definite pulmonary emboli. Segmental arteries are limited by motion artifact. Aorta: Mild atherosclerotic disease. No aortic aneurysm. No aortic dissection. Lungs: Diffuse ground glass opacities and septal thickening. Pleural space: Small bilateral pleural effusions. No pneumothorax. Heart: Mild cardiomegaly. Pericardial effusion measuring up to 16 mm thick. Coronary arteries: Moderate coronary artery calcification. Gallbladder and bile ducts: Status post cholecystectomy. Lymph nodes: Multiple small mediastinal nodes. Bones/joints: Unremarkable. No acute fracture. Soft tissues: Gynecomastia. IMPRESSION: 1. Limited evaluation. 2. No definite pulmonary embolism. 3. Segmental arteries are limited by motion artifact. 4. Diffuse ground glass opacities and septal thickening. Suspicious for pulmonary edema. Differential diagnosis also includes pneumonia. 5. Small bilateral pleural effusions. 6. Pericardial effusion. Unchanged from prior. 7. Additional findings as described. Electronically signed by: Latrell Matta On 02/19/2019 04:13:20 AM
[2019-02-19] MEDS ORDERED: hydrALAZINE INJ 20 MG/ML VIAL IV ONE (04:15)
[2019-02-19] MEDS ORDERED: NITROGLYCERIN/D5W 100MCG/ML 25 MG in APPROPRIATE DILUENT 1 EA IV SCH ×3 (05:00→06:30)
[2019-02-19] MEDS ORDERED: MORPHINE 4 MG/ML 1ML VIAL/SYRINGE (J2270) IV PRN (05:15)
[2019-02-19] MEDS: LABETALOL HCL 100 MG/20 ML VIAL IV SCH ×48 (05:38→13:20)
[2019-02-19] MEDS ORDERED: CLON0.1D3 TD (05:42)
[2019-02-19] MEDS ORDERED: METO1TAB32 PO (05:42)
[2019-02-19] MEDS ORDERED: VELP5CHW PO (05:42)
[2019-02-19] MEDS ORDERED: HYDR50TA PO (05:42)
--- NOTE | 2019-02-19 06:19 | HPEPDOC ---
General Date of Admission 02/19/19 Date of Service: Feb 19, 2019 Primary Care Physician: JAE VELASQUEZ DO Attending Physician: JAE VELASQUEZ DO Chief Complaint The patient is a 49-year-old male admitted with a reason for visit of Chest Pain/Sob. Source: Patient, Old records Exam Limitations: No limitations Timing/Duration: 24 hours Severity: Moderate Associated Symptoms: Chest Pain, Nausea, Shortness of breath History of Present Illness 49 yo male with past medical history of HTN (poorly controlled), ESRD due to HTN , renal transplant (05/2015) presented with chest pain that started last night. He states felt like achy dull constant pain, "like my left shoulder needed to pop" or "like I lifted something heavy". He states no radiation of pain to shoulder. no diphoresis with CP. He does have SOB. He saw his PCP yesterday and patient is planned for Hemodialysis today. He has poorly controlled BP and in the office BP was 194/96. In the ED, patient blood pressure was 250/100 and 220/110 with clonidine given. He was give ASA, NTP and hydralazine and started on NTG drip for hypertensive emergency. Repeat BP with treatment 198/101. Patient is now chest pain free. He denies any N,V,abdomen pain or ALAS. no vision changes Home Medications Scheduled Amlodipine Besylate (Amlodipine Besylate) 10 Mg Tab, 10 MG PO DAILY, (Reported) Calcitriol (Calcitriol) 0.25 Mcg Cap, 0.25 MCG PO 3XW, (Reported) TAKES SUNDAY, SUNDAY AND SUNDAY AT DIALYSIS Clonidine (Clonidine) 0.1 Mg Patch.tdwk, 0.1 MG TD 1XWK, (Reported) Ergocalciferol (Vitamin D2) (Vitamin D2) 50,000 Unit Cap, 50,000 UNIT PO QWEEK, (Reported) RECEIVES AT DIALYSIS Hydralazine HCl (Hydralazine HCl) 50 Mg Tablet, 50 MG PO TID, (Reported) Metoprolol Succinate (Metoprolol Succinate) 25 Mg Tab.er.24h, 50 MG PO DAILY, (Reported) Multivitamins (Child Chew Vitamin) 1 Tab Chew, 1 TAB PO DAILY, (Reported) Sucroferric Oxyhydroxide (Velphoro) 500 Mg Tab.chew, 1,000 MG PO WM, (Reported) Scheduled PRN Alprazolam (Alprazolam) 1 Mg Tab, 1 MG PO BID PRN for ANXIETY, (Reported) Hydrocodone/Acetaminophen ([place] 10-325 Tablet) 1 Tab Tab, 1 TAB PO Q6HP PRN for PAIN, (Reported) Allergies Coded Allergies: Cephalosporins (Verified Allergy, Intermediate, HIVES, CEFTIN, 11/27/18) tramadol (Verified Allergy, Mild, DIZZY, 11/27/18) hydroxyzine (Verified Adverse Reaction, Intermediate, INCREASED LETHARGY, LOSS OF BALANCE, 11/27/18) ketorolac (Verified Adverse Reaction, Mild, DIZZY, NAUSEA, 11/27/18) Past Medical History Medical History ESRD due to HTN S/P renal transplant S/P Failed transplant Erythocytosis Bronchiectasis Pericardial effusion (seen 12/2018, repeated 02/13/19) Severe LVH, mild pulmonary HTN Past surgical history: Kidney transplant 05/2015 Cholecystectomy 2011 Right forearm fistula placement and removed Right HD port 2018 Kidney biopsy 2016 Family history: father: unknown Mother: diabetes Social History: denies Tobacco or EtOH use A-FIB/CHADSVASC A-FIB History Current/History of A-Fib/PAF?: No Current PO Anticoag Therapy: No Review of Systems Other systems 10 comprehensive systems reviewed and negative except as per HPI Physical Examination General Exam: Positive: Alert, Cooperative, No Acute Distress Eye Exam: Positive: PERRLA, Conjunctiva & lids normal, EOMI ENT Exam: Positive: Atraumatic, Mucous membr. moist/pink, Pharynx Normal Neck Exam: Positive: Supple, +2 carotid pulse wo bruit Chest Exam: Positive: Clear to auscultation, Normal air movement; Negative: Rales, Rhonchi, Wheezing Heart Exam: Positive: Rate Normal, Regular Rhythm, Rubs (no rub), Other (no murmur) Telemetry: Positive: No significant arrhythmia, Sinus Abdomen Exam: Positive: Normal bowel sounds, Soft (NT ND ) Extremity Exam: Negative: Clubbing, Cyanosis, Edema, Normal pulses Skin Exam: Positive: Nl turgor and temperature Neuro Exam: Positive: Normal Speech, Strength at 5/5 X4 ext, Normal Tone, Sensation Intact Psych Exam: Positive: Mental status NL, Mood NL, Oriented x 3 Other physical findings ECHO 02/13/19: COMMENTS: Normal sinus rhythm without intraventricular conduction disturbance. M-mode and two-dimensional echocardiography was performed with pulsed, continuous wave, color flow and tissue Doppler studies. At least mildly dilated and eccentrically hypertrophied left ventricle with mild global hypokinesis. Moderately dilated left atrium with restrictive impairment of LV diastolic function and significantly elevated mean left atrial pressure. Right heart chamber sizes upper limits of normal with at least mild hypertrophy of the right ventricular free wall degree of right ventricular hypokinesis and Doppler evidence of at least moderate pulmonary hypertension. Mildly dilated inferior vena cava with slightly reduced respiratory collapse in keeping with his central venous pressure of 10 - 15 mmHg. Mild mitral aortic valvular sclerosis without stenosis or insufficiency. Slightly thickened mitral annulus but normal leaflet thickness with reduced leaflet excursion but no posterior systolic buckling. Mild mitral insufficiency. Normal appearing tricuspid valve with mild - moderate insufficiency. No apparent intracardiac mass. Normal aortic root size. Mild to moderate pericardial effusion measuring 1.2 cm laterally and medially and 0.4 cm posteriorly. No sign of cardiac chamber compression or significant variation respiratory variation in pulsed Doppler signals. Based on the increasing size of the pericardial effusion. It may be prudent to consider referral for at least diagnostic / therapeutic pericardial drainage. CXR: images reveiwed, report pending, no infiltrate, no effusion, +cardiomegally CTA CHEST: IMPRESSION: 1. Limited evaluation. 2. No definite pulmonary embolism. 3. Segmental arteries are limited by motion artifact. 4. Diffuse ground glass opacities and septal thickening. Suspicious for pulmonary edema. Differential diagnosis also includes pneumonia. 5. Small bilateral pleural effusions. 6. Pericardial effusion. Unchanged from prior. 7. Moderate coronary artery calcification. Vital Signs Vital Signs Date Time Temp Pulse Resp B/P (MAP) Pulse Ox O2 Delivery O2 Flow Rate FiO2 02/19/19 05:12 92 24 198/96 (130) 97 Nasal Cannula 2.0 02/19/19 00:41 98.8 Laboratory Data Labs 24H Laboratory Tests 2 02/19/19 01:02: Immature Granulocyte % (Auto) 0.3, White Blood Count 7.6, Red Blood Count 2.68L, Hemoglobin 7.8L, Hematocrit 24.4L, Mean Corpuscular Volume 91.0, Mean Corpuscular Hemoglobin 29.1, Mean Corpuscular Hemoglobin Concent 32.0, Red Cell Distribution Width 18.4H, Platelet Count 161, Neutrophils (%) (Auto) 72.2H, Lymphocytes (%) (Auto) 15.0L, Monocytes (%) (Auto) 4.3, Eosinophils (%) (Auto) 7.5H, Basophils (%) (Auto) 0.7, Neutrophils # (Auto) 5.5, Lymphocytes # (Auto) 1.1L, Monocytes # (Auto) 0.3, Eosinophils # (Auto) 0.6H, Basophils # (Auto) 0.1, Nucleated Red Blood Cells % (auto) 0.0, Anion Gap 11, Glomerular Filtration Rate 5.8L, Blood Urea Nitrogen 45H, Creatinine 10.30*H, Sodium Level 140, Potassium Level 3.9, Chloride Level 99, Carbon Dioxide Level 30, Calcium Level 8.6, Total Creatine Kinase 126, Creatine Kinase MB 2.1, Creatine Kinase MB Relative Index 1.67, Troponin I 0.09, Thyroid Stimulating Hormone (TSH) 1.500, Free Thyroxine 1.38 CBC/BMP Laboratory Tests 02/19/19 01:02 Red Blood Count 2.68 L, Mean Corpuscular Volume 91.0, Mean Corpuscular Hemoglobin 29.1, Mean Corpuscular Hemoglobin Concent 32.0, Red Cell Distribution Width 18.4 H, Neutrophils (%) (Auto) 72.2 H, Lymphocytes (%) (Auto) 15.0 L, Monocytes (%) (Auto) 4.3, Eosinophils (%) (Auto) 7.5 H, Basophils (%) (Auto) 0.7, Neutrophils # (Auto) 5.5, Lymphocytes # (Auto) 1.1 L, Monocytes # (Auto) 0.3, Eosinophils # (Auto) 0.6 H, Basophils # (Auto) 0.1, Calcium Level 8.6, Total Creatine Kinase 126 Assessment/Plan 1) Hypertensive emergency - resolved in ED and now HTN urgency ICU, started on nitro drip in ED due to CP, possible CHF. Will continue with NTG drip 2) Chest pain - currently CP free after NTG. probable pericarditis but given significant calcification on CTA, will check serial troponin. Consider cardiology consult. Start colchicine BID 3) Pericardial effusion - Consider immunology work up if not already done as outpatient. consider cardiothoracic consult. no signs of tamponade on echo 02/13/19 4) ESRD on HD - consider consult nephrology this AM for dialysis 5) failed renal transplant - patient is unclear if he is on tacrolimus. Will sign over case to PCP this AM and if he is on tacrolimus, consider obtaining level. 6) HTN - continue with clondine patch,hydralazine, losartan , metoprolol, norvasc. CODE STATUS: FULL DVT PROPHYLAXIS: HEP SC Plan / VTE VTE Prophylaxis Ordered?: Yes PANDA DOLL DO Feb 19, 2019 05:20
[2019-02-19] MEDS: HEPARIN SOD (PORCINE) 5000 UNITS/ML VIAL SC SCH ×3 (06:29→20:33)
--- NOTE | 2019-02-19 08:02 | REP ---
Clinical: Acute chest pain. Comparison: 02/18/2019. Technique: Portable upright AP view. Findings: Cardiomegaly and evidence for pulmonary vascular congestion with interstitial edema noted. No focal consolidation, obvious effusion, or pneumothorax. Double lumen dialysis catheter with tip in the SVC. Skeletal structures intact. Impression: Cardiomegaly and evidence for pulmonary vascular congestion/interstitial edema. Electronically Signed by Refugio Small MD 02/19/2019 07:53 A
[2019-02-19 08:07] LABS: TROPONIN I 0.08 NG/ML (< 0.10)
--- NOTE | 2019-02-19 08:28 | IPNPDOC ---
Subjective Date Seen The patient was seen on 02/19/19. Subjective Chief Complaint/HPI Patient sitting comfortably at bedside as I entered the room. He states his CP has resolved. He still has c/o of feeling like he can't take a deep breath. He denies cough or pleuritic chest pain, no fevers, chills, sweats. Today is a dialysis day for him Constitutional: Denies: Chills, Fever Pulmonary: Denies: Dyspnea, Cough, Pleuritic Chest Pain Cardiovascular: Reports: Orthopnea, Edema; Denies: Chest Pain, Palpitations Gastrointestinal: Denies: Nausea, Vomiting, Abdominal Pain Psych: Reports: Mood Normal Objective Physical Examination General Exam: Positive: Alert, Cooperative, No Acute Distress Eye Exam: Positive: PERRLA, Conjunctiva & lids normal, EOMI ENT Exam: Positive: Atraumatic, Mucous membr. moist/pink, Pharynx Normal Neck Exam: Positive: Supple, +2 carotid pulse wo bruit Chest Exam: Positive: Clear to auscultation, Normal air movement; Negative: Rales, Rhonchi, Wheezing Heart Exam: Positive: Rate Normal, Regular Rhythm, Other; Negative: Murmurs, Rubs Telemetry: Positive: No significant arrhythmia, Sinus Abdomen Exam: Positive: Normal bowel sounds, Soft; Negative: Tenderness Male Exam: Positive: Edema (trace) Extremity Exam: Negative: Clubbing, Cyanosis, Normal pulses Skin Exam: Positive: Nl turgor and temperature Neuro Exam: Positive: Normal Speech Psych Exam: Positive: Mental status NL, Mood NL, Oriented x 3 Assessment /Plan Assessment Patient seen in the ICU. He received a call this a.m. scheduling him for a consultation for nephrectomy in [place] on 03/04; nephrology has previously suggested that his difficult to control HTN may be related to this. BP is better controlled. His labetalol is prn. He is back on some home medications, though holding off on metoprolol until we see what result dialysis will have on his BP. (Currently not taking clonidine; home dose had been increased to 0.2 mg patch, but when last seen in the office it had fallen off and he hadn't replaced it.) Chest discomfort had resolved when I saw him, and he was resting comfortably. Nephrology ordered a blood transfusion with dialysis, and I filled out the consent form with him. Yesterday (prior to admission) I discussed his worsening pericardial effusion with Dr. Chapa, CT sx, and he felt that in the setting of volume overload, we could hold off on a procedure for his pericardial effusion for now, re-evaluate in 10-14 days. 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 He already missed his first appt for this as an outpatient, and has historically not followed through on things like this. -- CDT Problems (1) Hypertensive emergency Status: Acute Response to Treatment: Stable Problem Text: 02/19/19: B/P improving on Labetalol 20mg IV drip. Nephrology consulted. We will resume Amlodipine 10mg po q day and add Losartan 50mg i po bid. He will be sent for dialysis today. We will monitor his pressures and reintroduce his home meds slowly. Medication compliance remains an issue with patient (2) Anemia, chronic renal failure Status: Chronic Response to Treatment: Stable Problem Specific Plan: Consult Specialist Problem Text: 02/19/19: Hgb 7.8. This could be dilutional. He will be dialyzed today. We will continue to monitor (3) ESRD (end stage renal disease) on dialysis Status: Chronic Response to Treatment: Stable Problem Specific Plan: Consult Specialist Problem Text: 02/19/19: Nephrology consulted. Dialysis today. We will defer his dialysis schedule to nephrology (4) Pericardial effusion Status: Acute Response to Treatment: Stable Problem Text: 02/19/19: Pericardial effusion appears to be fairly stable. Given there is no sign of cardiac chamber compression patient will be monitored for now ECHO: COMMENTS: Normal sinus rhythm without intraventricular conduction disturbance. M-mode and two-dimensional echocardiography was performed with pulsed, continuous wave, color flow and tissue Doppler studies. At least mildly dilated and eccentrically hypertrophied left ventricle with mild global hypokinesis. Moderately dilated left atrium with restrictive impairment of LV diastolic function and significantly elevated mean left atrial pressure. Right heart chamber sizes upper limits of normal with at least mild hypertrophy of the right ventricular free wall degree of right ventricular hypokinesis and Doppler evidence of at least moderate pulmonary hypertension. Mildly dilated inferior vena cava with slightly reduced respiratory collapse in keeping with his central venous pressure of 10 - 15 mmHg. Mild mitral aortic valvular sclerosis without stenosis or insufficiency. Slightly thickened mitral annulus but normal leaflet thickness with reduced leaflet excursion but no posterior systolic buckling. Mild mitral insufficiency. Normal appearing tricuspid valve with mild - moderate insufficiency. No apparent intracardiac mass. Normal aortic root size. Mild to moderate pericardial effusion measuring 1.2 cm laterally and medially and 0.4 cm posteriorly. No sign of cardiac chamber compression or significant variation respiratory variation in pulsed Doppler signals. (5) Chest pain Status: Resolved Plan/VTE VTE Prophylaxis Ordered?: Yes (Heparin ) VS, I&O, 24H, Fishbone Vital Signs/I&O Vital Signs Date Time Temp Pulse Resp B/P (MAP) Pulse Ox O2 Delivery O2 Flow Rate FiO2 02/19/19 07:30 97.9 80 17 160/98 (118) 99 Nasal Cannula 2.0 I&O- Last 24 Hours up to 6 AM 02/19/19 06:00 Intake Total 1 ml Balance 1 ml Laboratory Data 24H LABS Laboratory Tests 2 02/19/19 01:02: Immature Granulocyte % (Auto) 0.3, White Blood Count 7.6, Red Blood Count 2.68L, Hemoglobin 7.8L, Hematocrit 24.4L, Mean Corpuscular Volume 91.0, Mean Corpuscular Hemoglobin 29.1, Mean Corpuscular Hemoglobin Concent 32.0, Red Cell Distribution Width 18.4H, Platelet Count 161, Neutrophils (%) (Auto) 72.2H, Lymphocytes (%) (Auto) 15.0L, Monocytes (%) (Auto) 4.3, Eosinophils (%) (Auto) 7.5H, Basophils (%) (Auto) 0.7, Neutrophils # (Auto) 5.5, Lymphocytes # (Auto) 1.1L, Monocytes # (Auto) 0.3, Eosinophils # (Auto) 0.6H, Basophils # (Auto) 0.1, Nucleated Red Blood Cells % (auto) 0.0, Anion Gap 11, Glomerular Filtration Rate 5.8L, Blood Urea Nitrogen 45H, Creatinine 10.30*H, Sodium Level 140, Potassium Level 3.9, Chloride Level 99, Carbon Dioxide Level 30, Calcium Level 8.6, Total Creatine Kinase 126, Creatine Kinase MB 2.1, Creatine Kinase MB Relative Index 1.67, Troponin I 0.09, Thyroid Stimulating Hormone (TSH) 1.500, Free Thyroxine 1.38 02/19/19 07:20: CBC/BMP Laboratory Tests 02/19/19 01:02 Red Blood Count 2.68 L, Mean Corpuscular Volume 91.0, Mean Corpuscular Hemoglobin 29.1, Mean Corpuscular Hemoglobin Concent 32.0, Red Cell Distribution Width 18.4 H, Neutrophils (%) (Auto) 72.2 H, Lymphocytes (%) (Auto) 15.0 L, Monocytes (%) (Auto) 4.3, Eosinophils (%) (Auto) 7.5 H, Basophils (%) (Auto) 0.7, Neutrophils # (Auto) 5.5, Lymphocytes # (Auto) 1.1 L, Monocytes # (Auto) 0.3, Eosinophils # (Auto) 0.6 H, Basophils # (Auto) 0.1, Calcium Level 8.6, Total Creatine Kinase 126 CLARISSE ADAIR Feb 19, 2019 08:28 JAE VELASQUEZ DO Feb 19, 2019 23:19
[2019-02-19 08:46] LABS: PERCENT SATURATION 22.2 % (19.7-50.0)
[2019-02-19] MEDS ORDERED: COLCHICINE 0.6 MG TAB PO SCH (09:00)
[2019-02-19] MEDS ORDERED: IRON SUCROSE 100MG 5ML VIAL (J1756 PER 1MG) IV SCH (09:15)
[2019-02-19] MEDS: FAMOTIDINE 20 MG TAB PO SCH (09:34)
[2019-02-19] MEDS: LOSARTAN 50 MG TAB PO SCH ×2 (09:34→20:33)
[2019-02-19] MEDS: amLODIPine 10 MG TAB PO SCH (09:34)
--- NOTE | 2019-02-19 11:31 | REP ---
Clinical: Persistent anemia and hypertension. Technique: Axial contrast enhanced images from the lung bases to the pubic symphysis with coronal and sagittal re-formations using 100 ml Isovue 370 intravenous contrast material with coronal and sagittal re-formations. Comparison: 12/22/2018. Findings: Small new bilateral pleural effusions and stable moderate pericardial effusion appreciated appreciated Bilateral little traverse kidneys demonstrate chronic atrophy and cystic changes which remain stable. The transplant kidney in the right lower quadrant again demonstrates moderate perinephric stranding and hydronephrosis suggesting pyelonephritis and/or renal transplant dysfunction. Transplant kidney cysts remain stable compared to 09/23/2018 and measure up to approximately 2.5 cm. Liver, spleen, pancreas, and bilateral adrenal glands are normal. Evidence of prior cholecystectomy. The enteric system is without obstruction or acute inflammatory process. Colonic and sigmoid diverticulosis noted without acute diverticulitis. This demonstrates normal bladder and stable mildly prominent prostate gland. No ascites. No free air. No adenopathy. Abdominal aorta demonstrates atherosclerotic changes without aneurysm or dissection. Impression: 1. Perinephric stranding and mild hydronephrosis involving the transplant kidney in the right lower quadrant concerning for allograft dysfunction and/or pyelonephritis. Stable transplant cysts. 2. Small new bilateral pleural effusions and stable moderate pericardial effusion. 3. Diverticulosis without acute diverticulitis. 4. No ascites. Electronically Signed by Refugio Small MD 02/19/2019 11:23 A
[2019-02-19] MEDS: LABETALOL HCL 100 MG/20 ML VIAL IV PRN (14:11)
[2019-02-19] MEDS: NORCO, ANEXSIA 5/325MG TABLET (HYDROcodone/ACETAMINOPHEN) PO PRN (16:22)
[2019-02-19] MEDS ORDERED: PILL CUTTER 1 EACH XX PRN (22:00)
--- NOTE | 2019-02-19 22:37 | CR ---
DATE OF CONSULTATION: 02/19/2019 REQUESTING PHYSICIAN: Elke Hutson DO CONSULTING PHYSICIAN: Jb Cuenca MD REASON FOR CONSULTATION Management of end-stage renal disease, hemodialysis and hypertensive urgency. CHIEF COMPLAINT The patient presented to the hospital last night for chest pain and shortness of breath along with nausea. HISTORY OF PRESENT ILLNESS: Mr. Helio Rosen is a 49-year-old male with past medical history of end-stage renal disease on hemodialysis every Sunday, Sunday, Sunday, history of failed renal allograft, transplant was done in May 2015, history of hypertension, chronic anemia, multiple other comorbidities as mentioned below, chronically noncompliant with medications and fluid restriction as outpatient. He presented to the hospital yesterday with persistent chest pain along with shortness of breath. Pain was radiating to his shoulder. In the emergency room the patient was found to be hypertensive with systolic blood pressure 250. He was given clonidine, IV labetalol and IV hydralazine in the emergency room. He was given IV and he was started on nitroglycerin drip. The patient was transferred to ICU for hypertensive emergency. He was admitted under the family practice service overnight. Nephrology service was called for further help in the management of this patient's uncontrolled hypertension and management of end-stage renal disease on hemodialysis. I saw and evaluated the patient today morning in the ICU. When I saw him his chest pain and shortness of breath was improving today. Today is patient's regular day of dialysis. I arranged for patient's hemodialysis to be done at the bedside. More over the patient's renal allograft has failed. He has stopped taking the immunosuppression himself. The patient was already referred to transplant surgery as outpatient before he arrived in the hospital for evaluation for transplant nephrectomy. PAST MEDICAL HISTORY Past medical history of end-stage renal disease on hemodialysis, history of hypertension, history of failed renal allograft, resistant anemia, history of pericardial effusion since December 2018, diastolic congestive heart failure, pulmonary hypertension, history of noncompliance with fluid restriction and antihypertensive medications, secondary hyperparathyroidism. PAST SURGICAL HISTORY Status post right lower quadrant renal transplant in May 2015, status post cholecystectomy in 2011, status post forearm AV fistula placement and ligation. Status post a right IJ tunneled hemodialysis catheter. ALLERGIES: The patient is allergic to CEPHALOSPORINS, HYDROXYZINE, KETOROLAC and TRAMADOL. FAMILY HISTORY: No significant family history of end-stage renal disease requiring hemodialysis. SOCIAL HISTORY: The patient denies any smoking, illicit drug abuse or alcohol abuse. He is living with a teenage son. REVIEW OF SYSTEMS Constitutional: Patient reports feeling weak and tired.Persistent Wt loss Eyes: He denies any blurry vision, double vision. ENT: Denies any dysphagia, odynophagia. Cardiovascular: He reports chest pressure is getting better after IV medication for blood pressure. Respiratory: He reports mild shortness of breath. GI: He reports nausea and decreased appetite. Genitourinary: He reports decreased urine output. Musculoskeletal: He denies any muscle aches and pains. 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 Psychiatric: He denies any depression. He does report anxiety. Endocrine: He does report secondary hyperparathyroidism. Skin: He denies any rashes or ulcers. Hematology/Oncology: He does report anemia, but he denies any easy bleeding or bruising. All other review of systems is negative. PHYSICAL EXAMINATION General: The patient is awake, alert, oriented times three, laying in bed, in no apparent distress. Vital signs: Temperature is 97.3 degrees Fahrenheit. Blood pressure 183/102, pulse is 85, respiratory rate of 18, saturating 98% on 3 liters via nasal cannula. Head and neck examination: Extraocular muscles intact. Pupils equally round and reactive to light. Mucous membranes are moist. Neck is supple. He has a right IJ tunneled hemodialysis catheter. Cardiovascular: S1, S2, regular rate. Trace edema of the bilateral lower extremities. Respiratory: Mildly decreased breath sounds at the bases, otherwise no active rales or rhonchi. Abdomen: Soft. Positive bowel sounds. Nontender. He has a right lower quadrant renal allograft. No tenderness at the allograft site. Genitourinary: Bladder is not palpable. Musculoskeletal: No clubbing on cyanosis. Pulses are 2+. BARK PRESS OPERATOR: No focal deficit. Power is 5/5 in all extremities. Psych: Normal mood and affect. LAB REVIEW: CBC showed WBC 7.6, hemoglobin 7.8, platelets are 161. BMP showed sodium 140, potassium 3.9, chloride 99, bicarb is 30, BUN 45, creatinine is 10.3, iron 30, TIBC 135, transferrin saturation is 22.2. TSH is 1.5. IMAGING STUDIES CT scan of the abdomen and pelvis with contrast showed perinephric stranding and mild hydronephrosis involving the transplanted kidney in the right lower quadrant. Concern for allograft dysfunction or pyelonephritis, stable transplant cyst, small new bilateral pleural effusions and moderate pericardial effusion. No ascites was noted. HOME MEDICATIONS: The patient is supposed to be on amlodipine 10 mg daily, calcitriol 0.25 mcg by mouth three times a week, clonidine 0.1 mg transdermal patch once a week, vitamin D 50,000 units once a week, hydralazine 50 mg by mouth three times a day, [place] 1 tablet every 6 hours as needed pain, metoprolol 50 mg by mouth daily, multivitamin 1 tablet daily, and Velphoro 1 grams by mouth three times a day with meals. CURRENT INPATIENT MEDICATIONS: Patient's current medications include nitroglycerin drip, was given overnight which has been stopped now, amlodipine 10 mg daily has been started. He is on aspirin 325 mg by mouth times one dose was given, colchicine has been stopped. He is on Pepcid 10 mg by mouth daily, heparin subcu every 8 hourly, Pepcid 10 mg by mouth daily, heparin subcutaneous, hydralazine 10 mg IV one dose. I have started him on Venofer 100 mg IV with hemodialysis. He is on labetalol 20 mg IV as needed, losartan 60 mg by mouth twice a day and morphine as needed. ASSESSMENT 49-year-old male with failed renal allograft, end-stage renal disease on hemodialysis every Sunday, Sunday, Sunday, admitted this time with hypertensive emergency, decompensated congestive heart failure and severe anemia. PLAN 1. End-stage renal disease on hemodialysis. The patient's regular dialysis days are Sunday, Sunday, Sunday. The patient will be dialyzed at the bedside. I will try to remove at least 2 kg of fluid as tolerated by his blood pressure; that will help improve the patient's blood pressure as well. 2. Hypertensive emergency. The patient was given IV labetalol and IV nitroglycerin. It has been becoming more and more difficult to control this patient's blood pressure. Partly is because of his noncompliance with medication, but part of it is because of failed renal allograft. His hypertension has become resistant. He has been restarted on amlodipine 10 mg by mouth daily and losartan 50 mg by mouth twice a day. He is also getting labetalol as needed. Further escalation of antihypertensive medications will be done tomorrow morning. 3. Resistant anemia. The patient is going to get 1 unit of PRBC transfusion today. The patient has requiring multiple blood transfusions as outpatient as well. He is iron deficient. He will be given Venofer with dialysis as well. Because of the patient's failed renal transplant he is on max dose of MICHAEL and he is not responding. 4. Failed renal transplant. The patient has stopped taking his immunosuppression. CT scan of the abdomen and pelvis was done which showed perinephric stranding, which is concerning for renal allograft rejection. The patient has persistent weight loss, lost more than 20 pounds, persistent nausea, worsening edema, resistant to high dose of MICHAEL and persistent anemia, not responding to max dose of antihypertensive medications. He is non compliant with medications and followup as outpatient. I suggest this patient should be transferred to [facility] for his renal allograft nephrectomy. I will discuss the case with the primary team tomorrow morning. I have already discussed this with the patient and he agrees to be transferred although he had already been referred for evaluation as outpatient, but I highly suspect this patient would not followup with transplant center when he is discharged from the hospital. 5. Pericardial effusion. The patient was given colchicine, however, the pericardial effusion is mild. He is having no pain at this time. I have stopped colchicine. If needed, the patient will get another session of hemodialysis done tomorrow morning as well. 6. Secondary hyperparathyroidism and renal failure. Continue home dose of calcitriol 0.25 mcg by mouth three times a week 6. Chronic kidney disease, mineral bone disease. Continue home dose of Velphoro. If Velphoro is not available patient can get lanthanum three times a day with meals while he is inpatient. 7. Anxiety disorder. Continue p.r.n. dose of alprazolam. Thank you for involving me in the care of this patient. I shall be happy to follow the patient along with you tomorrow morning. The patient was seen and examined during hemodialysis in the evening as well. He was tolerating the hemodialysis procedure well. Total critical care time spent in the management of this patient today morning in the ICU was 1 hour excluding any procedures. MTDD
[2019-02-20] VITALS (23 sets, daily range): BP systolic 146–189; BP diastolic 72–113
[2019-02-20] MEDS: LABETALOL HCL 100 MG/20 ML VIAL IV PRN ×2 (02:48→06:50)
[2019-02-20 05:02] LABS: BASO # 0.1 10^3/uL (0.0-0.2); BASO % 0.7 % (0.0-1.0); EOS # 0.8 10^3/uL (0.0-0.50); EOS % 11.2 % (0.0-3.0); HEMATOCRIT 24.8 % (42.0-52.0); HEMOGLOBIN 7.8 g/dl (13.5-17.5); LYMPH # 0.9 10^3/uL (1.5-4.5); LYMPH % 13.3 % (24.0-44.0); MEAN CORPUSCULAR HGB CONC 31.5 g/dl (32.0-36.5); MEAN CORPUSCULAR VOLUME 92.2 fl (80.0-96.0); MONO # 0.2 10^3/uL (0.0-0.8); MONO % 3.4 % (0.0-5.0); NEUTROPHILS % 70.8 % (36.0-66.0); PLATELET COUNT, AUTOMATED 149 10^3/uL (150-450); RED BLOOD COUNT 2.69 10^6/uL (4.30-6.10); WHITE BLOOD COUNT 7.1 10^3/uL (4.0-10.0)
[2019-02-20 05:28] LABS: CALCIUM LEVEL 8.9 MG/DL (8.5-10.1); CREATININE FOR GFR 7.87 MG/DL (0.70-1.30); GLOMERULAR FILTRATION RATE 7.9 (>60); POTASSIUM SERUM 4.3 MEQ/L (3.5-5.1)
[2019-02-20] MEDS: HEPARIN SOD (PORCINE) 5000 UNITS/ML VIAL SC SCH ×3 (06:00→21:09)
[2019-02-20] MEDS: FAMOTIDINE 20 MG TAB PO SCH (07:33)
[2019-02-20] MEDS: LANTHANUM CARBONATE 500 MG CHEW TABLET PO SCH ×3 (07:33→17:30)
[2019-02-20] MEDS: LOSARTAN 50 MG TAB PO SCH ×2 (07:35→21:09)
[2019-02-20] MEDS: amLODIPine 10 MG TAB PO SCH (07:35)
[2019-02-20] MEDS ORDERED: cloNIDine HCL 0.1 MG/24 HR PATCH TOP SCH (09:00)
[2019-02-20] MEDS: **hydrALAZINE** 50 MG TAB PO SCH ×3 (09:13→21:09)
[2019-02-20] MEDS: NORCO, ANEXSIA 5/325MG TABLET (HYDROcodone/ACETAMINOPHEN) PO PRN ×2 (09:17→17:30)
--- NOTE | 2019-02-20 10:26 | ECGEPIP ---
[facility] - ED Test Date: 2019-02-19 Pat Name: OPAL LACEY Department: Room: [facility]02 Gender: Male Sand Miller: NANDO : 1970 Requested By: REBEKAH Medina Order Number: [id number] Reading MD: Rush Molina Measurements Intervals [place] Rate: 101 P: 68 OR: 160 QRS: 37 QRSD: 91 T: 96 QT: 371 QTc: 481 Interpretive Statements SINUS TACHYCARDIA POSSIBLE LEFT ATRIAL ENLARGEMENT POSSIBLE LEFT VENTRICULAR HYPERTROPHY NONSPECIFIC T-WAVE ABNORMALITY SIMILAR TO 12/22/18 Electronically Signed on 02-20-2019 10:26:15 EDT by Rush Molina
--- NOTE | 2019-02-20 11:05 | IPNPDOC ---
Subjective Date Seen The patient was seen on 02/20/19. Subjective Chief Complaint/HPI Pt this morning cont to c/o SOB although states that this is better since admission. He wants to know why he isn't being dialyzed 4 times weekly as he was recently coordinated to have happen as an outpt. General: Reports: Fatigue Constitutional: Denies: Chills, Fever ENT: Denies: Head Aches Pulmonary: Reports: Dyspnea; Denies: Cough Cardiovascular: Denies: Chest Pain, Palpitations Gastrointestinal: Denies: Nausea, Vomiting, Diarrhea Neurological: Reports: Weakness Psych: Reports: Anxiety, Depression Objective Physical Examination General Exam: Positive: Alert, No Acute Distress; Negative: Cooperative (agitated, poor eye contact, able to carry on conversation without notable dyspnea) ENT Exam: Positive: Mucous membr. moist/pink Neck Exam: Positive: Supple Chest Exam: Positive: Clear to auscultation, Normal air movement; Negative: Rales, Rhonchi, Wheezing Heart Exam: Positive: Rate Normal, Regular Rhythm, Other; Negative: Murmurs, Rubs Telemetry: Positive: No significant arrhythmia, Sinus Abdomen Exam: Positive: Normal bowel sounds, Soft; Negative: Tenderness Male Exam: Positive: Edema (trace) Extremity Exam: Negative: Clubbing, Cyanosis, Normal pulses Neuro Exam: Positive: Normal Speech Psych Exam: Positive: Mental status NL, Mood NL, Anxiety, Oriented x 3 Assessment /Plan Problems (1) Failed kidney transplant Status: Acute Problem Text: large degree of causation of resistant HTN, resistant anemia, abdominal pain/nausea; therefore, primary and Nephro teams favor tx to [facility] for nephrectomy as does patient and SO (2) Hypertensive emergency Status: Acute Response to Treatment: Stable Problem Text: 02/20 Clonidine and hydralazine has been added by Nephro cont with M/W/F dialysis. Will work tomorrow to coordinate transfer with PCP to [facility] for surgical consideration for allograft failure. 02/19/19: B/P improving on Labetalol 20mg IV drip. Nephrology consulted. We will resume Amlodipine 10mg po q day and add Losartan 50mg i po bid. He will be sent for dialysis today. We will monitor his pressures and reintroduce his home meds slowly. Medication compliance remains an issue with patient (3) Anemia, chronic renal failure Status: Chronic Response to Treatment: Stable Problem Specific Plan: Consult Specialist Problem Text: 02/20 Hgb stable at 7.8, rec 1 u pRBC yesterday after dialysis 02/19/19: Hgb 7.8. This could be dilutional. He will be dialyzed today. We will c cookie to monitor (4) ESRD (end stage renal disease) on dialysis Status: Chronic Response to Treatment: Stable Problem Specific Plan: Consult Specialist Problem Text: 02/20 Nephrology recommends transfer to [facility] for renal allograft nephrectomy 02/19/19: Nephrology consulted. Dialysis today. We will defer his dialysis schedule to nephrology (5) Pericardial effusion Status: Acute Response to Treatment: Stable Problem Text: 02/19/19: Pericardial effusion appears to be fairly stable. Given there is no sign of cardiac chamber compression patient will be monitored for now ECHO: COMMENTS: Normal sinus rhythm without intraventricular conduction disturbance. M-mode and two-dimensional echocardiography was performed with pulsed, continuous wave, color flow and tissue Doppler studies. At least mildly dilated and eccentrically hypertrophied left ventricle with mild global hypokinesis. Moderately dilated left atrium with restrictive impairment of LV diastolic function and significantly elevated mean left atrial pressure. Right heart chamber sizes upper limits of normal with at least mild hypertrophy of the right ventricular free wall degree of right ventricular hypokinesis and Doppler evidence of at least moderate pulmonary hypertension. Mildly dilated inferior vena cava with slightly reduced respiratory collapse in keeping with his central venous pressure of 10 - 15 mmHg. Mild mitral aortic valvular sclerosis without stenosis or insufficiency. Slightly thickened mitral annulus but normal leaflet thickness with reduced leaflet excursion but no posterior systolic buckling. Mild mitral insufficiency. Normal appearing tricuspid valve with mild - moderate insufficiency. No apparent intracardiac mass. Normal aortic root size. Mild to moderate pericardial effusion measuring 1.2 cm laterally and medially and 0.4 cm posteriorly. No sign of cardiac chamber compression or significant variation respiratory variation in pulsed Doppler signals. (6) Chest pain Status: Resolved Plan/VTE VTE Prophylaxis Ordered?: Yes (Heparin ) VS, I&O, 24H, Fishbone Vital Signs/I&O Vital Signs Date Time Temp Pulse Resp B/P (MAP) Pulse Ox O2 Delivery O2 Flow Rate FiO2 02/20/19 10:15 20 02/20/19 09:17 163/92 02/20/19 09:13 75 02/20/19 08:55 98.1 96 02/20/19 04:00 2.0 02/19/19 07:30 Nasal Cannula I&O- Last 24 Hours up to 6 AM 02/20/19 06:00 Intake Total 860 ml Output Total 2205 ml Balance -1345 ml Laboratory Data 24H LABS Laboratory Tests 2 02/20/19 04:22: Immature Granulocyte % (Auto) 0.6, White Blood Count 7.1, Red Blood Count 2.69L, Hemoglobin 7.8L, Hematocrit 24.8L, Mean Corpuscular Volume 92.2, Mean Corpuscular Hemoglobin 29.0, Mean Corpuscular Hemoglobin Concent 31.5L, Red Cell Distribution Width 18.3H, Platelet Count 149L, Neutrophils (%) (Auto) 70.8H, Lymphocytes (%) (Auto) 13.3L, Monocytes (%) (Auto) 3.4, Eosinophils (%) (Auto) 11.2H, Basophils (%) (Auto) 0.7, Neutrophils # (Auto) 5.0, Lymphocytes # (Auto) 0.9L, Monocytes # (Auto) 0.2, Eosinophils # (Auto) 0.8H, Basophils # (Auto) 0.1, Nucleated Red Blood Cells % (auto) 0.3H, Anion Gap 7L, Glomerular Filtration Rate 7.9L, Blood Urea Nitrogen 32H, Creatinine 7.87H, Sodium Level 137, Potassium Level 4.3, Chloride Level 100, Carbon Dioxide Level 30, Calcium Level 8.9 CBC/BMP Laboratory Tests 02/20/19 04:22 Red Blood Count 2.69 L, Mean Corpuscular Volume 92.2, Mean Corpuscular Hemoglobin 29.0, Mean Corpuscular Hemoglobin Concent 31.5 L, Red Cell Distribution Width 18.3 H, Neutrophils (%) (Auto) 70.8 H, Lymphocytes (%) (Auto) 13.3 L, Monocytes (%) (Auto) 3.4, Eosinophils (%) (Auto) 11.2 H, Basophils (%) (Auto) 0.7, Neutrophils # (Auto) 5.0, Lymphocytes # (Auto) 0.9 L, Monocytes # (Auto) 0.2, Eosinophils # (Auto) 0.8 H, Basophils # (Auto) 0.1, Calcium Level 8.9 PANDA ROMANO PA-C Feb 20, 2019 11:05 Carlos Metzger M.D. Feb 20, 2019 14:06
[2019-02-20] MEDS ORDERED: DARBEPOETIN 100 MCG/0.5 ML *DIALYSIS* SYRINGE (J0882) IV SCH (11:45)
[2019-02-20] MEDS ORDERED: ALPRAZolam 0.5 MG TAB PO PRN (14:00)
--- NOTE | 2019-02-20 15:35 | IPN ---
DATE OF SERVICE: 02/20/2019 SUBJECTIVE: The patient was seen and examined at the bedside today morning in the intensive care unit (ICU). His blood pressures are improving. He required a total of two doses of labetalol intravenous (IV) overnight. He was dialyzed yesterday. He hardly tolerated a 2 liter fluid removal. After that, he started having cramps. He does report mild shortness of breath. Otherwise, he denies any active complaints. OBJECTIVE: Vital signs: Temperature is 98.1 degrees Fahrenheit, blood pressure 166/94, pulse is 83, respiratory rate of 20, saturating 96% on room air. Intake and output: There is no urine output recorded. Ultrafiltration with hemodialysis was 2.2 liters. Weight in the bed scale is 89.5 kg. PHYSICAL EXAMINATION: General: The patient is awake, alert, oriented times three, lying in bed, in no apparent distress. Head and neck examination: Extraocular muscles intact. Pupils equally round and reactive to light. Mucous membranes are moist. Neck is supple. There is no jugular venous distention (JVD). Cardiovascular: S1, S2, regular rate. No edema of the bilateral lower extremities. Respiratory: Chest is clear to auscultation bilaterally. Bilateral equal air entry. No rales or rhonchi. Abdomen: Soft, obese, positive bowel sounds. Nontender. No organomegaly. Musculoskeletal: No clubbing or cyanosis. Pulses are 2+. Central nervous system ([employer]IR[employer]END[employer] SUPERVISOR): No focal deficit. Power is 5/5 in all extremities. LABORATORY REVIEW: Complete blood count (CBC) showed WBC 7.1, hemoglobin 7.8, platelets are 149. Basic metabolic profile (BMP) showed sodium 137, potassium 4.3, chloride 100, bicarbonate 30, BUN 32, creatinine is 7.8. CURRENT INPATIENT MEDICATIONS: The patient's medications were all reviewed by me. He is getting labetalol 20 mg IV as needed for blood pressure more than 180. He is on amlodipine 10 mg daily. I have started him on hydralazine 50 mg by mouth three times a day and clonidine patch at 0.1 mg per 24 hours. ASSESSMENT AND PLAN: 1. End-stage renal disease, on hemodialysis. The patient's regular dialysis days are Sunday, Sunday, Sunday. He was dialyzed yesterday. Next hemodialysis session will be tomorrow. 2. Hypertensive emergency. The patient's blood pressures are better. He required two doses of IV labetalol yesterday. I have restarted him on home dose of hydralazine 50 mg by mouth three times a day, as well, and I have ordered a new clonidine patch 0.1 mg to be placed now. 3. Resistant anemia. The patient's hemoglobin is 7.8 despite 1 unit of packed red blood cells (PRBC) transfusion. I did not give him a dose of Aranesp because of high blood pressures. He will get a dose of Aranesp tomorrow morning with dialysis. Continue IV Venofer with dialysis, as well. 4. Failed renal transplant. I have discussed the case with the primary team. The patient needs to be transferred to [facility] for transplant nephrectomy because of complications, including nausea, weight loss, resistant hypertension, resistant anemia. 5. Secondary hyperparathyroidism. Continue current dose of calcitriol 0.25 mcg by mouth three times a week. 6. Chronic kidney disease, mineral bone disease. Continue lanthanum 1 gram by mouth three times a day.
[2019-02-21] VITALS (7 sets, daily range): BP systolic 132–182; BP diastolic 70–100
[2019-02-21] MEDS: HEPARIN SOD (PORCINE) 5000 UNITS/ML VIAL SC SCH ×2 (05:10→14:00)
[2019-02-21 05:20] LABS: BASO % 0.5 % (0.0-1.0); EOS # 0.8 10^3/uL (0.0-0.50); EOS % 9.9 % (0.0-3.0); HEMATOCRIT 23.6 % (42.0-52.0); HEMOGLOBIN 7.5 g/dl (13.5-17.5); LYMPH # 0.9 10^3/uL (1.5-4.5); LYMPH % 10.9 % (24.0-44.0); MEAN CORPUSCULAR HEMOGLOBIN 28.4 pg (27.0-33.0); MEAN CORPUSCULAR HGB CONC 31.8 g/dl (32.0-36.5); MEAN CORPUSCULAR VOLUME 89.4 fl (80.0-96.0); MONO # 0.2 10^3/uL (0.0-0.8); MONO % 2.8 % (0.0-5.0); NEUTROPHILS # 6.3 10^3/uL (1.8-7.7); NEUTROPHILS % 75.4 % (36.0-66.0); PLATELET COUNT, AUTOMATED 151 10^3/uL (150-450); RED BLOOD COUNT 2.64 10^6/uL (4.30-6.10); WHITE BLOOD COUNT 8.4 10^3/uL (4.0-10.0)
[2019-02-21 05:37] LABS: CALCIUM LEVEL 8.6 MG/DL (8.5-10.1); CREATININE FOR GFR 10.2 MG/DL (0.70-1.30); GLOMERULAR FILTRATION RATE 5.8 (>60); POTASSIUM SERUM 4.3 MEQ/L (3.5-5.1)
[2019-02-21] MEDS: LANTHANUM CARBONATE 500 MG CHEW TABLET PO SCH ×3 (08:00→19:00)
--- NOTE | 2019-02-21 08:28 | REP ---
Clinical: Pericarditis Comparison: 02/19/2019. Findings: Double-lumen catheter with tip in the SVC. Stable cardiomegaly. Moderate pulmonary vascular congestion and interstitial edema suggested. Basilar atelectasis and possible layering left effusion cannot be excluded. No pneumothorax. Impression: Cardiomegaly and findings to suggest pulmonary edema. Essentially unchanged. Electronically Signed by Refugio mSall MD 02/21/2019 08:20 A
[2019-02-21] MEDS ORDERED: CALCITRIOL 0.25 MCG CAP (S0169) PO SCH (09:00)
[2019-02-21] MEDS ORDERED: HEPARIN 1,000 UNITS/ML 10ML VIAL (FOR RADIOLOGY& DIALYSIS ONLY) XX ONE (09:45)
[2019-02-21] MEDS: FAMOTIDINE 20 MG TAB PO SCH (12:55)
[2019-02-21] MEDS: amLODIPine 10 MG TAB PO SCH (12:56)
[2019-02-21] MEDS: LOSARTAN 50 MG TAB PO SCH ×2 (12:56→20:34)
[2019-02-21] MEDS: **hydrALAZINE** 50 MG TAB PO SCH ×3 (12:56→20:34)
[2019-02-21] MEDS: LABETALOL 200 MG TAB PO SCH ×2 (13:01→20:34)
--- NOTE | 2019-02-21 16:09 | IPN ---
DATE: 02/21/2019 SUBJECTIVE The patient was seen and examined at the bedside today morning during hemodialysis procedure. He is tolerating the hemodialysis procedure well. His blood pressures are slightly better today as compared with yesterday. He still requiring IV labetalol injections. He denies any active complaints at this time. OBJECTIVE Vital signs: Temperature is 97.9 degrees Fahrenheit. Blood pressure 138/70, pulse is 85, respiratory rate of 17, saturating 95% on room air. Intake and output: There is no urine output recorded. Weight in the bed scale is 97.7 kg. PHYSICAL EXAMINATION General: The patient is awake, alert and oriented times three, laying in bed, getting hemodialysis done. Head and neck exam. Extraocular muscles intact. Pupils equally round and reactive to light. Mucous membranes are moist. Neck is supple. There is no JVD. Cardiovascular: S1, S2. Regular rate. No edema of the bilateral lower extremities. Respiratory: Chest is clear to auscultation bilaterally. Bilateral equal air entry. No rales or rhonchi. Abdomen: Soft. Positive bowel sounds. Nontender. No organomegaly. Extremities: No clubbing or cyanosis. Pulses are 2+. WATER CHEMIST: No focal deficit. Power is 5/5 in all extremities. LAB REVIEW: CBC showed a WBC 8.4, hemoglobin 7.5, platelets are 151. BMP showed sodium 139, potassium 4.3, chloride 102, bicarb 24, BUN 48, creatinine is 10.2. Calcium is 8.6. IMAGING STUDIES Chest x-ray was done today morning, which showed cardiomegaly and pulmonary edema which was unchanged. CURRENT INPATIENT MEDICATIONS The patient's medications were all reviewed by me. I have started the patient on oral labetalol 200 mg by mouth twice a day as well and I have started the patient on Aranesp 200 mcg IV with hemodialysis as well. ASSESSMENT/PLAN 1. End-stage renal disease, on hemodialysis. The patient's regular dialysis days are Sunday, Sunday, Sunday. He is being dialyzed according to his regular schedule. I will try to remove at least 2 kg of fluid. 2. Hypertension with end-stage renal disease and hypertensive heart disease. The patient has a very resistant hypertension. He is currently on multidrug regimen. Oral labetalol has also been started. Volume optimization would also help with the fluid. I strongly believe that the patient's transplant kidney needs to be removed. 3. Anemia in end-stage renal disease and failed transplant. The patient has been started on Aranesp with dialysis. He also got blood transfusion and he is getting Venofer as well. The patient has chronic inflammation and resistant to very high dose of erythropoiesis stimulating agents (MICHAEL). 4. Failed renal transplant. The patient needs to be transferred to [facility] for transplant nephrectomy.
--- NOTE | 2019-02-22 02:17 | DS.PDOC ---
Discharge Summary General Date of Admission Feb 19, 2019 at 05:13 Date of Discharge February 21, 2019 Primary Care Physician: JAE VELASQUEZ DO Attending Physician: JAE VELASQUEZ DO Specialist/Consultants Involve: АННА DYE MD Discharge Summary PROCEDURES PERFORMED DURING STAY: [None]. ADMITTING DIAGNOSES: 1. hypertensive emergency 2. chest pain 3. pericardial effusion 4. end-stage renal disease on hemodialysis 5. failed renal transplant 6. hypertension DISCHARGE DIAGNOSES: 1. hypertensive emergency 2. chest pain 3. pericardial effusion 4. end-stage renal disease on hemodialysis 5. failed renal transplant 6. resistant hypertension 7. resistant anemia 8. weight loss COMPLICATIONS/CHIEF COMPLAINT: Hypertensive Emergency HISTORY OF PRESENT ILLNESS: 49 yo male with past medical history of HTN (poorly controlled), ESRD due to HTN , renal transplant (05/2015) presented with chest pain that started last night. He states felt like achy dull constant pain, "like my left shoulder needed to pop" or "like I lifted something heavy". He states no radiation of pain to shoulder. no diphoresis with CP. He does have SOB. He saw his PCP yesterday and patient is planned for Hemodialysis today. He has poorly controlled BP and in the office BP was 194/96. In the ED, patient blood pressure was 250/100 and 220/110 with clonidine given. He was give ASA, NTP and hydralazine and started on NTG drip for hypertensive emergency. Repeat BP with treatment 198/101. Patient is now chest pain free. He denies any N,V,abdomen pain or ALAS. no vision changes HOSPITAL COURSE: Patient was admitted to the ICU, and nephrology was consulted. His blood pressure was initially treated with hydralazine and a nitroglycerin drip secondary to his chest discomfort, but when that resolved he was switched to IV labetalol prn, and PO medications were restarted. Medication were adjusted during hospitalization, and BP was reduced from his presenting 214/101 to around 180/100. He was dialyzed multiple times during his admission, though he did not tolerate removal of as much fluid as nephrology would have preferred. He has been felt to be volume overloaded as an outpatient, and was receiving extra dialysis sessi ons. He is known to have a worsening pericardial effusion, and during a conversation the day before admission, Dr. Chapa from cardiothoracic surgery preferred to see if this would improve with improvement of his volume status before intervention. He has previously recognized resistant anemia, and received 1 unit PRBCs during hospitalization, during dialysis. He has had an unplanned weight loss of almost 20 lbs in the last 2 months. Some of this is likely because nephrology has been trying to take of fluid with dialysis, but much of this is felt to be secondary to chronic nausea. Nephrology felt that much of the patient's above symptoms (resistance HTN, resistant anemia) were secondary to his failed renal transplant. (He had been off tacrolimus.) Patient was amenable to transfer, and transfer was arranged to [facility] under the care of Dr. Narayanan. DISCHARGE MEDICATIONS: Please see below. ALLERGIES: Please see below. PHYSICAL EXAMINATION ON DISCHARGE: VITAL SIGNS: Please see below. GENERAL: chronically ill-appearing HEENT: mucous membranes moist NECK: supple CARDIOVASCULAR EXAMINATION: regular rate and rhythm RESPIRATORY EXAMINATION: clear to auscultation bilat ABDOMINAL EXAMINATION: soft, nontender and nondistended EXTREMITIES: trace edema SKIN: no rash NEUROLOGICAL EXAMINATION: nonfocal PSYCHIATRIC EXAMINATION: anxious LABORATORY DATA: Please see below. IMAGING: CT angiography upon admission read as 1. Limited evaluation. 2. No definite pulmonary embolism. 3. Segmental arteries are limited by motion artifact. 4. Diffuse ground glass opacities and septal thickening. Suspicious for pulmonary edema. Differential diagnosis also includes pneumonia. 5. Small bilateral pleural effusions. 6. Pericardial effusion. Unchanged from prior. CT abdomen and pelvis upon admission showed 1. Perinephric stranding and mild hydronephrosis involving the transplant kidney in the right lower quadrant concerning for allograft dysfunction and/or pyelonephritis. Stable transplant cysts. 2. Small new bilateral pleural effusions and stable moderate pericardial ef fusion. 3. Diverticulosis without acute diverticulitis. 4. No ascites. PROGNOSIS: fair ACTIVITY: [As tolerated]. DIET: low sodium DISCHARGE PLAN: transfer to [facility] DISPOSITION: 02 Xfer To Acute Hosp. DISCHARGE CONDITION: [Stable]. TIME SPENT ON DISCHARGE: Greater than 15 minutes. Vital Signs/I&Os Vital Signs Date Time Temp Pulse Resp B/P (MAP) Pulse Ox O2 Delivery O2 Flow Rate FiO2 02/21/19 20:34 180/82 02/21/19 20:05 98.6 80 18 98 02/20/19 04:00 2.0 02/19/19 07:30 Nasal Cannula I&O- Last 24 Hours up to 6 AM 02/22/19 06:00 Intake Total 300 ml Output Total 2200 ml Balance -1900 ml Laboratory Data Labs 24H Laboratory Tests 2 02/21/19 04:58: Immature Granulocyte % (Auto) 0.5, White Blood Count 8.4, Red Blood Count 2.64L, Hemoglobin 7.5L, Hematocrit 23.6L, Mean Corpuscular Volume 89.4, Mean Corpus cular Hemoglobin 28.4, Mean Corpuscular Hemoglobin Concent 31.8L, Red Cell Distribution Width 18.7H, Platelet Count 151, Neutrophils (%) (Auto) 75.4H, Lymphocytes (%) (Auto) 10.9L, Monocytes (%) (Auto) 2.8, Eosinophils (%) (Auto) 9.9H, Basophils (%) (Auto) 0.5, Neutrophils # (Auto) 6.3, Lymphocytes # (Auto) 0.9L, Monocytes # (Auto) 0.2, Eosinophils # (Auto) 0.8H, Basophils # (Auto) 0.0, Nucleated Red Blood Cells % (auto) 0.0, Anion Gap 13, Glomerular Filtration Rate 5.8L, Blood Urea Nitrogen 48H, Creatinine 10.20*H, Sodium Level 139, Potassium Level 4.3, Chloride Level 102, Carbon Dioxide Level 24, Calcium Level 8.6 CBC/BMP Laboratory Tests 02/21/19 04:58 Red Blood Count 2.64 L, Mean Corpuscular Volume 89.4, Mean Corpuscular Hemoglobin 28.4, Mean Corpuscular Hemoglobin Concent 31.8 L, Red Cell Distribution Width 18.7 H, Neutrophils (%) (Auto) 75.4 H, Lymphocytes (%) (Auto) 10.9 L, Monocytes (%) (Auto) 2.8, Eosinophils (%) (Auto) 9.9 H, Basophils (%) (Auto) 0.5, Neutrophils # (Auto) 6.3, Lymphocytes # (Auto) 0.9 L, Monocytes # (Auto) 0.2, Eosinophils # (Auto) 0.8 H, Basophils # (Auto) 0.0, Calcium Level 8.6 Discharge Medications Scheduled Amlodipine Besylate (Amlodipine Besylate) 10 Mg Tab, 10 MG PO DAILY, (Reported) Calcitriol (Calcitriol) 0.25 Mcg Cap, 0.25 MCG PO 3XW, (Reported) TAKES SUNDAY, SUNDAY AND SUNDAY AT DIALYSIS Clonidine (Clonidine) 0.1 Mg Patch.tdwk, 0.1 MG TD 1XWK, (Reported) Ergocalciferol (Vitamin D2) (Vitamin D2) 50,000 Unit Cap, 50,000 UNIT PO QWEEK, (Reported) RECEIVES AT DIALYSIS Hydralazine HCl (Hydralazine HCl) 50 Mg Tablet, 50 MG PO TID, (Reported) Metoprolol Succinate (Metoprolol Succinate) 25 Mg Tab.er.24h, 50 MG PO DAILY, (Reported) Multivitamins (Child Chew Vitamin) 1 Tab Chew, 1 TAB PO DAILY, (Reported) Sucroferric Oxyhydroxide (Velphoro) 500 Mg Tab.chew, 1,000 MG PO WM, (Reported) Scheduled PRN Alprazolam (Alprazolam) 1 Mg Tab, 1 MG PO BID PRN for ANXIETY, (Reported) Hydrocodone/Acetaminophen ([place] 10-325 Tablet) 1 Tab Tab, 1 TAB PO Q6HP PRN for PAIN, (Reported) Allergies Coded Allergies: Cephalosporins (Verified Allergy, Intermediate, HIVES, CEFTIN, 11/27/18) tramadol (Verified Allergy, Mild, DIZZY, 11/27/18) hydroxyzine (Verified Adverse Reaction, Intermediate, INCREASED LETHARGY, LOSS OF BALANCE, 11/27/18) ketorolac (Verified Adverse Reaction, Mild, DIZZY, NAUSEA, 11/27/18) JAE VELASQUEZ DO Feb 22, 2019 02:16
== END 2019-02-21 20:47 | disposition short-term general hospital (02) | DRG 304 ==
LOC: M ED 00:41 → M ED INP 05:13 → M ICU 08:10 → M PCU 02-20 13:55
PROVIDERS: ADMIT Family Medicine; ATTEND Family Medicine
PROC: 5A1D70Z Performance of Urinary Filtration, Intermittent, Less than 6 Hours Per Day (ICD-10-PCS; principal; 2019-02-19)
PROC: 30233N1 Transfusion of Nonautologous Red Blood Cells into Peripheral Vein, Percutaneous Approach (ICD-10-PCS; 2019-02-19)
DX: I16.0 Hypertensive urgency (principal); N18.6 End stage renal disease; I31.3 Pericardial effusion (noninflammatory); T86.12 Kidney transplant failure; I50.32 Chronic diastolic (congestive) heart failure; N25.81 Secondary hyperparathyroidism of renal origin; F41.9 Anxiety disorder, unspecified; R91.8 Other nonspecific abnormal finding of lung field; I27.20 Pulmonary hypertension, unspecified; R63.4 Abnormal weight loss; R05 Cough; I13.2 Hypertensive heart and chronic kidney disease with heart failure and with stage 5 chronic kidney disease, or end stage renal disease; Z99.2 Dependence on renal dialysis; Z79.899 Other long term (current) drug therapy; Z88.1 Allergy status to other antibiotic agents; Z88.5 Allergy status to narcotic agent; Z88.8 Allergy status to other drugs, medicaments and biological substances; Z90.49 Acquired absence of other specified parts of digestive tract; D63.1 Anemia in chronic kidney disease; Z91.11 Patient's noncompliance with dietary regimen; Z91.14 Patient's other noncompliance with medication regimen; Y83.0 Surgical operation with transplant of whole organ as the cause of abnormal reaction of the patient, or of later complication, without mention of misadventure at the time of the procedure

== ENCOUNTER → 2019-04-29 | Outpatient (CLI) | payer MEDICARE, MEDICAID ==
[~2019-04-29] MED LIST changes: +CLON0.1D3 TD
--- NOTE | 2019-05-13 02:25 | ECWPNPC ---
PATIENT NAME: OPAL LACEY : 1970 GENDER: MALE VISIT DATE: 04/29/2019 DISCHARGE DATE: 04/29/19 1217 VISIT LOCKED DATE TIME: PHYSICIAN: SHELIA TAN RESOURCE: SHELIA TAN DISCLAIMER : THIS IS A VISIT SUMMARY EXTRACTED FROM THE [facility]. IT IS NOT A COPY OF THE [facility] PROGRESS NOTE. DAVION
== END ==
LOC: M PAIN 11:30
PROVIDERS: ATTEND Nurse Practitioner Family
DX: M54.5 Low back pain (principal); G89.29 Other chronic pain; I10 Essential (primary) hypertension; Z88.1 Allergy status to other antibiotic agents; Z88.6 Allergy status to analgesic agent; Z88.8 Allergy status to other drugs, medicaments and biological substances; Z79.899 Other long term (current) drug therapy

== ENCOUNTER 2019-05-19 08:37 | Inpatient (IN) | payer MEDICARE, MEDICAID ==
[~2019-05-19] VITALS: Ht 180.3 cm; Wt 100.0 kg
[2019-05-19] MEDS ORDERED: cloNIDine HCL 0.1 MG/24 HR PATCH TOP STA (08:52)
[2019-05-19] MEDS ORDERED: ONDANSETRON 4MG/2ML VIAL (J2405) IV ONE (09:00)
[2019-05-19] MEDS ORDERED: hydrALAZINE INJ 20 MG/ML VIAL IV STA (09:11)
[2019-05-19] MEDS ORDERED: LABE20TAB PO (09:32)
[2019-05-19] MEDS ORDERED: LISI-538 PO (09:32)
[2019-05-19] MEDS ORDERED: LOSA50TA88 PO ×2 (09:32→10:15)
[2019-05-19 09:49] LABS: EOS % 1.3 % (0.0-3.0); HEMATOCRIT 31.3 % (42.0-52.0); HEMOGLOBIN 10.2 g/dl (13.5-17.5); LYMPH % 6.5 % (24.0-44.0); MEAN CORPUSCULAR HEMOGLOBIN 30.7 pg (27.0-33.0); MEAN CORPUSCULAR HGB CONC 32.6 g/dl (32.0-36.5); MEAN CORPUSCULAR VOLUME 94.3 fl (80.0-96.0); MONO % 0.6 % (0.0-5.0); NEUTROPHILS # 1.4 10^3/uL (1.5-8.5); RED BLOOD COUNT 3.32 10^6/uL (4.30-6.10)
[2019-05-19 09:58] LABS: INR 1.32; PROTHROMBIN TIME 16.1 SECONDS (11.8-14.0)
[2019-05-19] MEDS ORDERED: ANEXSIA, NORCO 7.5MG/325MG TABLET(HYDROCODONE/APAP) PO ONE (10:00)
[2019-05-19 10:09] LABS: LYMPH # 0.1 10^3/uL (1.5-5.0); PLATELET COUNT, AUTOMATED 88 10^3/uL (150-450); WHITE BLOOD COUNT 1.6 10^3/uL (4.0-10.0)
[2019-05-19] MEDS ORDERED: ATOR1TAB21 PO (10:15)
[2019-05-19 10:17] LABS: ALBUMIN 3.1 GM/DL (3.2-5.2); BILIRUBIN,DIRECT 0.7 MG/DL (0.0-0.2); BILIRUBIN,TOTAL 1.4 MG/DL (0.2-1.0); CK-MB VALUE MASS 3.5 NG/ML (<3.6); MB/CK RELATIVE INDEX 3.57 (< OR =4); TOTAL PROTEIN 6.6 GM/DL (6.4-8.2); TROPONIN I 0.07 NG/ML (< 0.10)
--- NOTE | 2019-05-19 10:25 | REP ---
CHEST, SINGLE VIEW: Single view of the chest was performed. Comparison 02/21/2019. There is cardiomegaly. There is vascular congestion with mild diffuse interstitial edema. No consolidating infiltrate is seen. There is mild calcification of the thoracic aorta. The mediastinal silhouette is unchanged. There is a right renal venous catheter again noted. IMPRESSION: Cardiomegaly with mild vascular congestion and interstitial edema. Electronically Signed by Garrett Kaba MD 05/19/2019 04:34 P
[2019-05-19] MEDS ORDERED: ACETAMINOPHEN TAB 650MG DOSE (2X325MG) PO PRN (12:15)
[2019-05-19] MEDS: SUCROFERRIC OXYHYDROXIDE 500MG CHEW TAB (VELPHORO) PO SCH ×3 (12:30→18:20)
--- NOTE | 2019-05-19 13:26 | HPEPDOC ---
General Date of Admission May 19, 2019 at 12:06 Date of Service: May 19, 2019 Chief Complaint The patient is a 49-year-old male admitted with a reason for visit of Accelerated Hypertension. History of Present Illness 49m hx of esrd on hd, s/p failed renal transplant, htn, presents with htn. Pt wa s at his outpatient dialysis center where he was found to have systolic bps around 250 and was sent here. He denies headache, chest pain, sob, visual changes. He notes he felt cold. Of note he has a long hx of poorly controlled htn, thought possibly to be related to failed transplant and was referred on last admission for tranplant nephrectomy which was not done. A full ROS was performed and negative except as above Home Medications Scheduled Atorvastatin Calcium (Atorvastatin Calcium) 20 Mg Tablet, 20 MG PO QHS, (Reported) Clonidine (Clonidine) 0.1 Mg Patch.tdwk, 0.1 MG TD 1XWK, (Reported) Hydralazine HCl (Hydralazine HCl) 50 Mg Tablet, 50 MG PO TID, (Reported) Labetalol HCl (Labetalol HCl) 200 Mg Tablet, 200 MG PO BID, (Reported) Lisinopril (Lisinopril) 20 Mg Tablet, 20 MG PO BID, (Reported) Losartan Potassium (Losartan Potassium) 50 Mg Tablet, 50 MG PO DAILY, (Reported) Multivitamins (Child Chew Vitamin) 1 Tab Chew, 1 TAB PO DAILY, (Reported) Sucroferric Oxyhydroxide (Velphoro) 500 Mg Tab.chew, 1,000 MG PO WM, (Reported) Scheduled PRN Alprazolam (Alprazolam) 1 Mg Tab, 1 MG PO BID PRN for ANXIETY, (Reported) Hydrocodone/Acetaminophen ([place] 10-325 Tablet) 1 Tab Tab, 1 TAB PO Q6H PRN for PAIN, (Reported) Allergies Coded Allergies: Cephalosporins (Verified Allergy, Intermediate, HIVES, CEFTIN, 11/27/18) hydroxyzine (Verified Adverse Reaction, Intermediate, INCREASED LETHARGY, LOSS OF BALANCE, 11/27/18) ketorolac (Verified Adverse Reaction, Mild, DIZZY, NAUSEA, 11/27/18) tramadol (Verified Adverse Reaction, Mild, DIZZY, 05/19/19) Past Medical History Medical History ESRD, htn Surgical History renal transplant Family History Significant Family History: No pertinent family hx Social History * Smoker: former Smoker Alcohol: Denies Drugs: denies A-FIB/CHADSVASC A-FIB History Current/History of A-Fib/PAF?: No Physical Examination General Exam: Positive: Alert, No Acute Distress Eye Exam: Positive: PERRLA, Conjunctiva & lids normal, EOMI; Negative: Sclera icteric ENT Exam: Positive: Atraumatic, Mucous membr. moist/pink, Pharynx Normal Neck Exam: Positive: Supple; Negative: JVD, thyromegaly Chest Exam: Positive: Clear to auscultation, Normal air movement Heart Exam: Positive: Rate Normal, Regular Rhythm, Normal S1, Normal S2; Negative: Murmurs, Rubs Telemetry: Positive: No significant arrhythmia Abdomen Exam: Positive: Normal bowel sounds, Soft; Negative: Tenderness, Hepatospenomegaly Extremity Exam: Positive: Normal pulses; Negative: Clubbing, Cyanosis, Edema Skin Exam: Positive: Nl turgor and temperature; Negative: Breakdown, Lesion Neuro Exam: Positive: Normal Gait, Normal Speech, Cranial Nerves 3-12 NL, Reflexes 2+ Psych Exam: Positive: Mental status NL, Mood NL, Oriented x 3 Vital Signs Vital Signs Date Time Temp Pulse Resp B/P (MAP) Pulse Ox O2 Delivery O2 Flow Rate FiO2 05/19/19 10:52 91 05/19/19 10:30 18 05/19/19 10:07 118 05/19/19 10:04 174/84 (114) 05/19/19 09:52 Room Air 05/19/19 09:15 2.0 05/19/19 08:50 99.4 Laboratory Data Labs 24H Laboratory Tests 2 05/19/19 09:34: Immature Granulocyte % (Auto) 0.6, White Blood Count 1.6L, Red Blood Count 3.32L, Hemoglobin 10.2L, Hematocrit 31.3L, Mean Corpuscular Volume 94.3, Mean Corpuscular Hemoglobin 30.7, Mean Corpuscular Hemoglobin Concent 32.6, Red Cell Distribution Width 18.9H, Platelet Count 88L, Neutrophils (%) (Auto) 91.0H, Lymphocytes (%) (Auto) 6.5L, Monocytes (%) (Auto) 0.6, Eosinophils (%) (Auto) 1.3, Basophils (%) (Auto) 0.0, Neutrophils # (Auto) 1.4L, Lymphocytes # (Auto) 0.1L, Monocytes # (Auto) 0.0, Eosinophils # (Auto) 0.0, Basophils # (Auto) 0.0, Nucleated Red Blood Cells % (auto) 0.0, Immature Platelet Fraction 4.0, Prothrombin Time 16.1H, Prothromb Time International Ratio 1.32, Lactic Acid L evel 1.2, Aspartate Amino Transf (AST/SGOT) 20, Alanine Aminotransferase (ALT/SGPT) 39, Alkaline Phosphatase 72, Total Bilirubin 1.4H, Direct Bilirubin 0.7H, Total Creatine Kinase 98, Creatine Kinase MB 3.5, Creatine Kinase MB Relative Index 3.57, Troponin I 0.07, Total Protein 6.6, Albumin 3.1L, Al bumin/Globulin Ratio 0.89L, Lipase 223 05/19/19 09:59: POC Glucose (Misc Panel) 69L, POC Sodium (Misc Panel) 138, POC Potassium (Misc Panel) 4.1, POC Chloride (Misc Panel) 103, POC Total CO2 (Misc Panel) 25.0, POC Blood Urea Nitrogen (Misc Panel 44H, POC Ionized Calcium (Misc Panel) 4.6, POC Creatinine (Misc Panel) 9.3H, POC Hematocrit (Misc Panel) 32.0L CBC/BMP Laboratory Tests 05/19/19 09:34 Red Blood Count 3.32 L, Mean Corpuscular Volume 94.3, Mean Corpuscular Hemoglobin 30.7, Mean Corpuscular Hemoglobin Concent 32.6, Red Cell Distribution Width 18.9 H, Neutrophils (%) (Auto) 91.0 H, Lymphocytes (%) (Auto) 6.5 L, Monocytes (%) (Auto) 0.6, Eosinophils (%) (Auto) 1.3, Basophils (%) (Auto) 0.0, Neutrophils # (Auto) 1.4 L, Lymphocytes # (Auto) 0.1 L, Monocytes # (Auto) 0.0, Eosinophils # (Auto) 0.0, Basophils # (Auto) 0.0 Microbiology Microbiology 05/19/19 Blood Culture, Received Pending 05/19/19 Blood Culture, Received Pending Assessment/Plan 49m p/w accelerated htn possibly related to noncompliance with meds and diet, also could be related to failed transplant seen by renal with hd being performed currently continue home regimen of hydralazine, clonidine, lisinopril, and labetalol may need to add ccb if not improving ESRD continue hd monitor electrolytes Plan / VTE VTE Prophylaxis Ordered?: Yes TITO SKAGGS MD May 19, 2019 13:26
[2019-05-19] MEDS ORDERED: HEPARIN 1,000 UNITS/ML 10ML VIAL (FOR RADIOLOGY& DIALYSIS ONLY) XX ONE (13:30)
[2019-05-19 15:10] VITALS: BP 110/68
[2019-05-19 16:00] VITALS: BP 176/93
[2019-05-19] MEDS: **hydrALAZINE** 50 MG TAB PO SCH ×2 (16:14→20:09)
[2019-05-19] MEDS: NORCO, ANEXSIA 5/325MG TABLET (HYDROcodone/ACETAMINOPHEN) PO PRN ×2 (16:53→23:55)
[2019-05-19 19:30] VITALS: BP 192/120
[2019-05-19 19:51] VITALS: BP 167/107
[2019-05-19 20:00] VITALS: BP 162/110
[2019-05-19] MEDS: HEPARIN SOD (PORCINE) 5000 UNITS/ML VIAL SC SCH (20:05)
[2019-05-19] MEDS: LABETALOL 200 MG TAB PO SCH (20:08)
[2019-05-19] MEDS: LISINOPRIL 20 MG TAB PO SCH (20:09)
[2019-05-19] MEDS ORDERED: DARBEPOETIN 100 MCG/0.5 ML *DIALYSIS* SYRINGE (J0882) IV SCH (20:45)
--- NOTE | 2019-05-19 20:53 | ECGEPIP ---
[facility] - ED Test Date: 2019-05-19 Pat Name: OPAL LACEY Department: Room: - Gender: Male [employer]: PMO : 1970 Requested By: Lore Suarez Order Number: [id number] Reading MD: Lore Suarez Measurements Intervals [place] Rate: 108 P: 55 AR: 171 QRS: 31 QRSD: 90 T: 98 QT: 321 QTc: 431 Interpretive Statements SINUS TACHYCARDIA NONSPECIFIC ST & T-WAVE ABNORMALITY SIMILAR 02/19/19 Electronically Signed on 05-19-2019 20:53:19 EDT by Lore Suarez
--- NOTE | 2019-05-19 21:35 | CR ---
DATE OF CONSULTATION: 05/19/2019 REQUESTING PHYSICIAN: Dr. Son Rodriguez CONSULTING PHYSICIAN: Dr. Jb Cuenca REASON FOR CONSULTATION: Management of end-stage renal disease and accelerated hypertension. CHIEF COMPLAINT: The patient was sent from the dialysis center because of elevated blood pressures and headache. 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 He was at dialysis center getting his regular hemodialysis session done. However, after 1 hour of dialysis, he kept on having headaches, nausea and elevated blood pressure with systolic more than 200s. Although one liter of fluid was removed, his blood pressures were not getting better. The patient was sent to the emergency room for further evaluation, and the patient was evaluated in the emergency room (ER). He was found to be in hypertensive urgency. The patient claims to be compliant with his medications but given his prior history, he is very noncompliant with his medications and outpatient followups. He was given IV hydralazine in the emergency room, clonidine patch was placed on the skin, nephrology service was called for further help in the management of this patient. The patient needed my emergent attention. I saw and evaluated the patient at the bedside today morning in the emergency room, and i arranged urgent hemodialysis of this patient. PAST MEDICAL HISTORY: Past medical history of end-stage renal disease - on hemodialysis every Sunday, Sunday, Sunday. History of accelerated hypertension in the past as well, history of anxiety, failed renal allograft and secondary hyperparathyroidism. Diastolic congestive heart failure, pulmonary hypertension. Status post right lower quadrant renal transplant in May 2015. Status post cholecystectomy in 2011. Status post forearm arteriovenous (AV) fistula placement and ligation in the past. Status post right internal jugular (IJ) tunneled hemodialysis catheter placement. ALLERGIES: The patient is allergic to HYDROXYZINE, CEPHALOSPORINS, KETOROLAC and TRAMADOL. FAMILY HISTORY: No significant family history of end-stage renal disease requiring hemodialysis. SOCIAL HISTORY: The patient denies any smoking, illicit drug abuse or alcohol abuse. He lives with his teenage son. REVIEW OF SYSTEMS: Constitutional: Patient reports feeling very weak and tired. Eyes: He denies any blurry vision, double vision. Ear, Nose and Throat (ENT): Denies any dysphagia, odynophagia. Cardiovascular: Denies any chest pain or palpitations. Respiratory: Denies any shortness of breath. Gastrointestinal (GI): He reports nausea. Genitourinary: Denies any dysuria or hematuria. Musculoskeletal: Denies any muscle aches and pains. Skin: He denies any rashes or ulcers. Central nervous system ([employer]): He reports headaches. Psychiatric: He denies any depression or anxiety at this time. Endocrine: There is a history of secondary hyperparathyroidism. Hematology/Oncology: He denies any easy bleeding or bruising. All other review of systems is negative. HOME MEDICATIONS: - alprazolam 1 mg by mouth twice a day as needed for anxiety - atorvastatin 20 mg nightly - clonidine patch 0.1 mg once a week - hydralazine 50 mg by mouth three times a day - [place] tablets as needed - labetalol 200 mg by mouth twice a day - lisinopril 20 mg by mouth twice a day - multivitamin - Velphoro one gram by mouth with meals. He also reports: - amlodipine 10 mg daily - calcitriol 0.25 mcg by mouth Sunday, Sunday, Sunday - vitamin D CURRENT INPATIENT MEDICATIONS: The patient's inpatient medications include: - Tylenol as needed - alprazolam as needed for anxiety - clonidine 0.1 mg - hydralazine 50 mg by mouth three times a day - labetalol 200 mg by mouth twice a day - lisinopril 20 mg by mouth twice a day - Zofran as needed - Velphoro one gram by mouth with meals ASSESSMENT: 49-year-old male with end-stage renal disease, on hemodialysis, hypertension, anxiety and depression, failed renal allograft, admitted at this time with accelerated hypertension. PLAN: 1. Accelerated hypertension. It is secondary to noncompliance with medication. The patient does not take the medications at home. He could not finish his dialysis. I would do more dialysis and optimize his fluid status and remove at least 2.5 to 3 liters of fluid. Continue the home medications. The patient's blood pressure usually gets better with his home regimen, only I would avoid lowering the blood pressure more than 25% in the first 24 hours. 2. End-stage renal disease, on hemodialysis. The patient's regular dialysis days are Sunday, Sunday, Sunday. He could not finish his dialysis as outpatient. I would do his dialysis again for 3 hours and remove at least 3 kg of fluid. 3. Anemia in end-stage renal disease. Hemoglobin is 10.2, which is optimal. I will start the patient on Aranesp with hemodialysis as well. 4. Chronic kidney disease mineral bone disease. Continue current dose of Velphoro one gram by mouth three times a day with meals. 5. Secondary hyperparathyroidism. Continue home dose of calcitriol 0.25 mcg Sunday, Sunday, Sunday with dialysis. Failed renal allograft. The patient was referred to [facility] in the past for transplant nephrectomy. However, it was not done as inpatient and patient asked to follow up electively as outpatient for nephrectomy but the patient never followed up with them. Thank you for involving me in the care of this patient. I shall be happy to follow the patient along with you tomorrow morning.
[2019-05-19] MEDS: ALPRAZolam 0.5 MG TAB PO PRN ×2 (22:10→22:17)
[2019-05-20] VITALS (12 sets, daily range): BP systolic 130–167; BP diastolic 82–108; O2SAT 100
[2019-05-20] MEDS ORDERED: LABETALOL HCL 100 MG/20 ML VIAL IV ONE (00:15)
[2019-05-20 01:32] LABS: ABG BASE EXCESS -2.7 (-2.0-2.0); ABG HCO3 20.2 MEQ/L (22.0-26.0); ABG O2 SATURATION 99.3 % (95.0-99.0); ABG PARTIAL PRESSURE CO2 29.1 mmHg (35.0-45.0); ABG STANDARD HCO3 22.2 MEQ/L (22.0-26.0); ABG TOTAL CO2 21.1 MEQ/L (22.0-29.0); ABG pH (ARTERIAL) 7.459 UNITS (7.350-7.450)
[2019-05-20] MEDS ORDERED: LORazepam 2 MG/ML VIAL (J2060) IV STA (02:02)
--- NOTE | 2019-05-20 03:18 | IPNPDOC ---
Text Note Date of Service The patient was seen on 05/20/19. NOTE I was called late this evening because Helio had a persistent headache and was acting strange per the nursing staff. His BP was 169/96 at that time, but he remained symptomatic. Pulse 95. I came in and personally assessed him. He affirmed the headache with a pounding component. Possibly some nausea, but no vomiting. My concern is for hypertensive encephalopathy. I called and briefly discussed his situation with Dr. Cuenca; we agreed that either labatolol or hydralazine IV would be appropriate. If neither of those work then perhaps a nifedipine drip will be needed. As his pulse is on the higher side I opted to use labatolol, 20mg IV push x 1. After the IV labatolol his BP improved to 144/100 with a pulse of 78. I don't want his SBP down much farther at this time, though I'd be happy with the DBP a little lower. He remained reasonably symptomatic, but his symptoms are not progressing. I reevaluated him and noted he was breathing deeply, [place] vs. hyperventilation. His nurse added supplemental oxygen. My concern is now that he may be developing hypertensive brainstem encephalopathy. I ordered an ABG and stat MRI. The ABG showed ?mild respiratory alkalosis. He had difficulty tolerating the MRI because of his agitation. I ordered an additional 1mg of lorazepam, but it didn't seem to help. I don't want to use any more benzodiazepine because of his ESRD and the increasing risk of respiratory depression. The partial MRI examination will be transmitted, but nursing will take him back up stairs and try to keep him calm. I will order an ammonia level to be added to his AM labs. He is reportedly anuric, so I don't think ordering an urine to evaluate for protein will help. Will continue to monitor. VS,Fishbone, I+O VS, Fishbone, I+O Laboratory Tests 05/19/19 09:34 Red Blood Count 3.32 L, Mean Corpuscular Volume 94.3, Mean Corpuscular Hemoglobin 30.7, Mean Corpuscular Hemoglobin Concent 32.6, Red Cell Distribution Width 18.9 H, Neutrophils (%) (Auto) 91.0 H, Lymphocytes (%) (Auto) 6.5 L, Monocytes (%) (Auto) 0.6, Eosinophils (%) (Auto) 1.3, Basophils (%) (Auto) 0.0, Neutrophils # (Auto) 1.4 L, Lymphocytes # (Auto) 0.1 L, Monocytes # (Auto) 0.0, Eosinophils # (Auto) 0.0, Basophils # (Auto) 0.0 Vital Signs Date Time Temp Pulse Resp B/P (MAP) Pulse Ox O2 Delivery O2 Flow Rate FiO2 05/20/19 00:40 78 144/100 (115) 05/20/19 00:25 20 1.0 05/20/19 00:20 98.1 100 05/19/19 09:52 Room Air I&O- Last 24 Hours up to 6 AM 05/20/19 06:00 Intake Total 920 ml Output Total 2500 ml Balance -1580 ml Fabian Pedraza MD May 20, 2019 03:18
--- NOTE | 2019-05-20 03:41 | REPVR ---
PROCEDURE INFORMATION: Exam: MR Head Without Contrast Exam date and time: 05/20/2019 2:57 AM Clinical history: 49 years old, male; Alteration of consciousness and altered mental status/memory loss and dizziness and speech disturbance and syncope and collapse and walking, difficulty and weakness, extremity; Bilateral; Somnolence (drowsiness); Confusion or disorientation; Unspecified; Patient HX: AMS, PT has trouble staying awake very aggitated, high BP, PT is unable to complete scan at this time PT is combative and refused further scanning; Additional info: AMS, ? hypertensive brainstem encephalopathy TECHNIQUE: Imaging protocol: MR of the head without contrast. COMPARISON: No relevant prior studies available. Study limitations: Brain MRI examination is incomplete, as the patient could not tolerate completion. Sequences completed include axial apparent diffusion coefficient, axial B1000 diffusion, T1 axial and T1 sagittal flair. Sagittal flair images are significantly compromised by motion artifact. Consider repeat examination and completion when the patient is better able to tolerate the exam. FINDINGS: Brain parenchymal volume appears age-appropriate. No asymmetric encephalomalacia is seen No midline shift is seen. The ventricles do not appear dilated. Intracranial hemorrhage cannot be assessed on this exam. No obvious extra-axial fluid collection is seen. The corpus callosum is well formed. The pituitary sella does not appear enlarged. Appearance and caliber of the visualized brainstem is within normal limits. The cerebellar tonsils are not ectopic or herniated. No diminished ADC signal is seen with corresponding diffusion weighted hyperintensity, to suggest acute ischemia. Imaging is otherwise nondiagnostic. Brainstem encephalopathy is not reliably assessed on this exam. Consider repeat exam for completion, when the patient is better able to tolerate completion. IMPRESSION: This is an incomplete examination. Limitations and recommendations discussed above. No evidence of acute ischemia is seen. Other findings discussed above in detail. Electronically signed by: Franc Gutierrez On 05/20/2019 03:40:24 AM
[2019-05-20 06:19] LABS: HEMATOCRIT 31.7 % (42.0-52.0); HEMOGLOBIN 10.1 g/dl (13.5-17.5); MEAN CORPUSCULAR HEMOGLOBIN 30.1 pg (27.0-33.0); MEAN CORPUSCULAR HGB CONC 31.9 g/dl (32.0-36.5); MEAN CORPUSCULAR VOLUME 94.6 fl (80.0-96.0); RED BLOOD COUNT 3.35 10^6/uL (4.30-6.10); WHITE BLOOD COUNT 23.6 10^3/uL (4.0-10.0)
[2019-05-20 06:55] LABS: PLATELET COUNT, AUTOMATED 61 10^3/uL (150-450)
--- NOTE | 2019-05-20 07:44 | IPNPDOC ---
Subjective Date Seen The patient was seen on 05/20/19. Subjective Chief Complaint/HPI hypertensive crisis Events since last encounter Patient significantly sedated this morning after receiving lorazepam in attempt to obtain MRI overnight due to MS changes. Minimal ROS obtained due to sedation General: Reports: ROS Unobtainable Objective Physical Examination General Exam: Positive: Alert (lethargic), No Acute Distress Eye Exam: Positive: PERRLA, Conjunctiva & lids normal, EOMI; Negative: Sclera icteric ENT Exam: Positive: Atraumatic, Mucous membr. moist/pink, Pharynx Normal Neck Exam: Positive: Supple; Negative: JVD, thyromegaly Chest Exam: Positive: Clear to auscultation, Normal air movement Heart Exam: Positive: Rate Normal, Regular Rhythm, Normal S1, Normal S2; Negative: Murmurs, Rubs Telemetry: Positive: No significant arrhythmia Abdomen Exam: Positive: Normal bowel sounds, Soft; Negative: Tenderness, Hepatospenomegaly Extremity Exam: Positive: Edema (2+ edema up to knee), Normal pulses; Negative: Clubbing, Cyanosis Skin Exam: Positive: Nl turgor and temperature; Negative: Breakdown, Lesion Neuro Exam: Positive: Normal Gait, Normal Speech, Cranial Nerves 3-12 NL, Reflexes 2+ Psych Exam: Positive: Mental status NL, Mood NL, Oriented x 3 Assessment /Plan Problems (1) Hypertensive urgency Status: Acute Response to Treatment: Improving Problem Text: Improved on current medication. Patient hx of non-compliance with treatments in the past. Possibly related to non-compliance. (2) ESRD (end stage renal disease) on dialysis Status: Chronic Problem Text: Nephrology consulted and managing. s/p HD session yesterday. Labs pending for this morning (3) Failed kidney transplant Status: Chronic (4) Anemia, chronic renal failure Status: Chronic (5) CHF (congestive heart failure) Permanent Comment: COMMENTS: Normal sinus rhythm without intraventricular conduction disturbance. M-mode and two-dimensional echocardiography was performed with pulsed, continuous wave, color flow and tissue Doppler studies. At least mildly dilated and eccentrically hypertrophied left ventricle with mild global hypokinesis. Moderately dilated left atrium with restrictive impairment of LV diastolic function and significantly elevated mean left atrial pressure. Right heart chamber sizes upper limits of normal with at least mild hypertrophy of the right ventricular free wall degree of right ventricular hypokinesis and Doppler evidence of at least moderate pulmonary hypertension. Mildly dilated inferior vena cava with slightly reduced respiratory collapse in keeping with his central venous pressure of 10 - 15 mmHg. Mild mitral aortic valvular sclerosis without stenosis or insufficiency. Slightly thickened mitral annulus but normal leaflet thickness with reduced leaflet excursion but no posterior systolic buckling. Mild mitral insufficiency. Normal appearing tricuspid valve with mild - moderate insufficiency. No apparent intracardiac mass. Normal aortic root size. Mild to moderate pericardial effusion measuring 1.2 cm laterally and medially and 0.4 cm posteriorly. No sign of cardiac chamber compression or significant variation respiratory variation in pulsed Doppler signals. Based on the increasing size of the pericardial effusion. It may be prudent to consider referral for at least diagnostic / therapeutic pericardial drainage. DD: Lonnie Izquierdo MD, [facility] 02/14/19 1651 14 DS: EMANUEL 02/15/19 1242 <Electronically signed by Lonnie Izquierdo > 02/15/19 1242 DS2: [~ rep ct labl] Last Edited By: Tatiana Melgoza NP on May 20, 2019 07:42 Status: Chronic Problem Text: + BLE edema today. Diuresis and fluid management per Nephrology Plan/VTE VTE Prophylaxis Ordered?: Yes (Heparin) VS, I&O, 24H, Fishbone Vital Signs/I&O Vital Signs Date Time Temp Pulse Resp B/P (MAP) Pulse Ox O2 Delivery O2 Flow Rate FiO2 05/20/19 06:00 100 Nasal Cannula 2.0 05/20/19 04:03 130/84 (99) 05/20/19 04:00 96.1 79 18 I&O- Last 24 Hours up to 6 AM 05/20/19 06:00 Intake Total 1280 ml Output Total 2500 ml Balance -1220 ml Laboratory Data 24H LABS Laboratory Tests 2 05/19/19 09:34: Immature Granulocyte % (Auto) 0.6, White Blood Count 1.6L, Red Blood Count 3.32L, Hemoglobin 10.2L, Hematocrit 31.3L, Mean Corpuscular Volume 94.3, Mean Corpuscular Hemoglobin 30.7, Mean Corpuscular Hemoglobin Concent 32.6, Red Cell Distribution Width 18.9H, Platelet Count 88L, Neutrophils (%) (Auto) 91.0H, Lymphocytes (%) (Auto) 6.5L, Monocytes (%) (Auto) 0.6, Eosinophils (%) (Auto) 1.3, Basophils (%) (Auto) 0.0, Neutrophils # (Auto) 1.4L, Lymphocytes # (Auto) 0.1L, Monocytes # (Auto) 0.0, Eosinophils # (Auto) 0.0, Basophils # (Auto) 0.0, Nucleated Red Blood Cells % (auto) 0.0, Immature Platelet Fraction 4.0, Prothrombin Time 16.1H, Prothromb Time International Ratio 1.32, Lactic Acid Level 1.2, Aspartate Amino Transf (AST/SGOT) 20, Alanine Aminotransferase (ALT/SGPT) 39, Alkaline Phosphatase 72, Total Bilirubin 1.4H, Direct Bilirubin 0.7H, Total Creatine Kinase 98, Creatine Kinase MB 3.5, Creatine Kinase MB Relative Index 3.57, Troponin I 0.07, Total Protein 6.6, Albumin 3.1L, Albumi n/Globulin Ratio 0.89L, Lipase 223 05/19/19 09:59: POC Glucose (Misc Panel) 69L, POC Sodium (Misc Panel) 138, POC Potassium (Misc Panel) 4.1, POC Chloride (Misc Panel) 103, POC Total CO2 (Misc Panel) 25.0, POC Blood Urea Nitrogen (Misc Panel 44H, POC Ionized Calcium (Misc Panel) 4.6, POC Creatinine (Misc Panel) 9.3H, POC Hematocrit (Misc Panel) 32.0L 05/19/19 23:32: Bedside Glucose (Misc Panel) 117H 05/20/19 01:19: Blood Gas Bicarbonate Standard 22.2, Arterial Blood pH 7.459H, Arterial Blood Partial Pressure CO2 29.1L, Arterial Blood Partial Pressure O2 156.0H, Arterial Blood Total CO2 21.1L, Arterial Blood HCO3 20.2L, Arterial Blood Base Excess - 2.7L, Arterial Blood Oxygen Saturation 99.3H 05/20/19 05:44: 05/20/19 05:48: Nucleated Red Blood Cells % (auto) 0.0 CBC/BMP Laboratory Tests 05/19/19 09:34 Red Blood Count 3.32 L, Mean Corpuscular Volume 94.3, Mean Corpuscular Hemoglobin 30.7, Mean Corpuscular Hemoglobin Concent 32.6, Red Cell Distribution Width 18.9 H, Neutrophils (%) (Auto) 91.0 H, Lymphocytes (%) (Auto) 6.5 L, Monocytes (%) (Auto) 0.6, Eosinophils (%) (Auto) 1.3, Basophils (%) (Auto) 0.0, Neutrophils # (Auto) 1.4 L, Lymphocytes # (Auto) 0.1 L, Monocytes # (Auto) 0.0, Eosinophils # (Auto) 0.0, Basophils # (Auto) 0.0 05/20/19 05:48 Red Blood Count 3.35 L, Mean Corpuscular Volume 94.6, Mean Corpuscular Hemoglobin 30.1, Mean Corpuscular Hemoglobin Concent 31.9 L, Red Cell Distribution Width 19.3 H Microbiology Microbiology 05/19/19 Blood Culture, Received Pending 05/19/19 Blood Culture, Received Pending Tatiana Melgoza [facility] May 20, 2019 07:44
[2019-05-20 07:46] LABS: ALT/SGPT 61 U/L (12-78); BILIRUBIN,TOTAL 1.5 MG/DL (0.2-1.0); BLOOD UREA NITROGEN 38 MG/DL (7-18); CALCIUM LEVEL 8.8 MG/DL (8.5-10.1); CARBON DIOXIDE LEVEL 28 MEQ/L (21-32); CHLORIDE LEVEL 101 MEQ/L (98-107); CREATININE FOR GFR 7.14 MG/DL (0.70-1.30); GLOMERULAR FILTRATION RATE 8.8 (>60); GLUCOSE, FASTING 93 MG/DL (70-100); POTASSIUM SERUM 5.7 MEQ/L (3.5-5.1); SODIUM LEVEL 136 MEQ/L (136-145); TOTAL PROTEIN 6.3 GM/DL (6.4-8.2)
[2019-05-20] MEDS: LISINOPRIL 20 MG TAB PO SCH ×2 (08:10→20:56)
[2019-05-20] MEDS: **hydrALAZINE** 50 MG TAB PO SCH ×3 (08:10→20:57)
[2019-05-20] MEDS: HEPARIN SOD (PORCINE) 5000 UNITS/ML VIAL SC SCH ×2 (08:11→20:55)
[2019-05-20] MEDS: SUCROFERRIC OXYHYDROXIDE 500MG CHEW TAB (VELPHORO) PO SCH ×3 (08:11→17:10)
[2019-05-20] MEDS: LABETALOL 200 MG TAB PO SCH ×2 (08:11→20:56)
--- NOTE | 2019-05-20 13:53 | IPN ---
DATE: 05/20/2019 This note supplements Tatiana Melgoza NP note. Helio's blood cultures showed positive for candidemia. He has a leukocytosis with a white count of 23,000. Clinically, he feels better. He says that he is back to his usual self. He slept very well after the Ativan. He is conversant and his headache is nearly resolved. Her has a tunneling dialysis catheter present. IMPRESSION: 1. Candidemia in a patient with a dialysis catheter. PLAN: Case was discussed with Dr. Damon Marsh from infectious disease and Dr. Cuenca from nephrology, will be consulted. We will begin fluconazole. I called clinical pharmacology and went spent some time discussing the dose. During that interim, fluconazole had already been ordered by nephrology. I will defer to their dosing.
[2019-05-20] MEDS ORDERED: SOD POLYSTYRENE SULFONATE SUSP 15 GM/60 ML UD PO ONE (14:00)
[2019-05-20] MEDS ORDERED: FLUCONAZOLE 200 MG in IV 1 EA IV ONE (14:00)
[2019-05-20] MEDS: NORCO, ANEXSIA 5/325MG TABLET (HYDROcodone/ACETAMINOPHEN) PO PRN ×2 (15:34→22:04)
[2019-05-20] MEDS: MICAFUNGIN SODIUM 100 MG in D5W MINI-BAG PLUS 100 ML IV SCH (17:10)
[2019-05-20] MEDS ORDERED: SLF 3 ML SYR IV PRN (17:15)
--- NOTE | 2019-05-20 20:09 | CR ---
DATE: 05/20/2019 INFECTIOUS DISEASE CONSULTATION Asked to consult by Dr. Sena for evaluation of candidemia. HISTORY OF PRESENT ILLNESS: Mr. Rosen is a 49-year-old gentleman with a history of end-stage renal disease on hemodialysis through a Perma-Cath. The patient was getting outpatient dialysis when he was found to have a hypertensive emergency. He had systolic blood pressures over 250. He was having some confused episodes, and therefore, he was sent to the emergency room. The patient denied having fever or chills. Currently he falls asleep whenever he is asked any questions. He denies having a headache, chest pain, shortness of breath, visual changes. He was feeling somewhat chilly. 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 He has been off immunosuppressive therapy for renal transplant since 2018. PAST MEDICAL HISTORY: Significant for poorly controlled hypertension, end-stage renal disease due to hypertension, history of noncompliance, according to nephrology notes, the patient states he is always compliant with medication. History of anxiety disorder. On hemodialysis Sunday, Sunday, Sunday. Diastolic congestive heart failure. Pulmonary hypertension. 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 The patient did not like the site of the fistula, right IJ tunneled hemodialysis catheter about a year ago ALLERGIES: HYDROXYZINE, CEPHALOSPORINS, KETOROLAC, TRAMADOL. FAMILY HISTORY: End-stage renal disease requiring hemodialysis. SOCIAL HISTORY: He denies smoking, illicit drug use or alcohol use. He lives with his son who is a teenager. No one else is at home. REVIEW OF SYSTEMS: He feels weak and sleepy. He falls asleep when asked questions. Denies blurry vision. No chest pain or shortness of breath. He stated he was somewhat fluid overloaded but today he feels better. He has some nausea, but he denies any kidney pain. He has no urine output. He denies any muscle pain. He does have a faint headache. MEDICATIONS: - fluconazole 200 mg IV; one-time dose was ordered but never given. - labetalol 200 mg by mouth twice a day - lisinopril 20 mg by mouth twice a day - heparin subcu 5000 units subcu every 12 hours - Aranesp - Vicodin as needed for pain - hydralazine 50 mg by mouth three times a day - Velphoro 1000 mg by mouth with meals - Tylenol as needed - alprazolam 1 mg by mouth twice a day as needed LABORATORY DATA: White count on admission was 1.6, hemoglobin 10.2, hematocrit 31.3, platelets 88. Today his white count is 23.6, hemoglobin 10.1, hematocrit 31.7, platelets 61. Sodium 136, potassium 5.7, chloride 101, bicarbonate 28, BUN 38, creatinine 7.14, glucose 93, calcium 8.8, bilirubin 1.5, AST 44, ALT 61, alkaline phosphatase 103, total protein 6.3, albumin 3, lipase 223, ammonia 24. Brain MRI: Incomplete examination. Limited due to the fact that the patient could not complete the exam and was done without contrast. No evidence of acute ischemia. Chest x-ray: Cardiomegaly with mild vascular congestion. On physical exam, he is a lethargic gentleman, in no acute distress. Temperature is 98.1, pulse 79, respirations 19, blood pressure 162/93, oxygen saturation (O2 sat) 93% on room air. Heart: Normal S1, S2. No murmurs appreciated. Lungs are clear. No wheezes, rales or rhonchi. Abdomen is soft, nontender. No hepatosplenomegaly. Extremities: Trace edema bilaterally. No lesions noted. Right arm arteriovenous (AV) fistula scar, well healed. There is no thrill. No sign of infection. Oropharynx is clear. Neck is supple. No jugular venous distention (JVD). No neck stiffness. The patient wakes up and falls asleep, stops answering questions within seconds. IMPRESSION: This is a 49-year-old gentleman admitted with a hypertensive emergency who also had leukopenia and thrombocytopenia, today has some leukocytosis and was found to have candidemia, most likely related to his hemodialysis catheter. The patient has a history of end-stage renal disease from hypertension, blood pressure is much better controlled. PLAN: Discontinue fluconazole until identification of the Pennie, whether albicans or not albicans. The patient will be started on IV micafungin 100 mg daily. Repeat blood cultures tomorrow and use a temporary one if needed for dialysis. Please obtain echocardiogram, dilated eye exam to rule out endophthalmitis. 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 Repeat CBC, CRP, ESR in the morning. Repeat blood cultures until negative. Case has been discussed with Dr. Sena and Dr. Ojeda for removal of his dialysis catheter. [facility]
[2019-05-20] MEDS: SLF 3 ML SYR IV SCH (22:05)
--- NOTE | 2019-05-20 22:13 | IPN ---
DATE: 05/20/2019 SUBJECTIVE: The patient was seen and examined at the bedside today morning. He was dialyzed yesterday, 2.5 liters of fluid was removed. Despite that, he was hypertensive yesterday. He required IV labetalol last night. Blood pressures are better controlled today. However, the patient has developed leukocytosis today. His blood cultures preliminary (prelim) are growing yeastlike organism. Infectious disease (ID) consult was requested. The patient reports that he is feeling better today since his blood pressures are improved. He denies any fevers or chills. The patient denies any headaches at this time. OBJECTIVE: Vital signs: Temperature is 98.1 degrees Fahrenheit, blood pressure 162/98, pulse is 79, respiratory rate of 19, saturating 93% on room air. Intake and output: Ultrafiltration with hemodialysis was 2.5 liters. Weight on the bed scale is 88.1 kg. PHYSICAL EXAMINATION: General: The patient is awake, alert, oriented times three, laying in bed, in no apparent distress. Head and neck exam: Extraocular muscles intact. Pupils equally round and reactive to light. Mucous membranes are moist. Neck is supple. There is no jugular venous distention (JVD). Cardiovascular: S1, S2, regular rate. No edema of the bilateral lower extremities. The patient has an internal jugular (IJ) tunneled hemodialysis catheter. Respiratory: Chest is clear to auscultation bilaterally. Bilateral equal air entry. No rales or rhonchi. Abdomen: Soft, obese, positive bowel sounds. Nontender. No organomegaly. Musculoskeletal: No clubbing or cyanosis. Pulses are 2+. 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 Power is 5/5 in all extremities. LAB REVIEW: CBC showed a WBC of 23.6, hemoglobin is 10.1, platelets are 61. BMP showed sodium 136, potassium 5.7, chloride 101, bicarbonate 28, BUN 38, creatinine is 7.1, calcium 8.8, total bilirubin 1.5, albumin is 3. IMAGING STUDIES: MRI of the brain was done overnight, which is not a good study since the patient was moving. It was nondiagnostic. CURRENT INPATIENT MEDICATIONS: The patient's medications were all reviewed by me. I ordered a dose of fluconazole IV, but it was not given. I see that ID has ordered micafungin 100 mg IV daily. The patient was given a dose of labetalol 20 mg IV times one dose. He was also given a dose of IV Ativan. No other change in the medications today as compared with yesterday. ASSESSMENT/PLAN: 1. End-stage renal disease, on hemodialysis. The patient was dialyzed yesterday according to Sunday, Sunday, Sunday schedule. Volume status is optimal. Next hemodialysis will be done tomorrow through a temporary hemodialysis catheter. 2. Positive yeastlike culture. Most likely it is associated with dialysis catheter. Tunneled dialysis catheter will be removed by interventional radiology (IR), and temporary catheter will be placed tomorrow before he gets dialysis. The patient was seen by infectious disease. They have recommended micafungin. I appreciate their input. Echocardiogram was also recommended. 3. Hyperkalemia. The patient was given a dose of Kayexalate. Continued low potassium diet. 4. Anemia in end-stage renal disease. Continue Aranesp with hemodialysis. 5. Accelerated hypertension. Blood pressures are better controlled now. Continue current dose of hydralazine 50 mg by mouth three times a day, labetalol 200 mg by mouth twice a day and lisinopril 20 mg by mouth twice a day.
[2019-05-21] VITALS: BP 134/83
[2019-05-21 04:00] VITALS: BP 119/79
[2019-05-21] MEDS: NORCO, ANEXSIA 5/325MG TABLET (HYDROcodone/ACETAMINOPHEN) PO PRN ×2 (04:49→16:26)
[2019-05-21 05:23] LABS: BASO # 0.1 10^3/uL (0.0-0.2); BASO % 0.4 % (0.0-1.0); EOS # 0.3 10^3/uL (0.0-0.5); HEMOGLOBIN 9.4 g/dl (13.5-17.5); LYMPH # 1.1 10^3/uL (1.5-5.0); LYMPH % 6.9 % (24.0-44.0); MEAN CORPUSCULAR HEMOGLOBIN 30.1 pg (27.0-33.0); MEAN CORPUSCULAR HGB CONC 32.4 g/dl (32.0-36.5); MEAN CORPUSCULAR VOLUME 92.9 fl (80.0-96.0); MONO # 0.9 10^3/uL (0.0-0.8); MONO % 5.5 % (0.0-5.0); NEUTROPHILS # 13.3 10^3/uL (1.5-8.5); NEUTROPHILS % 84.1 % (36.0-66.0); RED BLOOD COUNT 3.12 10^6/uL (4.30-6.10); WHITE BLOOD COUNT 15.8 10^3/uL (4.0-10.0)
[2019-05-21 05:24] LABS: PLATELET COUNT, AUTOMATED 68 10^3/uL (150-450)
[2019-05-21 05:50] LABS: ALBUMIN 2.8 GM/DL (3.2-5.2); BILIRUBIN,TOTAL 0.9 MG/DL (0.2-1.0); C REACTIVE PROTEIN QUANTITATIV 13.8 MG/DL (0.00-0.30); CALCIUM LEVEL 8.7 MG/DL (8.5-10.1); CREATININE FOR GFR 8.73 MG/DL (0.70-1.30); POTASSIUM SERUM 4.6 MEQ/L (3.5-5.1); TOTAL PROTEIN 6.4 GM/DL (6.4-8.2)
[2019-05-21 05:56] LABS: ERYTHROCYTE SEDIMENTATION RATE 31 mm/hr (0-15)
[2019-05-21] MEDS: SLF 3 ML SYR IV SCH ×3 (05:59→22:24)
[2019-05-21 08:00] VITALS: BP 132/78
[2019-05-21] MEDS: SUCROFERRIC OXYHYDROXIDE 500MG CHEW TAB (VELPHORO) PO SCH ×3 (08:04→18:00)
[2019-05-21] MEDS: **hydrALAZINE** 50 MG TAB PO SCH ×3 (08:05→22:25)
[2019-05-21] MEDS: LISINOPRIL 20 MG TAB PO SCH ×2 (08:05→22:25)
[2019-05-21] MEDS: LABETALOL 200 MG TAB PO SCH ×2 (08:06→22:28)
[2019-05-21] MEDS: HEPARIN SOD (PORCINE) 5000 UNITS/ML VIAL SC SCH ×2 (09:00→21:00)
--- NOTE | 2019-05-21 09:13 | IPNPDOC ---
Subjective Date Seen The patient was seen on 05/21/19. Subjective Chief Complaint/HPI Hypertensive emergency Events since last encounter + Blood culture with yeast. ID consulted. Dialysis catheter has been removed and IR consulted for replacement. Started on Micafungin per ID. Echocardiogram pending. repeat blood cultures ordered for today. BP has remained stable. See nephrology and and ID notes for further information. General: Reports: ROS Unobtainable Objective Physical Examination General Exam: Positive: Alert (patient sleeping wakes to see who is in room and refuses to wake to review medical case. ), No Acute Distress Eye Exam: Positive: PERRLA, Conjunctiva & lids normal, EOMI; Negative: Sclera icteric ENT Exam: Positive: Atraumatic, Mucous membr. moist/pink, Pharynx Normal Neck Exam: Positive: Supple; Negative: JVD, thyromegaly Chest Exam: Positive: Clear to auscultation, Normal air movement Heart Exam: Positive: Rate Normal, Regular Rhythm, Normal S1, Normal S2; Negative: Murmurs, Rubs Telemetry: Positive: No significant arrhythmia Abdomen Exam: Positive: Normal bowel sounds, Soft; Negative: Tenderness, Hepatospenomegaly Extremity Exam: Positive: Edema (2+ edema up to knee), Normal pulses; Negative: Clubbing, Cyanosis Skin Exam: Positive: Nl turgor and temperature; Negative: Breakdown, Lesion Neuro Exam: Positive: Normal Gait, Normal Speech, Cranial Nerves 3-12 NL, Reflexes 2+ Psych Exam: Positive: Mental status NL, Mood NL, Oriented x 3 Assessment /Plan Problems (1) Fungemia Status: Acute Problem Specific Plan: Consult Specialist, Monitor Clinically Problem Text: ID consulted and following. nephro aware. Day #2 Micafungin (2) Hypertensive urgency Status: Acute Response to Treatment: Improving Problem Text: Improved on current medication. Patient hx of non-compliance with treatments in the past. Possibly related to non-compliance. (3) ESRD (end stage renal disease) on dialysis Status: Chronic Problem Text: Nephrology consulted and managing. (4) Failed kidney transplant Status: Chronic (5) Anemia, chronic renal failure Status: Chronic (6) CHF (congestive heart failure) Permanent Comment: COMMENTS: Normal sinus rhythm without intraventricular conduction disturbance. M-mode and two-dimensional echocardiography was performed with pulsed, continuous wave, color flow and tissue Doppler studies. At least mildly dilated and eccentrically hypertrophied left ventricle with mild global hypokinesis. Moderately dilated left atrium with restrictive impairment of LV diastolic function and significantly elevated mean left atrial pressure. Right heart chamber sizes upper limits of normal with at least mild hypertrophy of the right ventricular free wall degree of right ventricular hypokinesis and Doppler evidence of at least moderate pulmonary hypertension. Mildly dilated inferior vena cava with slightly reduced respiratory collapse in keeping with his central venous pressure of 10 - 15 mmHg. Mild mitral aortic valvular sclerosis without stenosis or insufficiency. Slightly thickened mitral annulus but normal leaflet thickness with reduced leaflet excursion but no posterior systolic buckling. Mild mitral insufficiency. Normal appearing tricuspid valve with mild - moderate insufficiency. No apparent intracardiac mass. Normal aortic root size. Mild to moderate pericardial effusion measuring 1.2 cm laterally and medially and 0.4 cm posteriorly. No sign of cardiac chamber compression or significant variation respiratory variation in pulsed Doppler signals. Based on the increasing size of the pericardial effusion. It may be prudent to consider referral for at least diagnostic / therapeutic pericardial drainage. DD: Lonnie Izquierdo MD, [facility] 02/14/19 [id number] DS: EMANUEL 02/15/19 1242 <Electronically signed by Lonnie Izquierdo > 02/15/19 1242 DS2: [~ rep ct labl] Last Edited By: Tatiana Melgoza NP on May 20, 2019 07:42 Status: Chronic Problem Text: + BLE edema today. Diuresis and fluid management per Nephrology Plan/VTE VTE Prophylaxis Ordered?: Yes (Heparin) VS, I&O, 24H, Fishbone Vital Signs/I&O Vital Signs Date Time Temp Pulse Resp B/P (MAP) Pulse Ox O2 Delivery O2 Flow Rate FiO2 05/21/19 08:06 76 132/78 05/21/19 08:00 98.3 17 97 05/20/19 06:00 Nasal Cannula 2.0 I&O- Last 24 Hours up to 6 AM 05/21/19 06:00 Intake Total 1120 ml Output Total 0 ml Balance 1120 ml Laboratory Data 24H LABS Laboratory Tests 2 05/21/19 05:07: Immature Granulocyte % (Auto) 1.1, White Blood Count 15.8H, Red Blood Count 3.12L, Hemoglobin 9.4L, Hematocrit 29.0L, Mean Corpuscular Volume 92.9, Mean Corpuscular Hemoglobin 30.1, Mean Corpuscular Hemoglobin Concent 32.4, Red Cell Distribution Width 19.1H, Platelet Count 68L, Neutrophils (%) (Auto) 84.1H, Lymphocytes (%) (Auto) 6.9L, Monocytes (%) (Auto) 5.5H, Eosinophils (%) (Auto) 2.0, Basophils (%) (Auto) 0.4, Neutrophils # (Auto) 13.3H, Lymphocytes # (Auto) 1.1L, Monocytes # (Auto) 0.9H, Eosinophils # (Auto) 0.3, Basophils # (Auto) 0.1, Nucleated Red Blood Cells % (auto) 0.0, Immature Platelet Fraction 10.3, Erythrocyte Sedimentation Rate 31H, Anion Gap 7L, Glomerular Filtration Rate 7.0L, Blood Urea Nitrogen 62#H, Creatinine 8.73*H, Sodium Level 134L, Potassium Level 4.6, Chloride Level 99, Carbon Dioxide Level 28, Calcium Level 8.7, Aspartate Amino Transf (AST/SGOT) 46H, Alanine Aminotransferase (ALT/SGPT) 77, Alkaline Phosphatase 92, Total Bilirubin 0.9, Total Protein 6.4, Albumin 2.8L, C-Reactive Protein, Quantitative 13.80H, Albumin/Globulin Ratio 0.78L CBC/BMP Laboratory Tests 05/21/19 05:07 Red Blood Count 3.12 L, Mean Corpuscular Volume 92.9, Mean Corpuscular Hemoglobin 30.1, Mean Corpuscular Hemoglobin Concent 32.4, Red Cell Distribution Width 19.1 H, Neutrophils (%) (Auto) 84.1 H, Lymphocytes (%) (Auto) 6.9 L, Monocytes (%) (Auto) 5.5 H, Eosinophils (%) (Auto) 2.0, Basophils (%) (Auto) 0.4, Neutrophils # (Auto) 13.3 H, Lymphocytes # (Auto) 1.1 L, Monocytes # (Auto) 0.9 H, Eosinophils # (Auto) 0.3, Basophils # (Auto) 0.1, Calcium Level 8.7, Aspartate Amino Transf (AST/SGOT) 46 H, Alanine Aminotransferase (ALT/SGPT) 77, Alkaline Phosphatase 92, Total Bilirubin 0.9, Total Protein 6.4, Albumin 2.8 L Microbiology Microbiology 05/21/19 Blood Culture, Received Pending 05/19/19 Blood Culture - Preliminary, Resulted No growth after 24 hours . All specim... 05/19/19 Blood Culture - Preliminary, Resulted Yeast Like Organism Tatiana Melgoza [facility] May 21, 2019 09:13
[2019-05-21 11:45] LABS: HIV 1&2 SCREEN CENTAUR NEGATIVE (NEGATIVE)
[2019-05-21] MEDS ORDERED: HEPARIN 1,000 UNITS/ML 10ML VIAL (FOR RADIOLOGY& DIALYSIS ONLY) XX ONE (12:00)
[2019-05-21 12:46] VITALS: BP 144/102
--- NOTE | 2019-05-21 12:59 | IPN ---
DATE OF SERVICE: 05/21/2019 SUBJECTIVE: The patient was seen and examined at the bedside today morning. The patient is sleepy, otherwise he wakes up and he follows commands. Today is his regular day of dialysis. He was found to have fungemia. He was started on micafungin yesterday. The patient is going to have his tunneled dialysis catheter removed today and a placement of temporary dialysis catheter before he can have his dialysis today. His blood pressures are much better controlled now. He denies any active complaints. He reports that he is just sleepy and wants to rest. OBJECTIVE: Vital Signs: Temperature is 97.4 degrees Fahrenheit. Blood pressure 132/78. Pulse is 74. Respiratory rate of 18. Saturating 100% on room air. Intake and Output: There is no urine output recorded. Weight in the bed scale is 99.2 kg, which is not reliable because there is a 10 kg difference from yesterday. PHYSICAL EXAMINATION: General: The patient is sleepy, otherwise he is arousable, laying in bed, in no apparent distress. Head and Neck Exam: Extraocular muscles intact. Pupils equally round and react to light. Mucous membranes are moist. Neck is supple. There is no jugular venous distention (JVD). Cardiovascular: S1 and S2, regular rate. No edema of the bilateral lower extremities. Respiratory: Chest is clear to auscultation bilaterally. Bilateral equal air entry. No rales or rhonchi. Abdomen: Soft, positive bowel sounds. Nontender. No organomegaly. Musculoskeletal: No clubbing or cyanosis. Pulses are 2+. VEGETABLE WORKER: No focal deficit. Power is 5/5 in all extremities. LAB REVIEW: CBC showed a WBC of 15.8, hemoglobin 9.4, platelets 68. BMP showed sodium 134, potassium 4.6, chloride 99, bicarb 28, BUN 62, creatinine 8.7, calcium 8.7, total bilirubin 0.9, C-reactive protein 13.8, albumin is 2.8. Microbiology: Blood cultures prelim are showing yeastlike organism and gram negative rods. CURRENT INPATIENT MEDICATIONS: The patient's medications were all reviewed by me. She was started on micafungin 100 mg IV daily yesterday. No other change in the medications today as compared with yesterday. ASSESSMENT/PLAN: 1. End-stage renal disease. The patient's regular dialysis days are Sunday, Sunday, Sunday. He will be dialyzed today after removal of tunneled dialysis catheter and placement of a temporary dialysis catheter. Fluid removal goal will be around 3 liters as tolerated by his blood pressure. 2. Yeastlike organism was in the blood cultures along with gram-negative rods. The patient was started on micafungin yesterday. There is significant improvement in the white cell count. I am not going to start the patient on any IV antibiotics until infectious disease sees the patient. They recommended starting the patient on micafungin yesterday. The patient is also pending echocardiogram today and as mentioned above his tunneled dialysis catheter is being removed. 3. Anemia in end-stage renal disease. Hemoglobin level has 9.4 which is slightly suboptimal. The patient has already been started on Aranesp with dialysis. 4. Hypertension with end-stage renal disease. The patient is noncompliant with medications as outpatient. His blood pressure is very well-controlled right now with hydralazine 50 mg p.o. three times a day, labetalol 200 mg p.o. twice a day and lisinopril 20 mg p.o. twice a day. 5. Chronic kidney disease mineral bone disease. Continue current dose of Velphoro with meals.
[2019-05-21] MEDS ORDERED: HEPARIN 1,000 UNITS/ML 10ML VIAL (FOR RADIOLOGY& DIALYSIS ONLY) As Ordered ONE ×2 (13:32→14:29)
[2019-05-21] MEDS ORDERED: LIDOCAINE 1% MDV 20ML VIAL As Ordered ONE (13:32)
[2019-05-21] MEDS: GASTROGRAFIN SOLUTION 30ML PO SCH ×2 (13:45→15:42)
[2019-05-21] MEDS ORDERED: diphenhydrAMINE INJ 50MG/ML VIAL (J1200) As Ordered ONE (13:55)
[2019-05-21] MEDS ORDERED: fentaNYL 100 MCG/2 ML INJECTION (J3010) As Ordered ONE (14:07)
[2019-05-21] MEDS ORDERED: ISOVUE-300 61% 50ML VIAL (Q9967) As Ordered ONE (14:23)
[2019-05-21] MEDS: MICAFUNGIN SODIUM 100 MG in D5W MINI-BAG PLUS 100 ML IV SCH (15:42)
[2019-05-21 16:00] VITALS: BP 160/98
--- NOTE | 2019-05-21 17:03 | REP ---
IR left-sided Vas cath placement. Vas cath placement using fluoroscopy and ultrasound guidance. Ultrasound of the left neck. IR venogram. IR brachiocephalic vein angioplasty. IR right sided PermCath removal. Clinical information: Renal failure. Dialysis dependent. Recent blood cultures showing fungemia. Needs right sided PermCath removed and temporary vas cath placed for dialysis. Physician: Dr. Ojeda. Procedure: The patient was advised of the benefits, risks and alternatives of the procedure and informed consent was obtained. The time-out was performed with verification of the patient's name, MRN, site of procedure and type of procedure to be performed. The patient was positioned in the supine position on the angiographic table. The site was prepped and draped in the usual sterile fashion. Moderate sedation was not performed. Fentanyl was administered for analgesia. The physician spent 45 minutes of continuous face to face time with the patient. A processing inspector radiograph reveals a right-sided perm catheter, tip short of the cavoatrial junction. Preliminary ultrasound of the left neck demonstrates a patent and compressible left internal jugular vein. Local anesthesia using lidocaine was administered. A small incision was made above the clavicle. Using ultrasound guidance the left internal jugular vein was accessed using a lateral approach with a micro introduce needle. An 018 wire was advanced into the superior vena cava. The needle was removed and a micro introducer sheath was placed. An Amplatz wire was then passed into the brachiocephalic vein but met resistance. The micro sheath was removed over the wire and a 5-Tamazight vascular sheath was advanced over the wire. Wire was exchanged for a glide wire and the wire was negotiated under fluoroscopy guidance, through the brachiocephalic stenosis, down the superior vena cava, through the heart into the inferior vena cava. A venogram was performed through the vascular sheath and this demonstrates severe stenosis of the brachiocephalic vein. An 8 mm x 100 mm angioplasty balloon was advanced over the wire under fluoroscopy guidance and used to angioplasty the stenosed brachiocephalic vein. The balloon was removed over the wire. Repeat venogram was performed and demonstrates improved flow through the brachiocephalic vein. The venotomy tract was dilated under fluoroscopy guidance. A 14 Tamazight Trialysis temporary dialysis catheter was inserted over the wire under fluoroscopy guidance. The catheter tip was positioned at the atrium and the wire was removed. All lumens flush and aspirate freely. The catheter was sutured to the skin with 2-0 Prolene. A sterile dressing was then applied. The right PermCath site was prepped. Lidocaine was administered for local anesthesia. The cuff was dissected out of the soft tissues and the catheter was removed in its entirety. The patient tolerated the procedure well and was returned to the PRU in stable condition. EBL: < 5 ml. Complications: None. Conclusion: 1. Venogram demonstrates severe brachiocephalic stenosis. 2. Successful brachiocephalic vein angioplasty and placement of a 14-Tamazight Bard Trialysis catheter via the left internal jugular vein. The catheter is ready for immediate use. 3. Successful removal of right-sided perm catheter. 4. When the patient is ready for perm cath, please refer back to me prior to discharge. Thank you this referral. Electronically Signed by Zari Ojeda MD 05/21/2019 05:01 P
[2019-05-21] MEDS ORDERED: ISOVUE-370 76% 100ML VIAL (Q9967) As Ordered ONE (17:38)
[2019-05-21] MEDS ORDERED: MEROPENEM INJ 2 GM in NS 100 ML IV SCH (18:00)
--- NOTE | 2019-05-21 18:09 | REPVR ---
PROCEDURE INFORMATION: Exam: CT Abdomen and pelvis without and with contrast Exam date and time: 05/21/2019 5:44 PM Clinical history: 49 years old, male; Abdominal pain; Prior surgery; Surgery date: 6+ months; Additional info: Candidemai gram negative sepsis TECHNIQUE: Imaging protocol: Computed tomography of the abdomen and pelvis without and with intravenous contrast. Radiation optimization: All CT scans at this facility use at least one of these dose optimization techniques: automated exposure control; mA and/or kV adjustment per patient size (includes targeted exams where dose is matched to clinical indication); or iterative reconstruction. Contrast material: ISO 370; Contrast volume: 100 ml; Contrast route: IV; COMPARISON: CT ABD PELVIS WITH CONTRAST 02/19/2019 10:52 AM FINDINGS: Lungs: Semisolid ground glass opacity in the lingula lobe measures 2.1 x 1.9 cm. Heart: Small pericardial effusion. Cardiomegaly. Liver: There is a diffuse decrease in hepatic parenchymal density, consistent with fatty infiltration. Hepatomegaly. Gallbladder and bile ducts: There has been a cholecystectomy. Pancreas: Normal. No ductal dilation. Spleen: Normal. No splenomegaly. Adrenals: Normal. No mass. Kidneys and ureters: Markedly reduced volume of the pauma kidneys consistent with changes related to chronic renal failure. Renal transplant demonstrated in the right lower quadrant. There is a 2.8 cm cyst in the upper pole of the transplanted kidney. There is moderate dilatation of the collecting system of the transplant. Stable perinephric inflammatory changes. Stomach and bowel: There is increased feces throughout the colon consistent with constipation. Moderate diverticulosis is present in the left colon. No diverticulitis. Appendix: No evidence of appendicitis. Intraperitoneal space: There is a small amount of free intraperitoneal fluid present. Vasculature: There is moderate atherosclerotic calcification of the coronary arteries. The aorta demonstrates mild atherosclerotic calcification. Lymph nodes: Unremarkable. No enlarged lymph nodes. Bladder: Contracted urinary bladder with thickened wall consistent with non-distention. Reproductive: The prostate gland demonstrates mild hyperplasia. Bones/joints: Unremarkable. No acute fracture. Soft tissues: Gynecomastia left breast. Soft tissue inflammation demonstrated adjacent to the coccyx without ulceration at this time. There is soft tissue edema demonstrated in the abdominal wall, flanks and buttock regions consistent with anasarca. IMPRESSION: 1. Semisolid ground glass opacity in the lingula lobe measures 2.[address] at 3-6 months to confirm persistence of the nodule. If unchanged and solid component remains < 6 mm, annual CT should be performed for 5 years. (Mey et al., Fleischner Society, 2017) 2. There is a diffuse decrease in hepatic parenchymal density, consistent with fatty infiltration. Hepatomegaly. 3. There has been a cholecystectomy. 4. Markedly reduced volume of the pauma kidneys consistent with changes related to chronic renal failure. 5. Mild prostatic hyperplasia. 6. Anasarca. 7. There is increased feces throughout the colon consistent with constipation. 8. Moderate diverticulosis is present in the left colon. No diverticulitis. Electronically signed by: Oracio Covarrubias On 05/21/2019 18:09:26 PM
[2019-05-21] MEDS ORDERED: MEROPENEM INJ 1 GM in IV 1 EA IV SCH (19:00)
[2019-05-21 21:40] VITALS: BP 164/96
[2019-05-21] MEDS: MEROPENEM INJ 1 GM in IV 1 EA IV SCH (22:25)
[2019-05-22] VITALS: BP 142/76
[2019-05-22] MEDS: NORCO, ANEXSIA 5/325MG TABLET (HYDROcodone/ACETAMINOPHEN) PO PRN ×3 (00:09→18:17)
[2019-05-22 04:00] VITALS: BP 142/76
[2019-05-22] MEDS: SLF 3 ML SYR IV SCH ×3 (05:29→20:36)
[2019-05-22 05:31] LABS: BASO % 0.3 % (0.0-1.0); EOS # 0.2 10^3/uL (0.0-0.5); EOS % 2.5 % (0.0-3.0); HEMATOCRIT 27.7 % (42.0-52.0); LYMPH # 0.8 10^3/uL (1.5-5.0); LYMPH % 9.4 % (24.0-44.0); MEAN CORPUSCULAR HGB CONC 32.5 g/dl (32.0-36.5); MEAN CORPUSCULAR VOLUME 92.3 fl (80.0-96.0); MONO # 0.4 10^3/uL (0.0-0.8); MONO % 5.1 % (0.0-5.0); NEUTROPHILS # 7.1 10^3/uL (1.5-8.5); NEUTROPHILS % 81.9 % (36.0-66.0); WHITE BLOOD COUNT 8.7 10^3/uL (4.0-10.0)
[2019-05-22 05:32] LABS: PLATELET COUNT, AUTOMATED 65 10^3/uL (150-450)
--- NOTE | 2019-05-22 07:51 | IPNPDOC ---
Subjective Date Seen The patient was seen on 05/22/19. Subjective Chief Complaint/HPI ESRD, hypertensive urgency Events since last encounter BPs have continued to remain stable on medication regimen. Patient eating and drinking well. temp HD access placed by IR yesterday. Resulted positive for gram neg rods in blood cultures x 2 from 05/19/19. Started on meropenem. Constitutional: Denies: Chills, Fever, Night Sweats ENT: Reports: Head Aches Pulmonary: Denies: Dyspnea, Cough Cardiovascular: Denies: Chest Pain, Palpitations, Orthopnea, Paroxysmal Noc. Dyspnea, Lt Headedness Neurological: Denies: Weakness, Numbness, Change in speech, Confusion Psych: Reports: Mood Normal; Denies: Depression, Memory Issues Objective Physical Examination General Exam: Positive: Alert, Cooperative, No Acute Distress Eye Exam: Positive: PERRLA, Conjunctiva & lids normal, EOMI; Negative: Sclera icteric ENT Exam: Positive: Atraumatic, Mucous membr. moist/pink, Pharynx Normal Neck Exam: Positive: Supple; Negative: JVD, thyromegaly Chest Exam: Positive: Clear to auscultation, Normal air movement Heart Exam: Positive: Rate Normal, Regular Rhythm, Normal S1, Normal S2; Negative: Murmurs, Rubs Telemetry: Positive: No significant arrhythmia Abdomen Exam: Positive: Normal bowel sounds, Soft; Negative: Tenderness, Hepatospenomegaly Extremity Exam: Positive: Edema (2+ edema up to knee), Normal pulses; Negative: Clubbing, Cyanosis Skin Exam: Positive: Nl turgor and temperature; Negative: Breakdown, Lesion Neuro Exam: Positive: Normal Gait, Normal Speech, Cranial Nerves 3-12 NL, Reflexes 2+ Psych Exam: Positive: Mental status NL, Mood NL, Oriented x 3 Assessment /Plan Problems (1) Fungemia Status: Acute Problem Specific Plan: Consult Specialist, Monitor Clinically Problem Text: ID consulted and following. nephro aware. Day #3 Micafungin (2) Hypertensive urgency Status: Acute Response to Treatment: Improving Problem Text: Improved on current medication. Patient hx of non-compliance with treatments in the past. Possibly related to non-compliance. (3) ESRD (end stage renal disease) on dialysis Status: Chronic Problem Text: Nephrology consulted and managing. (4) Failed kidney transplant Status: Chronic (5) Anemia, chronic renal failure Status: Chronic (6) CHF (congestive heart failure) Permanent Comment: COMMENTS: Normal sinus rhythm without intraventricular conduction disturbance. M-mode and two-dimensional echocardiography was performed with pulsed, continuous wave, color flow and tissue Doppler studies. At least mildly dilated and eccentrically hypertrophied left ventricle with mild global hypokinesis. Moderately dilated left atrium with restrictive impairment of LV diastolic function and significantly elevated mean left atrial pressure. Right heart chamber sizes upper limits of normal with at least mild hypertrophy of the right ventricular free wall degree of right ventricular hypokinesis and Doppler evidence of at least moderate pulmonary hypertension. Mildly dilated inferior vena cava with slightly reduced respiratory collapse in keeping with his central venous pressure of 10 - 15 mmHg. Mild mitral aortic valvular sclerosis without stenosis or insufficiency. Slightly thickened mitral annulus but normal leaflet thickness with reduced leaflet excursion but no posterior systolic buckling. Mild mitral insufficiency. Normal appearing tricuspid valve with mild - moderate insufficiency. No apparent intracardiac mass. Normal aortic root size. Mild to moderate pericardial effusion measuring 1.2 cm laterally and medially and 0.4 cm posteriorly. No sign of cardiac chamber compression or significant variation respiratory variation in pulsed Doppler signals. Based on the increasing size of the pericardial effusion. It may be prudent to consider referral for at least diagnostic / therapeutic pericardial drainage. DD: Lonnie Izquierdo MD, [facility] 02/14/19 [id number] DS: EMANUEL 02/15/19 1242 <Electronically signed by Lonnie Izquierdo > 02/15/19 1242 DS2: [~ rep ct labl] Last Edited By: Tatiana Melgoza NP on May 20, 2019 07:42 Status: Chronic Problem Text: + BLE edema today. Diuresis and fluid management per Nephrology Plan/VTE VTE Prophylaxis Ordered?: Yes (Heparin) VS, I&O, 24H, Fishbone Vital Signs/I&O Vital Signs Date Time Temp Pulse Resp B/P (MAP) Pulse Ox O2 Delivery O2 Flow Rate FiO2 05/22/19 06:26 18 05/22/19 04:00 98.0 82 142/76 (98) 94 05/21/19 15:14 2 05/20/19 06:00 Nasal Cannula I&O- Last 24 Hours up to 6 AM 05/22/19 06:00 Intake Total 1440 ml Output Total 3000 ml Balance -1560 ml Laboratory Data 24H LABS Laboratory Tests 2 05/22/19 05:06: Immature Granulocyte % (Auto) 0.8, White Blood Count 8.7, Red Blood Count 3.00L, Hemoglobin 9.0L, Hematocrit 27.7L, Mean Corpuscular Volume 92.3, Mean Corpuscular Hemoglobin 30.0, Mean Corpuscular Hemoglobin Concent 32.5, Red Cell Distribution Width 19.0H, Platelet Count 65L, Neutrophils (%) (Auto) 81.9H, Lymphocytes (%) (Auto) 9.4L, Monocytes (%) (Auto) 5.1H, Eosinophils (%) (Auto) 2.5, Basophils (%) (Auto) 0.3, Neutrophils # (Auto) 7.1, Lymphocytes # (Auto) 0.8L, Monocytes # (Auto) 0.4, Eosinophils # (Auto) 0.2, Basophils # (Auto) 0.0, Nucleated Red Blood Cells % (auto) 0.0 CBC/BMP Laboratory Tests 05/22/19 05:06 Red Blood Count 3.00 L, Mean Corpuscular Volume 92.3, Mean Corpuscular Hemoglobin 30.0, Mean Corpuscular Hemoglobin Concent 32.5, Red Cell Distribution Width 19.0 H, Neutrophils (%) (Auto) 81.9 H, Lymphocytes (%) (Auto) 9.4 L, Monocytes (%) (Auto) 5.1 H, Eosinophils (%) (Auto) 2.5, Basophils (%) (Auto) 0.3, Neutrophils # (Auto) 7.1, Lymphocytes # (Auto) 0.8 L, Monocytes # (Auto) 0.4, Eosinophils # (Auto) 0.2, Basophils # (Auto) 0.0 Microbiology Microbiology 05/22/19 Blood Culture, Received Pending 05/21/19 Blood Culture - Preliminary, Resulted No growth after 24 hours . All specim... 05/19/19 Blood Culture - Preliminary, Resulted 05/19/19 Blood Culture - Preliminary, Resulted Yeast Like Organism Tatiana Melgoza [facility] [place] [facility] May 22, 2019 07:51
[2019-05-22 08:00] VITALS: BP 170/110
--- NOTE | 2019-05-22 08:23 | ECHO ---
DATE OF SERVICE: 05/21/2019 DATE OF : 1970 AGE: 49 REFERRING PROVIDER: Dr. Cuenca REASON FOR THE STUDY: Accelerated hypertension, positive blood culture for fungus. 2-D MEASUREMENTS: IVS: 1.5 cm LV: 6.3 cm LVPW: 1.3 cm LA: 4.5 cm Aorta: 3.1 cm IVC: 2.6 cm DOPPLER MEASUREMENTS: Peak velocity across the aortic valve: 1.3 m/s Peak velocity across the LVOT: 0.76 m/s Mitral E: 0.51 Mitral A: 0.60 Ratio: 0.9 Maximum tricuspid valve velocity: 2.6 m/s 2-D COMMENTS: 1. Mildly enlarged left ventricle with preserved left ventricular wall thickness, but a markedly depressed global left ventricular systolic function. The estimated left ventricular systolic ejection fraction is 25-30%. 2. Mildly enlarged left atrium. The right atrium and the right ventricle also appeared to be mildly enlarged. The right ventricular free wall seems to be hypokinetic. 3. The atrial septum appeared to be normal without evidence of defect or shunt. 4. Normal aortic root. 5. Small to moderate pericardial effusion noted, no evidence of cardiac tamponade. 6. Mildly calcified aortic valve with normal leaflet excursion. Normal mitral valve, tricuspid valve and pulmonic valve. The proximal pulmonary artery branches were not well visualized. 7. The inferior vena cava is mildly enlarged, central venous pressure might be elevated. DOPPLER: Detects moderate tricuspid regurgitation and mild pulmonic regurgitation. The calculated pulmonary artery systolic pressure varies between 30-40 mmHg. Abnormal relaxation pattern was noted across the mitral valve leaflets as well as the mitral valve annulus consistent with features of grade 1 left ventricular diastolic dysfunction. IMPRESSIONS: 1. Severe global left ventricular systolic dysfunction with global hypokinesis. There is preserved left ventricular wall thickness. There are some features of left ventricular diastolic dysfunction, grade 1. 2. Aortic valve sclerosis without stenosis or aortic regurgitation. 3. Moderate tricuspid regurgitation with dilated right heart chambers and only mild pulmonary hypertension, probably underestimated. There is some degree of right ventricular systolic dysfunction. 4. Mild pulmonary hypertension. 5. Small to moderate pericardial effusion, no evidence of cardiac tamponade. 6. No vegetations noted in this transthoracic echocardiogram. I will recommend a transesophageal echocardiogram for further evaluation if endocarditis is a concern. MTDD
[2019-05-22 08:29] LABS: ALBUMIN 2.8 GM/DL (3.2-5.2); BILIRUBIN,TOTAL 0.8 MG/DL (0.2-1.0); CALCIUM LEVEL 8.3 MG/DL (8.5-10.1); CREATININE FOR GFR 6.91 MG/DL (0.70-1.30); GLOMERULAR FILTRATION RATE 9.2 (>60); POTASSIUM SERUM 4.7 MEQ/L (3.5-5.1); TOTAL PROTEIN 6.2 GM/DL (6.4-8.2)
[2019-05-22] MEDS: HEPARIN SOD (PORCINE) 5000 UNITS/ML VIAL SC SCH ×2 (09:00→20:35)
[2019-05-22] MEDS: LABETALOL 200 MG TAB PO SCH ×2 (09:54→20:35)
[2019-05-22] MEDS: **hydrALAZINE** 50 MG TAB PO SCH ×3 (09:54→20:35)
[2019-05-22] MEDS: LISINOPRIL 20 MG TAB PO SCH ×2 (09:54→20:35)
[2019-05-22] MEDS: SUCROFERRIC OXYHYDROXIDE 500MG CHEW TAB (VELPHORO) PO SCH ×3 (09:55→18:17)
[2019-05-22] MEDS ORDERED: ALPRAZolam 0.25 MG TAB PO PRN (11:00)
[2019-05-22 12:00] VITALS: BP 181/107
--- NOTE | 2019-05-22 12:39 | IPN ---
DATE OF SERVICE: 05/22/2019 SUBJECTIVE: Patient was seen and examined at the bedside today morning. He is afebrile, hemodynamically stable. Last 24-hour events are noted. Patient's right internal jugular (IJ) tunneled hemodialysis catheter was removed and a left-sided temporary hemodialysis catheter was placed. He also got the CT scan of the abdomen and pelvis done with contrast. He was dialyzed yesterday after the CT scan. He is growing fungus and gram negative rods in blood cultures. He was started on intravenous (IV) antibiotic in addition to the antifungal. He is currently afebrile and hemodynamically stable. OBJECTIVE: Vital signs: Temperature is 98.7 degrees Fahrenheit, blood pressure 170/110, pulse is 88, respiratory rate of 18, saturating 94% on room air. Intake and output. There is no urine output recorded. Weight in the bed scale is 105 kg. Ultrafiltration with hemodialysis was 300. PHYSICAL EXAM: General: Patient is awake, alert, oriented times three, laying in bed, in no apparent distress. Head and neck exam: Extraocular muscles intact. Pupils equally round and reactive to light. Mucous membranes are moist. Neck is supple. He has a left IJ temporary hemodialysis catheter. Cardiovascular: S1, S2, regular rate. No edema of the bilateral lower extremities. Respiratory: Chest is clear to auscultation bilaterally. Bilateral equal air entry. No rales or rhonchi. Abdomen is soft, positive bowel sounds, nontender. Right lower quadrant renal allograft is nontender. Musculoskeletal: No clubbing or cyanosis. Pulses are 2+. Central nervous system (GLASS WORKER): No focal deficit. Power is 5/5 in all extremities. LAB REVIEW: CBC showed WBC of 8.7, hemoglobin is 9, platelets are 65. BMP showed sodium 137, potassium 4.7, chloride 102, bicarbonate 25, BUN 44, creatinine is 6.9, calcium is 8.3, albumin 2.8. MICROBIOLOGY: Blood cultures from day #1 are growing Serratia marcescens and yeastlike organism IMAGING: CAT scan of the abdomen and pelvis was done yesterday, which showed semisolid ground-glass glass opacity in the lingula lobe. Followup CAT scan was recommended in 3-6 months. There was fatty infiltration in the liver and hepatomegaly, atrophic cow[place] kidneys, anasarca and prostatic hyperplasia. There was diverticulosis without diverticulitis. There was a cyst in right lower quadrant renal allograft, which is 2.8 cm in size. There was perinephric inflammatory changes. CURRENT INPATIENT MEDICATIONS: Patient's medications were all reviewed by myself. He is currently on meropenem 1 gram IV daily. He continues to be on IV micafungin. No other change in the medications today as compared with yesterday. ECHOCARDIOGRAM: The patient got the echocardiogram done yesterday, which showed enlarged left ventricle, mildly depressed global left ventricular systolic function with a left ventricular ejection fraction (LVEF) around 25-30%. The patient also had some features of diastolic dysfunction, which was grade 1, dilated right heart chambers and mild pulmonary hypertension. There was some right ventricular systolic dysfunction as well. Small to moderate pericardial effusion. ASSESSMENT AND PLAN: 1. End-stage renal disease on hemodialysis. Patient's regular dialysis days are Sunday, Sunday, Sunday. He was dialyzed yesterday. Next hemodialysis will be done tomorrow, and I will get more fluid removed tomorrow because of anasarca evident on the CAT scan. 2. Fungemia. Patient has yeast growth from the blood cultures. Right IJ tunneled hemodialysis catheter was removed. He is currently on IV micafungin. He has stranding around the right lower quadrant renal allograft. I suspect that his fungemia and bacteremia might be related to his transplanted kidney and patient might need a transplant nephrectomy. 3. Serratia Marcescens bacteremia. Patient's tunneled dialysis catheter has been removed. He is currently being dialyzed through a temporary catheter. A permanent catheter will be placed once the repeat cultures are negative. It is very rare for dialysis catheters to have gram-negative Serratia growth. I suspect this might be coming from his transplanted kidney. I am going to discuss with Infectious Disease and if they agree with this as well, then patient might need to be transferred for transplant nephrectomy. He was transferred in the past as well. He was asked to followup as outpatient but he never followed up for elective nephrectomy. 4. Anemia in end-stage renal disease. Patient has been started on Aranesp. Continue current dose. 5. Hypertension with end-stage renal disease. Patient is noncompliant with medications as outpatient. Continue current dose of labetalol 200 mg twice a day, hydralazine 50 mg by mouth three times a day, and lisinopril 20 mg by mouth twice a day. Rest of the blood pressure management will be done with volume management and further fluid removal. 6. Combined systolic and diastolic congestive heart failure. Patient has a severely reduced left ventricular ejection fraction. LVEF is around 25% with grade 1 diastolic dysfunction. Patient is already on a beta-barbi, angiotensin-converting enzyme (PA) inhibitor, and hydralazine at this time. If needed, I would add the isosorbide for further improvement of the volume status and for further improvement of the blood pressure, and the volume status will be optimized with dialysis and more fluid removal will be done. Patient also needs to be on a salt and fluid restriction. I am going to change his diet. MTDD
[2019-05-22] MEDS: ISOSORBIDE MON. (IMDUR) 60 MG XR TAB PO SCH (14:31)
[2019-05-22 16:00] VITALS: BP 200/110
[2019-05-22] MEDS: MICAFUNGIN SODIUM 100 MG in D5W MINI-BAG PLUS 100 ML IV SCH (16:48)
[2019-05-22] MEDS: MEROPENEM INJ 1 GM in IV 1 EA IV SCH (18:17)
[2019-05-23 00:30] VITALS: BP 180/100
[2019-05-23] MEDS: NORCO, ANEXSIA 5/325MG TABLET (HYDROcodone/ACETAMINOPHEN) PO PRN ×3 (02:41→23:57)
[2019-05-23 05:38] LABS: BASO % 0.6 % (0.0-1.0); EOS # 0.2 10^3/uL (0.0-0.5); EOS % 2.8 % (0.0-3.0); HEMATOCRIT 26.2 % (42.0-52.0); HEMOGLOBIN 8.5 g/dl (13.5-17.5); LYMPH # 0.8 10^3/uL (1.5-5.0); LYMPH % 11.4 % (24.0-44.0); MEAN CORPUSCULAR HEMOGLOBIN 29.7 pg (27.0-33.0); MEAN CORPUSCULAR HGB CONC 32.4 g/dl (32.0-36.5); MEAN CORPUSCULAR VOLUME 91.6 fl (80.0-96.0); MONO # 0.4 10^3/uL (0.0-0.8); MONO % 5.5 % (0.0-5.0); NEUTROPHILS # 5.6 10^3/uL (1.5-8.5); NEUTROPHILS % 79.1 % (36.0-66.0); RED BLOOD COUNT 2.86 10^6/uL (4.30-6.10); WHITE BLOOD COUNT 7.1 10^3/uL (4.0-10.0)
[2019-05-23 05:55] LABS: PLATELET COUNT, AUTOMATED 80 10^3/uL (150-450)
[2019-05-23 06:20] VITALS: BP 210/110
[2019-05-23 06:20] LABS: ALBUMIN 2.6 GM/DL (3.2-5.2); C REACTIVE PROTEIN QUANTITATIV 7.44 MG/DL (0.00-0.30); CALCIUM LEVEL 8.6 MG/DL (8.5-10.1); CREATININE FOR GFR 8.79 MG/DL (0.70-1.30); GLOMERULAR FILTRATION RATE 6.9 (>60); POTASSIUM SERUM 4.6 MEQ/L (3.5-5.1); TOTAL PROTEIN 6.1 GM/DL (6.4-8.2)
[2019-05-23] MEDS: SLF 3 ML SYR IV SCH ×3 (06:29→22:03)
[2019-05-23] MEDS: **hydrALAZINE** 50 MG TAB PO SCH ×3 (06:38→20:17)
[2019-05-23] MEDS: ISOSORBIDE MON. (IMDUR) 60 MG XR TAB PO SCH (06:39)
[2019-05-23] MEDS: LABETALOL 200 MG TAB PO SCH ×2 (06:39→20:16)
[2019-05-23] MEDS: SUCROFERRIC OXYHYDROXIDE 500MG CHEW TAB (VELPHORO) PO SCH ×3 (06:39→17:37)
[2019-05-23] MEDS: LISINOPRIL 20 MG TAB PO SCH ×2 (06:39→20:16)
[2019-05-23 08:00] VITALS: BP 170/110
[2019-05-23 08:41] LABS: MAGNESIUM LEVEL 2.2 MG/DL (1.8-2.4); PHOSPHORUS LEVEL 4.2 MG/DL (2.5-4.9)
[2019-05-23] MEDS: HEPARIN SOD (PORCINE) 5000 UNITS/ML VIAL SC SCH ×2 (09:00→20:17)
[2019-05-23] MEDS ORDERED: HEPARIN 1,000 UNITS/ML 10ML VIAL (FOR RADIOLOGY& DIALYSIS ONLY) XX ONE (11:00)
--- NOTE | 2019-05-23 13:04 | IPN ---
DATE OF SERVICE: 05/23/2019 SUBJECTIVE: Patient was seen and examined at the bedside today morning during hemodialysis. He is tolerating the hemodialysis procedure well. He denies any active complaints. His blood pressures were elevated today morning but they are improving with dialysis now. OBJECTIVE: Vital signs: Temperature is 97.7 degrees Fahrenheit, blood pressure 170/105, pulse is 71, respiratory rate of 18, saturating 98% on room air. Intake and output: There is no urine output recorded. Weight in the bed scale was 105 kg yesterday. PHYSICAL EXAM: General: Patient is awake, alert, oriented times three, laying in bed, getting hemodialysis. Head and neck exam: Extraocular muscles intact. Pupils equally round and reactive to light. Mucous membranes are moist. Neck is supple. He has a left internal jugular (IJ) temporary hemodialysis catheter, which is being used for dialysis. Cardiovascular: S1, S2. Regular rate. 1+ edema of the bilateral lower extremities. Respiratory: Chest is clear to auscultation bilaterally. Bilateral equal air entry. No rales or rhonchi. Abdomen: Soft. Obese. Positive bowel sounds. Nontender. No organomegaly. Musculoskeletal: No clubbing or cyanosis. Pulses are 2+. Central nervous system (PARKING STATION ATTENDANT): No focal deficit. Power is 5/5 in all extremities. LAB REVIEW: CBC showed WBC 7.1, hemoglobin 8.5, platelets are 80. BMP showed sodium 134, potassium 4.6, chloride 100, bicarbonate 26, BUN 62, creatinine is 8.7, C-reactive protein is 7.4, albumin is 2.6. CURRENT INPATIENT MEDICATIONS: Patient's medications were all reviewed by me. He continues to be on IV micafungin and meropenem at this time. Isosorbide 60 mg by mouth daily was added yesterday. ASSESSMENT AND PLAN: 1. End-stage renal disease. Patient's dialysis days are Sunday, Sunday, Sunday. He is being dialyzed according to his regular schedule. At least 3.5 mL of fluid will be removed as tolerated by his blood pressure. 2. Anemia. Patient continues to be on IV micafungin. Continue current dose. 3. Serratia marcescens bacteremia. Patient currently is on IV meropenem. Tunneled dialysis catheter was removed. Usually serratia is a urinary organism. I highly suspect that it is coming from his transplant kidney. I would recommend is a transplant nephrectomy to be done for resistant hypertension and current infection with bandemia and bacteremia which usually is very unusual to arise from a catheter. 4. Anemia in end-stage renal disease. Continue Aranesp. 5. Hypertension with end-stage renal disease and hypertensive heart disease. Continue labetalol, hydralazine, lisinopril and current dose of isosorbide. 6. Decompensated combined systolic and diastolic congestive heart failure. Patient has an left ventricular ejection fraction (LVEF) of around 25% and grade 1 diastolic dysfunction on a recent echocardiogram. Continue labetalol, hydralazine, lisinopril, and isosorbide. Further dose escalation will be done over the next 24-48 hours if needed. Volume status is being optimized with dialysis. Patient is anuric at baseline.
[2019-05-23 16:00] VITALS: BP 200/100
[2019-05-23] MEDS ORDERED: LevoFLOXacin 500 MG TABLET PO ONE (16:00)
[2019-05-23] MEDS: MICAFUNGIN SODIUM 100 MG in D5W MINI-BAG PLUS 100 ML IV SCH (17:36)
[2019-05-23] MEDS: cloNIDine 0.1 MG TAB PO SCH (17:37)
--- NOTE | 2019-05-23 19:15 | IPN ---
DATE: 05/23/2019 Helio was seen during dialysis today. He was feeling somewhat depressed, because he was told that he had congestive heart failure, and he was concerned about his heart. We had a long discussion about his compliance with medication and dialysis, and he stated he has been for the most part compliant with his dialysis sessions, but he may be late due to family issues, such as taking care of his 8-year-old son. 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 The mother had left many years ago. He does not have any family to help him. He has a headache and feels somewhat lethargic and sleepy. His blood pressure has not been well controlled, either. He denies any abdominal pain, nausea, or vomiting currently. He stated that even prior to admission he did not have any abdominal pain. LABORATORY DATA: White count is 7.1, hemoglobin 8.5, hematocrit 26.2, platelets 80, 79% neutrophils, 11% lymphocytes, 5% monocytes. Sodium 134, potassium 4.6, chloride 100, bicarbonate 26, BUN 62, creatinine 8.8, glucose 90, calcium 8.6, phosphorus 4.2, magnesium 2.2. AST 10, ALT 41, alkaline phosphatase 89. CRP 7.4, down from 13.8. Blood cultures were positive for yeastlike organism and Serratia in one of the cultures and Serratia in the second culture. Blood cultures on May 21 and May 22 were negative. Dialysis catheter was removed on May [address] Ojeda. PHYSICAL EXAMINATION: HEART: Normal S1, S2. No murmurs appreciated. LUNGS: Clear. No wheezes, rales, or rhonchi. ABDOMEN: Soft. Healed right lower quadrant scar where a transplanted kidney was. No tenderness. EXTREMITIES: No clubbing, cyanosis. No rashes. Echocardiogram shows enlarged left ventricle with depressed global left ventricular systolic function with an ejection fraction (EF) of 25-30%. Right ventricle is also enlarged, and the right ventricular free wall is hypokinetic. Small to moderate pericardial effusion. No tamponade. Mild calcified aortic valve with normal leaflet excursion. Inferior vena cava is mildly enlarged. Moderate tricuspid regurgitation. No vegetations were seen. IMPRESSION: 1. Sepsis with blood cultures positive for Serratia marcescens as well as fungus, identification to follow. Serratia is resistant to cefazolin but sensitive to all other antibiotics. Source of infection is not clear, whether it is hemodialysis catheter or rejected transplanted kidney 2. End-stage renal disease with a plan to remove the transplanted kidney due to accelerated hypertension. 3. Uncontrolled hypertension, still a problem. PLAN: Case has been discussed with Dr. Cuenca. There was discussion about him being transferred to [place] for removal of the transplanted kidney as possibly being the source of infection and uncontrolled high blood pressure. Discontinue intravenous (IV) meropenem. The patient could be switched to oral levofloxacin. He is afebrile, and his white count is normal. Continue IV micafungin until yeast as identified. If it is a Pennie albicans, the patient could be switched to oral fluconazole. If it is non-albicans, continue with micafungin. Meropenem will be discontinued today. MTDD
[2019-05-23 20:00] VITALS: BP 150/72
[2019-05-24] VITALS (7 sets, daily range): BP systolic 164–220; BP diastolic 88–110
[2019-05-24] MEDS: LISINOPRIL 20 MG TAB PO SCH ×2 (05:20→20:08)
[2019-05-24] MEDS: ISOSORBIDE MON. (IMDUR) 60 MG XR TAB PO SCH (05:20)
[2019-05-24] MEDS: **hydrALAZINE** 50 MG TAB PO SCH ×3 (05:20→20:07)
[2019-05-24] MEDS: cloNIDine 0.1 MG TAB PO SCH ×2 (05:21→20:08)
[2019-05-24] MEDS: LABETALOL 200 MG TAB PO SCH ×2 (05:21→20:08)
[2019-05-24] MEDS: NORCO, ANEXSIA 5/325MG TABLET (HYDROcodone/ACETAMINOPHEN) PO PRN ×3 (06:14→23:26)
[2019-05-24 06:17] LABS: BASO % 0.4 % (0.0-1.0); EOS # 0.2 10^3/uL (0.0-0.5); EOS % 2.8 % (0.0-3.0); HEMATOCRIT 31.8 % (42.0-52.0); LYMPH # 0.9 10^3/uL (1.5-5.0); LYMPH % 11.8 % (24.0-44.0); MEAN CORPUSCULAR HEMOGLOBIN 30.6 pg (27.0-33.0); MEAN CORPUSCULAR VOLUME 92.7 fl (80.0-96.0); MONO # 0.5 10^3/uL (0.0-0.8); MONO % 6.6 % (0.0-5.0); NEUTROPHILS # 5.8 10^3/uL (1.5-8.5); NEUTROPHILS % 77.9 % (36.0-66.0); RED BLOOD COUNT 3.43 10^6/uL (4.30-6.10); WHITE BLOOD COUNT 7.4 10^3/uL (4.0-10.0)
[2019-05-24 06:29] LABS: PLATELET COUNT, AUTOMATED 94 10^3/uL (150-450)
[2019-05-24] MEDS: SLF 3 ML SYR IV SCH ×3 (06:43→21:16)
[2019-05-24 06:47] LABS: ALBUMIN 2.8 GM/DL (3.2-5.2); BILIRUBIN,TOTAL 0.8 MG/DL (0.2-1.0); CALCIUM LEVEL 8.9 MG/DL (8.5-10.1); CREATININE FOR GFR 6.56 MG/DL (0.70-1.30); GLOMERULAR FILTRATION RATE 9.7 (>60); POTASSIUM SERUM 4.2 MEQ/L (3.5-5.1); TOTAL PROTEIN 7.1 GM/DL (6.4-8.2)
[2019-05-24] MEDS: SUCROFERRIC OXYHYDROXIDE 500MG CHEW TAB (VELPHORO) PO SCH ×3 (08:25→16:56)
[2019-05-24] MEDS: HEPARIN SOD (PORCINE) 5000 UNITS/ML VIAL SC SCH ×2 (08:47→20:21)
[2019-05-24 12:39] LABS: HEMOGLOBIN 10.5 g/dl (13.5-17.5)
--- NOTE | 2019-05-24 15:42 | IPN ---
DATE: 05/24/2019 Mr. Rosen is seen this morning on his bedside. He is feeling tired but denies any fever, chills, nausea, or vomiting. He has no dyspnea or chest pain at present. He was dialyzed yesterday, and he tolerated his dialysis treatment very well. PHYSICAL EXAMINATION: Temperature 97.5 degrees Fahrenheit, heart rate 70 per minute, respiratory rate 20 per minute, blood pressure 164/94 mm of mercury, and oxygen saturation 97% on room air. Head is atraumatic. Neck is supple and jugular venous distention (JVD) difficult to be assessed. He has a left internal jugular vein temporary catheter in place. On the right upper chest he has dressing where he had his Perm-A-Cath removed, and there is significant ecchymosis. His heart sounds are regular, and lungs sound clear to auscultation. Abdomen soft and nontender, and bowel sounds are present. Transplant kidney is nontender. Extremities have no cyanosis or clubbing. Neurologically, he is at his baseline mentation. Today's labs show WBC count 7.4, hematocrit 31.8 and platelets 94,000. Sodium is 137, potassium 4.2, BUN 38, and creatinine 6.56. Glucose 90 and calcium 8.9. PROBLEMS: 1. End-stage renal disease. The patient was dialyzed yesterday, and his next regular dialysis will be scheduled for Sunday. 2. Hypertension. Blood pressure control remains suboptimal despite multiple antihypertensive medications. He is volume overloaded and still has significant peripheral edema. We will try to optimize his volume status with an ultrafiltration today and try to remove about 2.5 liters of fluid as tolerated. With the next dialysis, we will remove another 3 kg and try to correct his volume within next few days. At present, I would recommend to continue with all antihypertensive medications, and blood pressure seems to be improving, though it was quite high early this morning. 3. Fungal and bacterial infection with bacteremia and fungemia. The patient remains on antifungal and antibacterial antibiotics. We will get a urine culture and if he can provide us a specimen. The patient has declined a catheter placement. 4. Anemia. His anemia is stable at present, and we will continue to monitor closely. There is no emergent need for a transfusion.
[2019-05-24] MEDS: MICAFUNGIN SODIUM 100 MG in D5W MINI-BAG PLUS 100 ML IV SCH (16:55)
--- NOTE | 2019-05-24 17:41 | IPNPDOC ---
Subjective Date Seen The patient was seen on 05/24/19. Subjective Chief Complaint/HPI Helio reports that he is feeling generally well today. He feels much better since his hydrocodone was increased back to his home dose. He is interested in going home as soon as possible as he reports that he has a lot of winterizing he needs to do on his home. General: Reports: Normal Appetite Pulmonary: Denies: Dyspnea, Cough Cardiovascular: Denies: Chest Pain, Palpitations Psych: Reports: Mood Normal Objective Physical Examination General Exam: Positive: Alert, Cooperative, No Acute Distress Eye Exam: Positive: PERRLA, Conjunctiva & lids normal, EOMI; Negative: Sclera icteric ENT Exam: Positive: Atraumatic, Mucous membr. moist/pink, Pharynx Normal Neck Exam: Positive: Supple; Negative: JVD, thyromegaly, Lymphadenopathy Chest Exam: Positive: Clear to auscultation, Normal air movement Heart Exam: Positive: Rate Normal, Regular Rhythm, Normal S1, Normal S2; Negative: Murmurs, Rubs Telemetry: Positive: No significant arrhythmia Abdomen Exam: Positive: Normal bowel sounds, Soft; Negative: Tenderness, Hepatospenomegaly Extremity Exam: Positive: Edema (1+ edema to the mid-tibial area on my evaluation today), Normal pulses; Negative: Clubbing, Cyanosis Skin Exam: Positive: Nl turgor and temperature; Negative: Breakdown, Lesion Neuro Exam: Positive: Normal Speech, Normal Tone Psych Exam: Positive: Mental status NL, Mood NL, Oriented x 3 Assessment /Plan Problems (1) ESRD (end stage renal disease) on dialysis Status: Chronic Problem Text: Nephrology consulted and managing. (2) Fungemia Status: Acute Problem Specific Plan: Consult Specialist, Monitor Clinically Problem Text: ID consulted and following. nephro aware. Day #5 Micafungin (3) Hypertensive urgency Status: Acute Response to Treatment: Improving Problem Text: Improved on current medication. Patient hx of non-compliance with treatments in the past. Possibly related to non-compliance. (4) CHF (congestive heart failure) Permanent Comment: COMMENTS: Normal sinus rhythm without intraventricular conduction disturbance. M-mode and two-dimensional echocardiography was performed with pulsed, continuous wave, color flow and tissue Doppler studies. At least mildly dilated and eccentrically hypertrophied left ventricle with mild global hypokinesis. Moderately dilated left atrium with restrictive impairment of LV diastolic function and significantly elevated mean left atrial pressure. Right heart chamber sizes upper limits of normal with at least mild hypertrophy of the right ventricular free wall degree of right ventricular hypokinesis and Doppler evidence of at least moderate pulmonary hypertension. Mildly dilated inferior vena cava with slightly reduced respiratory collapse in keeping with his central venous pressure of 10 - 15 mmHg. Mild mitral aortic valvular sclerosis without stenosis or insufficiency. Slightly thickened mitral annulus but normal leaflet thickness with reduced leaflet excursion but no posterior systolic buckling. Mild mitral insufficiency. Normal appearing tricuspid valve with mild - moderate insufficiency. No apparent intracardiac mass. Normal aortic root size. Mild to moderate pericardial effusion measuring 1.2 cm laterally and medially and 0.4 cm posteriorly. No sign of cardiac chamber compression or significant variation respiratory variation in pulsed Doppler signals. Based on the increasing size of the pericardial effusion. It may be prudent to consider referral for at least diagnostic / therapeutic pericardial drainage. DD: Lonnie Izquierdo MD, [facility] 02/14/19 [id number] DS: EMANUEL 02/15/19 1242 <Electronically signed by Lonnie Izquierdo > 02/15/19 1242 DS2: [~ rep ct labl] Last Edited By: Tatiana Melgoza NP on May 20, 2019 07:42 Status: Chronic Problem Text: He had an ultrafiltration today to help address this. It seems to have helped some. (5) Failed kidney transplant Status: Chronic Problem Text: There are multiple thoughts regarding this. He was transferred during a recent admission and the transplant team notably DID NOT act to remove his failed kidney. I have no problem with the idea of sending him again, but I feel we should not assume that they are going to do what they didn't do the last time. There should be some targeted and closed-loop communication before we work to transfer him. It also seems to me to be a bad idea to try to remove his failed kidney while he has a fungemia. (6) Anemia, chronic renal failure Status: Chronic Plan/VTE VTE Prophylaxis Ordered?: Yes (Heparin) VS, I&O, 24H, Fishbone Vital Signs/I&O Vital Signs Date Time Temp Pulse Resp B/P (MAP) Pulse Ox O2 Delivery O2 Flow Rate FiO2 05/24/19 17:25 17 05/24/19 16:55 164/88 05/24/19 16:00 98.0 77 98 05/21/19 15:14 2 05/20/19 06:00 Nasal Cannula I&O- Last 24 Hours up to 6 AM 05/24/19 06:00 Intake Total 1120 ml Output Total 3500 ml Balance -2380 ml Laboratory Data 24H LABS Laboratory Tests 2 05/24/19 05:50: Immature Granulocyte % (Auto) 0.5, White Blood Count 7.4, Red Blood Count 3.43L, Hemoglobin 10.5#L, Hematocrit 31.8L, Mean Corpuscular Volume 92.7, Mean Corpuscular Hemoglobin 30.6, Mean Corpuscular Hemoglobin Concent 33.0, Red Cell Distribution Width 19.1H, Platelet Count 94L, Neutrophils (%) (Auto) 77.9H, Lymphocytes (%) (Auto) 11.8L, Monocytes (%) (Auto) 6.6H, Eosinophils (%) (Auto) 2.8, Basophils (%) (Auto) 0.4, Neutrophils # (Auto) 5.8, Lymphocytes # (Auto) 0.9L, Monocytes # (Auto) 0.5, Eosinophils # (Auto) 0.2, Basophils # (Auto) 0.0, Nucleated Red Blood Cells % (auto) 0.0, Immature Platelet Fraction 6.0, Anion Gap 9, Glomerular Filtration Rate 9.7L, Blood Urea Nitrogen 38H, Creatinine 6.56H, Sodium Level 137, Potassium Level 4.2, Chloride Level 101, Carbon Dioxide Level 27, Calcium Level 8.9, Aspartate Amino Transf (AST/SGOT) 12, Alanine Aminotransferase (ALT/SGPT) 34, Alkaline Phosphatase 108, Total Bilirubin 0.8, Total Protein 7.1, Albumin 2.8L, Albumin/Globulin Ratio 0.65L CBC/BMP Laboratory Tests 05/24/19 05:50 Red Blood Count 3.43 L, Mean Corpuscular Volume 92.7, Mean Corpuscular Hemoglobin 30.6, Mean Corpuscular Hemoglobin Concent 33.0, Red Cell Distribution Width 19.1 H, Neutrophils (%) (Auto) 77.9 H, Lymphocytes (%) (Auto) 11.8 L, Monocytes (%) (Auto) 6.6 H, Eosinophils (%) (Auto) 2.8, Basophils (%) (Auto) 0.4, Neutrophils # (Auto) 5.8, Lymphocytes # (Auto) 0.9 L, Monocytes # (Auto) 0.5, Eosinophils # (Auto) 0.2, Basophils # (Auto) 0.0, Calcium Level 8.9, Aspartate Amino Transf (AST/SGOT) 12, Alanine Aminotransferase (ALT/SGPT) 34, Alkaline Phosphatase 108, Total Bilirubin 0.8, Total Protein 7.1, Albumin 2.8 L Microbiology Microbiology 05/22/19 Blood Culture - Preliminary, Resulted No Growth after 48 hours. All Specime... 05/21/19 Blood Culture - Preliminary, Resulted No Growth after 72 hours. All specime... 05/19/19 Blood Culture - Final, Complete Serratia Marcescens 05/19/19 Blood Culture - Preliminary, Resulted Yeast Like Organism Serratia Marcescens Fabian Pedraza MD May 24, 2019 17:41
[2019-05-24 18:15] LABS: BILIRUBIN, URINE MANUAL NEGATIVE (NEGATIVE); GLUCOSE, URINE (UA) MANUAL 1+(100 MG/DL) mg/dL (NEGATIVE); KETONE, URINE MANUAL NEGATIVE (NEGATIVE); UROBILINOGEN, URINE MANUAL NORMAL (NORMAL)
[2019-05-24 18:35] LABS: BACTERIA, URINE SMALL AMOUNT; HYALINE CAST, URINE NONE SEEN /lpf (0-1); SQUAMOUS EPITHELIAL CELL URINE SMALL AMOUNT /hpf (SMALL AMT)
[2019-05-24] MEDS: ALPRAZolam 0.5 MG TAB PO PRN (21:16)
[2019-05-25] VITALS (7 sets, daily range): BP systolic 150–172; BP diastolic 47–110
[2019-05-25] MEDS: SLF 3 ML SYR IV SCH ×3 (05:01→22:33)
[2019-05-25 06:55] LABS: BASO % 0.4 % (0.0-1.0); EOS # 0.2 10^3/uL (0.0-0.5); EOS % 3.1 % (0.0-3.0); HEMATOCRIT 28.8 % (42.0-52.0); HEMOGLOBIN 9.3 g/dl (13.5-17.5); LYMPH # 0.9 10^3/uL (1.5-5.0); LYMPH % 12.6 % (24.0-44.0); MEAN CORPUSCULAR HEMOGLOBIN 29.2 pg (27.0-33.0); MEAN CORPUSCULAR HGB CONC 32.3 g/dl (32.0-36.5); MEAN CORPUSCULAR VOLUME 90.6 fl (80.0-96.0); MONO # 0.6 10^3/uL (0.0-0.8); MONO % 7.7 % (0.0-5.0); NEUTROPHILS # 5.4 10^3/uL (1.5-8.5); NEUTROPHILS % 75.5 % (36.0-66.0); PLATELET COUNT, AUTOMATED 102 10^3/uL (150-450); RED BLOOD COUNT 3.18 10^6/uL (4.30-6.10); WHITE BLOOD COUNT 7.2 10^3/uL (4.0-10.0)
[2019-05-25 07:19] LABS: ALBUMIN 2.4 GM/DL (3.2-5.2); BILIRUBIN,TOTAL 0.7 MG/DL (0.2-1.0); CALCIUM LEVEL 8.9 MG/DL (8.5-10.1); CREATININE FOR GFR 8.39 MG/DL (0.70-1.30); GLOMERULAR FILTRATION RATE 7.3 (>60); POTASSIUM SERUM 4.4 MEQ/L (3.5-5.1); TOTAL PROTEIN 6.1 GM/DL (6.4-8.2)
[2019-05-25] MEDS: SUCROFERRIC OXYHYDROXIDE 500MG CHEW TAB (VELPHORO) PO SCH ×3 (07:43→15:43)
[2019-05-25] MEDS: HEPARIN SOD (PORCINE) 5000 UNITS/ML VIAL SC SCH ×2 (07:43→20:34)
[2019-05-25] MEDS: **hydrALAZINE** 50 MG TAB PO SCH ×3 (08:28→20:34)
[2019-05-25] MEDS: LABETALOL 200 MG TAB PO SCH ×2 (08:28→20:34)
[2019-05-25] MEDS: LISINOPRIL 20 MG TAB PO SCH ×2 (08:29→20:33)
[2019-05-25] MEDS: cloNIDine 0.1 MG TAB PO SCH ×2 (08:29→20:33)
[2019-05-25] MEDS: NORCO, ANEXSIA 5/325MG TABLET (HYDROcodone/ACETAMINOPHEN) PO PRN ×3 (08:29→22:39)
[2019-05-25] MEDS: ISOSORBIDE MON. (IMDUR) 60 MG XR TAB PO SCH (08:29)
--- NOTE | 2019-05-25 15:37 | IPNPDOC ---
Subjective Date Seen The patient was seen on 05/25/19. Subjective Chief Complaint/HPI Helio is feeling ok and is getting more antsy to go home. He keeps talking about how his house froze last winter and the work he has to do to get the place ready. I spoke with Dr. Mauricio Tucker today. He plans on calling [facility] [place] tomorrow to make the case for removal of the transplanted kidney. We need to get a permanent dialysis catheter in before he goes home as well. Will need to confirm with ID when they feel this is safe. General: Reports: Normal Appetite Constitutional: Reports: Fatigue (he thinks are related to the BP meds) Pulmonary: Denies: Dyspnea, Cough Cardiovascular: Denies: Chest Pain, Palpitations Psych: Reports: Mood Normal Objective Physical Examination General Exam: Positive: Alert, Cooperative (pacing around his room when I entered ), No Acute Distress Eye Exam: Positive: PERRLA, Conjunctiva & lids normal, EOMI; Negative: Sclera icteric ENT Exam: Positive: Atraumatic, Mucous membr. moist/pink, Pharynx Normal Neck Exam: Positive: Supple; Negative: Lymphadenopathy Chest Exam: Positive: Clear to auscultation, Normal air movement Heart Exam: Positive: Rate Normal, Regular Rhythm, Normal S1, Normal S2; Negative: Murmurs, Rubs Telemetry: Positive: No significant arrhythmia Abdomen Exam: Positive: Normal bowel sounds, Soft; Negative: Tenderness, Hepatospenomegaly Extremity Exam: Positive: Edema (trace edema), Normal pulses Skin Exam: Positive: Nl turgor and temperature; Negative: Breakdown, Lesion Neuro Exam: Positive: Normal Speech, Normal Tone Psych Exam: Positive: Mental status NL, Mood NL, Oriented x 3 Assessment /Plan Problems (1) ESRD (end stage renal disease) on dialysis Status: Chronic Problem Text: Nephrology consulted and managing. (2) Fungemia Status: Acute Problem Specific Plan: Consult Specialist, Monitor Clinically Problem Text: ID consulted and following. Nephro aware. Day #6 Micafungin. The most recent BCx are negative x 72h. I'm not exactly sure how long they need to be negative, in light of the fungemia, before we can consider replacing the dialysis catheter. (3) Hypertensive urgency Status: Acute Response to Treatment: Improving Problem Text: Improved, but still sub-optimally controlled on current medicatio n. Patient hx of non-compliance with treatments in the past. May also relate to the failed kidney transplant. (4) Failed kidney transplant Status: Chronic Problem Text: There are multiple thoughts regarding this. He was transferred during a recent admission and the transplant team notably DID NOT act to remove his failed kidney. I have no problem with the idea of sending him again, but I feel we should not assume that they are going to do what they didn't do the last time. There should be some targeted and closed-loop communication before we work to transfer him. It also seems to me to be a bad idea to try to remove his fail ed kidney while he has a fungemia. Dr. Tucker will call someone in [place] tomorrow to try to sort this out. (5) CHF (congestive heart failure) Permanent Comment: COMMENTS: Normal sinus rhythm without intraventricular conduction disturbance. M-mode and two-dimensional echocardiography was performed with pulsed, continuous wave, color flow and tissue Doppler studies. At least mildly dilated and eccentrically hypertrophied left ventricle with mild global hypokinesis. Moderately dilated left atrium with restrictive impairment of LV diastolic function and significantly elevated mean left atrial pressure. Right heart chamber sizes upper limits of normal with at least mild hypertrophy of the right ventricular free wall degree of right ventricular hypokinesis and Doppler evidence of at least moderate pulmonary hypertension. Mildly dilated inferior vena cava with slightly reduced respiratory collapse in keeping with his central venous pressure of 10 - 15 mmHg. Mild mitral aortic valvular sclerosis without stenosis or insufficiency. Slightly thickened mitral annulus but normal leaflet thickness with reduced leaflet excursion but no posterior systolic buckling. Mild mitral insufficiency. Normal appearing tricuspid valve with mild - moderate insufficiency. No apparent intracardiac mass. Normal aortic root size. Mild to moderate pericardial effusion measuring 1.2 cm laterally and medially and 0.4 cm posteriorly. No sign of cardiac chamber compression or significant variation respiratory variation in pulsed Doppler signals. Based on the increasing size of the pericardial effusion. It may be prudent to consider referral for at least diagnostic / therapeutic pericardial drainage. DD: Lonnie Izquierdo MD, [facility] 02/14/[id number] 14 DS: EMANUEL 02/15/19 1242 <Electronically signed by Lonnie Izquierdo > 02/15/19 1242 DS2: [~ rep ct labl] Last Edited By: Tatiana Melgoza NP on May 20, 2019 07:42 Status: Chronic Response to Treatment: Stable Discussed With: Patient Problem Specific Plan: Monitor Clinically Problem Text: He seems compensated at this time. I think the extra treatment yesterday helped. Next scheduled dialysis tx is tomorrow. (6) Anemia, chronic renal failure Status: Chronic Response to Treatment: Stable Problem Specific Plan: Repeat Labs Problem Text: Stable, but we need to watch his Hb carefully. Plan/VTE VTE Prophylaxis Ordered?: Yes (Heparin) VS, I&O, 24H, Fishbone Vital Signs/I&O Vital Signs Date Time Temp Pulse Resp B/P (MAP) Pulse Ox O2 Delivery O2 Flow Rate FiO2 05/25/19 14:58 17 05/25/19 14:57 160/47 05/25/19 12:00 98.0 73 95 05/21/19 15:14 2 05/20/19 06:00 Nasal Cannula I&O- Last 24 Hours up to 6 AM 05/25/19 06:00 Intake Total 1560 ml Output Total 2500 ml Balance -940 ml Laboratory Data 24H LABS Laboratory Tests 2 05/24/19 18:06: Urine Color (BHUPENDRA) LT YELLOW, Urine Appearance (BHUPENDRA) CLEAR, Urine pH (BHUPENDRA) 8.5, Urine Specific [place] (BHUPENDRA) 1.008, Urine Protein 3+H, Bedside Urine Glucose (UA ) 1+(100 MG/DL)H, Bedside Urine Ketones (LAB) NEGATIVE, Bedside Urine Blood TRACEH, Bedside Urine Nitrite (LAB) NEGATIVE, Bedside Urine Bilirubin (LAB) NEGATIVE, Bedside Urine Urobilinogen (LAB) NORMAL, Bedside Urine Leukocyte Esterase (L POSITIVEH, Urine Sediment Examination PERFORMED, Urine RBC 1-3, Urine WBC 20-30H, Urine Squamous Epithelial Cells SMALL AMOUNT, Urine Bacteria SMALL AMOUNTH, Urine Hyaline Casts NONE SEEN, Microscopic Urinalysis Comment Y 05/25/19 06:14: Immature Granulocyte % (Auto) 0.7, White Blood Count 7.2, Red Blood Count 3.18L, Hemoglobin 9.3L, Hematocrit 28.8L, Mean Corpuscular Volume 90.6, Mean Corpuscular Hemoglobin 29.2, Mean Corpuscular Hemoglobin Concent 32.3, Red Cell Distribution Width 19.0H, Platelet Count 102L, Neutrophils (%) (Auto) 75.5H, Lymphocytes (%) (Auto) 12.6L, Monocytes (%) (Auto) 7.7H, Eosinophils (%) (Auto) 3.1H, Basophils (%) (Auto) 0.4, Neutrophils # (Auto) 5.4, Lymphocytes # (Auto) 0.9L, Monocytes # (Auto) 0.6, Eosinophils # (Auto) 0.2, Basophils # (Auto) 0.0, Nucleated Red Blood Cells % (auto) 0.0, Anion Gap 9, Glomerular Filtration Rate 7.3L, Blood Urea Nitrogen 58#H, Creatinine 8.39*H, Sodium Level 134L, Potassium Level 4.4, Chloride Level 100, Carbon Dioxide Level 25, Calcium Level 8.9, Aspartate Amino Transf (AST/SGOT) 7, Alanine Aminotransferase (ALT/SGPT) 26, Alkaline Phosphatase 88, Total Bilirubin 0.7, Total Protein 6.1L, Albumin 2.4L, Albumin/Globulin Ratio 0.65L CBC/BMP Laboratory Tests 05/25/19 06:14 Red Blood Count 3.18 L, Mean Corpuscular Volume 90.6, Mean Corpuscular H emoglobin 29.2, Mean Corpuscular Hemoglobin Concent 32.3, Red Cell Distribution Width 19.0 H, Neutrophils (%) (Auto) 75.5 H, Lymphocytes (%) (Auto) 12.6 L, Monocytes (%) (Auto) 7.7 H, Eosinophils (%) (Auto) 3.1 H, Basophils (%) (Auto) 0.4, Neutrophils # (Auto) 5.4, Lymphocytes # (Auto) 0.9 L, Monocytes # (Auto) 0.6, Eosinophils # (Auto) 0.2, Basophils # (Auto) 0.0, Calcium Level 8.9, Aspartate Amino Transf (AST/SGOT) 7, Alanine Aminotransferase (ALT/SGPT) 26, Alkaline Phosphatase 88, Total Bilirubin 0.7, Total Protein 6.1 L, Albumin 2.4 L Microbiology Microbiology 05/24/19 Urine Culture - Final, Complete 05/22/19 Blood Culture - Preliminary, Resulted No Growth after 72 hours. All specime... 05/21/19 Blood Culture - Preliminary, Resulted No Growth after 72 hours. All specime... 05/19/19 Blood Culture - Final, Complete Serratia Marcescens 05/19/19 Blood Culture - Preliminary, Resulted Yeast Like Organism Serratia Marcescens Fabian Pedraza MD May 25, 2019 15:37
[2019-05-25] MEDS: MICAFUNGIN SODIUM 100 MG in D5W MINI-BAG PLUS 100 ML IV SCH (16:28)
--- NOTE | 2019-05-25 17:24 | IPN ---
DATE: 05/25/2019 Mr. Rosen is seen this morning on his bedside. He is feeling better today and denies any headache, dyspnea or chest pain. He underwent ultrafiltration yesterday, and we removed 2.5 liters of fluid. He is quite anxious and has difficulty following his fluid restriction, but he feels he is doing better than he was doing at home. He denies any nausea or vomiting. PHYSICAL EXAMINATION: Temperature 98 degrees Fahrenheit, heart rate 72 per minute and respiratory rate 20 per minute. Blood pressure 160/47 mmHg and oxygen saturation 95% on room air. Head is atraumatic. Neck is supple and jugular venous distention (JVD) is not significantly elevated. He has a temporary catheter in the left internal jugular vein. Right internal jugular vein Perma-Cath has been removed and there is significant ecchymosis on his right upper chest. He has no oral thrush or ulcers. Heart sounds are regular, and lungs clear to auscultation. Abdomen is soft and nontender and bowel sounds are normal. Extremities have no cyanosis or clubbing. Lower extremity edema is at least 2+ bilaterally. Skin has large area of ecchymosis on the right upper chest but otherwise no rash or ulcers. Neurologically, he is awake, alert and oriented times three. LABORATORIES: Today's labs show WBC count 7.2, hemoglobin 9.3 and hematocrit 28.8. Platelets are 102,000. Sodium 134, potassium 4.4, BUN 58 and creatinine 8.79. Calcium is 8.9, total protein 6.1 and albumin 2.4. Urinalysis showed 3+ protein, 1+ glucose. He had leukocyte esterase positive with 20-30 WBCs and 1-3 RBCs. Urine culture is still pending. Most recent blood cultures drawn on May 21 and are still negative. PROBLEMS: 1. End-stage renal disease. The patient is regularly dialyzed on Sunday, Sunday and Sunday schedule, and we will dialyze him tomorrow again. 2. Hypertension and hypervolemia. His volume status is still decompensated though we removed 2.5 liters of fluid yesterday. His blood pressure has improved significantly and we will plan to remove at least three more liters tomorrow. I will also consider another ultrafiltration on Sunday if possible. 3. Bacteremia and fungemia. The patient is currently afebrile with most recent blood cultures from May 21 and still negative. He remains on a micafungin. He is also on levofloxacin 250 mg every 48 hours by mouth. I will discuss with Dr. Marsh tomorrow for long-term plan of antibiotics. The patient will need a new dialysis catheter and his temporary catheter will be removed at appropriate time. DISPOSITION: At this point, the patient is not quite ready for discharge yet and I have explained to him. We will try to get his catheter issue resolved and antibiotics figured out within the next couple of days prior to discharge.
[2019-05-25] MEDS ORDERED: LevoFLOXacin 250 MG TABLET PO SCH (18:00)
[2019-05-25] MEDS: ALPRAZolam 0.5 MG TAB PO PRN (19:43)
[2019-05-26] VITALS (7 sets, daily range): BP systolic 142–190; BP diastolic 84–108
[2019-05-26] MEDS: SLF 3 ML SYR IV SCH ×3 (05:41→20:13)
[2019-05-26] MEDS: NORCO, ANEXSIA 5/325MG TABLET (HYDROcodone/ACETAMINOPHEN) PO PRN ×3 (05:41→20:12)
[2019-05-26 06:08] LABS: HEMOGLOBIN 9.4 g/dl (13.5-17.5); MEAN CORPUSCULAR HEMOGLOBIN 29.2 pg (27.0-33.0); MEAN CORPUSCULAR HGB CONC 32.4 g/dl (32.0-36.5); MEAN CORPUSCULAR VOLUME 90.1 fl (80.0-96.0); PLATELET COUNT, AUTOMATED 117 10^3/uL (150-450); RED BLOOD COUNT 3.22 10^6/uL (4.30-6.10); WHITE BLOOD COUNT 7.3 10^3/uL (4.0-10.0)
[2019-05-26 06:38] LABS: ALBUMIN 2.8 GM/DL (3.2-5.2); CALCIUM LEVEL 9.3 MG/DL (8.5-10.1); CREATININE FOR GFR 10.2 MG/DL (0.70-1.30); GLOMERULAR FILTRATION RATE 5.8 (>60); PHOSPHORUS LEVEL 5.3 MG/DL (2.5-4.9); POTASSIUM SERUM 4.9 MEQ/L (3.5-5.1)
[2019-05-26] MEDS: SUCROFERRIC OXYHYDROXIDE 500MG CHEW TAB (VELPHORO) PO SCH ×4 (08:00→18:00)
[2019-05-26] MEDS: LISINOPRIL 20 MG TAB PO SCH ×2 (08:03→20:13)
[2019-05-26] MEDS: LABETALOL 200 MG TAB PO SCH ×2 (08:03→20:13)
[2019-05-26] MEDS: cloNIDine 0.1 MG TAB PO SCH ×2 (08:03→20:12)
[2019-05-26] MEDS: ISOSORBIDE MON. (IMDUR) 60 MG XR TAB PO SCH (08:04)
[2019-05-26] MEDS: **hydrALAZINE** 50 MG TAB PO SCH ×3 (08:04→20:12)
[2019-05-26] MEDS: HEPARIN SOD (PORCINE) 5000 UNITS/ML VIAL SC SCH ×2 (08:04→20:13)
[2019-05-26 09:47] LABS: C REACTIVE PROTEIN QUANTITATIV 5.89 MG/DL (0.00-0.30)
[2019-05-26] MEDS ORDERED: HEPARIN 1,000 UNITS/ML 10ML VIAL (FOR RADIOLOGY& DIALYSIS ONLY) XX ONE (10:00)
[2019-05-26] MEDS ORDERED: CLONI1TA PO (12:12)
[2019-05-26] MEDS ORDERED: DARB100SYR IV (12:12)
[2019-05-26] MEDS ORDERED: FLUC10TA PO (12:12)
[2019-05-26] MEDS ORDERED: LEVO250T12 PO (12:12)
[2019-05-26] MEDS ORDERED: ISOS60TA2 PO (12:12)
--- NOTE | 2019-05-26 12:40 | IPN ---
DATE OF VISIT: 05/26/2019 Mr. Rosen is seen this morning on his bedside during hemodialysis. He is feeling well and wants to go home today. 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 He denies any fever, chills, dyspnea, chest pain, nausea or vomiting. He still has significant lower extremity edema. His urine culture came back negative and most recent blood cultures also negative. He is being dialyzed via his temporary hemodialysis catheter. On physical exam, temperature 97.7 degrees Fahrenheit, heart rate 84 per minute and respiratory rate 18 per minute. Blood pressure 190/108 mmHg and oxygen saturation 98% on room air. Head is atraumatic. Neck is supple and jugular venous distention (JVD) not abnormally elevated. He has a left-sided temporary hemodialysis catheter, which is being used for dialysis. Heart sounds are regular and lungs clear to auscultation. Abdomen soft and nontender, and bowel sounds are normal. Extremities have no cyanosis or clubbing. Lower extremity edema is at least 2+ bilaterally. Neurologically, he is awake, alert and oriented times three. Today's labs show WBC count 7.3, hemoglobin 9.4 and hematocrit 29.0. Platelets 117. Sodium 134, potassium 4.9, CO2 23, BUN 67 and creatinine 10.2. Glucose 83, calcium 9.3 and phosphorus 5.3. A C-reactive protein is now 5.89 and albumin 2.8. PROBLEMS: 1: End-stage renal disease. Patient is being dialyzed today and we will plan to dialyze him for 4 hours and try to remove about 3.5 liters of fluid as tolerated. Patient will need a PermaCath and I have explained to him that his temporary catheter will be removed after dialysis today and we are ordering a PermaCath placement, which he should get done before he leaves the hospital. 2. Hypertension. Blood pressure is high again today and we anticipate improvement with correction of his volume status. We are trying to remove 3.5 liters of fluid today. If the patient were to stay in the hospital, I would have dialyzed him again tomorrow and removed more fluid with ultrafiltration. Unfortunately, he has been noncompliant as an outpatient and would not come for extra treatment. He is also chronically noncompliant with fluid restriction and his dietary restrictions. Compliance with dietary restrictions and medications is being advised. 3. Fungemia and bacteremia. Patient has been afebrile and has been on oral Levaquin and intravenous micafungin. I have discussed with Dr. Marsh and we are going to switch his antifungal to fluconazole 200 mg daily for one more week. He will continue with Levaquin also for one more week. 4. Anemia. His anemia is stable and will continue to monitor closely. He will receive Aranesp 200 mcg once a week while here in the hospital. Once he is discharged. then he will go back to his chronic treatment. DISPOSITION: Patient wishes to be discharged today. He would have been much better if he had stayed another couple of days and would have helped to correct his hypervolemia, and also, we had a chance to use his new PermaCath, which he will get placed. I will defer to primary care team for his discharge.
[2019-05-26] MEDS ORDERED: MIDAZOLAM INJ 2 MG/2 ML VIAL (J2250) As Ordered ONE ×2 (15:12→16:30)
[2019-05-26] MEDS ORDERED: HEPARIN 1,000 UNITS/ML 10ML VIAL (FOR RADIOLOGY& DIALYSIS ONLY) As Ordered ONE (15:12)
[2019-05-26] MEDS ORDERED: fentaNYL 100 MCG/2 ML INJECTION (J3010) As Ordered ONE ×2 (15:12→16:30)
[2019-05-26] MEDS ORDERED: LIDOCAINE 1% MDV 20ML VIAL As Ordered ONE (15:13)
[2019-05-26] MEDS ORDERED: ISOVUE-300 61% 50ML VIAL (Q9967) As Ordered ONE (15:13)
--- NOTE | 2019-05-26 15:33 | IRMSE ---
[facility] IR Moderate Sedation Eval. Date and Time Date: May 26, 2019 Time: 15:33 ASA Classification ASA Classification: III-Severe systemic dis. Mallampati Score: II NPO: Yes Obstructive Sleep Apnea: No Interval Plan: moderate sedation ALLY DE LA CRUZ MD May 26, 2019 15:33
[2019-05-26] MEDS ORDERED: diphenhydrAMINE INJ 50MG/ML VIAL (J1200) As Ordered ONE (15:55)
--- NOTE | 2019-05-26 16:55 | POST-OPPD ---
Postoperative Procedure Note Date Of Procedure: May 26, 2019 Time Of Procedure: 16:54 PREOPERATIVE DIAGNOSIS: RF POSTOPERATIVE DIAGNOSIS: RF FINDINGS: partially occluded left IJ PROCEDURE: left IJ perm cath. ready to use SURGEON: sandra ANESTHESIA: mod sed ESTIMATED BLOOD LOSS: < 5 ml COMPLICATIONS: none POSTOPERATIVE CONDITION: stable ALLY DE LA CRUZ MD May 26, 2019 16:55
[2019-05-26] MEDS ORDERED: FLUCONAZOLE 100 MG TAB PO SCH (21:00)
[2019-05-27] MEDS: NORCO, ANEXSIA 5/325MG TABLET (HYDROcodone/ACETAMINOPHEN) PO PRN ×2 (02:44→11:02)
[2019-05-27 04:00] VITALS: BP 156/86
[2019-05-27] MEDS: SLF 3 ML SYR IV SCH (05:01)
[2019-05-27 07:50] VITALS: BP 180/100
[2019-05-27] MEDS: SUCROFERRIC OXYHYDROXIDE 500MG CHEW TAB (VELPHORO) PO SCH ×2 (08:00→12:04)
[2019-05-27] MEDS ORDERED: cloNIDine 0.2 MG TAB PO SCH (09:00)
[2019-05-27] MEDS: HEPARIN SOD (PORCINE) 5000 UNITS/ML VIAL SC SCH (09:00)
--- NOTE | 2019-05-27 09:17 | REP ---
IR Permcath placement. IR ultrasound of the left neck. IR Permcath insertion under fluoroscopy and ultrasound guidance. IR moderate sedation. Clinical information: Renal failure. Needs fdc dialysis. Physician: Dr. Ojeda. Procedure: The patient was advised of the benefits, risks and alternatives of the procedure and informed consent was obtained. The time-out was performed with verification of the patient's name, MRN, site of procedure and type of procedure to be performed. The patient was positioned in the supine position on the angiographic table. The site was prepped and draped in the usual sterile fashion. Moderate sedation was performed by the physician including the presence of an independent trained observer that assisted in monitoring the patient's level of consciousness and physiologic status. Following the administration of Fentanyl and versed, the physician spent 45 minutes of continuous face to face time with the patient. Ultrasound of the left neck reveals partially occluded lower internal jugular vein. A art professor radiograph reveals no pertinent abnormality. The neck and anterior chest wall were anesthetized with lidocaine. The left internal jugular vein was accessed under ultrasound guidance, using a micro introducer needle via a lateral approach. An 018 cope wire was advanced into the brachiocephalic vein. A venogram was performed and this demonstrates brachiocephalic stenosis. A glide wire was advanced through the micro sheath and negotiated through the brachiocephalic vein, down the SVC into the inferior vena cava. The micro sheath was removed and a glide cath was advanced over the wire down to the inferior vena cava. Guide wire was exchanged for an Amplatz wire. Incision at the internal jugular access site and anterior chest wall were made using a scalpel. The tract was serially dilated under fluoroscopy guidance. A peel away sheath was advanced over the wire under fluoroscopy guidance into the Superior vena cava. The catheter was inserted through the subcutaneous tissues of the chest wall with a tunneling device. The catheter was then advanced through the peel-away sheath under fluoroscopy guidance to the right atrium. The peel-away sheath was removed. The catheter was positioned with the tip in the right atrium. The puncture site was closed. The catheter was secured in place using 2-0 Prolene. Both sites were cleansed and sterile dressings applied. At the conclusion of the procedure, the ports of the catheter aspirate and flush freely. The catheter was locked with high-dose heparin. The patient tolerated the procedure well and was returned to the PRU in stable condition. EBL: < 5 ml. Complications: None. Conclusion: Successful placement of left sided Permcath for dialysis. The catheter is ready for immediate use. Thank you this referral. Electronically Signed by Zari Ojeda MD 05/26/2019 05:04 P
--- NOTE | 2019-05-27 10:56 | IPNPDOC ---
Subjective Date Seen The patient was seen on 05/27/19. Subjective Chief Complaint/HPI bleeding from new port site Constitutional: Denies: Chills ENT: Denies: Head Aches Pulmonary: Denies: Dyspnea Cardiovascular: Denies: Palpitations, Orthopnea Gastrointestinal: Denies: Nausea Genitourinary: Denies: Dysuria Hematologic: Reports: Bleeding Excessively (bleeding from catheter site left .) Neurological: Denies: Weakness Psych: Reports: Mood Normal Objective Physical Examination General Exam: Positive: Alert, Cooperative (pacing around his room when I entered ), No Acute Distress Eye Exam: Positive: PERRLA, Conjunctiva & lids normal, EOMI; Negative: Sclera icteric ENT Exam: Positive: Atraumatic, Mucous membr. moist/pink, Pharynx Normal Neck Exam: Positive: Supple; Negative: Lymphadenopathy Chest Exam: Positive: Clear to auscultation, Normal air movement Heart Exam: Positive: Rate Normal, Regular Rhythm, Normal S1, Normal S2; Negative: Murmurs, Rubs Telemetry: Positive: No significant arrhythmia Abdomen Exam: Positive: Normal bowel sounds, Soft; Negative: Tenderness, Hepatospenomegaly Extremity Exam: Positive: Edema (trace edema), Normal pulses Skin Exam: Positive: Nl turgor and temperature, Other skin issue (bleeding from permacath site.); Negative: Breakdown, Lesion Neuro Exam: Positive: Normal Speech, Normal Tone Psych Exam: Positive: Mental status NL, Mood NL, Oriented x 3 Assessment /Plan Problems (1) ESRD (end stage renal disease) on dialysis Status: Chronic Problem Text: Nephrology consulted and managing. (2) Fungemia Status: Acute Problem Specific Plan: Consult Specialist, Monitor Clinically Problem Text: 05/27: due to recent blood born infection, previous port was removed and he was dialyzed through a permacath which was removed yesterday and new port created. Now bleeding from the new port site. Will be sent back to IR for re-eval. Intend to discharge today if bleeding can be adequately controlled. ID consulted and following. Nephro aware. Day #6 Micafungin. The most recent BCx are negative x 72h. I'm not exactly sure how long they need to be negative, in light of the fungemia, before we can consider replacing the dialysis catheter. (3) Hypertensive urgency Status: Acute Response to Treatment: Improving Problem Text: 05/27 pressures remain poorly controlled. catapres titrated to 0.2mg bid. Improved, but still sub-optimally controlled on current medication. Patient hx of non-compliance with treatments in the past. May also relate to the failed kidney transplant. (4) Failed kidney transplant Status: Chronic Problem Text: There are multiple thoughts regarding this. He was transferred during a recent admission and the transplant team notably DID NOT act to remove his failed kidney. I have no problem with the idea of sending him again, but I feel we should not assume that they are going to do what they didn't do the last time. There should be some targeted and closed-loop communication before we work to transfer him. It also seems to me to be a bad idea to try to remove his failed kidney while he has a fungemia. Dr. Tucker will call someone in [place] tomorrow to try to sort this out. (5) CHF (congestive heart failure) Permanent Comment: COMMENTS: Normal sinus rhythm without intraventricular conduction disturbance. M-mode and two-dimensional echocardiography was performed with pulsed, continuous wave, color flow and tissue Doppler studies. At least mildly dilated and eccentrically hypertrophied left ventricle with mild global hypokinesis. Moderately dilated left atrium with restrictive impairment of LV diastolic function and significantly elevated mean left atrial pressure. Right heart chamber sizes upper limits of normal with at least mild hypertrophy of the right ventricular free wall degree of right ventricular hypokinesis and Doppler evidence of at least moderate pulmonary hypertension. Mildly dilated inferior vena cava with slightly reduced respiratory collapse in keeping with his central venous pressure of 10 - 15 mmHg. Mild mitral aortic valvular sclerosis without stenosis or insufficiency. Slightly thickened mitral annulus but normal leaflet thickness with reduced leaflet excursion but no posterior systolic buckling. Mild mitral insufficiency. Normal appearing tricuspid valve with mild - moderate insufficiency. No apparent intracardiac mass. Normal aortic root size. Mild to moderate pericardial effusion measuring 1.2 cm laterally and medially and 0.4 cm posteriorly. No sign of cardiac chamber compression or significant variation respiratory variation in pulsed Doppler signals. Based on the increasing size of the pericardial effusion. It may be prudent to consider referral for at least diagnostic / therapeutic pericardial drainage. DD: Lonnie Izquierdo MD, [facility] 02/14/19 [id number] DS: EMANUEL 02/15/19 1242 <Electronically signed by Lonnie Izquierdo > 02/15/19 1242 DS2: [~ rep ct labl] Last Edited By: Tatiana Melgoza NP on May 20, 2019 07:42 Status: Chronic Response to Treatment: Stable Discussed With: Patient Problem Specific Plan: Monitor Clinically Problem Text: He seems compensated at this time. I think the extra treatment yesterday helped. Next scheduled dialysis tx is tomorrow. (6) Anemia, chronic renal failure Status: Chronic Response to Treatment: Stable Problem Specific Plan: Repeat Labs Problem Text: Stable, but we need to watch his Hb carefully. Plan/VTE VTE Prophylaxis Ordered?: Yes (Heparin) VS, I&O, 24H, Fishbone Vital Signs/I&O Vital Signs Date Time Temp Pulse Resp B/P (MAP) Pulse Ox O2 Delivery O2 Flow Rate FiO2 05/27/19 07:50 98.3 83 16 180/100 (126) 97 05/26/19 16:55 2 l I&O- Last 24 Hours up to 6 AM 05/27/19 05:59 Intake Total 740 ml Output Total 3500 ml Balance -2760 ml Laboratory Data Microbiology Microbiology 05/24/19 Urine Culture - Final, Complete 05/22/19 Blood Culture - Final, Complete NO GROWTH AFTER 5 DAYS 05/21/19 Blood Culture - Final, Complete NO GROWTH AFTER 5 DAYS 05/19/19 Blood Culture - Final, Complete Serratia Marcescens 05/19/19 - Final, Complete Pennie Tropicalis 05/19/19 Blood Culture - Final, Complete Yeast Like Organism Serratia Marcescens Erick Wilkerson MD May 27, 2019 10:56
[2019-05-27] MEDS: ISOSORBIDE MON. (IMDUR) 60 MG XR TAB PO SCH (11:01)
[2019-05-27] MEDS: LABETALOL 200 MG TAB PO SCH (11:01)
[2019-05-27] MEDS: **hydrALAZINE** 50 MG TAB PO SCH (11:01)
[2019-05-27 11:02] VITALS: BP 200/95
[2019-05-27] MEDS: LISINOPRIL 20 MG TAB PO SCH (11:02)
[2019-05-27 12:00] VITALS: BP 162/87
[2019-05-27 12:55] VITALS: BP 168/88
--- NOTE | 2019-05-27 15:38 | IPN ---
DATE: 05/27/2019 Mr. Rosen is seen this morning on his bedside. He had problems with his mentation yesterday after catheter placement and could not be discharged. This morning he is feeling well and wants to go home. Yesterday he was dialyzed with temporary catheter, which was removed after dialysis and then he underwent Perma-Cath placement. There was no bleeding up until this morning. Nursing staff had called the dialysis nurse and put a pressure dressing on it and put a sand bag on top of it. When I examined him there was some blood under the Op-Site and some on the dressing. However, there was no active bleeding now and we left the sandbag on it. PHYSICAL EXAMINATION Temperature 98.3 degrees Fahrenheit, heart rate 82 per minute and respiratory rate 16 per minute. Blood pressure 180/100 mmHg and oxygen saturation 97% on room air. Head is atraumatic. Neck is supple and without JVD or thyroid enlargement. There is no oral thrush or ulcers. Heart: Sounds are regular and lungs clear to auscultation. On left upper chest he has a new Perma-Cath with some bleeding at the catheter site which has now stopped. However, there is some old blood under the Op-Site and some on the dressing. Abdomen is soft and nontender and bowel sounds are normal. Extremities have no cyanosis or clubbing. Lower extremity edema has improved significantly. PROBLEMS: 1. End-stage renal disease. The patient is regularly dialyzed on Sunday, Sunday and Sunday schedule. He was dialyzed yesterday and next regular dialysis will be scheduled for tomorrow. 2. Hypervolemia and leg edema. We removed 3.5 liters of fluid yesterday while he had extra ultrafiltration on Sunday and 2 liters fluid was removed. His volume status has improved significantly, but he still has some leg edema. I have discussed with the patient and advised him to go to outpatient dialysis clinic today for a two hour ultrafiltration and we will try to remove about 2 liters of fluid. He is also being advised to follow his dietary and fluid restriction of 1500 per day. 3. Hypertension. Blood pressure control is suboptimal today and he is quite stressed. Anxiety is probably increasing his blood pressure today while yesterday his blood pressure was much better controlled. We will continue with current antihypertensive meds. 4. Bleeding from the catheter site. The patient has some bleeding this morning when he did not have any bleeding yesterday after catheter was placed or through the night. I hoped that bleeding would stop with pressure dressing and sand bag. We will try to change his dressing either here before discharge or in outpatient dialysis clinic today. We will not use any heparin during dialysis until bleeding stops and his catheter heals. 5. Bacteremia and fungemia. The patient remains on oral Levaquin and his antifungal has been switched to fluconazole [address] Marsh's recommendation. The patient will be followed up as an outpatient. 6. Disposition: From renal standpoint, the patient can be discharged to home when his catheter bleeding stops and he is considered safe for discharge.
--- NOTE | 2019-06-19 14:12 | DSES ---
DATE OF ADMISSION: 05/19/2019 DATE OF DISCHARGE: 05/27/2019 REASON FOR ADMISSION: Mr. Rosen was admitted from dialysis center where his pressure was dramatically elevated. He is a 49-year-old male with a history of end-stage renal disease, hypertension, failed renal transplant on multiple medications for blood pressure control with limited success so far. Admitted for blood pressure control. During his hospital stay, he was seen in consultation by nephrology service, Dr. Denney, Dr. Rowan Tucker and Dr. Zari Ojeda who put in a new Perma-Cath left shoulder. The patient had a history of candidemia, so his dialysis catheter had to be changed. He was treated with antifungal agents. Eventually his catheter was replaced on 05/26/2019. There was continued bleeding after the procedure so he could not be discharged the first night. The following day, the bleeding seemed to be stabilized and it seemed safe for him to be discharged at that point, once bleeding had adequately been controlled. The patient remains on oral Levaquin and fluconazole at the time of discharge. He was discharged to usual home care with modifications of his discharge regimen specifically hydralazine 50 mg three times a day, labetalol 200 mg twice a day , lisinopril 20 mg by mouth twice a day, clonidine 0.2 mg by mouth twice a day, isosorbide mononitrate 60 mg by mouth daily, Aranesp 200 mcg IV on dialysis days. Losartan was stopped. He will followup with outpatient care provider in 1-2 weeks and followup with nephrology per their recommendation for his next dialysis session. He is to report any recurrent bleeding to his primary care provider or to Dr. Tucker's office for guidance. DISCHARGE DIAGNOSES: Hypertensive urgency. Chronic kidney disease stage V. Failure of hemodialysis catheter replacement of same. Fungemia treated with antifungal agents.
== END 2019-05-27 14:45 | disposition home or self-care (01) | DRG 252 ==
LOC: EDBD 08:37 → M ED 08:37 → M ED INP 12:06 → M PCU 14:57
PROVIDERS: ADMIT Hospitalist; ATTEND Family Medicine
PROC: 5A1D70Z Performance of Urinary Filtration, Intermittent, Less than 6 Hours Per Day (ICD-10-PCS; 2019-05-19)
PROC: 057F3DZ Dilation of Left Cephalic Vein with Intraluminal Device, Percutaneous Approach (ICD-10-PCS; 2019-05-21)
PROC: 05PY33Z Removal of Infusion Device from Upper Vein, Percutaneous Approach (ICD-10-PCS; 2019-05-21)
PROC: 02H733Z Insertion of Infusion Device into Left Atrium, Percutaneous Approach (ICD-10-PCS; 2019-05-21)
PROC: 057A3DZ Dilation of Left Brachial Vein with Intraluminal Device, Percutaneous Approach (ICD-10-PCS; principal; 2019-05-21 14:00)
PROC: 02HV33Z Insertion of Infusion Device into Superior Vena Cava, Percutaneous Approach (ICD-10-PCS; 2019-05-26)
DX: T82.7XXA Infection and inflammatory reaction due to other cardiac and vascular devices, implants and grafts, initial encounter (principal); N18.6 End stage renal disease; I50.43 Acute on chronic combined systolic (congestive) and diastolic (congestive) heart failure; A41.89 Other specified sepsis; T86.12 Kidney transplant failure; N25.81 Secondary hyperparathyroidism of renal origin; E87.3 Alkalosis; I13.2 Hypertensive heart and chronic kidney disease with heart failure and with stage 5 chronic kidney disease, or end stage renal disease; B49 Unspecified mycosis; I16.0 Hypertensive urgency; D63.1 Anemia in chronic kidney disease; I27.20 Pulmonary hypertension, unspecified; F41.9 Anxiety disorder, unspecified; Z79.899 Other long term (current) drug therapy; Z88.1 Allergy status to other antibiotic agents; Z88.5 Allergy status to narcotic agent; Z88.8 Allergy status to other drugs, medicaments and biological substances; Z87.891 Personal history of nicotine dependence; Z99.2 Dependence on renal dialysis; Z91.14 Patient's other noncompliance with medication regimen; Z91.19 Patient's noncompliance with other medical treatment and regimen; Y83.1 Surgical operation with implant of artificial internal device as the cause of abnormal reaction of the patient, or of later complication, without mention of misadventure at the time of the procedure

== ENCOUNTER 2019-05-28 15:54 | Emergency (ER) | payer MEDICARE, MEDICAID ==
[~2019-05-28 15:54] MED LIST changes: +CLONI1TA PO; +DARB100SYR IV; +FLUC10TA PO; +ISOS60TA2 PO; +LABE20TAB PO; +LEVO250T12 PO
[2019-05-28 16:26] LABS: BASO % 0.7 % (0.0-1.0); EOS # 0.1 10^3/uL (0.0-0.5); HEMATOCRIT 29.3 % (42.0-52.0); HEMOGLOBIN 9.4 g/dl (13.5-17.5); LYMPH # 0.7 10^3/uL (1.5-5.0); LYMPH % 11.1 % (24.0-44.0); MEAN CORPUSCULAR HEMOGLOBIN 29.7 pg (27.0-33.0); MEAN CORPUSCULAR HGB CONC 32.1 g/dl (32.0-36.5); MEAN CORPUSCULAR VOLUME 92.7 fl (80.0-96.0); MONO # 0.4 10^3/uL (0.0-0.8); MONO % 6.4 % (0.0-5.0); NEUTROPHILS # 4.9 10^3/uL (1.5-8.5); NEUTROPHILS % 79.5 % (36.0-66.0); PLATELET COUNT, AUTOMATED 117 10^3/uL (150-450); RED BLOOD COUNT 3.16 10^6/uL (4.30-6.10); WHITE BLOOD COUNT 6.1 10^3/uL (4.0-10.0)
[2019-05-28] MEDS ORDERED: TRANEXAMIC ACID 100 MG/ML 10ML VIAL ONE ×2 (16:30→17:30)
[2019-05-28] MEDS ORDERED: LIDOCAINE W/EPINEPHRINE 1% 20ML VIAL As Ordered ONE ×2 (16:47→16:48)
[2019-05-28 16:49] LABS: CALCIUM LEVEL 9.4 MG/DL (8.5-10.1); CREATININE FOR GFR 5.13 MG/DL (0.70-1.30); GLOMERULAR FILTRATION RATE 12.9 (>60); POTASSIUM SERUM 4.5 MEQ/L (3.5-5.1)
[2019-05-28] MEDS ORDERED: LIDOCAINE W/EPINEPHRINE 1% 20ML VIAL SC ONE (17:30)
[2019-05-28 17:33] LABS: INR 1.24; PROTHROMBIN TIME 15.3 SECONDS (11.8-14.0)
[2019-05-28 17:34] LABS: PARTIAL THROMBOPLASTIN TIME 36.7 SECONDS (25.0-38.4)
[2019-05-28] MEDS ORDERED: PERCOCET 5MG/325MG TAB PO ONE (18:00)
[2019-05-28] MEDS ORDERED: LISINOPRIL 20 MG TAB PO ONE (18:15)
[2019-05-28] MEDS ORDERED: cloNIDine 0.2 MG TAB PO ONE (18:15)
[2019-05-28] MEDS ORDERED: **hydrALAZINE** 50 MG TAB PO ONE (18:15)
[2019-05-28] MEDS ORDERED: LABETALOL 200 MG TAB PO ONE (18:15)
[2019-05-28 18:57] VITALS: BP 188/98
== END 2019-05-28 19:29 | disposition home or self-care (01) ==
LOC: M ED 15:54
DX: T82.49XA Other complication of vascular dialysis catheter, initial encounter (principal); N18.9 Chronic kidney disease, unspecified; I12.9 Hypertensive chronic kidney disease with stage 1 through stage 4 chronic kidney disease, or unspecified chronic kidney disease; Z88.1 Allergy status to other antibiotic agents; Z88.8 Allergy status to other drugs, medicaments and biological substances; Z79.899 Other long term (current) drug therapy

== ENCOUNTER → 2019-06-09 | Outpatient (CLI) | payer MEDICARE, MEDICAID | LOC: M LAB 10:29 | PROVIDERS: ATTEND Internal Medicine Nephrology | DX: N18.9 Chronic kidney disease, unspecified (principal); D63.1 Anemia in chronic kidney disease ==

== ENCOUNTER 2019-06-10 07:53 | Outpatient (CLI) | payer MEDICARE, MEDICAID ==
[~2019-06-10] VITALS: Ht 180.3 cm; Wt 100.0 kg
[2019-06-10] MEDS ORDERED: diphenhydrAMINE 25 MG CAP PO ONE (08:15)
[2019-06-10] MEDS ORDERED: ACETAMINOPHEN 500 MG TAB PO ONE (08:15)
[2019-06-10 08:20] VITALS: BP 178/102
[2019-06-10 08:35] VITALS: BP 176/88
[2019-06-10 09:20] VITALS: BP 180/98
[2019-06-10 10:24] VITALS: BP 180/102
== END 2019-06-10 10:45 | disposition home or self-care (01) ==
LOC: M INFU 07:53
PROVIDERS: ATTEND Internal Medicine Nephrology
DX: N18.6 End stage renal disease (principal); D63.1 Anemia in chronic kidney disease
CPT/HCPCS: 36430; P9016

== ENCOUNTER 2019-07-22 11:05 | Inpatient (IN) | payer MEDICARE, MEDICAID ==
[~2019-07-22] VITALS: Ht 180.3 cm; Wt 105.2 kg
[~2019-07-22 11:05] MED LIST changes: +hydrALAZINE INJ 20 MG/ML VIAL IV SCH
[2019-07-22] MEDS ORDERED: DOXY100T27 PO (11:24)
[2019-07-22] MEDS ORDERED: ONDANSETRON 4MG/2ML VIAL (J2405) As Ordered ONE (11:38)
[2019-07-22] MEDS ORDERED: ONDANSETRON 4MG/2ML VIAL (J2405) IV ONE (11:45)
[2019-07-22] MEDS ORDERED: LABETALOL HCL 100 MG/20 ML VIAL IV STA ×2 (12:14→13:59)
[2019-07-22] MEDS ORDERED: PERCOCET 5MG/325MG TAB PO ONE (12:30)
--- NOTE | 2019-07-22 12:51 | REP ---
Clinical: Abdominal pain with vomiting and diarrhea. Technique: Axial noncontrast images from the lung bases to the pubic symphysis with coronal and sagittal re-formations. Comparison: 05/21/2019. Findings: Lung bases demonstrate cardiomegaly and small pericardial effusion. Moderate ascites noted throughout the abdomen and pelvis along with significant subcutaneous edema throughout the abdomen and pelvis. Liver, spleen, pancreas, and bilateral adrenal glands are normal. [place] kidneys demonstrate complete atrophic change. Right-sided hydronephrosis is appreciated which may be secondary to a 6 mm obstructing calculus in the mid-right ureter. There is a transplant kidney in the right lower quadrant which demonstrates subtle hazy perinephric stranding and mild hydronephrosis along with 1.7 cm upper pole cyst which appears stable to prior examination. The enteric system is without obstruction or obvious acute process. Colonic and sigmoid diverticulosis noted without obvious acute diverticulitis. Pelvis demonstrates collapsed bladder and age appropriate prostate/seminal vesicles. Atherosclerotic changes to the aorta and vasculature noted without aneurysm. No free air. No obvious adenopathy. Musculoskeletal structures are intact. Impression: 1. Small pericardial effusion, moderate ascites, and moderate to significant subcutaneous edema is consistent with renal failure. 2. Transplant kidney in the right lower quadrant has some element of perinephric stranding as well as mild hydronephrosis which is similar to prior examination and may reflect some element of transplant insufficiency. 3. Sigmoid diverticulosis without obvious acute diverticulitis. Electronically Signed by Refugio Small MD 07/22/2019 12:43 P
--- NOTE | 2019-07-22 13:12 | REP ---
Clinical: Chest pain. Technique: PA and lateral. Comparison: 05/19/2019. Findings: Double-lumen dialysis catheter is appreciated. Cardiomegaly. No obvious consolidation, effusion, or evidence for significant pulmonary vascular congestion. No pneumothorax. Skeletal structures intact. Impression: Cardiomegaly. Electronically Signed by Refugio Small MD 07/22/2019 01:04 P
[2019-07-22] MEDS ORDERED: CLON0.2T PO (13:31)
[2019-07-22 13:33] LABS: BASO % 0.5 % (0.0-1.0); HEMATOCRIT 41.1 % (42.0-52.0); HEMOGLOBIN 12.6 g/dl (13.5-17.5); LYMPH # 1.1 10^3/uL (1.5-5.0); LYMPH % 12.9 % (24.0-44.0); MEAN CORPUSCULAR HEMOGLOBIN 30.1 pg (27.0-33.0); MEAN CORPUSCULAR HGB CONC 30.7 g/dl (32.0-36.5); MEAN CORPUSCULAR VOLUME 98.1 fl (80.0-96.0); MONO # 0.7 10^3/uL (0.0-0.8); MONO % 8.2 % (0.0-5.0); NEUTROPHILS # 6.7 10^3/uL (1.5-8.5); NEUTROPHILS % 77.5 % (36.0-66.0); RED BLOOD COUNT 4.19 10^6/uL (4.30-6.10); WHITE BLOOD COUNT 8.7 10^3/uL (4.0-10.0)
[2019-07-22 13:40] LABS: PLATELET COUNT, AUTOMATED 76 10^3/uL (150-450)
[2019-07-22 13:45] LABS: ALBUMIN 3.9 GM/DL (3.2-5.2); BILIRUBIN,DIRECT 0.7 MG/DL (0.0-0.2); BILIRUBIN,TOTAL 1.6 MG/DL (0.2-1.0); CALCIUM LEVEL 10.9 MG/DL (8.5-10.1); CK-MB VALUE MASS 11.8 NG/ML (<3.6); CREATININE FOR GFR 10.5 MG/DL (0.70-1.30); GLOMERULAR FILTRATION RATE 5.7 (>60); MB/CK RELATIVE INDEX 3.7 (< OR =4); TOTAL PROTEIN 8.4 GM/DL (6.4-8.2); TROPONIN I 0.14 NG/ML (< 0.10)
[2019-07-22] MEDS ORDERED: ASPIRIN 81 MG CHEW TABLET PO ONE (14:15)
[2019-07-22] MEDS: NITROGLYCERIN 0.4 MG SUBL TABLET SL PRN ×3 (14:18→14:33)
[2019-07-22] MEDS ORDERED: HEPARIN 1,000 UNITS/ML 10ML VIAL (FOR RADIOLOGY& DIALYSIS ONLY) XX ONE (15:15)
[2019-07-22] MEDS ORDERED: MIDAZOLAM INJ 2 MG/2 ML VIAL (J2250) As Ordered ONE (15:17)
[2019-07-22] MEDS ORDERED: LIDOCAINE 1% MDV 20ML VIAL As Ordered ONE (15:17)
[2019-07-22] MEDS ORDERED: HEPARIN 1,000 UNITS/ML 10ML VIAL (FOR RADIOLOGY& DIALYSIS ONLY) As Ordered ONE (15:18)
[2019-07-22] MEDS ORDERED: fentaNYL 100 MCG/2 ML INJECTION (J3010) As Ordered ONE (15:18)
[2019-07-22] MEDS ORDERED: diphenhydrAMINE INJ 50MG/ML VIAL (J1200) As Ordered ONE (15:19)
[2019-07-22] MEDS ORDERED: ceFAZolin 1GM INJ (J0690 PER 500MG) As Ordered ONE (15:29)
[2019-07-22] MEDS ORDERED: ACETAMINOPHEN TAB 650MG DOSE (2X325MG) PO PRN (15:45)
[2019-07-22] MEDS ORDERED: ISOVUE-300 61% 50ML VIAL (Q9967) As Ordered ONE (16:04)
--- NOTE | 2019-07-22 16:38 | POST-OPPD ---
Postoperative Procedure Note Date Of Procedure: Jul 22, 2019 Time Of Procedure: 16:36 PREOPERATIVE DIAGNOSIS: RF POSTOPERATIVE DIAGNOSIS: RF FINDINGS: left perm cath aspirates and flushes. position of tip proximal in SVC PROCEDURE: left perm exchange. tip RA. Ready to use. SURGEON: sandra ANESTHESIA: mod sed ESTIMATED BLOOD LOSS: < 5 ml COMPLICATIONS: none POSTOPERATIVE CONDITION: stable ALLY DE LA CRUZ MD Jul 22, 2019 16:38
--- NOTE | 2019-07-22 17:14 | ECGEPIP ---
[facility] - ED Test Date: 2019-07-22 Pat Name: OPAL LACEY Department: Room: - Gender: Male Histology Aide: kevin : 1970 Requested By: CAROLYN Ortiz Order Number: [id number] Reading MD: Lore Suarez Measurements Intervals [place] Rate: 103 P: 56 MO: 194 QRS: -23 QRSD: 98 T: 110 QT: 363 QTc: 477 Interpretive Statements SINUS TACHYCARDIA POSSIBLE LEFT ATRIAL ENLARGEMENT BORDERLINE LEFT AXIS DEVIATION NONSPECIFIC T-WAVE ABNORMALITY SIMILAR 05/19/19 Electronically Signed on 07-22-2019 17:14:47 EST by Lore Suarez
[2019-07-22 19:37] LABS: CK-MB VALUE MASS 10.8 NG/ML (<3.6); MB/CK RELATIVE INDEX 5.35 (< OR =4); TROPONIN I 0.15 NG/ML (< 0.10)
--- NOTE | 2019-07-22 19:57 | HPEPDOC ---
General Date of Admission Jul 22, 2019 at 15:39 Date of Service: Jul 22, 2019 Chief Complaint The patient is a 49-year-old male admitted with a reason for visit of Esrd On Dialysis Hypertensive Urgency. Source: Patient Exam Limitations: No limitations Severity: Moderate History of Present Illness 49year old male with PMH of Hypertension, end-stage renal disease due to hypertension, s/p renal transplant in 2014 which failed started back on HD in 2018, anxiety disorder, Diastolic congestive heart failure, Pulmonary hypertension, POST-TRANSPLANT ERYTHROCYTOSIS for which received phlebotomy, BRONCHIECTASIS, Candidemia in apr 2019 , chronic back pain, hypercholesterolemia was sent in from dialysis unit for Nausea, vomiting, ab dominal pain and chest pain for 3 to 4 days. Patient received his routine HD yesterday (Sunday) . Today he was there getting a UF and was complaining of these symptoms so was sent to the ED. He says the abdominal pain is located in the epigastrium and right upper quadrant mostly sharp comes and goes associated with nausea and vomiting and also chest discomfort. Initially was 8/10 in intensity but then reduced after medications in the ED. On arrival to the he he was noted to have hypertensive urgency with BP of 210/115. Labs were significant for low platelets, elevated transaminases, creatinine above 10 , elevated potassium of having HD yesterday. Nephrology was contacted urgently. It was fe lt that his perm cath was not working well. SO IR was contacted by Nephrology and patient was taken to IR suite for an urgent PermCath exchange. Patient was admitted for hypertensive urgency and poorly functioning dialysis catheter with hyperkalemia. Abdominal pain could also be due to right ureteric stone see in CT though the location does not match. CT abdomen and pelvis showed Moderate ascites throughout the abdomen and pelvis along with significant subcutaneous edema throughout the abdomen and pelvis. Liver, spleen, pancreas, and bilateral adrenal glands are normal. [place] kidneys demonstrate complete atrophic change. Right-sided hydronephrosis is appreciated which may be secondary to a 6 mm obstructing calculus in the mid- right ureter. Home Medications Scheduled Clonidine HCl (Clonidine HCl) 0.2 Mg Tablet, 0.2 MG PO BID, (Reported) Doxycycline Monohydrate (Doxycycline Monohydrate) 100 Mg Tablet, 100 MG PO BID, (Reported) FILLED 07/15/19 FOR 10 DAYS Hydralazine HCl (Hydralazine HCl) 50 Mg Tablet, 50 MG PO TID, (Reported) Labetalol HCl (Labetalol HCl) 200 Mg Tablet, 200 MG PO BID, (Reported) Lisinopril (Lisinopril) 20 Mg Tablet, 20 MG PO BID, (Reported) Scheduled PRN Alprazolam (Alprazolam) 1 Mg Tab, 1 MG PO BID PRN for ANXIETY, (Reported) Hydrocodone/Acetaminophen ([place] 10-325 Tablet) 1 Tab Tab, 1 TAB PO Q6H PRN for PAIN, (Reported) Allergies Coded Allergies: Cephalosporins (Verified Allergy, Intermediate, HIVES, CEFTIN, 11/27/18) hydroxyzine (Verified Adverse Reaction, Intermediate, INCREASED LETHARGY, LOSS OF BALANCE, 11/27/18) ketorolac (Verified Adverse Reaction, Mild, DIZZY, NAUSEA, 11/27/18) tramadol (Verified Adverse Reaction, Mild, DIZZY, 05/19/19) Past Medical History Medical History Hypertension, end-stage renal disease due to hypertension, s/p renal transplant in 2014 which failed started back on HD in 2017, anxiety disorder, Diastolic congestive heart failure, Pulmonary hypertension, POST-TRANSPLANT ERYTHROCYTOSIS, ON AN ACEI AND RECEIVING PHLEBOTOMY , BRONCHIECTASIS, Candidemia in sept Surgical History Right lower quadrant renal transplant in May of 2015 that failed in 2017, cholecystectomy in 2011, right wrist arteriovenous (AV) fistula placement and 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 Family History FATHER: UNKNOWN MOTHER: ALIVE 64 YRS, DIAGNOSED WITH DIABETES SIBLINGS: ALIVE, ANXIETY, DEPRESSION SON(S): ALIVE 1 BROTHER(S) , 1 SISTER(S) - HEALTHY. 2 SON(S) - HEALTHY. 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) Drugs: denies A-FIB/CHADSVASC A-FIB History Current/History of A-Fib/PAF?: No Review of Systems Constitutional: Denies: Chills, Fever, Night Sweats Eyes: Denies: Pain, Vision change ENT: Reports: Head Aches Skin: Denies: Rash, Lesions, Breakdown Pulmonary: Denies: Dyspnea, Cough Cardiovascular: Reports: Chest Pain, Edema Gastrointestinal: Reports: Nausea, Vomiting, Abdominal Pain, Other Symptoms (abdominal distension) Musculoskeletal: Reports: Back Pain Neurological: Denies: Weakness, Numbness, Change in speech, Confusion Psych: Reports: Anxiety, Depression Physical Examination General Exam: Positive: Alert, Cooperative, No Acute Distress Eye Exam: Positive: PERRLA, Conjunctiva & lids normal, EOMI; Negative: Sclera icteric ENT Exam: Positive: Atraumatic, Mucous membr. moist/pink, Pharynx Normal Neck Exam: Positive: Supple; Negative: JVD, thyromegaly Chest Exam: Positive: Clear to auscultation, Normal air movement Heart Exam: Positive: Rate Normal, Regular Rhythm, Normal S1, Normal S2; Negative: Murmurs, Rubs Abdomen Exam: Positive: Normal bowel sounds, Soft, Tenderness (epigastrim and to mary right of epigastrium), Hepatospenomegaly (left lobe of liver plapable.) Extremity Exam: Negative: Clubbing, Cyanosis, Edema Skin Exam: Positive: Rash (petechial rash), Other skin issue (subcutaneous edema in mary lateral abdominal painter) Neuro Exam: Positive: Normal Speech, Strength at 5/5 X4 ext, Normal Tone Vital Signs Vital Signs Date Time Temp Pulse Resp B/P (MAP) Pulse Ox O2 Delivery O2 Flow Rate FiO2 07/22/19 16:40 72 16 99 Room Air 07/22/19 16:25 3 07/22/19 15:20 97.2 07/22/19 15:05 178/125 (142) Laboratory Data Labs 24H Laboratory Tests 2 07/22/19 11:39: Immature Granulocyte % (Auto) 0.9, Neutrophils (%) (Auto) 77.5H, Lymphocytes (%) (Auto) 12.9L, Monocytes (%) (Auto) 8.2H, Eosinophils (%) (Auto) 0.0, Basophils (%) (Auto) 0.5, Neutrophils # (Auto) 6.7, Lymphocytes # (Auto) 1.1L, Monocytes # (Auto) 0.7, Eosinophils # (Auto) 0.0, Basophils # (Auto) 0.0, Nucleated Red Blood Cells % (auto) 1.2H, Immature Platelet Fraction 12.7H, Anion Gap 13, Glomerular Filtration Rate 5.7L, Calcium Level 10.9H, Total Bilirubin 1.6H, Direct Bilirubin 0.7H, Aspartate Amino Transf (AST/SGOT) 109H, Alanine Aminotransferase (ALT/SGPT) 137H, Alkaline Phosphatase 112, Total Creatine Kinase 319H, Creatine Kinase MB 11.8H, Creatine Kinase MB Relative Index 3.70, Troponin I 0.14H, Total Protein 8.4H, Albumin 3.9, Albumin/Globulin Ratio 0.87L, Lipase 102 07/22/19 18:40: CBC/BMP Laboratory Tests 07/22/19 11:39 Assessment/Plan 49 year old male with PMH of Hypertension, end-stage renal disease due to hypertension, s/p renal transplant in 2014 which failed started back on HD in 2018, anxiety disorder, Diastolic congestive heart failure, Pulmonary hyperten yin, POST-TRANSPLANT ERYTHROCYTOSIS for which received phlebotomy, BRONCHIECTASIS, Candidemia in apr 2019 , chronic back pain, hypercholesterolemia was sent in from dialysis unit for Nausea, vomiting, abdominal pain and chest pain for 3 to 4 days. Pateint recieved his routine HD yesterday (Sunday) . Today he was there getting a UF and was complaining of these symptoms so was sent to the ED. He says the abdominal pain is located in the epigastrium mostly sharp comes and goes associated with nausea and vomiting and also chest discomfort. Initially was 8/10 in intensity but then reduced after medications in the ED. On arrival to the he he was noted to have hypertensive urgency with BP of 210/115. Labs were significant for low platelets, elevated transaminases, creatinine above 10 , elevated potassium of having HD yesterday. Nephrology was contacted urgently. It was felt that his perm cath was not working well. SO IR was contacted by Nephrology and patient was taken to IR suite for an urgent PermCath exchange. Patient was admitted for hypertensive urgency and poorly functioning dialysis catheter with hyperkalemia. Hypertensive urgency probably due to Fluid overload and CHF exacerbation will admit to PCU will continue labetelol, lisinopril, clonidine and give iv hydralazine with hold parameters. Abdominal pain nausea and vomiting could be GERD or gastritis However right ureteric stone may also cause it though the location of the pain does not match. continue ppi. consider consulting urology. Diastolic CHF exacerbation fluid management with HD. Poorly functioning permcath with poor clearances. Patient had perm cath exchange today Had increased bleeding post procedure Thrombocytopenia, elevated transaminases with ascites in the CT abdomen and pelvis would suggest work up for underlying cirrhosis of liver elevated transaminases could also be due to congestive hepatopathy form heart failure and fluid overload. ESRD s/p failed renal transplant due to HTN nephrology consulted. Hyperlipidemia continue home meds Gout continue home meds Obesity with BMI of 33.3 Plan / VTE VTE Prophylaxis Ordered?: Yes NYASIA PRABHAKAR MD Jul 22, 2019 19:57
[2019-07-22 20:13] VITALS: BP 214/106
[2019-07-22] MEDS: PANTOPRAZOLE 40MG INJ (PROTONIX) (C9113) IV SCH (20:37)
[2019-07-22] MEDS: DOCUSATE SODIUM 100 MG CAP PO SCH (20:38)
[2019-07-22] MEDS: LABETALOL 200 MG TAB PO SCH (20:38)
[2019-07-22] MEDS: cloNIDine 0.2 MG TAB PO SCH (20:39)
[2019-07-22] MEDS: lisinopriL 20 MG TAB PO SCH (20:39)
[2019-07-22] MEDS: hydrALAZINE INJ 20 MG/ML VIAL IV SCH (20:52)
[2019-07-22] MEDS: ANEXSIA, NORCO 7.5MG/325MG TABLET(HYDROCODONE/APAP) PO PRN (20:56)
[2019-07-22] MEDS ORDERED: HEPARIN SOD (PORCINE) 5000 UNITS/ML VIAL SC SCH (21:00)
[2019-07-23] VITALS (7 sets, daily range): BP systolic 142–173; BP diastolic 80–100
[2019-07-23] MEDS: hydrALAZINE INJ 20 MG/ML VIAL IV SCH ×4 (03:00→21:00)
[2019-07-23] MEDS: ANEXSIA, NORCO 7.5MG/325MG TABLET(HYDROCODONE/APAP) PO PRN ×2 (04:12→10:38)
[2019-07-23 05:40] LABS: BASO # 0.1 10^3/uL (0.0-0.2); BASO % 0.9 % (0.0-1.0); EOS # 0.1 10^3/uL (0.0-0.5); HEMATOCRIT 32.9 % (42.0-52.0); LYMPH % 16.8 % (24.0-44.0); MEAN CORPUSCULAR HEMOGLOBIN 30.1 pg (27.0-33.0); MEAN CORPUSCULAR HGB CONC 31.6 g/dl (32.0-36.5); MEAN CORPUSCULAR VOLUME 95.4 fl (80.0-96.0); MONO # 0.9 10^3/uL (0.0-0.8); MONO % 15.6 % (0.0-5.0); NEUTROPHILS # 3.8 10^3/uL (1.5-8.5); NEUTROPHILS % 65.2 % (36.0-66.0); RED BLOOD COUNT 3.45 10^6/uL (4.30-6.10); WHITE BLOOD COUNT 5.8 10^3/uL (4.0-10.0)
[2019-07-23 05:44] LABS: HEMOGLOBIN 10.4 g/dl (13.5-17.5); PLATELET COUNT, AUTOMATED 65 10^3/uL (150-450)
[2019-07-23 06:01] LABS: ALBUMIN 2.9 GM/DL (3.2-5.2); CALCIUM LEVEL 9.3 MG/DL (8.5-10.1); CREATININE FOR GFR 9.19 MG/DL (0.70-1.30); GLOMERULAR FILTRATION RATE 6.6 (>60); PHOSPHORUS LEVEL 6.8 MG/DL (2.5-4.9); POTASSIUM SERUM 4.8 MEQ/L (3.5-5.1)
--- NOTE | 2019-07-23 08:17 | REP ---
IR Permcath Exchange. IR Permcath exchange under fluoroscopy guidance. IR Venogram. IR moderate sedation. Clinical information: Renal failure. Dialysis catheter not working. Physician: Dr. Ojeda. Procedure: The patient was advised of the benefits, risks and alternatives of the procedure and informed consent was obtained. The time-out was performed with verification of the patient's name, MRN, site of procedure and type of procedure to be performed. The patient was positioned in the supine position on the angiographic table. The site was prepped and draped in the usual sterile fashion. Moderate sedation was performed by the physician including the presence of an independent trained observer who assisted in monitoring the patient's level of consciousness and physiologic status. Following the administration of fentanyl and Versed , the physician spent 45 minutes of continuous face to face time with the patient. A senior designer/art director radiograph reveals left internal jugular permcath; tip proximal superior vena cava. The heparin flushes was aspirated from the catheter. A venogram was performed through the existing PermCath and this demonstrates good flow into the heart. No fibrin sheath. Two Amplatz wires were advance through the catheter into the inferior vena cava under fluoroscopy guidance. The sutures holding the catheter in place were cut and blunt dissection of the cuff was performed using hemostats. The catheter was removed over the wire. A new 27 cm glide cath dialysis catheter was advanced over the wire using fluoroscopy guidance. The tip was positioned in the right atrium. The wires were then removed. The catheter was sutured in position with 2-0 Prolene. Both ports aspirated and flushed easily. At the conclusion of the procedure, the catheter was locked with high-dose heparin. The patient tolerated the procedure well and was returned to the PRU in stable condition. EBL: < 5 ml. Complications: None. Conclusion: Successful exchange of preexisting left sided PermCath for longer Glidepath PermCath. The catheter is ready for immediate use. Thank you this referral. Electronically Signed by Zari Ojeda MD 07/23/2019 08:16 A
[2019-07-23] MEDS ORDERED: DESMOPRESSIN 0.01% NASAL SOLN 5 ML BTL SCH (09:00)
[2019-07-23] MEDS: DOCUSATE SODIUM 100 MG CAP PO SCH ×2 (09:00→21:00)
[2019-07-23] MEDS: lisinopriL 20 MG TAB PO SCH ×2 (09:43→21:19)
[2019-07-23] MEDS: cloNIDine 0.2 MG TAB PO SCH ×2 (09:44→21:20)
[2019-07-23] MEDS: LABETALOL 200 MG TAB PO SCH ×2 (09:44→21:20)
--- NOTE | 2019-07-23 10:03 | IPNPDOC ---
Subjective Date Seen The patient was seen on 07/23/19. Subjective Chief Complaint/HPI hypertensive urgency Events since last encounter Planned HD today. patient notes he stepped on a nail 1 week ago and was seen at local and placed on doxycycline. He is c/o pain and would like to resume his abx. tetanus was given at per patient report. Constitutional: Denies: Chills, Fever, Night Sweats Pulmonary: Denies: Dyspnea, Cough Cardiovascular: Denies: Chest Pain, Palpitations, Orthopnea, Paroxysmal Noc. Dyspnea, Lt Headedness Gastrointestinal: Reports: Abdominal Pain; Denies: Nausea, Vomiting, Diarrhea, Constipation Musculoskeletal: Reports: Foot Pain (from stepping on nail) Psych: Reports: Mood Normal Objective Physical Examination General Exam: Positive: Alert, Cooperative, No Acute Distress Eye Exam: Positive: PERRLA, Conjunctiva & lids normal, EOMI; Negative: Sclera icteric ENT Exam: Positive: Atraumatic, Mucous membr. moist/pink, Pharynx Normal Neck Exam: Positive: Supple; Negative: JVD, thyromegaly Chest Exam: Positive: Clear to auscultation, Normal air movement Heart Exam: Positive: Rate Normal, Regular Rhythm, Normal S1, Normal S2; Negative: Murmurs, Rubs Abdomen Exam: Positive: Normal bowel sounds, Soft, Tenderness (epigastrim and to the right of epigastrium), Hepatospenomegaly (left lobe of liver plapable.) Extremity Exam: Negative: Clubbing, Cyanosis, Edema Skin Exam: Positive: Rash (petechial rash), Other skin issue (subcutaneous edema in the lateral abdominal painter) Neuro Exam: Positive: Normal Speech, Strength at 5/5 X4 ext, Normal Tone Assessment /Plan Problems (1) Thrombocytopenia Problem Text: chronic on review of labs. (2) Puncture wound of skin from metal nail Status: Acute Problem Text: will image heel and start antibiotic. (3) Bleeding due to dialysis catheter placement Status: Acute Response to Treatment: Stable, Improving (4) Elevated troponin Status: Acute Response to Treatment: Stable Problem Text: repeat 0.14 (5) Hypertensive urgency Status: Acute Response to Treatment: Improving (6) ESRD (end stage renal disease) on dialysis Status: Chronic Problem Text: planned HD today. (7) CHF (congestive heart failure) Permanent Comment: COMMENTS: Normal sinus rhythm without intraventricular conduction disturbance. M-mode and two-dimensional echocardiography was performed with pulsed, continuous wave, color flow and tissue Doppler studies. At least mildly dilated and eccentrically hypertrophied left ventricle with mild global hypokinesis. Moderately dilated left atrium with restrictive impairment of LV diastolic function and significantly elevated mean left atrial pressure. Right heart chamber sizes upper limits of normal with at least mild hypertrophy of the right ventricular free wall degree of right ventricular hypokinesis and Doppler evidence of at least moderate pulmonary hypertension. Mildly dilated inferior vena cava with slightly reduced respiratory collapse in keeping with his central venous pressure of 10 - 15 mmHg. Mild mitral aortic valvular sclerosis without stenosis or insufficiency. Slightly thickened mitral annulus but normal leaflet thickness with reduced leaflet excursion but no posterior systolic buckling. Mild mitral insufficiency. Normal appearing tricuspid valve with mild - moderate insufficiency. No apparent intracardiac mass. Normal aortic root size. Mild to moderate pericardial effusion measuring 1.2 cm laterally and medially and 0.4 cm posteriorly. No sign of cardiac chamber compression or significant variation respiratory variation in pulsed Doppler signals. Based on the increasing size of the pericardial effusion. It may be prudent to consider referral for at least diagnostic / therapeutic pericardial drainage. DD: Lonnie Izquierdo MD, [facility] 02/14/19 [id number] DS: EMANUEL 02/15/19 1242 <Electronically signed by Lonnie Izquierdo > 02/15/19 1242 DS2: [~ rep ct labl] Last Edited By: Tatiana Melgoza NP on May 20, 2019 07:42 Status: Chronic Plan/VTE VTE Prophylaxis Ordered?: No VTE Exclusion Mechanical Proph: Other (anemia) VS, I&O, 24H, Fishbone Vital Signs/I&O Vital Signs Date Time Temp Pulse Resp B/P (MAP) Pulse Ox O2 Delivery O2 Flow Rate FiO2 07/23/19 09:44 156/100 07/23/19 09:44 73 07/23/19 08:00 97.5 18 98 Room Air 07/22/19 16:25 3 I&O- Last 24 Hours up to 6 AM 07/23/19 06:00 Intake Total 1470 ml Output Total 2000 ml Balance -530 ml Laboratory Data 24H LABS Laboratory Tests 2 07/22/19 11:39: Immature Granulocyte % (Auto) 0.9, Neutrophils (%) (Auto) 77.5H, Lymphocytes (%) (Auto) 12.9L, Monocytes (%) (Auto) 8.2H, Eosinophils (%) (Auto) 0.0, Basophils (%) (Auto) 0.5, Neutrophils # (Auto) 6.7, Lymphocytes # (Auto) 1.1L, Monocytes # (Auto) 0.7, Eosinophils # (Auto) 0.0, Basophils # (Auto) 0.0, Nucleated Red Blood Cells % (auto) 1.2H, Immature Platelet Fraction 12.7H, Anion Gap 13, Glomerular Filtration Rate 5.7L, Calcium Level 10.9H, Total Bilirubin 1.6H, Direct Bilirubin 0.7H, Aspartate Amino Transf (AST/SGOT) 109H, Alanine Aminotransferase (ALT/SGPT) 137H, Alkaline Phosphatase 112, Total Creatine Kinase 319H, Creatine Kinase MB 11.8H, Creatine Kinase MB Relative Index 3.70, Troponin I 0.14H, Total Protein 8.4H, Albumin 3.9, Albumin/Globulin Ratio 0.87L, Lipase 102 07/22/19 18:40: Total Creatine Kinase 202, Creatine Kinase MB 10.8H, Creatine Kinase MB Relative Index 5.35H, Troponin I 0.15H 07/23/19 05:20: Immature Granulocyte % (Auto) 0.5, Neutrophils (%) (Auto) 65.2, Lymphocytes (%) (Auto) 16.8L, Monocytes (%) (Auto) 15.6H, Eosinophils (%) (Auto) 1.0, Basophils (%) (Auto) 0.9, Neutrophils # (Auto) 3.8, Lymphocytes # (Auto) 1.0L, Monocytes # (Auto) 0.9H, Eosinophils # (Auto) 0.1, Basophils # (Auto) 0.1, Nucleated Red Blood Cells % (auto) 1.5H, Anion Gap 8, Glomerular Filtration Rate 6.6L, Calcium Level 9.3, Albumin 2.9#L, Phosphorus Level 6.8H CBC/BMP Laboratory Tests 07/22/19 11:39 07/23/19 05:20 Tatiana Melgoza [facility] Jul 23, 2019 10:03
[2019-07-23] MEDS: DOXYCYCLINE HYCLATE 100 MG TAB PO SCH ×2 (10:38→21:20)
--- NOTE | 2019-07-23 10:55 | REP ---
Two views left calcaneus: 07/23/2019. Indication: Left heel trauma. Comparison: None. Findings: There is no acute fracture, subluxation or dislocation. No radiopaque foreign bodies are detected. Impression: No left calcaneus acute osseous injuries. No foreign bodies. Electronically Signed by Geo Bryant DO 07/23/2019 10:47 A
[2019-07-23] MEDS ORDERED: HEPARIN 1,000 UNITS/ML 10ML VIAL (FOR RADIOLOGY& DIALYSIS ONLY) XX ONE (13:15)
[2019-07-23] MEDS: PANTOPRAZOLE 40MG INJ (PROTONIX) (C9113) IV SCH (21:19)
[2019-07-23] MEDS: ALPRAZolam 0.5 MG TAB PO PRN (21:20)
[2019-07-24] VITALS (7 sets, daily range): BP systolic 152–190; BP diastolic 82–112
[2019-07-24] MEDS: hydrALAZINE INJ 20 MG/ML VIAL IV SCH ×4 (03:00→20:59)
[2019-07-24 05:25] LABS: BASO # 0.1 10^3/uL (0.0-0.2); BASO % 0.9 % (0.0-1.0); EOS # 0.1 10^3/uL (0.0-0.5); HEMOGLOBIN 10.4 g/dl (13.5-17.5); LYMPH # 0.8 10^3/uL (1.5-5.0); LYMPH % 14.7 % (24.0-44.0); MEAN CORPUSCULAR HGB CONC 32.5 g/dl (32.0-36.5); MEAN CORPUSCULAR VOLUME 95.2 fl (80.0-96.0); MONO # 0.7 10^3/uL (0.0-0.8); MONO % 12.6 % (0.0-5.0); NEUTROPHILS # 3.9 10^3/uL (1.5-8.5); NEUTROPHILS % 69.4 % (36.0-66.0); RED BLOOD COUNT 3.36 10^6/uL (4.30-6.10); WHITE BLOOD COUNT 5.6 10^3/uL (4.0-10.0)
[2019-07-24 05:26] LABS: PLATELET COUNT, AUTOMATED 68 10^3/uL (150-450)
[2019-07-24 05:43] LABS: ALBUMIN 3.1 GM/DL (3.2-5.2); CALCIUM LEVEL 8.3 MG/DL (8.5-10.1); CREATININE FOR GFR 6.45 MG/DL (0.70-1.30); GLOMERULAR FILTRATION RATE 9.9 (>60); PHOSPHORUS LEVEL 4.5 MG/DL (2.5-4.9); POTASSIUM SERUM 4.2 MEQ/L (3.5-5.1)
[2019-07-24] MEDS: cloNIDine 0.2 MG TAB PO SCH ×2 (08:45→20:58)
[2019-07-24] MEDS: lisinopriL 20 MG TAB PO SCH (08:46)
[2019-07-24] MEDS: ANEXSIA, NORCO 7.5MG/325MG TABLET(HYDROCODONE/APAP) PO PRN ×2 (08:46→20:58)
[2019-07-24] MEDS: LABETALOL 200 MG TAB PO SCH ×2 (08:46→20:58)
[2019-07-24] MEDS: DOXYCYCLINE HYCLATE 100 MG TAB PO SCH ×2 (08:46→20:57)
[2019-07-24] MEDS: DOCUSATE SODIUM 100 MG CAP PO SCH ×2 (08:47→20:59)
--- NOTE | 2019-07-24 08:56 | CR ---
DATE OF CONSULTATION: 07/23/2019 REQUESTING PHYSICIAN: Dr. Faisal Varghese REASON FOR CONSULTATION: Management of end-stage renal disease on hemodialysis. HISTORY OF PRESENT ILLNESS: Helio Rosen is well known to me, he is a 49-year-old male with a past medical history of end-stage renal disease on hemodialysis with history of failed kidney transplant in 2014 and resumption of hemodialysis in 2018 via Perma-Cath, severe anxiety disorder, needle phobia, diastolic congestive heart failure, pulmonary hypertension, history of post-transplant erythrocytosis, history of medical noncompliance, dyslipidemia and other comorbid conditions mentioned below. The patient has recurrent hospitalizations over the past 2 years and has struggled with compliance with followup and medications and compliance with renal diet and fluid restriction. He received his routine hemodialysis treatment on Sunday and then he was scheduled for ultrafiltration on Sunday. After the ultrafiltration session the patient had a complaint of abdominal pain in his epigastrium and right upper quadrant associated with nausea and also chest discomfort, he subsequently came to the emergency room for further evaluation. In the emergency room he was found to have hypertensive urgency with blood pressure of 210/115 and laboratory studies revealed thrombocytopenia, elevated liver function tests, creatinine of 10.5 and potassium of 6.0 despite hemodialysis on Sunday and ultrafiltration on Sunday. Nephrology was contacted urgently in view of electrolyte abnormality despite two recent dialysis sessions and it was felt that he likely was having a poorly functioning Perma-Cath. I spoke with the outpatient dialysis nurses who confirmed that the patient has been having poor adequacy of hemodialysis and subsequently IR arranged for urgent Perma-Cath exchange and the patient was subsequently arranged for urgent hemodialysis in view of his hyperkalemia. PAST MEDICAL HISTORY: End-stage renal disease on hemodialysis, history of failed kidney transplant in 2014, resumed back on dialysis and 2018, anxiety disorder, diastolic congestive heart failure, pulmonary hypertension, anemia of chronic renal failure, secondary hyperparathyroidism of renal origin, noncompliance. PAST SURGICAL HISTORY: Status post tunneled hemodialysis catheter, status post right arm AV fistula placement and ligation, status post right lower quadrant renal transplant in May 2015, history of peritoneal dialysis catheter placement and removal. ALLERGIES: HYDROXYZINE, CEPHALOSPORINS, TORADOL and TRAMADOL. FAMILY HISTORY: No significant family history of end-stage renal disease requiring hemodialysis. SOCIAL HISTORY: The patient denies any smoking, illicit drug abuse or alcohol abuse. He lives with his son. REVIEW OF SYSTEMS: Constitutional: He denies fevers or chills. Eyes: He denies blurry vision or double vision. ENT: He denies dysphasia, odynophagia. Cardiovascular: He has a history of diastolic congestive heart failure. He denies palpitations. He reports recent leg swelling. Respiratory: He reports dyspnea with exertion. He denies hemoptysis. GI: He reports nausea, abdominal pain. Genitourinary: He reports some minimal urine. Musculoskeletal: He reports leg swelling. Denies any acute myalgias or arthralgias. Skin: He denies any new rashes or ulcers. 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 He denies syncope or seizure. Psychiatric: He is reports anxiety. Endocrine: He reports secondary hyperparathyroidism. Hematologic: He reports anemia. He has a history of phlebotomies in the past for post-transplant erythrocytosis though this has no longer been an active issue. Remainder review of systems is negative or as per history of present illness. HOME MEDICATIONS: - Xanax 1 mg by mouth twice a day as needed for anxiety - atorvastatin 20 mg nightly - clonidine 0.2 mg by mouth twice a day - hydralazine 50 mg three times a day - Martha tablets as needed - labetalol 200 mg twice daily - lisinopril 20 mg twice a day - multivitamin - Velphoro 1 grams by mouth three times daily with meals - calcitriol - vitamin D Vital signs: Temperature 96.8, pulse 59, respiratory rate 18, blood pressure 156/90, saturating 99% on room air. Intake yesterday was 990. Dialysis yesterday removed 2 liters. Dialysis today removed 3 liters. Weight in the bed scale today is 103.7. General: The patient is seen at the bedside awake, alert, oriented times three, comfortable, appears somewhat depressed but in no acute distress, poor eye contact. Extraocular muscles are intact. Tongue is moist. Neck is supple. Jugular veins are elevated. There is a tunneled Perma-Cath present in the left chest wall, there is dried blood visible. Cardiac: S1-S2. No friction murmur. Regular rate and rhythm. Trace edema in the legs. Lungs show diminished breath sounds at the bases, otherwise clear. Abdomen is soft and nontender to palpation. There are bowel sounds. The right lower quadrant allograft is nontender. There is an old healed incisions noted at that area. Musculoskeletal: Shows no clubbing, cyanosis. There is trace to 1+ leg edema present. There is an old site of fistula in the right arm that has been ligated. Skin: Normal temperature and turgor. Neurologic: Oriented times three. No focal deficits. Psychiatric: He is somewhat withdrawn. LABORATORY DATA: Sodium 136, potassium 4.8, BUN 55, creatinine 9, albumin 2.9, phosphorus 6.8, hemoglobin 10.4, platelets 65. CT abdomen and pelvis July 22 - cardiomegaly, small pericardial effusion, moderate ascites, subcutaneous edema through the abdomen and pelvis, right-sided [place] hydronephrosis, 6 mm obstructing calculus in mid right ureter, transplant kidney in right lower quadrant with some perinephric stranding. INPATIENT MEDICATIONS: - Tylenol as needed - Xanax 1 mg as needed - clonidine 0.2 mg by mouth twice a day - docusate 100 mg by mouth twice a day - doxycycline 100 mg by mouth twice a day - hydralazine 10 mg IV every 6 hours - labetalol 200 mg by mouth twice a day - lisinopril 20 mg by mouth twice a day - Protonix 40 mg IV daily PROBLEMS: 1. End-stage renal disease on hemodialysis on a Sunday, Sunday, Sunday schedule. Unfortunately the patient has been dialyzing via Perma-Cath for more than a year now. He has been counseled time and again to go for fistula creation, however, the patient has severe needle phobia and has not followed up with vascular surgery. At this time it appeared that he has poorly functioning Perma-Cath as he did have a hemodialysis treatment on Sunday and an ultrafiltration session on Sunday, however his labs in the emergency room showed creatinine of more than 10 and potassium of 6.0 hence went to interventional radiology for urgent Perma-Cath exchange followed by urgent hemodialysis for correction of his hyperkalemia and I have counseled the patient again that he needs to go for a fistula (the patient previously did have a right upper extremity fistula but he had it ligated when he had a kidney transplant). The patient is volume overloaded and will receive serial hemodialysis while he is in the hospital. He was dialyzed on Sunday, had a ultrafiltration session Sunday morning, a hemodialysis treatment Sunday evening and is dialyzed again today with a total of 5 liters of fluid removed this far into the hospitalization. 2. Decompensated diastolic congestive heart failure. The patient is noncompliant with fluid restriction as an outpatient. He has a pericardial effusion. He has pleural effusion. He has ascites. He has subcutaneous edema through the abdominal pelvic tissues. He was receiving extra dialysis as an outpatient for correction of his volume status and he was dialyzed on Sunday, had a ultrafiltration on Sunday, hemodialysis Sunday evening and received hemodialysis again on Sunday and I will plan to do an ultrafiltration session again on . 3. Pericardial effusion on his last two echocardiograms the patient has had a moderate pericardial effusion, he has been chronically volume overloaded he does not comply with fluid restriction. He is getting aggressive dialysis and fluid removal this week. I will get a repeat echocardiogram to monitor the pericardial effusion. 4. Hypertension. Status post hypertensive urgency. Blood pressures have improved significantly with extra dialysis and 5 liters of fluid removal thus far, systolic is now in 150s to 160. I would continue to plan for extra dialysis sessions and further fluid removal. His lisinopril dose can be increased to 40 mg twice daily if needed. He otherwise continues on labetalol, hydralazine, clonidine. 5. Secondary hyperparathyroidism of renal origin. His phosphorus level is elevated at 6.8. I will put him on a phosphorus binders and we will await a parathyroid hormone level.
--- NOTE | 2019-07-24 10:30 | IPNPDOC ---
Subjective Date Seen The patient was seen on 07/24/19. Subjective Chief Complaint/HPI Pt this morning without new concerns. 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 General: Reports: Fatigue Constitutional: Denies: Chills, Fever ENT: Denies: Head Aches Pulmonary: Denies: Dyspnea, Cough Cardiovascular: Denies: Chest Pain, Palpitations Gastrointestinal: Reports: Nausea; Denies: Vomiting, Diarrhea Musculoskeletal: Denies: Neck Pain Neurological: Denies: Weakness Psych: Reports: Mood Normal Objective Physical Examination General Exam: Positive: Alert, No Acute Distress ENT Exam: Positive: Mucous membr. moist/pink Neck Exam: Positive: Supple; Negative: JVD, thyromegaly Chest Exam: Positive: Clear to auscultation, Normal air movement Heart Exam: Positive: Rate Normal, Regular Rhythm, Normal S1, Normal S2; Negative: Murmurs, Rubs Abdomen Exam: Positive: Normal bowel sounds, Soft, Tenderness (epigastrim and to the right of epigastrium), Hepatospenomegaly (left lobe of liver plapable.) Extremity Exam: Negative: Clubbing, Cyanosis, Edema Skin Exam: Positive: Rash (petechial rash), Other skin issue (subcutaneous edema in the lateral abdominal painter) Neuro Exam: Positive: Normal Speech, Strength at 5/5 X4 ext, Normal Tone Assessment /Plan Problems (1) CHF (congestive heart failure) Permanent Comment: COMMENTS: Normal sinus rhythm without intraventricular conduction disturbance. M-mode and two-dimensional echocardiography was performed with pulsed, continuous wave, color flow and tissue Doppler studies. At least mildly dilated and eccentrically hypertrophied left ventricle with mild global hypokinesis. Moderately dilated left atrium with restrictive impairment of LV diastolic function and significantly elevated mean left atrial pressure. Right heart chamber sizes upper limits of normal with at least mild hypertrophy of the right ventricular free wall degree of right ventricular hypokinesis and Doppler evidence of at least moderate pulmonary hypertension. Mildly dilated inferior vena cava with slightly reduced respiratory collapse in keeping with his central venous pressure of 10 - 15 mmHg. Mild mitral aortic valvular sclerosis without stenosis or insufficiency. Slightly thickened mitral annulus but normal leaflet thickness with reduced leaflet excursion but no posterior systolic buckling. Mild mitral insufficiency. Normal appearing tricuspid valve with mild - moderate insufficiency. No apparent intracardiac mass. Normal aortic root size. Mild to moderate pericardial effusion measuring 1.2 cm laterally and medially and 0.4 cm posteriorly. No sign of cardiac chamber compression or significant variation respiratory variation in pulsed Doppler signals. Based on the increasing size of the pericardial effusion. It may be prudent to consider referral for at least diagnostic / therapeutic pericardial drainage. DD: Lonnie Izquierdo MD, [facility] 02/14/19 0037 [id number] DS: EMANUEL 02/15/19 1242 <Electronically signed by Lonnie Izquierdo > 02/15/19 1242 DS2: [~ rep ct labl] Last Edited By: Tatiana Melgoza NP on May 20, 2019 07:42 Status: Acute Problem Specific Plan: Consult Specialist, Monitor Clinically Problem Text: Mgmt per Nephro with dialysis, pt with h/o noncompliance with diet, FR, and he has refused to go for fistula placement, require urgent permacath replacement on admission. ECHO ordered by nephro d/t h/o pericardial effusion. (2) ESRD (end stage renal disease) on dialysis Status: Chronic Problem Text: Nephro mgmt. (3) Hypertensive urgency Status: Acute Response to Treatment: Improving Problem Text: Mgmt per Nephro and with dialysis and PO med adjustments. (4) Puncture wound of skin from metal nail Status: Acute Problem Text: Neg XR, Doxy D2 (5) Thrombocytopenia Status: Chronic Response to Treatment: Stable Problem Specific Plan: Monitor Clinically, Repeat Labs Problem Text: chronic on review of labs. (6) Bleeding due to dialysis catheter placement Status: Resolved Response to Treatment: Stable, Improving (7) Elevated troponin Status: Acute Response to Treatment: Stable Problem Text: repeat 0.14 Plan/VTE VTE Prophylaxis Ordered?: No VTE Exclusion Mechanical Proph: Other (anemia) VS, I&O, 24H, Fishbone Vital Signs/I&O Vital Signs Date Time Temp Pulse Resp B/P (MAP) Pulse Ox O2 Delivery O2 Flow Rate FiO2 07/24/19 08:47 182/104 07/24/19 08:46 20 07/24/19 08:46 69 07/24/19 08:00 97.6 97 Room Air 07/22/19 16:25 3 I&O- Last 24 Hours up to 6 AM 07/24/19 06:00 Intake Total 1180 ml Output Total 3000 ml Balance -1820 ml Laboratory Data 24H LABS Laboratory Tests 2 07/24/19 04:39: Immature Granulocyte % (Auto) 0.4, Neutrophils (%) (Auto) 69.4H, Lymphocytes (%) (Auto) 14.7L, Monocytes (%) (Auto) 12.6H, Eosinophils (%) (Auto) 2.0, Basophils (%) (Auto) 0.9, Neutrophils # (Auto) 3.9, Lymphocytes # (Auto) 0.8L, Monocytes # (Auto) 0.7, Eosinophils # (Auto) 0.1, Basophils # (Auto) 0.1, Nucleated Red Blood Cells % (auto) 0.5H, Immature Platelet Fraction 7.0, Anion Gap 6L, Glomerular Filtration Rate 9.9L, Calcium Level 8.3L, Phosphorus Level 4.5#, Albumin 3.1L CBC/BMP Laboratory Tests 07/24/19 04:39 PANDA ROMANO PA-C Jul 24, 2019 10:30
[2019-07-24] MEDS ORDERED: HEPARIN 1,000 UNITS/ML 10ML VIAL (FOR RADIOLOGY& DIALYSIS ONLY) XX ONE (14:00)
--- NOTE | 2019-07-24 14:33 | IPN ---
DATE OF ENCOUNTER: 07/24/2019 SUBJECTIVE: The patient is a 49-year-old male who presented to the hospital with elevated blood pressures. The patient has a history of end stage renal disease on hemodialysis three times a week. The patient has a history of a failed kidney transplantation in 2015 and resumed hemodialysis in 2018 via PermaCath. The patient also came in with a potassium of 6.0 and needed urgent PermaCath exchange as the previous PermaCath was poorly functioning. The patient today says he is feeling well, but he is afraid of how he has been feeling over the last few days. The patient states he would like to stay in the hospital for the next couple of days as he does not feel well and wants to start feeling better. PHYSICAL EXAMINATION: Vitals: Temperature 97.7, pulse 65, respiratory rate 18, blood pressure 162/98, pulse oximetry 100% on room air. General: The patient is an alert and oriented male patient who is sitting on the chair when I walked in. The patient does not appear to be in any acute distress. HEENT: Normocephalic, atraumatic. Anicteric sclerae. The patient has moist mucous membranes. Neck shows a tunneled PermaCath present on the left chest wall where there is dried blood visible. The neck is supple with jugular veins that are elevated. Cardiac: Regular rate and rhythm with no murmurs. Respiratory: Shows diminished breath sounds in the bases, otherwise clear to auscultation. Abdomen: Soft. Nontender to palpation. The right lower quadrant allograft is nontender. Extremities: There is trace edema in the bilateral lower extremities. There is an old fistula site in the right arm that has been ligated. Skin does not show any evidence of rash or wounds. LABORATORIES: White blood cell count 5.6, hemoglobin 10.4, hematocrit 32.0, platelet count 68. Sodium 140, potassium 4.2, chloride 105, carbon dioxide 29, BUN 33, creatinine 6.45, glucose 85, calcium 8.3, phosphorus 4.5, albumin 3.1. INPATIENT MEDICATIONS: Tylenol as needed. Xanax 1 mg as needed. Clonidine 0.2 mg by mouth twice a day. Docusate 100 mg by mouth twice a day. Doxycycline 100 mg by mouth twice a day. Hydralazine 10 mg IV every six hours. Labetalol 200 mg by mouth twice a day. Lisinopril 20 mg by mouth twice a day. Protonix 20 mg IV daily. ASSESSMENT AND PLAN: 1. End stage renal disease on hemodialysis Sunday, Sunday, Sunday. Unfortunately, the patient has been dialyzing via PermaCath for over a year at this point. The patient has been counseled numerous times about going for an AV fistula creation as this gives better dialysis for the patient. The patient says he has a severe needle phobia and that is the reason why he does not followup with vascular surgery. The patient is slightly fluid overloaded today. The patient did have hemodialysis yesterday and will have ultrafiltration today. 2. Decompensated diastolic congestive heart failure. The patient is noncompliant with fluid restriction as an outpatient. The patient has pericardial and pleural effusions and the patient has ascites and subcutaneous edema throughout the abdominal pelvic tissues. The patient received an extra ultrafiltration session today. 3. Pericardial effusion with last two echocardiograms. The patient has a moderate pericardial effusion. He has been chronically volume overloaded secondary to nonadherence with fluid restriction. The patient will continue with aggressive dialysis and fluid removal this week and we will repeat the echocardiogram to monitor the pericardial effusion. 4. Hypertension. Status post hypertensive urgency. Blood pressures have been still elevated overnight with blood pressures of 182/84 this morning. We will continue with fluid removal which will hopefully help with the patient's blood pressure. 5. Secondary hyperparathyroidism of renal origin. The patient's phosphorus level is elevated at 6.8. The patient will be put on phosphorus binders. The patient's phosphorus level is now 4.5, which is within the normal range. We will await a parathyroid hormone level.
--- NOTE | 2019-07-24 19:59 | ECHO ---
DATE OF PROCEDURE: 07/24/2019 REFERRING PHYSICIAN: Dr. Shadia Tucker INDICATION: Pericardial effusion. Height 180 cm, weight 104 kg. The study is of fair technical quality. The patient is in sinus rhythm. DIMENSIONS: IVS: 1.7 LV: 5.7 LVPW: 1.8 LA: 5.2 Aorta: 3.7 Left atrial volume index: 41 IVC: 2.3 Mitral E wave velocity: 77 A wave: 66 E prime septal: 3.3 E prime lateral: 4.5 FINDINGS: Left ventricle is mildly dilated and is globally hypokinetic. Estimated LVEF 40-45%. Moderate left ventricular hypertrophy is present. Right ventricle also appears dilated and hypokinetic. Both atria are severely enlarged, left more than right. Aortic valve is sclerotic but has preserved mobility. There are also degenerative abnormalities of mitral valve but mobility is preserved. Tricuspid and pulmonic valves appear normal. Small to moderate sized circumferential pericardial effusion is noted. Inferior vena cava is dilated, and there is no collapse with inspiration indicative of very high central venous pressure. Aortic root is normal. Aortic arch and abdominal aorta were not well seen. There is ascites noted adjacent to the liver. Doppler interrogation of aortic valve reveals no insufficiency and trivial stenosis with mean gradient 7 mmHg. There is trace mitral insufficiency and mild tricuspid insufficiency. Calculated pulmonary artery pressure at minimum is in 40s corresponding to moderate pulmonary hypertension. Trace pulmonic insufficiency is seen. Mitral inflow pattern and tissue Doppler imaging of mitral annulus revealed grade 2 diastolic dysfunction. CONCLUSIONS: 1. Study is of acceptable technical quality. 2. Mildly dilated left ventricle with moderate left ventricular hypertrophy and global hypokinesis. Estimated left ventricular ejection fraction (LVEF) approximately 40-45%. 3. Dilated hypokinetic right ventricle. 4. No hemodynamically significant valvular disease. 5. High central venous pressure. 6. At least moderate pulmonary hypertension. 7. Small to moderate sized circumferential pericardial effusion. COMMENT: Subacute bacterial endocarditis (SBE) prophylaxis is not recommended. 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 MTDD
[2019-07-24] MEDS: PANTOPRAZOLE 40MG INJ (PROTONIX) (C9113) IV SCH (20:57)
[2019-07-24] MEDS: lisinopriL 40 MG TAB PO SCH (20:58)
[2019-07-25] VITALS: BP 173/85
[2019-07-25] MEDS: DOCUSATE SODIUM 100 MG CAP PO SCH ×2 (01:47→21:00)
[2019-07-25] MEDS: hydrALAZINE INJ 20 MG/ML VIAL IV SCH ×4 (03:00→21:00)
[2019-07-25 04:00] VITALS: BP 164/81
[2019-07-25 06:14] LABS: BASO % 0.7 % (0.0-1.0); EOS # 0.1 10^3/uL (0.0-0.5); EOS % 2.8 % (0.0-3.0); HEMATOCRIT 31.4 % (42.0-52.0); HEMOGLOBIN 9.8 g/dl (13.5-17.5); LYMPH # 0.7 10^3/uL (1.5-5.0); LYMPH % 15.6 % (24.0-44.0); MEAN CORPUSCULAR HEMOGLOBIN 30.1 pg (27.0-33.0); MEAN CORPUSCULAR HGB CONC 31.2 g/dl (32.0-36.5); MEAN CORPUSCULAR VOLUME 96.3 fl (80.0-96.0); MONO # 0.5 10^3/uL (0.0-0.8); MONO % 10.7 % (0.0-5.0); RED BLOOD COUNT 3.26 10^6/uL (4.30-6.10); WHITE BLOOD COUNT 4.3 10^3/uL (4.0-10.0)
[2019-07-25 06:34] LABS: ALBUMIN 2.9 GM/DL (3.2-5.2); CALCIUM LEVEL 8.5 MG/DL (8.5-10.1); CREATININE FOR GFR 8.21 MG/DL (0.70-1.30); GLOMERULAR FILTRATION RATE 7.5 (>60); PHOSPHORUS LEVEL 5.7 MG/DL (2.5-4.9); POTASSIUM SERUM 4.2 MEQ/L (3.5-5.1)
[2019-07-25 06:43] LABS: PLATELET COUNT, AUTOMATED 61 10^3/uL (150-450)
[2019-07-25 08:00] VITALS: BP 169/83
[2019-07-25] MEDS: DOXYCYCLINE HYCLATE 100 MG TAB PO SCH ×2 (08:29→21:09)
[2019-07-25] MEDS: ANEXSIA, NORCO 7.5MG/325MG TABLET(HYDROCODONE/APAP) PO PRN ×2 (08:30→14:49)
[2019-07-25] MEDS ORDERED: ALPRAZolam 0.5 MG TAB PO ONE (09:15)
--- NOTE | 2019-07-25 10:10 | IPNPDOC ---
Subjective Date Seen The patient was seen on 07/25/19. Subjective Chief Complaint/HPI No complaints Ate large breakfast without n/v. Last BM 2 days ago was loose. No BM since Constitutional: Denies: Chills, Fever Pulmonary: Denies: Dyspnea, Cough Cardiovascular: Denies: Chest Pain, Palpitations, Orthopnea Gastrointestinal: Denies: Nausea, Vomiting, Abdominal Pain, Diarrhea, Constipation Objective Physical Examination General Exam: Positive: Alert, No Acute Distress ENT Exam: Positive: Mucous membr. moist/pink Neck Exam: Positive: Supple; Negative: JVD, thyromegaly Chest Exam: Positive: Clear to auscultation, Normal air movement Heart Exam: Positive: Rate Normal, Regular Rhythm, Normal S1, Normal S2; Negative: Murmurs, Rubs Abdomen Exam: Positive: Normal bowel sounds, Soft, Tenderness (epigastrim and to the right of epigastrium), Hepatospenomegaly (left lobe of liver plapable.) Extremity Exam: Negative: Edema Skin Exam: Positive: Rash (petechial rash), Other skin issue (subcutaneous edema in the lateral abdominal painter) Neuro Exam: Positive: Normal Speech Assessment /Plan Problems (1) CHF (congestive heart failure) Permanent Comment: COMMENTS: Normal sinus rhythm without intraventricular conduction disturbance. M-mode and two-dimensional echocardiography was performed with pulsed, continuous wave, color flow and tissue Doppler studies. At least mildly dilated and eccentrically hypertrophied left ventricle with mild global hypokinesis. Moderately dilated left atrium with restrictive impairment of LV diastolic function and significantly elevated mean left atrial pressure. Right heart chamber sizes upper limits of normal with at least mild hypertrophy of the right ventricular free wall degree of right ventricular hypokinesis and Doppler evidence of at least moderate pulmonary hypertension. Mildly dilated inferior vena cava with slightly reduced respiratory collapse in keeping with his central venous pressure of 10 - 15 mmHg. Mild mitral aortic valvular sclerosis without stenosis or insufficiency. Slightly thickened mitral annulus but normal leaflet thickness with reduced leaflet excursion but no posterior systolic buckling. Mild mitral insufficiency. Normal appearing tricuspid valve with mild - moderate insufficiency. No apparent intracardiac mass. Normal aortic root size. Mild to moderate pericardial effusion measuring 1.2 cm laterally and medially and 0.4 cm posteriorly. No sign of cardiac chamber compression or significant variation respiratory variation in pulsed Doppler signals. Based on the increasing size of the pericardial effusion. It may be prudent to consider referral for at least diagnostic / therapeutic pericardial drainage. DD: Lonnie Izquierdo MD, [facility] 02/14/19 [id number] DS: EMANUEL 02/15/19 1242 <Electronically signed by Lonnie Izquierdo > 02/15/19 1242 DS2: [~ rep ct labl] Last Edited By: Tatiana Melgoza NP on May 20, 2019 07:42 Status: Acute Problem Specific Plan: Consult Specialist, Monitor Clinically Problem Text: 07/25 - Negative I & Os since admission. Fluid Removal during dialysis - Has dialysis today Appears better compensated than on admission HOPE FOR D/C In AM if ok with nephrology Mgmt per Nephro with dialysis, pt with h/o noncompliance with diet, FR, and he has refused to go for fistula placement due to "severe needel phobia" required urgent permacath replacement on admission. ECHO: CONCLUSIONS: 1. Study is of acceptable technical quality. 2. Mildly dilated left ventricle with moderate left ventricular hypertrophy and global hypokinesis. Estimated left ventricular ejection fraction (LVEF) approximately 40-45%. 3. Dilated hypokinetic right ventricle. 4. No hemodynamically significant valvular disease. 5. High central venous pressure. 6. At least moderate pulmonary hypertension. 7. Small circumferential pericardial effusion. (2) Hypertensive urgency Status: Acute Response to Treatment: Improving Problem Text: BP improved with Mgmt per Nephro and with dialysis and PO med adjustments. (3) ESRD (end stage renal disease) on dialysis Status: Chronic Problem Text: Nephro mgmt. (4) Puncture wound of skin from metal nail Status: Acute Problem Text: Neg XR, Doxy D2 (5) Thrombocytopenia Status: Chronic Response to Treatment: Stable Problem Specific Plan: Monitor Clinically, Repeat Labs Problem Text: Platelets down slightly today = 61 - Monitor trend chronic on review of labs. (6) Bleeding due to dialysis catheter placement Status: Resolved Response to Treatment: Stable, Improving (7) Elevated troponin Status: Acute Response to Treatment: Stable Problem Text: repeat 0.14 Plan/VTE VTE Prophylaxis Ordered?: No VTE Exclusion Mechanical Proph: Other (anemia) Disposition D/C in am if ok with nephro, BP stable and Platelets stable VS, I&O, 24H, Fishbone Vital Signs/I&O Vital Signs Date Time Temp Pulse Resp B/P (MAP) Pulse Ox O2 Delivery O2 Flow Rate FiO2 07/25/19 08:30 97.5 66 18 164/81 98 Room Air 07/22/19 16:25 3 I&O- Last 24 Hours up to 6 AM 07/25/19 06:00 Intake Total 1050 ml Output Total 2700 ml Balance -1650 ml Laboratory Data 24H LABS Laboratory Tests 2 07/25/19 05:21: Immature Granulocyte % (Auto) 0.2, Neutrophils (%) (Auto) 70.0H, Lymphocytes (%) (Auto) 15.6L, Monocytes (%) (Auto) 10.7H, Eosinophils (%) (Auto) 2.8, Basophils (%) (Auto) 0.7, Neutrophils # (Auto) 3.0, Lymphocytes # (Auto) 0.7L, Monocytes # (Auto) 0.5, Eosinophils # (Auto) 0.1, Basophils # (Auto) 0.0, Nucleated Red Blood Cells % (auto) 0.5H, Immature Platelet Fraction 6.5, Anion Gap 12, Glomerular Filtration Rate 7.5L, Calcium Level 8.5, Phosphorus Level 5.7#H, Albumin 2.9L CBC/BMP Laboratory Tests 07/25/19 05:21 ROMA IRIZARRY PA-C Jul 25, 2019 10:10
[2019-07-25] MEDS ORDERED: HEPARIN 1,000 UNITS/ML 10ML VIAL (FOR RADIOLOGY& DIALYSIS ONLY) XX ONE (13:15)
[2019-07-25 14:51] VITALS: BP 172/98
[2019-07-25] MEDS: cloNIDine 0.2 MG TAB PO SCH ×2 (14:54→21:09)
[2019-07-25] MEDS: LABETALOL 200 MG TAB PO SCH ×2 (14:54→21:09)
[2019-07-25] MEDS: lisinopriL 40 MG TAB PO SCH ×2 (14:54→21:09)
[2019-07-25 16:00] VITALS: BP 166/72
--- NOTE | 2019-07-25 19:04 | IPN ---
DATE: 07/25/2019 The patient is a 49-year-old male who presented to the hospital with elevated blood pressure. The patient has a history of end-stage renal disease on hemodialysis three times a week. The patient had hemodialysis on Sunday, ultrafiltration yesterday, and is scheduled to get hemodialysis again today. The patient says he is feeling better. However, he is still very nervous about his prognosis and how he has been feeling over the last few weeks. The patient also states that he is very afraid of needles which is why he has not been following up with vascular surgeon for an arteriovenous (AV) fistula placement and why he has been continuing to use the PermaCath for greater than one year. The patient feels well today and was able to eat breakfast without any difficulty and does not have any acute complaints at this time. PHYSICAL EXAMINATION: VITAL SIGNS: Temperature 97.5, pulse 65, respiratory rate 18, blood pressure 164/81, pulse oximetry 98% on room air. GENERAL: The patient is an alert and oriented male patient who is sitting in the chair in the room when I walked in. The patient does not appear to be in any acute distress. HEENT: Normocephalic, atraumatic. Anicteric sclerae. Moist mucous membranes. NECK: Tunneled PermaCath. There is no jugular venous distention. CARDIOVASCULAR: Regular rate and rhythm with no murmurs. RESPIRATORY: Diminished breath sounds around the bases, otherwise clear to auscultation bilaterally. ABDOMEN: Soft, nontender to palpation. Right lower quadrant allograft is nontender. EXTREMITIES: There is trace pitting edema in the bilateral lower extremities. There is an old fistula site in the right arm that has been ligated. SKIN: No evidence of rash or wounds. LABORATORY STUDIES: White blood cells 4.3, hemoglobin 9.8, hematocrit 31.4, platelet count 61. Sodium 138, potassium 4.2, chloride 103, carbon dioxide 23, BUN 58, creatinine 8.21, glucose 96, calcium 8.5, phosphorus 5.7, albumin 2.9. INPATIENT MEDICATIONS: There have been no changes to the patient's medications. ASSESSMENT AND PLAN: 1. End-stage renal disease, on hemodialysis Sunday, Sunday, Sunday. The patient is continuing to be dialyzed through a PermaCath for over a year at this point. The patient has been counseled numerous times about arteriovenous (AV) fistula creation as this gives better dialysis for the patient. 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 The patient had ultrafiltration yesterday and had 2700 mL removed yesterday. Today's plan is to remove 4 kilograms of weight. 2. Decompensated diastolic congestive heart failure. The patient is not compliant with fluid restriction as an outpatient. The patient had pericardial and pleural effusions. The patient has ascites and subcutaneous edema throughout the abdominopelvic tissues on CT scan. The patient received an extra ultrafiltration session yesterday and feels better today. 3. Pericardial effusions on the last two echocardiograms. The patient had a moderate pericardial effusion. He is chronically volume overloaded secondary to non-adherence to fluid restriction. The patient will continue with aggressive dialysis and fluid removal this week and repeat echocardiograms to monitor. 4. Hypertension, status post hypertensive urgency. Blood pressures are still elevated with blood pressures today of 164/81. We will continue with fluid removal which will hopefully help decrease the patient's blood pressure. 5. Secondary hyperparathyroidism of renal origin. The patient's phosphorus level was elevated. However, with phosphorus binders, the patient's level has decreased. The patient will be getting dialysis again today.
[2019-07-25] MEDS: PANTOPRAZOLE 40MG INJ (PROTONIX) (C9113) IV SCH (21:08)
[2019-07-26] VITALS (9 sets, daily range): BP systolic 152–196; BP diastolic 82–98
[2019-07-26] MEDS: ANEXSIA, NORCO 7.5MG/325MG TABLET(HYDROCODONE/APAP) PO PRN ×3 (02:07→17:14)
[2019-07-26] MEDS: hydrALAZINE INJ 20 MG/ML VIAL IV SCH ×6 (03:00→20:22)
[2019-07-26 05:03] LABS: BASO % 0.8 % (0.0-1.0); EOS # 0.2 10^3/uL (0.0-0.5); EOS % 3.9 % (0.0-3.0); HEMOGLOBIN 10.1 g/dl (13.5-17.5); LYMPH # 0.7 10^3/uL (1.5-5.0); LYMPH % 13.4 % (24.0-44.0); MEAN CORPUSCULAR HEMOGLOBIN 30.8 pg (27.0-33.0); MEAN CORPUSCULAR HGB CONC 32.6 g/dl (32.0-36.5); MEAN CORPUSCULAR VOLUME 94.5 fl (80.0-96.0); MONO # 0.4 10^3/uL (0.0-0.8); MONO % 8.2 % (0.0-5.0); NEUTROPHILS # 3.6 10^3/uL (1.5-8.5); NEUTROPHILS % 73.5 % (36.0-66.0); RED BLOOD COUNT 3.28 10^6/uL (4.30-6.10); WHITE BLOOD COUNT 4.9 10^3/uL (4.0-10.0)
[2019-07-26 05:04] LABS: PLATELET COUNT, AUTOMATED 69 10^3/uL (150-450)
[2019-07-26 05:37] LABS: CALCIUM LEVEL 8.8 MG/DL (8.5-10.1); CREATININE FOR GFR 6.28 MG/DL (0.70-1.30); GLOMERULAR FILTRATION RATE 10.2 (>60); PHOSPHORUS LEVEL 5.2 MG/DL (2.5-4.9); POTASSIUM SERUM 4.2 MEQ/L (3.5-5.1)
[2019-07-26] MEDS: DOCUSATE SODIUM 100 MG CAP PO SCH ×2 (09:15→09:20)
[2019-07-26] MEDS: cloNIDine 0.2 MG TAB PO SCH ×2 (09:15→20:21)
[2019-07-26] MEDS: lisinopriL 40 MG TAB PO SCH ×2 (09:15→20:20)
[2019-07-26] MEDS: LABETALOL 200 MG TAB PO SCH ×2 (09:16→20:21)
[2019-07-26] MEDS: DOXYCYCLINE HYCLATE 100 MG TAB PO SCH ×2 (09:16→20:20)
--- NOTE | 2019-07-26 14:00 | IPN ---
DATE: 07/26/2019 SUBJECTIVE: The patient is a 49-year-old male who presented to the hospital with elevated blood pressure. The patient has a history of end-stage renal disease on hemodialysis on a Sunday, Sunday, Sunday schedule. Patient had hemodialysis on Sunday and ultrafiltration on , and his regular scheduled hemodialysis yesterday. Patient says he is feeling better today. Patient did have an episode of vomiting overnight, but was able to tolerate breakfast today without any nausea or vomiting. Patient does not have any other acute complaints today. PHYSICAL EXAM: VITAL SIGNS: Temperature 97.5, pulse 68, respiratory rate 16, blood pressure 184/88, pulse oximetry 96% on room air. GENERAL: Patient is an alert and oriented male who is sitting on the bed when I walked in the room. The patient did not appear to be in any acute distress. HEENT: Normocephalic, atraumatic, anicteric sclerae, moist mucous membranes. NECK: Tunneled PermaCath in place on the left side. No jugular venous distention. CARDIOVASCULAR: Regular rate and rhythm with no murmurs. RESPIRATORY: Diminished breath sounds around the bases, otherwise clear to auscultation bilaterally. ABDOMEN: Soft, nontender to palpation. The right lower quadrant allograft is nontender. EXTREMITIES: Trace pitting edema in the bilateral lower extremities. There is an old fistula site in the right arm that has been ligated. SKIN: No evidence of rash or wounds. LABORATORY STUDIES: White blood cells 4.9, hemoglobin 10.1, hematocrit 31.0, platelet count 69. Sodium 137, potassium 4.2, chloride 103, carbon dioxide 24, BUN 42, creatinine 6.28, glucose 96, calcium 8.8, phosphorus 5.2, albumin 3.0. INPATIENT MEDICATIONS: There have been no changes to the patient's medications. ASSESSMENT AND PLAN: 1. End-stage renal disease, on hemodialysis Sunday, Sunday, Sunday. The patient is continuing to be dialyzed through a PermaCath, which has been going on for over a year. Patient has severe needle phobias, so has not followed up with vascular surgery for arteriovenous (AV) fistula creation. We have ordered a bilateral venous ultrasound for venous mapping for AV fistula placement. 2. Decompensated diastolic congestive heart failure. Patient is not compliant with fluid restriction as an outpatient. Patient had pericardial and pleural effusions in the past. Patient has ascites and had subcutaneous edema throughout when he arrived to the hospital. Patient is feeling better, and we will continue to monitor. 3. Pericardial effusions on the last two echocardiograms. Patient has a moderate pericardial effusion. He is chronic volume overloaded secondary to non-adherence to fluid restriction. Patient will continue with aggressive dialysis and fluid removal next week, and we will repeat the echocardiogram to monitor. 4. Hypertension, status post hypertensive urgency. Patient's blood pressure today is still elevated. We will continue to monitor the patient's blood pressure. 5. Secondary hyperparathyroidism of renal origin. The patient's phosphorus level was elevated. Patient received phosphorus binders, which has made this better. We will continue with phosphorous binders.
--- NOTE | 2019-07-26 18:19 | IPNPDOC ---
Subjective Date Seen The patient was seen on 07/26/19. Subjective Chief Complaint/HPI Patient is feeling better today. Edema has improved. We discussed his need for another fistula, and he is willing to have this done in [place], rather than driving to [place]. He is extremely reluctant to have the fistula in his other UE, as he states that he gets comments from strangers about his R forearm scars, believing that they are from IVDA. He has trouble with his fluid restriction. He had some nausea and vomiting last night, currently resolved and asymptomatic. Constitutional: Reports: Fatigue; Denies: Chills, Fever ENT: Reports: Head Aches Skin: Reports: Other (scarring R forearm) Pulmonary: Denies: Dyspnea, Cough Cardiovascular: Denies: Chest Pain Gastrointestinal: Reports: Nausea (not current), Vomiting (not current); Denies: Abdominal Pain, Diarrhea, Constipation Hematologic: Reports: Bruising Psych: Reports: Anxiety (chronic) Objective Physical Examination General Exam: Positive: Alert, No Acute Distress ENT Exam: Positive: Mucous membr. moist/pink Neck Exam: Positive: Supple; Negative: JVD, thyromegaly Chest Exam: Positive: Clear to auscultation, Normal air movement Heart Exam: Positive: Rate Normal, Regular Rhythm, Normal S1, Normal S2; Negative: Murmurs, Rubs Abdomen Exam: Positive: Normal bowel sounds, Soft, Tenderness (epigastrim and to the right of epigastrium), Hepatospenomegaly (left lobe of liver plapable.) Extremity Exam: Negative: Edema Skin Exam: Positive: Rash (petechial rash), Other skin issue (subcutaneous edema in the lateral abdominal painter) Neuro Exam: Positive: Normal Speech Assessment /Plan Problems (1) CHF (congestive heart failure) Permanent Comment: COMMENTS: Normal sinus rhythm without intraventricular conduction disturbance. M-mode and two-dimensional echocardiography was performed with pulsed, continuous wave, color flow and tissue Doppler studies. At least mildly dilated and eccentrically hypertrophied left ventricle with mild global hypokinesis. Moderately dilated left atrium with restrictive impairment of LV diastolic function and significantly elevated mean left atrial pressure. Right heart chamber sizes upper limits of normal with at least mild hypertrophy of the right ventricular free wall degree of right ventricular hypokinesis and Doppler evidence of at least moderate pulmonary hypertension. Mildly dilated inferior vena cava with slightly reduced respiratory collapse in keeping with his central venous pressure of 10 - 15 mmHg. Mild mitral aortic valvular sclerosis without stenosis or insufficiency. Slightly thickened mitral annulus but normal leaflet thickness with reduced leaflet excursion but no posterior systolic buckling. Mild mitral insufficiency. Normal appearing tricuspid valve with mild - moderate insufficiency. No apparent intracardiac mass. Normal aortic root size. Mild to moderate pericardial effusion measuring 1.2 cm laterally and medially and 0.4 cm posteriorly. No sign of cardiac chamber compression or significant variation respiratory variation in pulsed Doppler signals. Based on the increasing size of the pericardial effusion. It may be prudent to consider referral for at least diagnostic / therapeutic pericardial drainage. DD: Lonnie Izquierdo MD, [facility] 02/14/19 [id number] DS: EMANUEL 02/15/19 1242 <Electronically signed by Lonnie Izquierdo > 02/15/19 1242 DS2: [~ rep ct labl] Last Edited By: Tatiana Melgoza NP on May 20, 2019 07:42 Status: Acute Problem Specific Plan: Consult Specialist, Monitor Clinically Problem Text: 07/25 - Negative I & Os since admission. Fluid Removal during dialysis - Has dialysis today Appears better compensated than on admission HOPE FOR D/C In AM if ok with nephrology Mgmt per Nephro with dialysis, pt with h/o noncompliance with diet, FR, and he has refused to go for fistula placement due to "severe needel phobia" required urgent permacath replacement on admission. ECHO: CONCLUSIONS: 1. Study is of acceptable technical quality. 2. Mildly dilated left ventricle with moderate left ventricular hypertrophy and global hypokinesis. Estimated left ventricular ejection fraction (LVEF) approximately 40-45%. 3. Dilated hypokinetic right ventricle. 4. No hemodynamically significant valvular disease. 5. High central venous pressure. 6. At least moderate pulmonary hypertension. 7. Small circumferential pericardial effusion. (2) Hypertensive urgency Status: Acute Response to Treatment: Improving Problem Text: 07/26 -- he does remain hypertensive today, though nursing notes that his highest blood pressures are when he is upset. At times his pulse is actually a bit bradycardic, and so I won't adjust his clonidine or labetalol. BP improved with Mgmt per Nephro and with dialysis and PO med adjustments. (3) ESRD (end stage renal disease) on dialysis Status: Chronic Problem Text: Nephro mgmt. (4) Puncture wound of skin from metal nail Status: Acute Problem Text: Neg XR, Doxy D2 (5) Thrombocytopenia Status: Chronic Response to Treatment: Stable Problem Specific Plan: Monitor Clinically, Repeat Labs Problem Text: Platelets down slightly today = 61 - Monitor trend chronic on review of labs. (6) Bleeding due to dialysis catheter placement Status: Resolved Response to Treatment: Stable, Improving (7) Elevated troponin Status: Acute Response to Treatment: Stable Problem Text: repeat 0.14 Plan/VTE VTE Prophylaxis Ordered?: No VTE Exclusion Mechanical Proph: Other (anemia) VS, I&O, 24H, Fishbone Vital Signs/I&O Vital Signs Date Time Temp Pulse Resp B/P (MAP) Pulse Ox O2 Delivery O2 Flow Rate FiO2 07/26/19 17:14 18 100 Room Air 07/26/19 17:04 180/92 07/26/19 16:00 97.2 59 07/25/19 15:19 3.0 I&O- Last 24 Hours up to 6 AM 07/26/19 06:00 Intake Total 720 ml Output Total 4000 ml Balance -3280 ml Laboratory Data 24H LABS Laboratory Tests 2 07/26/19 04:42: Immature Granulocyte % (Auto) 0.2, Neutrophils (%) (Auto) 73.5H, Lymphocytes (%) (Auto) 13.4L, Monocytes (%) (Auto) 8.2H, Eosinophils (%) (Auto) 3.9H, Basophils (%) (Auto) 0.8, Neutrophils # (Auto) 3.6, Lymphocytes # (Auto) 0.7L, Monocytes # (Auto) 0.4, Eosinophils # (Auto) 0.2, Basophils # (Auto) 0.0, Nucleated Red Blood Cells % (auto) 0.0, Anion Gap 10, Glomerular Filtration Rate 10.2L, Calcium Level 8.8, Phosphorus Level 5.2H, Albumin 3.0L CBC/BMP Laboratory Tests 07/26/19 04:42 JAE VELASQUEZ DO Jul 26, 2019 18:19
[2019-07-26] MEDS: PANTOPRAZOLE 40MG INJ (PROTONIX) (C9113) IV SCH (20:20)
[2019-07-26] MEDS: ALPRAZolam 0.5 MG TAB PO PRN (20:42)
[2019-07-27] VITALS: BP 160/84
[2019-07-27] MEDS: hydrALAZINE INJ 20 MG/ML VIAL IV SCH ×2 (03:00→09:21)
[2019-07-27] MEDS: ANEXSIA, NORCO 7.5MG/325MG TABLET(HYDROCODONE/APAP) PO PRN (03:40)
[2019-07-27 04:00] VITALS: BP 164/88
[2019-07-27 05:55] LABS: BASO % 0.7 % (0.0-1.0); EOS # 0.2 10^3/uL (0.0-0.5); EOS % 3.3 % (0.0-3.0); HEMATOCRIT 31.8 % (42.0-52.0); LYMPH # 0.7 10^3/uL (1.5-5.0); LYMPH % 10.8 % (24.0-44.0); MEAN CORPUSCULAR HEMOGLOBIN 30.3 pg (27.0-33.0); MEAN CORPUSCULAR HGB CONC 31.4 g/dl (32.0-36.5); MEAN CORPUSCULAR VOLUME 96.4 fl (80.0-96.0); MONO # 0.6 10^3/uL (0.0-0.8); MONO % 9.6 % (0.0-5.0); NEUTROPHILS # 4.5 10^3/uL (1.5-8.5); NEUTROPHILS % 75.3 % (36.0-66.0)
[2019-07-27 05:56] LABS: PLATELET COUNT, AUTOMATED 67 10^3/uL (150-450)
[2019-07-27 06:25] LABS: ALBUMIN 2.8 GM/DL (3.2-5.2); CALCIUM LEVEL 8.8 MG/DL (8.5-10.1); CREATININE FOR GFR 8.18 MG/DL (0.70-1.30); GLOMERULAR FILTRATION RATE 7.5 (>60); PHOSPHORUS LEVEL 6.1 MG/DL (2.5-4.9); POTASSIUM SERUM 4.4 MEQ/L (3.5-5.1)
[2019-07-27 08:00] VITALS: BP 172/88
[2019-07-27] MEDS: DOCUSATE SODIUM 100 MG CAP PO SCH (09:00)
[2019-07-27] MEDS: DOXYCYCLINE HYCLATE 100 MG TAB PO SCH (09:20)
[2019-07-27] MEDS: lisinopriL 40 MG TAB PO SCH (09:20)
[2019-07-27] MEDS: LABETALOL 200 MG TAB PO SCH (09:20)
[2019-07-27] MEDS: cloNIDine 0.2 MG TAB PO SCH (09:21)
[2019-07-27 12:00] VITALS: BP 184/110
[2019-07-27] MEDS ORDERED: (RENVELA) SEVELAMER **CARBONate** 800 MG TAB PO SCH (12:30)
--- NOTE | 2019-07-27 13:31 | IPN ---
DATE: 07/27/2019 Mr. Rosen is seen this morning on his bedside. He is sitting at the edge of bed at the time of my visit. He denies any dyspnea, chest pain, nausea or vomiting. His blood pressure is still somewhat high, but he is asymptomatic. He has a long history of noncompliance with dietary and fluid restrictions and was admitted with volume overload and hyperkalemia. With aggressive hemodialysis treatments and fluid removal his volume status has improved. His blood pressure is still somewhat high and he has been receiving intravenous hydralazine every 6 hours, 10 mg. His peripheral edema has completely resolved since admission. PHYSICAL EXAMINATION: Temperature 98.0 degrees Fahrenheit, heart rate 68 per minute and respiratory rate 18 per minute. Blood pressure 180/110 mmHg and oxygen saturation 99% on room air. Earlier his blood pressure was 172/88 mmHg. His head is atraumatic. Neck is supple and without JVD or thyroid enlargement. PermaCath is present on the left upper chest without any signs of infection. Heart sounds are regular and without pericardial friction rub. Lungs sound clear to auscultation. Abdomen is soft and nontender and bowel sounds are normal. Extremities have no cyanosis or clubbing. His old fistula in his left arm is nonfunctioning. Neurologically he is awake, alert and without a focal deficit. Today's labs show WBC count 6.2, hemoglobin 10.0 and hematocrit 31.8. Sodium 134, potassium 4.4, CO2 23, BUN 64 and creatinine 1.18. Calcium level 8.8 and phosphorus 6.1. PROBLEMS: 1. End-stage renal disease. The patient is very well dialyzed and last dialysis was done on Sunday. His next dialysis is due tomorrow. The patient states that he wants to go home today and will come to outpatient dialysis tomorrow. 2. Nonfunctioning dialysis access. The patient had poor function of his PermaCath, which has been changed, and he needs to have a new AV fistula. I have discussed with him at length and he needs to see vascular surgery as outpatient. We wanted him to stay here and get his AV fistula done while here however, the patient does not wish to stay. He has been declining to get the AV fistula as an outpatient. We will refer him once again and try to get him to see vascular surgery. 3. Hypertension. Blood pressure control remains suboptimal. He has very high level of anxiety and also partial noncompliance with medications. I would suggest to switch him to hydralazine 50 mg t.i.d. by mouth and continue with all chronic antihypertensive medications. Hypervolemia was also contributing to uncontrolled hypertension which has now improved. We will adjust his medications as an outpatient and he will followup in our office. 4. Anemia. His anemia is stable at this point and he will continue to receive management of anemia during dialysis. DISPOSITION: From a renal standpoint, the patient can be discharged as he does not wish to stay in the hospital anymore. He will followup at outpatient dialysis clinic tomorrow for regular dialysis treatment and in our office for other issues.
[2019-07-27] MEDS ORDERED: RENV2TAB PO (13:58)
[2019-07-27] MEDS ORDERED: LISI40TA PO (13:58)
[2019-07-27 14:47] VITALS: BP 184/110
[2019-07-27] MEDS ORDERED: **hydrALAZINE** 50 MG TAB PO SCH (16:00)
== END 2019-07-27 15:45 | disposition home or self-care (01) | DRG 314 ==
LOC: M ED 11:05 → EDBD 11:05 → M ED INP 15:39 → M PCU 20:13
PROVIDERS: ADMIT Internal Medicine Nephrology; ATTEND Family Medicine
PROC: 02H633Z Insertion of Infusion Device into Right Atrium, Percutaneous Approach (ICD-10-PCS; 2019-07-22)
PROC: 5A1D70Z Performance of Urinary Filtration, Intermittent, Less than 6 Hours Per Day (ICD-10-PCS; 2019-07-22)
PROC: 05PY33Z Removal of Infusion Device from Upper Vein, Percutaneous Approach (ICD-10-PCS; principal; 2019-07-22 15:30)
DX: T82.49XA Other complication of vascular dialysis catheter, initial encounter (principal); N18.6 End stage renal disease; I50.33 Acute on chronic diastolic (congestive) heart failure; T86.12 Kidney transplant failure; N25.81 Secondary hyperparathyroidism of renal origin; I31.3 Pericardial effusion (noninflammatory); I13.2 Hypertensive heart and chronic kidney disease with heart failure and with stage 5 chronic kidney disease, or end stage renal disease; I16.0 Hypertensive urgency; Y83.1 Surgical operation with implant of artificial internal device as the cause of abnormal reaction of the patient, or of later complication, without mention of misadventure at the time of the procedure; F41.9 Anxiety disorder, unspecified; I27.20 Pulmonary hypertension, unspecified; J47.9 Bronchiectasis, uncomplicated; E78.5 Hyperlipidemia, unspecified; D75.1 Secondary polycythemia; K21.9 Gastro-esophageal reflux disease without esophagitis; K29.70 Gastritis, unspecified, without bleeding; D69.6 Thrombocytopenia, unspecified; E66.9 Obesity, unspecified; S91.349A Puncture wound with foreign body, unspecified foot, initial encounter; W26.8XXA Contact with other sharp object(s), not elsewhere classified, initial encounter; Z99.2 Dependence on renal dialysis; Y92.009 Unspecified place in unspecified non-institutional (private) residence as the place of occurrence of the external cause; Z91.11 Patient's noncompliance with dietary regimen; Z91.19 Patient's noncompliance with other medical treatment and regimen; Z88.8 Allergy status to other drugs, medicaments and biological substances; Z88.1 Allergy status to other antibiotic agents; Z88.5 Allergy status to narcotic agent; Z79.899 Other long term (current) drug therapy; Y93.H9 Activity, other involving exterior property and land maintenance, building and construction

== ENCOUNTER → 2019-07-30 | Outpatient (CLI) | payer MEDICARE, MEDICAID ==
[~2019-07-30] MED LIST changes: +CLON0.2T PO; +DOXY100T27 PO; +LISI40TA PO; +RENV2TAB PO; +ZOFR4TAB16 PO; -hydrALAZINE INJ 20 MG/ML VIAL IV SCH
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
== END ==
LOC: M PAIN 11:30
PROVIDERS: ATTEND Nurse Practitioner Family
DX: M25.50 Pain in unspecified joint (principal); G89.29 Other chronic pain; I10 Essential (primary) hypertension; Z88.1 Allergy status to other antibiotic agents; Z88.8 Allergy status to other drugs, medicaments and biological substances; Z79.899 Other long term (current) drug therapy

== ENCOUNTER 2019-08-05 13:49 | Emergency (ER) | payer MEDICARE, MEDICAID ==
[~2019-08-05] VITALS: Ht 180.3 cm; Wt 109.1 kg
[~2019-08-05 13:49] MED LIST changes: -ZOFR4TAB16 PO
[2019-08-05 14:19] LABS: BASO # 0.1 10^3/uL (0.0-0.2); BASO % 0.7 % (0.0-1.0); EOS % 0.2 % (0.0-3.0); HEMOGLOBIN 10.5 g/dl (13.5-17.5); LYMPH # 0.7 10^3/uL (1.5-5.0); LYMPH % 8.2 % (24.0-44.0); MEAN CORPUSCULAR HEMOGLOBIN 30.2 pg (27.0-33.0); MEAN CORPUSCULAR HGB CONC 31.8 g/dl (32.0-36.5); MEAN CORPUSCULAR VOLUME 94.8 fl (80.0-96.0); MONO # 0.4 10^3/uL (0.0-0.8); MONO % 4.4 % (0.0-5.0); NEUTROPHILS # 7.4 10^3/uL (1.5-8.5); NEUTROPHILS % 86.1 % (36.0-66.0); PLATELET COUNT, AUTOMATED 132 10^3/uL (150-450); RED BLOOD COUNT 3.48 10^6/uL (4.30-6.10); WHITE BLOOD COUNT 8.6 10^3/uL (4.0-10.0)
[2019-08-05 15:15] LABS: INR 1.27; PROTHROMBIN TIME 15.6 SECONDS (11.8-14.0)
--- NOTE | 2019-08-05 15:22 | REP ---
Single view chest: 08/05/2019. Indication: Chest pain. Comparison: 07/22/2019. Findings: The lungs are clear. There is no pleural effusion or pneumothorax. Left subclavian dual-lumen tunneled catheter is present. Cardiomegaly is noted. Impression: No acute cardiopulmonary process. Electronically Signed by Geo Bryant DO 08/05/2019 03:13 P
[2019-08-05] MEDS ORDERED: LABETALOL HCL 100 MG/20 ML VIAL IV STA ×2 (15:26→17:33)
[2019-08-05] MEDS ORDERED: NS 500 ML IV ONE (15:30)
[2019-08-05] MEDS ORDERED: PANTOPRAZOLE 40MG INJ (PROTONIX) (C9113) IV ONE (15:30)
[2019-08-05] MEDS ORDERED: ONDANSETRON 4MG/2ML VIAL (J2405) IV ONE (15:30)
[2019-08-05] MEDS ORDERED: MORPHINE 2 MG/ML 1ML VIAL (J2270) IV ONE (16:15)
[2019-08-05 18:12] VITALS: BP 182/102
[2019-08-05 18:19] LABS: ALBUMIN 3.4 GM/DL (3.2-5.2); ALT/SGPT 41 U/L (12-78); BILIRUBIN,DIRECT 0.5 MG/DL (0.0-0.2); BILIRUBIN,TOTAL 1.3 MG/DL (0.2-1.0); BLOOD UREA NITROGEN 60 MG/DL (7-18); CARBON DIOXIDE LEVEL 23 MEQ/L (21-32); CHLORIDE LEVEL 101 MEQ/L (98-107); CK-MB VALUE MASS 4.6 NG/ML (<3.6); GLOMERULAR FILTRATION RATE 7.2 (>60); GLUCOSE, FASTING 130 MG/DL (70-100); LIPASE 156 U/L (73-393); NT-PRO BNP > 175000 PG/ML (<125); POTASSIUM SERUM 5.4 MEQ/L (3.5-5.1); SODIUM LEVEL 135 MEQ/L (136-145); TOTAL PROTEIN 8.2 GM/DL (6.4-8.2); TROPONIN I 0.16 NG/ML (< 0.10)
[2019-08-05 18:20] LABS: CPK CREATINE PHOSPHOKINASE 126 U/L (39-308); MB/CK RELATIVE INDEX 3.65 (< OR =4)
[2019-08-05] MEDS ORDERED: ZOFR4TAB16 PO (19:00)
[2019-08-05 19:25] VITALS: BP 128/84
--- NOTE | 2019-08-06 08:04 | ECGEPIP ---
[facility] - ED Test Date: 2019-08-05 Pat Name: OPAL LACEY Department: Room: - Gender: Male Recovery Specialist: ru : [id number] Requested By: Lore Suarez Order Number: [id number] Reading MD: Lore Suarez Measurements Intervals [place] Rate: 105 P: 64 NM: 179 QRS: -12 QRSD: 90 T: 114 QT: 360 QTc: 476 Interpretive Statements SINUS TACHYCARDIA POSSIBLE LEFT ATRIAL ENLARGEMENT NONSPECIFIC T-WAVE ABNORMALITY similar to prior EKG 07/22/19 Electronically Signed on 08-06-2019 8:04:06 EST by Lore Suarez
== END 2019-08-05 19:38 | disposition home or self-care (01) ==
LOC: M ED 13:49
DX: R10.9 Unspecified abdominal pain (principal); R07.9 Chest pain, unspecified; R06.02 Shortness of breath; R11.2 Nausea with vomiting, unspecified; I12.0 Hypertensive chronic kidney disease with stage 5 chronic kidney disease or end stage renal disease; N18.6 End stage renal disease; Z99.2 Dependence on renal dialysis; E78.5 Hyperlipidemia, unspecified; Z79.899 Other long term (current) drug therapy; Z88.1 Allergy status to other antibiotic agents; Z88.5 Allergy status to narcotic agent; Z88.8 Allergy status to other drugs, medicaments and biological substances; F17.210 Nicotine dependence, cigarettes, uncomplicated
CPT/HCPCS: 71045; 80048; 80076; 82550; 82553; 83690; 83880; 84484; 85025; 85610; 93005; 93041; 94760; 96374; 96375; 99284; C9113; J2270; J2405

== ENCOUNTER 2019-09-01 22:07 | Inpatient (IN) | payer MEDICARE, MEDICAID ==
[~2019-09-01] VITALS: Ht 180.3 cm; Wt 101.6 kg
[~2019-09-01 22:07] MED LIST changes: +ZOFR4TAB16 PO
[2019-09-01 23:16] LABS: HEMATOCRIT 33.9 % (42.0-52.0); HEMOGLOBIN 10.7 g/dl (13.5-17.5); MEAN CORPUSCULAR HEMOGLOBIN 30.1 pg (27.0-33.0); MEAN CORPUSCULAR HGB CONC 31.6 g/dl (32.0-36.5); MEAN CORPUSCULAR VOLUME 95.2 fl (80.0-96.0); RED BLOOD COUNT 3.56 10^6/uL (4.30-6.10); WHITE BLOOD COUNT 18.3 10^3/uL (4.0-10.0)
[2019-09-01 23:37] LABS: BILIRUBIN,TOTAL 3.3 MG/DL (0.2-1.0); CALCIUM LEVEL 9.4 MG/DL (8.5-10.1); CREATININE FOR GFR 7.69 MG/DL (0.70-1.30); GLOMERULAR FILTRATION RATE 8.1 (>60); POTASSIUM SERUM 4.9 MEQ/L (3.5-5.1)
[2019-09-01 23:41] LABS: PLATELET COUNT, AUTOMATED 71 10^3/uL (150-450)
[2019-09-01] MEDS ORDERED: ACETAMINOPHEN TAB 650MG DOSE (2X325MG) PO ONE (23:45)
[2019-09-01 23:48] LABS: LYMPHOCYTES 1 % (16-44); MONOCYTES 1 % (0-5); NEUTROPHILS 96 % (28-66); PLATELET ESTIMATE DECREASED (NORMAL)
[2019-09-01 23:49] LABS: ANISOCYTOSIS 2+; TOXIC GRANULATION 1+; TOXIC VACUOLATION 2+
[2019-09-01 23:59] LABS: INFLUENZA A AMPLIFICATION NEGATIVE (NEGATIVE); INFLUENZA B AMPLIFICATION NEGATIVE (NEGATIVE)
[2019-09-02] VITALS (10 sets, daily range): BP systolic 89–186; BP diastolic 54–114
--- NOTE | 2019-09-02 00:52 | REPVR ---
PROCEDURE INFORMATION: Exam: CT Chest Without Contrast Exam date and time: 09/01/2019 11:46 PM Age: 49 years old Clinical indication: Cough; Additional info: Cough, fever TECHNIQUE: Imaging protocol: Computed tomography of the chest without contrast. Radiation optimization: All CT scans at this facility use at least one of these dose optimization techniques: automated exposure control; mA and/or kV adjustment per patient size (includes targeted exams where dose is matched to clinical indication); or iterative reconstruction. COMPARISON: CT Chest without contrast 12/22/2018 2:54 PM FINDINGS: Lungs: No consolidation. Pleural space: There is no evidence of pneumothorax. Heart: There is severe cardiomegaly. There is a moderate amount of pericardial effusion. This massive cardiomegaly has developed since 12/22/2018. Superior vena cava: A left-sided central line is in place with its tip in the superior vena cava. Lymph nodes: Unremarkable. No enlarged lymph nodes. Intraperitoneal space: There is a large amount of ascites and markedly increased since 12/22/2018. Bones/joints: Unremarkable. No acute fracture. Soft tissues: Unremarkable. Other findings: There is mild prominence of the vascular markings and interstitial markings which may be the result of mild congestive change. IMPRESSION: 1. There is massive cardiomegaly that has developed since December. This may be secondary to a cardiomyopathy or very severe heart failure. There is enlargement of both the right and left ventricles and recommend correlation with an echo. 2. Mild congestive failure. 3. Moderate pericardial effusion which has mildly increased. 4. Severe ascites which has significantly increased since December. Electronically signed by: Juancho Perez On 09/02/2019 00:52:07 AM
[2019-09-02] MEDS ORDERED: ISOS30TA4 PO (01:35)
[2019-09-02] MEDS ORDERED: LISI40TA PO (01:35)
[2019-09-02] MEDS ORDERED: ZOFR4TAB16 PO (01:35)
[2019-09-02] MEDS ORDERED: CHILCHW27 PO (01:35)
[2019-09-02] MEDS ORDERED: ACETAMINOPHEN TAB 650MG DOSE (2X325MG) PO PRN (03:15)
[2019-09-02] MEDS ORDERED: MAALOX 30 ML SUSP *UDC PO PRN (03:15)
[2019-09-02] MEDS ORDERED: MOM 30ML SUSPENSION UDC PO PRN (03:15)
[2019-09-02] MEDS ORDERED: ALPRAZolam 0.25 MG TAB PO ONE (03:30)
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
[2019-09-02] MEDS: HEPARIN SOD (PORCINE) 5000 UNITS/ML VIAL SC SCH ×4 (04:53→20:06)
[2019-09-02] MEDS: NORCO, ANEXSIA 5/325MG TABLET (HYDROcodone/ACETAMINOPHEN) PO PRN ×2 (04:57→11:24)
[2019-09-02] MEDS: ONDANSETRON 4MG/2ML VIAL (J2405) IV PRN ×2 (04:57→11:00)
[2019-09-02] MEDS ORDERED: PROMETHAZINE INJ 25 MG/ML VIAL (J2550) IV ONE (05:15)
[2019-09-02] MEDS ORDERED: VANCOMYCIN HCL 1,000 MG, VIAL MATE ADAPTER 1 EACH in D5W 250 ML IV ONE (05:45)
[2019-09-02] MEDS: ISOSORBIDE MON. (IMDUR) 30 MG XR TAB PO SCH (07:55)
[2019-09-02] MEDS: DOCUSATE SODIUM 100 MG CAP PO SCH ×2 (07:56→20:05)
[2019-09-02] MEDS: lisinopriL 40 MG TAB PO SCH ×2 (07:56→20:06)
[2019-09-02] MEDS: LABETALOL 200 MG TAB PO SCH ×2 (07:56→20:03)
[2019-09-02] MEDS: **hydrALAZINE** 50 MG TAB PO SCH ×3 (07:57→20:04)
[2019-09-02] MEDS: cloNIDine 0.2 MG TAB PO SCH ×2 (07:57→20:02)
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
--- NOTE | 2019-09-02 08:10 | REP ---
Chest x-ray: Two views. History: Fever. Comparison study: August 05, 2019. Findings: A tunnel catheter is seen via the left internal jugular vein terminating expected location of the superior vena cava. Monitoring electrodes are noted. There is moderate cardiac enlargement again seen. Pulmonary vasculature is cephalized and indistinct. No pleural effusion or focal infiltrate is seen. Impression: Cardiomegaly with cephalization of the vasculature. Central venous catheter. No infiltrate seen. Electronically Signed by Blayne Guillermo MD 09/02/2019 08:02 A
[2019-09-02] MEDS ORDERED: ISOVUE-370 76% 100ML VIAL (Q9967) As Ordered ONE (09:40)
[2019-09-02 09:42] LABS: HEMATOCRIT 33.5 % (42.0-52.0); HEMOGLOBIN 10.4 g/dl (13.5-17.5); MEAN CORPUSCULAR VOLUME 96.5 fl (80.0-96.0); RED BLOOD COUNT 3.47 10^6/uL (4.30-6.10); WHITE BLOOD COUNT 19.5 10^3/uL (4.0-10.0)
[2019-09-02 09:54] LABS: PLATELET COUNT, AUTOMATED 56 10^3/uL (150-450)
[2019-09-02 10:01] LABS: ALBUMIN 2.7 GM/DL (3.2-5.2); BILIRUBIN,DIRECT 3.1 MG/DL (0.0-0.2); BILIRUBIN,TOTAL 3.8 MG/DL (0.2-1.0); CALCIUM LEVEL 8.8 MG/DL (8.5-10.1); CREATININE FOR GFR 5.87 MG/DL (0.70-1.30); GLOMERULAR FILTRATION RATE 11.1 (>60); POTASSIUM SERUM 4.4 MEQ/L (3.5-5.1); TOTAL PROTEIN 6.4 GM/DL (6.4-8.2)
[2019-09-02 10:22] LABS: ANISOCYTOSIS 1+; LYMPHOCYTES 2 % (16-44); MONOCYTES 1 % (0-5); NEUTROPHILS 90 % (28-66)
[2019-09-02 10:23] LABS: DOHLE BODIES 1+; PLATELET ESTIMATE DECREASED (NORMAL); TOXIC VACUOLATION 2+
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
[2019-09-02] MEDS ORDERED: PROMETHAZINE INJ 25 MG/ML VIAL (J2550) IV PRN (11:30)
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
[2019-09-02] MEDS: VANCOMYCIN HCL 1,000 MG, VIAL MATE ADAPTER 1 EACH in D5W 250 ML IV SCH (13:18)
[2019-09-02 15:40] LABS: APPEARANCE, BODY FLUID HAZY (CLEAR); PERITONEAL FL COLOR YELLOW (COLORLESS); SOURCE, BODY FLUID PERITONEAL
[2019-09-02 16:04] LABS: SOURCE, BODY FLUID TOT PROTEIN ASCITES; TOTAL PROTEIN, BODY FLUID 3.3 G/DL (NOT ESTABLISHED)
[2019-09-02] MEDS: MEROPENEM INJ 500 MG in IV 1 EA IV SCH (17:37)
--- NOTE | 2019-09-02 18:11 | REP ---
Ultrasound-guided paracentesis The procedure was performed under the direct supervision of Dr. Guillermo. The risks and benefits of the procedure were explained and informed consent was obtained by the healthcare proxy. The largest pocket of fluid was localized in the left flank using ultrasound guidance. The skin was prepped and draped in a sterile fashion. 1% lidocaine was used as a local anesthetic. An 8-Spanish multi side-hole catheter was inserted using trocar technique. 2750 ml of ayaka colored fluid was withdrawn with a sample sent to the lab for analysis. The patient tolerated the procedure well and there were no immediate complications. After the appropriate amount of monitored convalescence the patient was discharged from the department. Electronically Signed by CHERRIE Cortez 09/02/2019 04:56 P Electronically Signed by Blayne Guillermo MD 09/02/2019 06:02 P
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
--- NOTE | 2019-09-02 21:17 | ECGEPIP ---
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
--- NOTE | 2019-09-02 21:32 | CR ---
DATE OF CONSULTATION: 09/02/2019 INFECTIOUS DISEASE CONSULTATION Asked to consult by Dr. Wilkerson for gram-positive bacteremia. The patient has been seen by Dr. Tyler Mcgraw, second year resident, who did the consultation. The patient was admitted with fever, encephalopathy, tachycardia and leukocytosis. He was diagnosed with sepsis had HD catheter with likely line infection. Blood cultures are positive for gram-positive cocci in clusters, probably Staphylococcus aureus. He also was having abdominal pain and nausea and there was some concern of spontaneous bacterial peritonitis. The patient had aspiration of peritoneal fluid, which is suspicious for peritonitis with total neutrophil counts of over 2000. He is currently on IV meropenem and vancomycin, which is appropriate coverage. He will continue with current antibiotics. I am concerned that with his ascites with thrombocytopenia. and gynecomastia patient may have liver cirrhosis, although this has not been documented in his previous chart. This needs to be further pursued. See full consultation by Dr. Mcgraw. I agree with his report. Will need repeat blood cultures tomorrow and echocardiogram to rule out endocarditis. DAVION
[2019-09-03] VITALS (12 sets, daily range): BP systolic 92–156; BP diastolic 51–86
[2019-09-03 00:34] LABS: HEMATOCRIT 34.5 % (42.0-52.0); HEMOGLOBIN 10.7 g/dl (13.5-17.5); MEAN CORPUSCULAR HEMOGLOBIN 30.4 pg (27.0-33.0); RED BLOOD COUNT 3.52 10^6/uL (4.30-6.10)
[2019-09-03 00:39] LABS: PLATELET COUNT, AUTOMATED 47 10^3/uL (150-450)
[2019-09-03 00:46] LABS: VENOUS BASE EXCESS -8.1 (-2.0-2.0); VENOUS HCO3 19.5 MEQ/L (23.0-27.0); VENOUS O2 SATURATION 98.9 % (60.0-80.0); VENOUS PARTIAL PRESSURE CO2 48.7 mmHg (38.0-50.0); VENOUS PARTIAL PRESSURE O2 160.7 mmHg (30.0-50.0); VENOUS PH 7.221 UNITS (7.330-7.430)
[2019-09-03 00:51] LABS: LYMPHOCYTES 1 % (16-44); MONOCYTES 3 % (0-5); NEUTROPHILS 96 % (28-66)
[2019-09-03 00:52] LABS: INR 1.62; PLATELET ESTIMATE MARKED DECREASE (NORMAL)
[2019-09-03 00:53] LABS: PARTIAL THROMBOPLASTIN TIME 29.4 SECONDS (25.0-38.4)
[2019-09-03 00:54] LABS: ANISOCYTOSIS 1+; DOHLE BODIES 1+
[2019-09-03 00:55] LABS: TOXIC VACUOLATION 1+
[2019-09-03 05:21] LABS: BASO % 0.2 % (0.0-1.0); HEMATOCRIT 30.9 % (42.0-52.0); LYMPH # 0.5 10^3/uL (1.5-5.0); MEAN CORPUSCULAR HEMOGLOBIN 30.6 pg (27.0-33.0); MEAN CORPUSCULAR HGB CONC 32.4 g/dl (32.0-36.5); MEAN CORPUSCULAR VOLUME 94.5 fl (80.0-96.0); MONO # 1.5 10^3/uL (0.0-0.8); MONO % 6.6 % (0.0-5.0); NEUTROPHILS # 19.7 10^3/uL (1.5-8.5); NEUTROPHILS % 89.1 % (36.0-66.0); RED BLOOD COUNT 3.27 10^6/uL (4.30-6.10); WHITE BLOOD COUNT 22.1 10^3/uL (4.0-10.0)
[2019-09-03 05:22] LABS: PLATELET COUNT, AUTOMATED 48 10^3/uL (150-450)
[2019-09-03 05:50] LABS: ALBUMIN 2.1 GM/DL (3.2-5.2); BILIRUBIN,TOTAL 3.4 MG/DL (0.2-1.0); CALCIUM LEVEL 9.2 MG/DL (8.5-10.1); CREATININE FOR GFR 8.73 MG/DL (0.70-1.30); POTASSIUM SERUM 5.9 MEQ/L (3.5-5.1)
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
[2019-09-03] MEDS ORDERED: MEROPENEM INJ 1 GM in IV 1 EA IV SCH (09:00)
[2019-09-03] MEDS: DOCUSATE SODIUM 100 MG CAP PO SCH ×2 (09:00→21:00)
[2019-09-03] MEDS: cloNIDine 0.2 MG TAB PO SCH ×2 (09:00→20:59)
[2019-09-03] MEDS: **hydrALAZINE** 50 MG TAB PO SCH ×3 (09:00→20:59)
--- NOTE | 2019-09-03 09:04 | REP ---
Portable chest x-ray: Single view. History: Sepsis. Comparison chest x-ray: September 01, 2019. Findings: Cardiomegaly is again observed unchanged. There is a tunneled catheter via the left internal jugular vein with its tip in the expected location of the superior vena cava. Pleural angles are sharp. Right hemidiaphragm remains elevated. The lungs are clear. Electronically Signed by Blayne Guillermo MD 09/03/2019 08:55 A
[2019-09-03] MEDS ORDERED: HEPARIN 1,000 UNITS/ML 10ML VIAL (FOR RADIOLOGY& DIALYSIS ONLY) XX ONE (10:45)
[2019-09-03 10:47] LABS: ALBUMIN 2.4 GM/DL (3.2-5.2); CALCIUM LEVEL 8.8 MG/DL (8.5-10.1); CREATININE FOR GFR 7.61 MG/DL (0.70-1.30); GLOMERULAR FILTRATION RATE 8.2 (>60); PHOSPHORUS LEVEL 5.3 MG/DL (2.5-4.9); POTASSIUM SERUM 4.9 MEQ/L (3.5-5.1)
[2019-09-03 11:50] LABS: FERRITIN 2144 NG/ML (26-388); HEPATITIS B SURFACE ANTIBODY POSITIVE (POSITIVE); HEPATITIS B SURFACE ANTIGEN NEGATIVE (NEGATIVE); IRON (FE) 48 UG/DL (65-175); LDH LACTATE DEHYDROGENASE 229 U/L (87-241); TOTAL PROTEIN 5.8 GM/DL (6.4-8.2)
[2019-09-03] MEDS: ISOSORBIDE MON. (IMDUR) 30 MG XR TAB PO SCH (13:20)
[2019-09-03] MEDS: LABETALOL 200 MG TAB PO SCH ×2 (13:20→21:00)
--- NOTE | 2019-09-03 13:56 | CR.PDOC ---
General Date of Consultation: Sep 03, [address] Tilley HPI: 49 year old M referred to the emergency department after dialysis with fever, nausea, vomiting and admitted by the hospitalist service 09/02/19 with sepsis. Infectious disease is consulted. Preliminary blood culture 2 from 09/01/19 with gram-positive cocci. Vascular surgery is consulted for removal of PermCath to allow for catheter holiday then plan to replace 09/05 or 09/06/19. Denies any fevers, chills, weakness, fatigue, Headache, Chest Pain, Shortness of breath, cough, palpitations, abdominal pain, N/V/D or changes in bowel or bladder habits. PAST MEDICAL HISTORY: Renal failure, secondary to hypertension, status post failed renal transplant, on hemodialysis Posttransplant erythrocytosis, PA inhibitor and receiving phlebotomy Hypertension Bronchiectasis Moderately severe left ventricular hypertrophy HFpEF Pulmonary hypertension Mild aortic valvular sclerosis with trace insufficiency Moderate pericardial effusion, 01/05 PAST SURGICAL HISTORY: Kidney transplant, 05/21/15 Cholecystectomy, 2011 Right forearm fistula, removed secondary to aneurysm Kidney biopsy, 07/06 Peritoneal cath placed and discontinued after infection, 08/06 Right subclavian hemodialysis port, failed in 2017 Left Port-A-Cath placement FAMILY HISTORY: Father: Unknown Mother: Alive, 64 years old, diagnosed with diabetes Siblings: Alive, one brother/1 sister with anxiety and depression Children: 2 sons, healthy SOCIAL HISTORY: Single father, 2 sons nonsmoker ROS: As noted in HPI, otherwise 11pt ROS of systems reviewed and unremarkable. PE: GEN: 49yoM, appears stated age. Currently on hemodialysis, limited exam. HEENT: Normocephalic, atraumatic. Moist mucous membranes. CHEST: Regular rate and rhythm, +S1, +S2. PermCath left chest. SKIN: [employer], dry, warm. No rashes. NEURO: Alert and oriented x 3. No focal deficits appreciated. A&P: 1. ESRD/dialysis. Management as per nephrology. Patient admitted with sepsis, preliminary blood culture 2 positive for gram- positive cocci. Infectious disease consulted. Currently meropenem/vancomycin IV. Tentative plan as per Nephrology is for left chest PermCath removal today to allow for line holiday then tentatively plan to replace the catheter Sunday or Sunday. Will review further with Dr. Tilley. Vital Signs/I&O Vital Signs Date Time Temp Pulse Resp B/P (MAP) Pulse Ox O2 Delivery O2 Flow Rate FiO2 09/03/19 13:20 105 147/72 09/03/19 13:10 2.0 09/03/19 13:10 98.9 21 96 Nasal Cannula I&O- Last 24 Hours up to 6 AM 09/03/19 05:59 Intake Total 1330 ml Output Total 155 ml Balance 1175 ml Laboratory Data Labs 24H Laboratory Tests 2 09/02/19 14:46: Body Fluid WBC (Auto) 2639H, Body Fluid RBC (Auto) 5, Body Fluid Mononuclear Cells % Auto 21.6H, Fluid Polymorphonuclear Cell % Auto 78.4H, Body Fluid Protein Source ASCITES, Body Fluid Total Protein 3.3, Peritoneal Fluid Source PERITONEAL, Peritoneal Fluid Color YELLOW, Peritoneal Fluid Appearance HAZY 09/02/19 19:00: 09/03/19 00:02: Monocytes # (Auto) , Nucleated Red Blood Cells % (auto) 0.3H, Neutrophils 96H, Lymphocytes (Manual) 1L, Monocytes (Manual) 3, Anisocytosis 1+, Macrocytosis 1+, Dohle Bodies 1+, Toxic Vacuolation 1+, Platelet Estimate MARKED DECREASE, Immature Platelet Fraction 14.2H, Prothrombin Time 19.0H, Prothromb Time International Ratio 1.62, Activated Partial Thromboplast Time 29.4, Fibrinogen 294 09/03/19 00:38: Blood Gas Bicarbonate Standard 18.0, Venous Blood pH 7.221L, Venous Blood Partial Pressure CO2 48.7, Venous Blood Partial Pressure O2 160.7H, Venous Blood Total Carbon Dioxide 21.0L, Venous Blood HCO3 19.5L, Venous Blood Oxygen Saturation 98.9H, Venous Blood Base Excess -8.1L 09/03/19 05:07: Immature Granulocyte % (Auto) 2.1, Neutrophils (%) (Auto) 89.1H, Lymphocytes (%) (Auto) 2.0L, Monocytes (%) (Auto) 6.6H, Eosinophils (%) (Auto) 0.0, Basophils (%) (Auto) 0.2, Neutrophils # (Auto) 19.7H, Lymphocytes # (Auto) 0.5L, Monocytes # (Auto) 1.5H, Eosinophils # (Auto) 0.0, Basophils # (Auto) 0.0, Nucleated Red Blood Cells % (auto) 0.5H, Anion Gap 14, Glomerular Filtration Rate 7.0L, Calcium Level 9.2, Total Bilirubin 3.4H, Aspartate Amino Transf (AST/SGOT) 37, Alanine Aminotransferase (ALT/SGPT) 31, Alkaline Phosphatase 107, Total Protein 6.0L, Albumin 2.1#L, Albumin/Globulin Ratio 0.54L 09/03/19 06:22: Erythrocyte Sedimentation Rate 11, Iron Level 48L, Ferritin 2144H, Gamma Glutamyl Transferase 132H, Lactate Dehydrogenase 229, Total Protein (PEP) 5.8L, Hepatitis B Surface Antigen NEGATIVE, Hepatitis B Surface Antibody POSITIVE, Hepatitis C Antibody Index 0.0 09/03/19 08:45: Anion Gap 14, Glomerular Filtration Rate 8.2L, Calcium Level 8.8, Albumin 2.4L, Phosphorus Level 5.3H CBC/BMP Laboratory Tests 09/03/19 00:02 09/03/19 05:07 09/03/19 08:45 Microbiology Microbiology 09/03/19 Blood Culture, Received Pending 09/03/19 Blood Culture, Received Pending 09/02/19 Anaerobic Culture, Received Pending 09/02/19 Fungal Smear, Received Pending 09/02/19 Fungal Culture, Received Pending 09/02/19 Gram Stain - Final, Resulted 09/02/19 Body Fluid Culture, Resulted Pending 09/01/19 Respiratory Virus Panel (PCR) ([facility]) - Final, Complete 09/01/19 Blood Culture - Preliminary, Resulted Staphylococcus Aureus 09/01/19 Blood Culture - Preliminary, Resulted Staphylococcus Aureus Allergies Coded Allergies: Cephalosporins (Verified Allergy, Intermediate, HIVES, CEFTIN, 11/27/18) hydroxyzine (Verified Adverse Reaction, Intermediate, INCREASED LETHARGY, LOSS OF BALANCE, 11/27/18) ketorolac (Verified Adverse Reaction, Mild, DIZZY, NAUSEA, 11/27/18) tramadol (Verified Adverse Reaction, Mild, DIZZY, 05/19/19) Home Medications Scheduled Clonidine HCl (Clonidine HCl) 0.2 Mg Tablet, 0.2 MG PO BID, (Reported) Hydralazine HCl (Hydralazine HCl) 50 Mg Tablet, 50 MG PO TID, (Reported) Isosorbide Mononitrate (Isosorbide Mononitrate ER) 30 Mg Tab.er.24h, 30 MG PO DAILY, (Reported) Labetalol HCl (Labetalol HCl) 200 Mg Tablet, 200 MG PO BID, (Reported) Lisinopril (Lisinopril) 40 Mg Tablet, 40 MG PO BID, (Reported) Multivitamin with Iron (Children's Vitamins with Iron) 1 Each Tab.chew, 1 TAB PO DAILY, (Reported) Scheduled PRN Hydrocodone/Acetaminophen ([place] 10-325 Tablet) 1 Tab Tab, 1 TAB PO Q6H PRN for PAIN, (Reported) Ondansetron HCl (Zofran) 4 Mg Tablet, 4 MG PO Q6H PRN for NAUSEA, (Reported) Flower Jimenez Sep 03, 2019 13:55
--- NOTE | 2019-09-03 15:29 | IPN ---
DATE: 09/03/2019 Mr. Rosen is seen this morning during hemodialysis. He underwent paracentesis yesterday and peritoneal fluid had a hazy appearance with 2639 WBCs. His blood cultures have also come back positive for Staphylococcus aureus. The patient was given vancomycin and meropenem yesterday and he is afebrile. He feels that his abdominal pain is much better today but still not feeling very well. His labs this morning revealed hyperkalemia so we decided to dialyze him as we wanted to remove his Perma-Cath after dialysis because of positive blood cultures. PHYSICAL EXAMINATION: Temperature 99.3 degrees Fahrenheit, heart rate 103 per minute, respiratory rate 18 per minute. Blood pressure 134/75 mmHg and oxygen saturation 95% on 2 liters oxygen. Head is atraumatic. Neck is supple and jugular venous distention (JVD) is not abnormally elevated. His heart sounds are tachycardiac and there is no pericardial friction rub. Lungs have slightly diminished breath sounds at bases and no wheezing and only a few basilar rales. Abdomen is soft and minimally tender now. No bowel sounds are present. Extremities have no cyanosis or clubbing. He has a left upper chest Perma-Cath in place. Neurologically, he is awake and at about his baseline mentation. Today's labs show sodium 130, potassium 5.9, CO2 16, BUN 76 and creatinine 8.73. We repeated his renal profile just before dialysis, which showed sodium 135, potassium 4.9, CO2 22, BUN 68 and creatinine 7.61. WBC count this morning is 22,000, hemoglobin 10 and hematocrit 31. PROBLEMS: 1. Staphylococcus aureus bacteremia with sepsis. Most likely this is dialysis catheter related. The patient has been getting vancomycin and will be given a dose of vancomycin 1 gram after dialysis again today. I have requested vascular surgery to remove his Perma-Cath today and then we will get a new catheter placed in a couple of days. 2. Abdominal pain and ascites. The patient had new onset ascites. Etiology of which remains uncertain. His abdominal tenderness and pain has improved and he remains on antibiotics. Culture on the ascites is still pending. 3. End-stage renal disease. The patient is being dialyzed today and we will remove his Perma-Cath after dialysis with plan for a new catheter later on in a couple of days. 4. Hyperkalemia. His hyperkalemia was unexpected as he has been nothing by mouth, and we repeated his renal profile just before dialysis, which did not show any hyperkalemia. He is being dialyzed with the low potassium bath. 5. Anemia. At present, his anemia is stable and does not need any urgent intervention. DAVION
[2019-09-03] MEDS: NORCO, ANEXSIA 5/325MG TABLET (HYDROcodone/ACETAMINOPHEN) PO PRN (16:00)
[2019-09-03] MEDS ORDERED: **VANCO AFTER HD** MISC XX SCH (16:00)
--- NOTE | 2019-09-03 18:03 | REPVR ---
PROCEDURE INFORMATION: Exam: US Abdomen Limited, Right Upper Quadrant Exam date and time: 09/03/2019 5:52 PM Age: 49 years old Clinical indication: Condition or disease; Ascites; Peritoneal effusion; Prior surgery; Surgery date: 6+ months; Surgery type: Cholecystectomy, RT tx kidney; Additional info: Ascites, hyperbilirubinemia TECHNIQUE: Imaging protocol: Real-time ultrasound of the abdomen with image documentation. Examination was focused on the right upper quadrant. COMPARISON: PARACENTESIS [facility]LE PLACE US 09/02/2019 2:35 PM FINDINGS: Liver: Normal. No masses. Gallbladder: There has been a cholecystectomy. Common bile duct: The common bile duct measures 6 Mm. No mass or choledocholithiasis. Pancreas: Visualized pancreas is unremarkable. Pancreatic tail obscured by overlying bowel gas. Right kidney: Right kidney measures 9.1 x 3.8 x 3.3 cm. Intraperitoneal space: There is a moderate amount of free intraperitoneal fluid present. IMPRESSION: 1. There has been a cholecystectomy. 2. There is a moderate amount of free intraperitoneal fluid present. Electronically signed by: Oracio Covarrubias On 09/03/2019 18:03:25 PM
[2019-09-03] MEDS: MEROPENEM INJ 500 MG in IV 1 EA IV SCH (18:31)
[2019-09-03] MEDS: VANCOMYCIN HCL 1,000 MG, VIAL MATE ADAPTER 1 EACH in D5W 250 ML IV SCH (22:16)
[2019-09-04] VITALS: BP 120/65
[2019-09-04 04:00] VITALS: BP 121/68
[2019-09-04 05:14] LABS: BASO % 0.2 % (0.0-1.0); EOS # 0.1 10^3/uL (0.0-0.5); EOS % 0.3 % (0.0-3.0); LYMPH # 0.5 10^3/uL (1.5-5.0); MEAN CORPUSCULAR HEMOGLOBIN 30.1 pg (27.0-33.0); MEAN CORPUSCULAR HGB CONC 32.1 g/dl (32.0-36.5); MEAN CORPUSCULAR VOLUME 93.6 fl (80.0-96.0); MONO # 1.2 10^3/uL (0.0-0.8); MONO % 7.4 % (0.0-5.0); NEUTROPHILS # 14.5 10^3/uL (1.5-8.5); NEUTROPHILS % 86.4 % (36.0-66.0); RED BLOOD COUNT 2.99 10^6/uL (4.30-6.10); WHITE BLOOD COUNT 16.7 10^3/uL (4.0-10.0)
[2019-09-04 05:15] LABS: PLATELET COUNT, AUTOMATED 37 10^3/uL (150-450)
[2019-09-04 05:37] LABS: ALBUMIN 2.2 GM/DL (3.2-5.2); BILIRUBIN,TOTAL 3.6 MG/DL (0.2-1.0); CALCIUM LEVEL 8.7 MG/DL (8.5-10.1); CREATININE FOR GFR 6.75 MG/DL (0.70-1.30); GLOMERULAR FILTRATION RATE 9.4 (>60); POTASSIUM SERUM 4.7 MEQ/L (3.5-5.1); TOTAL PROTEIN 5.4 GM/DL (6.4-8.2)
[2019-09-04 08:00] VITALS: BP 122/76
[2019-09-04] MEDS: DOCUSATE SODIUM 100 MG CAP PO SCH ×2 (08:51→20:35)
[2019-09-04] MEDS: LABETALOL 200 MG TAB PO SCH ×2 (08:53→20:36)
[2019-09-04] MEDS: ISOSORBIDE MON. (IMDUR) 30 MG XR TAB PO SCH (08:53)
[2019-09-04] MEDS: **hydrALAZINE** 50 MG TAB PO SCH ×3 (09:00→20:32)
[2019-09-04] MEDS: cloNIDine 0.2 MG TAB PO SCH ×2 (09:00→20:31)
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
--- NOTE | 2019-09-04 11:01 | REP ---
INDICATION: Sepsis, endocarditis PROCEDURE: CT head without contrast COMPARISON STUDIES: No prior similar studies FINDINGS: No acute bleed or acute large vessel territorial infarct. Ventricles, cisterns and sulci within normal limits. No mass effect or midline shift. No abnormal fluid collections. There is a small, focal hypodensity in the right anterior thalamus which is nonspecific. There are no prior similar studies for comparison. The study is motion degraded and the skull base and lower portions of the brain are incompletely imaged. CONCLUSION: 1. Limited study, motion degraded and with incomplete imaging of the brain however within this limitation, no definite acute findings. 2. There is a small, focal hypodensity in the right anterior thalamus which is nonspecific. There are no prior similar studies for comparison. 3. If clinical concern persists, repeat study recommended. Electronically Signed by Martin Culver MD 09/04/2019 10:52 A
[2019-09-04 11:10] LABS: VANCOMYCIN RANDOM 25.8 UG/ML
[2019-09-04 12:00] VITALS: BP 101/58
[2019-09-04 12:08] LABS: ALBUMIN 2.81 GM/DL (3.29-5.55); ALBUMIN % 48.5 % (55.8-66.1); ALPHA-1-GLOBULIN % 11.2 % (2.9-4.9); ALPHA-1-GLOBULINS 0.65 GM/DL (0.17-0.41); ALPHA-2-GLOBULINS 0.52 GM/DL (0.42-0.99); ALPHA-2-GLOBULINS % 8.9 % (7.1-11.8); BETA-1-GLOBULINS 0.23 GM/DL (0.28-0.60); BETA-1-GLOBULINS % 3.9 % (4.7-7.2); BETA-2-GLOBULINS 0.19 GM/DL (0.19-0.55); BETA-2-GLOBULINS % 3.2 % (3.2-6.5); GAMMA GLOBULIN % 24.3 % (11.1-18.8); GAMMA GLOBULINS 1.41 GM/DL (0.65-1.58)
--- NOTE | 2019-09-04 14:08 | IPNPDOC ---
Text Note Date of Service The patient was seen on 09/04/19. NOTE Vascular surgery. Dr. Tilley HPI: 49 year old M referred to the emergency department after dialysis with fever, nausea, vomiting and admitted by the hospitalist service 09/02/19 with sepsis. Infectious disease is consulted. Blood culture 2 from 09/01/19 positive for stap h aureus. Blood culture 09/03/19 positive for staph aureus. PE: GEN: 49yoM, sleeping in bed, difficult to arouse, confused. HEENT: Normocephalic, atraumatic. Moist mucous membranes. CHEST: Regular rate and rhythm, +S1, +S2. PermCath left chest. SKIN: [place], dry, warm. No rashes. NEURO: Alert and oriented x 3. No focal deficits appreciated. A&P: 1. ESRD/dialysis. Management as per nephrology. Patient admitted with sepsis, blood cultures 09/01 and 09/03 are positive for staph aureus. note from today indicates verbal report on Echo from Tech suggests aortic valve vegetations. Infectious disease consulted. Currently meropenem/vancomycin IV. PermCath left chest was removed as per nephrology 09/03/19 to allow for line holiday then tentative plan was to replace the catheter Sunday. BC 09/04/19 pending. Mental status has changed compared to usual state. confused, not oriented, difficult to arouse. Unable to obtain consent at this time. Will review further with Dr. Tilley. VS,Fishbone, I+O VS, Fishbone, I+O Laboratory Tests 09/04/19 04:58 Vital Signs Date Time Temp Pulse Resp B/P (MAP) Pulse Ox O2 Delivery O2 Flow Rate FiO2 09/04/19 12:00 98.3 82 17 101/58 (72) 93 Room Air 09/03/19 21:07 2.0 09/03/19 16:00 95 I&O- Last 24 Hours up to 6 AM 09/04/19 06:00 Intake Total 600 ml Output Total 2000 ml Balance -1400 ml Flower Jimenez Sep 04, 2019 14:08
--- NOTE | 2019-09-04 14:39 | IPN ---
DATE OF VISIT: 09/04/2019 Mr. Rosen is seen this morning in intensive care unit on his bedside. His significant other is present in the room. Patient is somewhat lethargic and laying with eyes closed. However, he did answer to my questions by saying yes. He was dialyzed yesterday and his PermaCath was removed after dialysis due to Staphylococcus aureus bacteremia. His abdominal pain has improved. However, he is still quite restless and moaning. On physical exam, temperature 98.3 degrees Fahrenheit, heart rate 97 per minute and respiratory rate 16 per minute. Blood pressure 122/76 mmHg and oxygen saturation 96% on room air. His head is atraumatic. Neck supple and without jugular venous distention (JVD) or thyroid enlargement. He is lying with his eyes closed. Left upper chest PermaCath has been removed. Dressing is intact without any active bleeding. Heart sounds are somewhat tachycardiac and lungs sound clear to auscultation. Abdomen is still somewhat tender and distended. Bowel sounds are present. Extremities without any cyanosis or clubbing. Neurologically, he is somewhat confused and lethargic but arousable. Today's labs show WBC count 16.7, hemoglobin 9.0 and hematocrit 28.0. Platelets 37,000. Sodium 136, potassium 4.7, CO2 of 24, BUN 57 and creatinine 6.75. Calcium level 8.7 and total bilirubin 3.6. Total protein was 5.4 and albumin 2.2. A random vancomycin levels this morning is 25.8. PROBLEMS: 1. End-stage renal disease. Patient was dialyzed yesterday and we will wait for next dialysis treatment until a new dialysis catheter is available. 2. Staphylococcus aureus bacteremia. Patient has positive blood cultures and most likely his bacteremia is related to hemodialysis catheter which has already been removed. Blood cultures drawn yesterday are still coming back positive for staph aureus. He has blood cultures drawn again this morning and will wait for the results. His vancomycin level is high therapeutic and we will continue with current antibiotic therapy. A new dialysis catheter will be placed only after watching his blood cultures from today for 24 hours or more. 3. Abdominal pain and ascites. He had a paracentesis and cultures are still pending on that. We will continue with broad-spectrum antibiotics. 4. Altered mentation most likely related to sepsis and likely to improve as his infection clears. 5. Hypertension. Blood pressure seems very well controlled on current antihypertensive meds. I have discussed with the patient's significant other and explained his illness in detail. He has recurrent bacteremia related to hemodialysis catheter and he has been refusing to get an AV fistula. I have emphasized about the need for AV fistula which would minimize his risk for bacteremias. Patient has to continue dialysis, so at this point we will get a temporary catheter placed, but in the long-term an AV fistula will be needed. I have answered all her questions.
[2019-09-04 16:00] VITALS: BP 114/67
[2019-09-04] MEDS: NAFCILLIN SOD 2 GM in D5W MINI-BAG PLUS 50 ML IV SCH ×2 (18:14→20:36)
--- NOTE | 2019-09-04 18:21 | IPNPDOC ---
Text Note Date of Service The patient was seen on 09/04/19. NOTE HISTORY OF PRESENT ILLNESS: Patient is a 49 year old male, history of ESRD 2/2 to HTN on HD, s/p failed renal transplant in 2014, post-transplant erythrocytosis, HLD, pulmonary HTN, HFpEF, chronic back pain and depression/anxiety, who originally presented to the ED on 09/02/2019 from hemodialysis with a 3 day history of subjective fevers in association with nausea and vomiting. Ultimately admitted for fever, encephalopathy, tachycardia and leukocytosis. Blood cultures are positive for gram-positive cocci, likely Staphylococcus aureus with suspected line origin. Patient's permacath was removed on 09/03/2019 following dialysis. Patient continues to endorse nonspecific pain patterns. Specifically, patient reports increased pain in his sacral region. He has been more alert and was mentation continues to remain altered. Did eat lunch this afternoon showed signals further improvement in his mental status. He has an increasing number of tender skin lesions suspected to be related to septic emboli. Patient underwent transthoracic echocardiogram earlier today and official read remains pending. Antibiotic therapy transitioned from broad-spectrum to nafcillin. PHYSICAL EXAMINATION: VITAL SIGNS: Please see below. GENERAL APPEARANCE: Patient is interviewed and examined in the ICU. Patient's girlfriend was at bedside. He continues to be restless and fatigue. He is, however, easily arousable and able to answer questions regarding pain and discomfort. HEENT: Normocephalic, atraumatic, sclera nonicteric, pupils equal round and reactive to light CHEST: Healing incision in patient's right upper anterior chest midclavicular line following port removal. No surrounding erythema or purulent drainage. RESPIRATORY: Decreased respiratory effort throughout, no wheezing rales or rhonchi appreciated. CARDIOVASCULAR: Regular rate and rhythm, normal S1 and S2, no murmurs auscultated ABDOMEN: Protuberant, diffuse tenderness. No guarding noted. No hepatosplenomegaly and no palpable masses. EXTREMITIES: Significant bruising noted on patient's right elbow and upper arm. Tender to palpation. Distal pulses, sensation and range of motion fully intact. Calves of equal diameter. Trace edema noted in both lower extremities, nontender bilaterally. Number of suspected septic emboli noted. Tender lesions located on patient's right first toe, right hand, left flank and left anterior odonnell. Question of splinter hemorrhages on patient's right ring finger. NEUROLOGICAL: Patient is noted to be restless and fatigued. He remains easily arousable and cooperative with his care. LABORATORY DATA: Please see below. ASSESSMENT/PLAN: #Sepsis, secondary to MSSA -Most likely port etiology. Ascitic Gram stain was negative for any bacterial growth with few red and many white cells. Patient's permacath was removed on 09/03/2019 following dialysis. Continue with daily blood cultures until negative is obtained. -Patient transitioned from vancomycin and meropenem to nafcillin given positive cultures for MSSA. -Patient does carry a history of cephalosporin allergy though patient reports only hives and has taken penicillin before without any adverse events. -Plan to monitor closely for any reaction. #Suspected Endocarditis -TTE performed this morning, pending cardiovascular technologist read -Physical examination does demonstrate numerous skin lesions suspicious for septic emboli vs. vasculitis. -Patient currently being treated with nafcillin for positive MSSA cultures. #Encephalopathy -Given patient's continued altered mentation, head CT was ordered. Nonspecific, focal thalamic hypodensities noted of indeterminate clinical significance -Per nursing staff, patient's mentation has improved over the last 24 hours. Though, he continues to be on oriented intermittently to place and time. -Currently suspect patient was suffering from an endocarditis, should consider possible septic emboli to the brain, which can be ruled out with a brain MRI. #Sacral pain -Patient explicitly able to describe pain in the sacral region. Physical examination does demonstrate a stage I decubitus ulcer. -Given the increased likelihood of endocarditis, lumbar MRI should be ordered in order to rule out possible septic epidural abscess. #Question of ROSA/cirrhosis with ascites No obvious liver pathology noted on patient's recent CT imaging. Physical exam significant for gynecomastia and palmar erythema. Patient also demonstrated chronic thrombocytopenia with hypoalbuminemia. Hepatitis serology indicates hepatitis B vaccination without active hep C infection. Liver ultrasound significant for cholecystectomy and moderate free intraperitoneal fluid. Fibrospec for ROSA ordered. VS,Fishbone, I+O VS, Fishbone, I+O Laboratory Tests 09/04/19 04:58 Vital Signs Date Time Temp Pulse Resp B/P (MAP) Pulse Ox O2 Delivery O2 Flow Rate FiO2 09/04/19 16:00 98.6 81 15 114/67 (83) 97 Room Air 09/03/19 21:07 2.0 1/15/20 16:00 95 I&O- Last 24 Hours up to 6 AM 09/04/19 06:00 Intake Total 600 ml Output Total 2000 ml Balance -1400 ml GME ATTESTATION GME ATTESTATION My faculty preceptor for this patient encounter was physically present during the encounter and was fully available. All aspects of the patient interview, examination, medical decision making process, and medical care plan development were reviewed and approved by the faculty preceptor. The faculty preceptor is aware and concurs with the plan as stated in the body of this note and will attest to such by his/her cosignature. DEBORAH CAIN DO Sep 04, 2019 18:21
[2019-09-04 20:00] VITALS: BP 129/65
--- NOTE | 2019-09-04 20:21 | ECHO ---
DATE OF PROCEDURE: 09/03/2019 Date of : 1970 Age: 49 Gender: Male. Height: 71 inches Weight: 231 pounds Body surface area: 2.24 meters squared Inpatient: Intensive care unit (ICU), room 3209 REFERRING PHYSICIAN: Dr. Erick Wilkerson INDICATION: Cardiomegaly. MEASUREMENTS: 2D Measurements: RV: 5.3 cm LV: 5.9 cm Septum: 1.5 cm Posterior wall: 1.4 cm Aortic root: 3.2 cm LA: 4.5 cm LVEF: 40% Doppler Measurements: AV: 1.99 meters per second LVOT: 0.78 meters per second LVOT diameter: 2.0 cm Mean AV systolic gradient: 12 mmHg Dimensionless index: 0.26 MV-E: 67, A: 50, EA ratio: 1.3 Early mitral deceleration time: 218 milliseconds E prime: 4 (medial), E prime: 5.3 (lateral) Average E/E prime ratio: 14.4/PCWP: 20 mmHg PV: 0.7 meters per second Pulmonary artery acceleration time: 99 milliseconds RVSP: 41 mmHg IVC: 2.2 cm COMMENTS: Normal sinus rhythm without intraventricular conduction disturbance. M-mode and two-dimensional echocardiography was performed with pulsed, continuous wave, color flow and tissue Doppler studies. Mildly dilated and moderately hypertrophied left ventricle with somewhat flattened septum and paradoxical septal motion suspected to be related to right ventricular pressure overload. The anterior, lateral and inferior painter move normally. At least moderate impairment of global resting systolic function. Moderately dilated left atrium with grade 2 left ventricular (LV) diastolic dysfunction and elevated estimated mean left atrial pressure. Moderately dilated right heart chambers with hypokinesis of the right ventricular free wall and at least moderate pulmonary hypertension (we suspect actually higher than we estimated). Mildly dilated inferior vena cava with absent respiratory collapse in keeping with an elevated central venous pressure/right heart failure. Three equal size aortic cusps that were moderately thickened with reduced cusp separation and at least mild calcific aortic stenosis. There was an obvious vegetation on the left coronary cusp that measured 2 cm x 1.2 cm that prolapsed back and forth and into the left ventricular outflow tract. Associated moderate aortic insufficiency. Slightly thickened mitral valvular apparatus with reduced leaflet excursion in keeping with "low flow." Very mild mitral insufficiency. Normal appearing tricuspid valve with moderate tricuspid insufficiency. Very small circumferential pericardial effusion. No other intracardiac mass. Comparing today's study with that of July 24, 2019, there was no comment on the observed vegetation on the aortic valve and at that time, there was a gradient but reportedly no insufficiency. I am unaware of the patient's comorbidities, but the observed findings would certainly indicate a very poor prognosis with continued medical therapy. Transfer to a center capable of aortic valve replacement would be advised.
[2019-09-05] VITALS: BP 110/56
[2019-09-05 00:07] LABS: ANA (HEP2) Negative (.); LIVER-KIDNEY MICROSOMAL ABY <20.1 Units (0.0-20.0)
[2019-09-05] MEDS: NAFCILLIN SOD 2 GM in D5W MINI-BAG PLUS 50 ML IV SCH ×3 (02:18→09:54)
[2019-09-05 04:00] VITALS: BP 115/57
[2019-09-05 04:47] LABS: HEMATOCRIT 28.4 % (42.0-52.0); HEMOGLOBIN 9.3 g/dl (13.5-17.5); MEAN CORPUSCULAR HEMOGLOBIN 30.3 pg (27.0-33.0); MEAN CORPUSCULAR HGB CONC 32.7 g/dl (32.0-36.5); MEAN CORPUSCULAR VOLUME 92.5 fl (80.0-96.0); RED BLOOD COUNT 3.07 10^6/uL (4.30-6.10); WHITE BLOOD COUNT 19.7 10^3/uL (4.0-10.0)
[2019-09-05 04:49] LABS: PLATELET COUNT, AUTOMATED 59 10^3/uL (150-450)
[2019-09-05 05:06] LABS: ERYTHROCYTE SEDIMENTATION RATE 20 mm/hr (0-15)
[2019-09-05 06:16] LABS: BILIRUBIN,TOTAL 5.6 MG/DL (0.2-1.0); C REACTIVE PROTEIN QUANTITATIV 12.7 MG/DL (0.00-0.30); CALCIUM LEVEL 8.7 MG/DL (8.5-10.1); CREATININE FOR GFR 8.3 MG/DL (0.70-1.30); GLOMERULAR FILTRATION RATE 7.4 (>60); POTASSIUM SERUM 5.3 MEQ/L (3.5-5.1); TOTAL PROTEIN 5.6 GM/DL (6.4-8.2)
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
[2019-09-05 08:00] VITALS: BP 128/65
[2019-09-05] MEDS: **hydrALAZINE** 50 MG TAB PO SCH (09:00)
[2019-09-05] MEDS: cloNIDine 0.2 MG TAB PO SCH (09:00)
[2019-09-05 09:53] VITALS: BP 128/65
[2019-09-05] MEDS: LABETALOL 200 MG TAB PO SCH (09:53)
[2019-09-05] MEDS: ISOSORBIDE MON. (IMDUR) 30 MG XR TAB PO SCH (09:53)
[2019-09-05] MEDS: DOCUSATE SODIUM 100 MG CAP PO SCH (09:54)
[2019-09-05] MEDS ORDERED: PATIROMER SORBITEX CALCIUM 8.4 GM POWDER PACKET (VELTASSA) PO ONE (10:00)
[2019-09-05 12:00] VITALS: BP 115/56
[2019-09-05 14:00] VITALS: BP 119/62
--- NOTE | 2019-09-05 16:08 | IPN ---
DATE OF VISIT: 09/05/2019 Mr. Rosne is seen this morning on his bedside. His significant other is present in the room. The patient was noticed to have a 2 cm aortic valve vegetation on his echocardiogram yesterday. He remains sleepy but is arousable and answers simple questions by saying yes or no. He has been afebrile. Patient is being followed by Infectious Disease and has been switched to nafcillin now due to MSSA bacteremia with infective endocarditis of aortic valve. His dialysis catheter has already been removed since Sunday after dialysis. The patient has slightly improved mentation and his significant other reports that he did eat his breakfast this morning. On physical exam, temperature 98.8 degrees Fahrenheit, heart rate 82 per minute and respiratory rate 20 per minute. Blood pressure 128/65 mmHg and oxygen saturation 96% on room air. His head is atraumatic. Neck supple and jugular venous distention (JVD) is not abnormally elevated. Left upper chest PermaCath has been removed. Heart sounds are regular with systolic murmur grade 2/6. There is no pericardial friction rub. Lungs have slightly diminished breath sounds but no wheezing or rales. Abdomen soft with moderate tenderness and bowel sounds are present. Ascites is still noticed. Extremities without any cyanosis or clubbing. Ecchymosis on his right upper extremity and small areas of ulcerations are noted on his extremities. Neurologically, he is less confused and able to answer questions. However, he is lying with his eyes closed most of the time. LAB DATA: His last blood cultures from 09/03/2019 were positive for Staphylococcus aureus and most recent blood cultures drawn on 09/04/2019 has been negative so far. He had another blood cultures drawn today. Patient remains on nafcillin now and vancomycin has been stopped. His last dose of vancomycin was after dialysis on Sunday and last vancomycin level was 25.8 yesterday morning. In any event, the patient is noticed to have a 2 cm x 1.2 cm aortic valve vegetation and surgical evaluation has been recommended. The patient is going to be transferred to [facility] for possible aortic valve replacement. PROBLEMS: 1. End-stage renal disease. Patient was dialyzed on Sunday and we will plan to place a temporary catheter for dialysis either later this afternoon or tomorrow morning. We been trying to keep him without a central line in order to clear the bacteremia before putting a new catheter. At this point, there is no emergent need for dialysis today. 2. Hyperkalemia. He has mild hyperkalemia and we will give him one dose of Veltassa 16.8 grams today. We will try to postpone his dialysis til tomorrow if at all possible. 3. Altered mentation most likely related to endocarditis and possible septic emboli. His mentation is improved today and he did eat and able to answer simple questions. DISPOSITION: Patient is likely going to be transferred to [place] and waiting for a bed.
--- NOTE | 2019-09-05 16:43 | IPN ---
DATE: 09/05/2019 INFECTIOUS DISEASE PROGRESS NOTE Helio was seen in the intensive care unit (ICU) today. The case was discussed with Dr. Wilkerson and Dr. Tucker. The patient is being transferred to [facility] for acute endocarditis of the aortic valve with a vegetation of 2 cm. The patient continues to be lethargic. He falls asleep when we are talking to him, but when he wakes up, he does respond appropriately. He understands he is being transferred for endocarditis. He states he hurts all over, especially his right arm, back. He has no nausea, vomiting, diarrhea, abdominal pain. No chest pain or shortness of breath. He has been afebrile today. Maximum temperature (T max) yesterday was at 8:00 a.m. of 100. Heart: Normal S1, S2 with a faint systolic ejection murmur at the left upper sternal border, pulse 84, regular, respiratory rate 20, blood pressure 128/65, oxygen saturation (O2 sat) 96% on room air. Lungs: Clear. No wheezes, rales or rhonchi. Abdomen: Soft, distended, nontender, no hepatosplenomegaly. Extremities: Right foot has purplish discoloration of the big toe, mostly around the medial border of the toe. Fourth toe has a new purplish discoloration of the entire toe. There is some erythema of the foot with tender to touch. Left leg below the knee has a 1 cm necrotic lesion. Left flank has an indurated, erythematous area which is tender to touch, and he has splinter hemorrhage of the right ring finger. Neurologic Exam: Moves all extremities except for the right shoulder; he has difficulty elevating it due to pain but passively he has a normal range of motion of the right shoulder. Oropharynx is clear with no lesions. Pupils equal and reactive. No conjunctival petechiae. Icteric sclerae. LABORATORY DATA: White count is 19.7, increased from 16.7 yesterday, hemoglobin 9.3, hematocrit 28.4, platelets 59. ESR 20, increased from 11, sodium 135, potassium 5.3, chloride 100, bicarbonate 23, BUN 75, creatinine 8.3, glucose 111, calcium 8.7, bilirubin is 5.6. CRP 12.7, total protein 5.6, albumin 2. Blood cultures were positive for methicillin-sensitive Staphylococcus aureus (MSSA) on 09/01/2019 and 09/03/2019. Line was removed after second set of blood cultures on 09/03/2019 were drawn and blood cultures from 09/04/2019 are no growth after 24 hours. Blood culture from 09/05/2019 is pending. IMAGING: Head CT shows limited study, motion degraded with incomplete imaging of the brain due to motion artifact. Small focal hypodensity in the right anterior thalamus, which is nonspecific. No prior for comparison. Repeat study recommended. Liver ultrasound done on 09/03/2019 shows a previous cholecystectomy with moderate amount of free intraperitoneal fluid present. Chest x-ray 09/03/2019 shows cardiomegaly, tunneled catheter of left internal jugular (IJ) with the tip in the superior vena cava (SVC), right hemidiaphragm elevated. Lungs were clear. Echocardiogram, transthoracic, shows an obvious vegetation of the left coronary cusp measuring 2 cm x 1.2 cm that prolapsed back and forth in the left ventricular outflow tract associated with moderate insufficiency. Very mild mitral insufficiency, moderate tricuspid insufficiency, and a small circumferential pericardial effusion. IMPRESSION: Acute endocarditis of the aortic valve with culture positive for MSSA on 09/01/2019 and 09/03/2019. Hemodialysis catheter was removed on 09/03/2019 and cultures from 09/04/2019 are negative. The patient has multiple septic emboli - toes, fingers, flank. I suspect he also has septic emboli to the brain. He is quite encephalopathic. We have not been able to obtain an MRI due to his agitation and difficulty laying down, but that should be obtained hopefully soon. Ascites with peritoneal fluid, consistent with infection. Total white count was 2639 with 78% neutrophils, but final culture was negative aerobically and anaerobically that was done 24 hours after antibiotics were started. Abnormal mental status with encephalopathy. Most likely septic emboli to the brain. End-stage renal disease. Patient's dialysis catheter was removed on . Dialysis is being held at this point. He does not have a dialysis line, and Dr. Tucker did not feel he needed dialysis today and could be held until tomorrow; a temporary catheter could be placed tomorrow for dialysis. Right shoulder pain with limited range of motion. X-ray was negative. Consider obtaining MRI to rule out a septic joint; although the shoulder is not swollen or red, he has limited range of motion, but I suspect it is probably from the fall and frozen shoulder. PLAN: Transfer to [facility] due to large vegetation with acute endocarditis, Staphylococcus aureus with multiple septic emboli. History of cephalosporin allergy. The patient has tolerated nafcillin 2 grams IV every 4 hours without any side effect. Continue current treatment. The patient will need 6 weeks of IV antibiotic from negative culture.
--- NOTE | 2019-09-05 19:55 | DSES ---
DATE OF ADMISSION: 09/02/2019 DATE OF DISCHARGE: 09/05/2019 Patient admitted with signs and symptoms of sepsis, history of hypertension, end-stage renal disease status post transplant in 2014, has not been on immunosuppression since at least January 2019. He has had fevers for three days along with nausea and vomiting. Zofran helped a little bit with symptoms. He had hemodialysis and was sent directly from hemodialysis here because of concern for sepsis. His production statistical clerk is Dr. Tucker. He was admitted in July for hypertensive urgency and an echocardiogram on 07/24/2020 showed an ejection fraction of 40-45%, dilated hypokinetic, some pericardial effusion, but no valve vegetations were noted at that time. On admission this time, he had elevated white blood cell count at 18,30, 19.5 the following day, yuliya to a peak of 27,000 on 09/03/2019. Blood cultures on 09/01/2019 times two and 09/03/2019 times two were both positive for Staphylococcus aureus, methicillin-sensitive. Cultures collected on 09/04/2019 was negative so far; 09/05/2019 result pending. Echocardiogram demonstrated aortic valve vegetation 2 cm x 1.2 cm with new aortic valve insufficiency. Valve vegetation of this size is associated with a poor outcome with a medical therapy alone. He is also experiencing septic emboli visible on his hands and feet. Mental status had been troubled by evidence of encephalopathy, which was interpreted to be sepsis and perhaps acidosis, but septic emboli cannot be ruled out. He had a CT of his brain done on 09/04/2019, which showed only one small focus of hypodensity in the right anterior thalamus, which was nonspecific. The study was limited by motion artifact. MRI was not viewed to be feasible due to patient's inability to cooperate. He had evidence of abdominal pain on admission and ascites was demonstrated and he had a paracentesis which showed evidence suggestive of an infection, but by the time the paracentesis could be organized, he had already received antibiotics. He had 2639 white cells, which were 78% polymorphonuclear, consistent with a bacterial infection. The day after admission and starting antibiotics, he had pain abdominal pain that resolved. He has no known liver disease. The ascites was thought to be due chronic hepatic congestion from chronic right heart failure. ARIANNA was negative. Liver, kidney and antimicrosomal antibodies were negative. Hepatitis B surface antigen was negative. Hepatitis B surface antibody was positive, consistent with vaccine recipient status. Influenza screen was negative. Initially treated with vancomycin, imipenem added and then switched to nafcillin once his cultures were clearly identifying methicillin-sensitive Staphylococcus. Upon receipt of the bad news of the echocardiogram, transfer center at [facility] was contacted and patient was accepted in transfer for consideration of cardiac surgery. He was discharged without replacement of his PermaCath for dialysis, since infectious disease specialist, Dr. Marsh, was not convinced that a sufficient time and labs to confirm absence of bacteremia, and his production statistical clerk did not believe that he needed dialysis on the final day. He will need a new PermaCath for dialysis. PROGNOSIS: Guarded, considering the severity of his underlying disease state. Transfer via ambulance to [facility]. Dr. Jordan accepting as hospitalist on behalf with plan referral and consultation with cardiac surgery. DISCHARGE DIAGNOSES: 1. Staphylococcus aureus, methicillin-sensitive bacteremia. 2. Acute endocarditis, aortic valve. 3. Metabolic acidosis encephalopathy. 4. Septic emboli visible on multiple skin locations. 5. Chronic kidney disease, dialysis dependent. 6. Metabolic encephalopathy, cannot rule out possible brain septic emboli. 7. Thrombocytopenia, nabeel of 37,000 on the day before discharge; 59,000 on the day of discharge. 8. Anemia associated with chronic kidney disease.
== END 2019-09-05 14:12 | disposition short-term general hospital (02) | DRG 871 ==
LOC: M ED 22:07 → M ED INP 09-02 02:10 → ENRESERVDT 09-02 03:37 → ENRESERVTM 09-02 03:37 → M ICU 09-02 04:42
PROVIDERS: ADMIT Family Medicine; ATTEND Family Medicine
PROC: 0W9G3ZX Drainage of Peritoneal Cavity, Percutaneous Approach, Diagnostic (ICD-10-PCS; principal; 2019-09-02 14:17)
PROC: 5A1D70Z Performance of Urinary Filtration, Intermittent, Less than 6 Hours Per Day (ICD-10-PCS; 2019-09-03)
PROC: 05PY33Z Removal of Infusion Device from Upper Vein, Percutaneous Approach (ICD-10-PCS; 2019-09-03)
DX: A41.9 Sepsis, unspecified organism (principal); N18.6 End stage renal disease; I33.0 Acute and subacute infective endocarditis; T82.7XXA Infection and inflammatory reaction due to other cardiac and vascular devices, implants and grafts, initial encounter; I13.2 Hypertensive heart and chronic kidney disease with heart failure and with stage 5 chronic kidney disease, or end stage renal disease; T86.12 Kidney transplant failure; E87.2 Acidosis; I31.3 Pericardial effusion (noninflammatory); I50.22 Chronic systolic (congestive) heart failure; N25.81 Secondary hyperparathyroidism of renal origin; G93.40 Encephalopathy, unspecified; I76 Septic arterial embolism; I50.812 Chronic right heart failure; E78.00 Pure hypercholesterolemia, unspecified; F41.9 Anxiety disorder, unspecified; I27.20 Pulmonary hypertension, unspecified; E87.5 Hyperkalemia; L89.151 Pressure ulcer of sacral region, stage 1; M54.9 Dorsalgia, unspecified; Z99.2 Dependence on renal dialysis; D69.6 Thrombocytopenia, unspecified; Z88.1 Allergy status to other antibiotic agents; Z88.6 Allergy status to analgesic agent; D63.1 Anemia in chronic kidney disease; Z88.8 Allergy status to other drugs, medicaments and biological substances; Y83.1 Surgical operation with implant of artificial internal device as the cause of abnormal reaction of the patient, or of later complication, without mention of misadventure at the time of the procedure